=== PATIENT | female | born 1950 | race Two or more races ===

== ENCOUNTER 2025-08-15 06:25 | Inpatient (IN) | payer OTHER, MEDICAID ==
[~2025-08-15] VITALS: Ht 160 cm; Wt 64.5 kg
[2025-08-15] VITALS (59 sets, daily range): BP systolic 89–160; BP diastolic 48–89; PULSE 45–106; RESP 18–31; TEMP 93.6–98.8; O2SAT 98–100
--- NOTE | 2025-08-15 06:35 | ECG ---
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
--- NOTE | 2025-08-15 06:38 | ED.PDOC ---
CPR-HPI HPI Comments 75 year old female PMHx Dementia presents to the ED with a chief compliant of cardiac arrest. Per EMS, patient's family stated patient was last seen well around 00:00. Prior to EMS arrival, CPR began 10 minutes prior to their arrival, patient was asystole, CPR continued in route to ED, BG was 140, 1 epi was given, ROSC prior to ED arrival. Upon ED arrival, BG was 207, BP 154/62, NSR 70 bpm, patient was intubated with 8.0 ett 22 cm @lips. Chief Complaint: CPR Time Seen by MD: 06:19 Reviewed Notes: Nurses Notes, Medications, Allergies Allergies: Coded Allergies: NO KNOWN ALLERGIES (Unverified , 08/15/25) Information Source: Emergency Med Personnel Mode of Arrival: EMS Timing: Minutes Comments 10 minutes Onset: At rest Inital rhythm: Asystole Treatment: CPR, Epinephrine Past Medical History PAST MEDICAL HISTORY: Dementia Surgical History: Denies all surgeries HAND TIER History: No Pertinent HAND TIER History Family History Family History: Unknown Social History Smoker: Unknown Alcohol: Unknown Drugs: Unknown Lives In: Home Unable to Obtain due to: Medical Urgency Physical Exam General Appearance: Severe Distress HEENT: Pale Conjuntivae (L), Pale Conjuntivae (R), Pharynx Normal, TMs Normal Neck: Full Range of Motion, Non-Tender, Normal, Normal Inspection Respiratory: Chest Non-Tender, Decreased Breath Sounds (On the left side), Respiratory Distress Cardiovascular: No Edema, No JVD, No Murmur, No Gallop, Normal Peripheral Pulses, Regular Rate/Rhythm Breast Exam: Deferred Gastrointestinal: No Organomegaly, Non Tender, No Pulsatile Mass, Normal Bowel Sounds, Soft Genitalia: Deferred Pelvic: Deferred Rectal: Deferred Extremities: No calf tenderness, Normal capillary refill, No pedal edema Musculoskeletal : Apperance: Normal Neurologic: marketing technologist II-XII nml as Tested, No Sensory Deficits, Other (GCS of three) Cerebellar Function: Normal Reflexes: Normal Skin: Dry, Pallor, Warm Lymphatic: No Adenopathy EKG EKG #1: Pulse Rate (adult): 102 Bailey: LAD Comments low voltage EKG #2: Pulse Rate (adult): 77 Bailey: LAD Cardiac Rhythm: NSR Was a procedure done? Was a procedure done?: Yes Sedation Sedation?: No Central Line Recorder of insertion practice: Veterinary Manager Occupation of front office developer: Attending Physician Indication: Inability to obtain IV Room prepared for procedure: Yes Veterinary Manager performed hand hygien: Yes Maximal sterile barrier precau: Mask/Eye shield, Sterile gown, Cap, Sterlie gloves, Large sterlie drape Skin Preparation: Chlorhexidine gluconate, Providine iodine, Alcohol Skin preparation completely dr: Yes Insertion site: Right, Internal jugular Central line catheter type: [id number] dialysis Number of lumens: 3 Central line exchanged over a: Yes Antiseptic ointment applied to: Yes Post Assessment: Chest X-Ray, Proper placement Informed consent obtained: Yes Risks/benefits/alt described: Yes Chest Tube Indication: Pneumothorax Procedure: Sterile preparation, Chest Tube Size (24) Site: L 3rd intercostal space Drainage: Air Informed consent obtained: Yes Risks/benefits/alt described: Yes Intubation Indication: Respiratory Insufficiency Prep: Preoxygenation Medicated with: Other (epinephrine) Intubation Approach: Orotracheal (8.0 ) Intubation size: cm (22 2 lips) Informed consent obtained: Yes Risks/benefits/alt described: Yes Differential Dx CPR Differential Diagnosis: Cardiopulmonary arrest, Cardiogenic shock, Myocardial Infarction, Respiratory Failure X-Ray, Labs, Meds, VS Vital Signs Date Time Temp Pulse Resp B/P (MAP) Pulse Ox O2 Delivery O2 Flow Rate FiO2 08/15/25 09:10 74 24 127/58 (81) 98 30 08/15/25 08:46 62 24 137/57 (83) 100 08/15/25 08:42 86/49 08/15/25 08:36 58/30 08/15/25 08:30 70 24 97/53 (68) 08/15/25 08:29 98/53 08/15/25 08:24 94 24 100 Mechanical Ventilator+ 100 100 08/15/25 08:15 78 24 115/65 (82) 08/15/25 08:00 80 8 107/60 (76) 08/15/25 08:00 80 08/15/25 07:26 77 08/15/25 07:23 77 08/15/25 07:00 79 24 92/46 (61) 100 08/15/25 06:57 113/56 08/15/25 06:50 80 23 112/55 (74) 100 08/15/25 06:45 94.8 100 31 154/62 100 60.0 100 94.8 08/15/25 06:38 102 08/15/25 06:37 100 31 154/62 (92) 100 100 08/15/25 06:37 94 100 Mechanical Ventilator+ 100 100 08/15/25 06:37 94.8 95 9 143/73 (96) 100 94.8 08/15/25 06:30 94.8 102 11 154/62 (92) 100 94.8 08/15/25 06:29 94.8 80 6 118/52 98 94.8 08/15/25 06:28 102 08/15/25 06:25 94.8 94 12 176/74 (108) 100 94.8 Lab Test 08/15/25 09:15 08/15/25 08:55 08/15/25 08:35 08/15/25 06:44 Range/Units Urine Color Yellow Yellow Urine Clarity Turbid H Clear Urine pH 6.0 5.0-9.0 Urine Specific [place] 1.014 1.001-1.035 Urine Protein 3+ H Negative Urine Ketones Negative Negative Urine Blood 3+ H Negative /uL Urine Nitrite Negative Negative Urine Bilirubin Negative Negative Urine Urobilinogen Normal Negative mg/dL Urine Leukocyte Esterase Trace Negative /uL Urine RBC 105 0 - 4 /hpf Urine Microscopic WBC 43 H 0-5 /HPF Urine Squamous Epithelial Cells Few <5 /hpf Urine Bacteria Few H None Seen /hpf Urine Glucose 1+ H Normal mg/dL Blood Gas Specimen Type Arterial Blood Gas Sample Site Right radial Blood Gas Patient Temperature 37.0 Arterial Blood Date Drawn [id number] Arterial Blood pH 7.295 L 7.350-7.450 Arterial Blood Partial Pressure CO2 28.1 L 32.0-45.0 mmHg Arterial Blood Partial Pressure O2 > 533.6 *H 83.0-108.0 mmHg Arterial Blood HCO3 13.4 L 21.0-28.0 mmol/L Arterial Blood Oxygen Saturation 100.0 H 94.0-98.0 % Arterial Blood Base Excess -11.7 L -2.0-3.0 mmol/L Arterial Blood Oxyhemoglobin 99.1 H 94.0-98.0 % Arterial Blood Carboxyhemoglobin 0.3 L 0.5-1.5 % Arterial Blood Methemoglobin 0.6 0.0-1.5 % Rafael Test Modified Blood Gas Total Hemoglobin 11.30 L 12.0-16.0 g/dL Blood Gas Set Respiration Rate 24.0 Blood Gas Modality Vent - ac FiO2 % 100.0 Blood Gas Tidal Volume 400.0 Blood Gas PEEP or CPAP 5.0 Blood Gas Critical Value Read Back yes Blood Gas Notified Whom Blood Gas Notified Time [id number] Blood Gas Notified By log raft worker ozzie Lactic Acid Level 7.1 *H 9.7 *H 0.4-2.0 mmol/L Troponin I High Sensitivity 44 *H 15 </=34 ng/L White Blood Count 11.4 H 4.4-10.8 10^3/uL Red Blood Count 3.30 L 4.0-5.20 10^6/uL Hemoglobin 10.6 L 12.2-16.2 g/dL Hematocrit 32.4 L 36.0-46.0 % Mean Corpuscular Volume 98.3 80.0-100.0 fL Mean Corpuscular Hemoglobin 32.2 H 28.0-32.0 pg Mean Corpuscular Hemoglobin Concent 32.7 32.0-36.0 g/dL Red Cell Distribution Width 13.1 11.8-14.3 % Platelet Count 304 140-450 10^3/uL Mean Platelet Volume 7.5 6.9-10.8 fL Neutrophils (%) (Auto) 67.7 37.0-80.0 % Lymphocytes (%) (Auto) 29.9 10.0-50.0 % Monocytes (%) (Auto) 2.2 0.0-12.0 % Eosinophils (%) (Auto) 0.0 0.0-7.0 % Basophils (%) (Auto) 0.2 0.0-2.0 % Neutrophils # (Auto) 7.7 1.6-8.6 10 ^3/uL Lymphocytes # (Auto) 3.4 0.4-5.4 10 ^3/uL Monocytes # (Auto) 0.3 0-1.3 10 ^3/uL Eosinophils # (Auto) 0 0-0.8 10 ^3/uL Basophils # (Auto) 0 0-0.2 10 ^3/uL Nucleated Red Blood Cells 0.1 % Prothrombin Time 11.7 9.3-11.8 sec Prothrombin Time INR 1.12 0.9-1.15 Activated Partial Thromboplast Time 29.9 24.5-34.5 SEC Sodium Level 139 136-145 mmol/L Potassium Level 4.2 3.5-5.1 mmol/L Chloride Level 105 98-107 mmol/L Carbon Dioxide Level 13 L 20-31 mmol/L Anion Gap 21 H 5-15 Blood Urea Nitrogen 17 9-23 mg/dL Creatinine 1.15 H 0.550-1.02 mg/dL Glomerular Filtration Rate Calc 49 >90 mL/min BUN/Creatinine Ratio 14.8 10.0-20.0 Serum Glucose 257 H 74-106 mg/dL Calcium Level 8.7 8.7-10.4 mg/dL Current Medications Medications (Trade) Dose Ordered Sig/Kenyon Route Start Time Stop Time Status Last Admin Norepinephrine Bitartrate 250 ml @ 3.75 mls/hr Q24H IV 08/15/25 06:30 08/15/25 08:29 Midazolam HCl 50 ml @ 1 mls/hr Q24H IV 08/15/25 06:45 08/15/25 06:57 Sodium Chloride 1,000 ml @ 1,000 mls/hr Q1H ONCE IV 08/15/25 08:45 08/15/25 09:44 DC 08/15/25 08:45 PROCEDURE(s): CXRP - CHEST PORTABLE Bones: Multiple left rib fractures noted. IMPRESSION: 1. Left pneumothorax, approximately 35%. 2. Endotracheal tube terminates 1.1 cm above the arin. Retraction by 1-2 cm is recommended. 3. Multiple left rib fractures. 4. Pulmonary edema noted. The endotracheal tube was pulled back. The repeat chest x-ray showed the chest tube in place with some resolve of the pneumothorax For sedation, the patient was given Versed IV piggyback The patient became somewhat hypotensive following the Versed so the patient was started on norepinephrine. The patient was bolused with normal saline at 1 L bolus. The 1st lactic acid level came back at 9.7. We are hydrating the patient and the 2nd lactic acid is still elevated at 7.1 The patient is troponin level went from 15-44. We feel that the troponin level could be secondary to the CPR The CBC shows anemia with a hemoglobin of 10.6 and hematocrit of 32.4 We feel that the rib fractures are also secondary to the CPR that was performed The chemistry panel is within normal limits. We have allowed the family members to be at bedside and we did explain to them the patient's condition. A Winters catheter was placed. An NG-tube was also placed which shows good placement. The chest x-ray that was done shows a central line in place on the right side We has been following the patient's ABGs. At this time, the patient will be admitted to the ICU Critical Care involved bedside management as well as interpretation of labs and images The patient is a [place] patient and we did get authorization for admission The authorization #[id number] Images Reviewed?: Images reviewed and evaluated by me Time of 1ST Reevaluation: 06:49 Reevaluation 1ST: Unchanged Patient Education/Counseling: Other Family Education/Counseling: Diagnosis, Treatment, Prognosis SEPSIS Sepsis Screen Physician Orders Chest Portable (08/15/25 06:26) Winters Catheters (08/15/25 06:26) Ngt/Ogt (08/15/25:26) Mems Integration Engineer (08/15/25:26) Blood Pressure (08/15/25:26) Pulse Oximetry (08/15/25:26) Heplock Iv (08/15/25:26) Blood Culture (08/15/25:26) Norepinephrine 8 Mg/250ml Kit (Levophed) (08/15/25 06:30) Troponin-I Hs (08/15/25 09:26) Midazolam Drip 50 Mg/50ml (Versed Drip 5 (08/15/25 06:45) Rass Sedation Scale Q1HR (08/15/25 06:35) Ventilator Orders (08/15/25 06:35) Abg W/ Co-Ox (08/15/25 07:30) Respiratory Culture W/ Gs (08/15/25 06:35) Head Without Contrast (08/15/25 07:16) Chest Portable (08/15/25 08:16) Sodium Chloride 0.9% (08/15/25 08:45) Vital Signs Date Time Temp Pulse Resp B/P (MAP) Pulse Ox O2 Delivery O2 Flow Rate FiO2 08/15/25 09:10 74 24 127/58 (81) 98 30 08/15/25 08:46 62 24 137/57 (83) 100 10/13/25 08:42 86/49 08/15/25 08:36 58/30 08/15/25 08:30 70 24 97/53 (68) 08/15/25 08:29 98/53 08/15/25 08:24 94 24 100 Mechanical Ventilator+ 100 100 08/15/25 08:15 78 24 115/65 (82) 08/15/25 08:00 80 8 107/60 (76) 08/15/25 08:00 80 08/15/25 07:26 77 08/15/25 07:23 77 08/15/25 07:00 79 24 92/46 (61) 100 08/15/25 06:57 113/56 08/15/25 06:50 80 23 112/55 (74) 100 08/15/25 06:45 94.8 100 31 154/62 100 60.0 100 94.8 08/15/25 06:38 102 08/15/25 06:37 100 31 154/62 (92) 100 100 08/15/25 06:37 94 100 Mechanical Ventilator+ 100 100 08/15/25 06:37 94.8 95 9 143/73 (96) 100 94.8 08/15/25 06:30 94.8 102 11 154/62 (92) 100 94.8 08/15/25 06:29 94.8 80 6 118/52 98 94.8 08/15/25 06:28 102 08/15/25 06:25 94.8 94 12 176/74 (108) 100 94.8 Laboratory Tests Test 08/15/25 06:44 08/15/25 08:35 Lactic Acid Level 9.7 mmol/L (0.4-2.0) *H 7.1 mmol/L (0.4-2.0) *H White Blood Count 11.4 10^3/uL (4.4-10.8) H Medications Medications Dose Ordered Sig/Kenyon Route Start Time Stop Time Status Last Admin Dose Admin Midazolam HCl 50 ml @ 1 mls/hr Q24H IV 08/15/25 06:45 08/15/25 06:57 Norepinephrine Bitartrate 250 ml @ 3.75 mls/hr Q24H IV 08/15/25 06:30 08/15/25 08:29 Sodium Chloride 1,000 ml @ 1,000 mls/hr Q1H ONCE IV 08/15/25 08:45 08/15/25 09:44 DC 08/15/25 08:45 Departure 1 Departure Time of Disposition: 09:50 Impression: Primary Impression: Cardiopulmonary arrest Additional Impressions: Elevated lactic acid level Closed traumatic fracture of ribs of left side with pneumothorax Disposition: ADMITTED INPATIENT Admit to: ICU Condition: Critical Critical Care Note Critical Care Time?: Yes (1 hr-critical care time only) Heart Score Heart Score: Heart Score Response (Comments) Value History N/A 0 EKG N/A 0 Age N/A 0 Risk Factors N/A 0 Troponin N/A 0 Total 0 Stability Stability form required: Yes Unstable for transfer: ICU, CCU, PCU, AMA (Intensive VS monitoring), Low BP (low high or fluctuating BP), ED Physician Assesment (Clinical assesment) I personally scribed for WALESKA MCPHERSON MD ([email or web address]) on 08/15/25 at 06:38. Electronically submitted by Christina Mims ([email or web address]). I personally scribed for WALESKA MCPHERSON MD ([email or web address]) on 08/15/25 at 07:18. Electronically submitted by Christina Mims ([email or web address]). I personally scribed for WALESKA MCPHERSON MD ([email or web address]) on 08/15/25 at 07:26. Electronically submitted by Christina Mims ([email or web address]). I personally scribed for WALESKA MCPHERSON MD ([email or web address]) on 08/15/25 at 08:34. Electronically submitted by Christina Mims ([email or web address]). I personally scribed for WALESKA MCPHERSON MD ([email or web address]) on 08/15/25 at 08:57. Electronically submitted by Christina Mims ([email or web address]). I personally scribed for WALESKA MCPHERSON MD ([email or web address]) on 08/15/25 at 08:58. Electronically submitted by Christina Mims ([email or web address]). WALESKA MCPHERSON MD Aug 15, 2025 06:38
[2025-08-15] MEDS: MIDAZOLAM DRIP 50 mg/50mL 50 ML IV SCH (06:57)
[2025-08-15 07:14] LABS: Hematocrit 32.4 % (36.0-46.0); Hemoglobin 10.6 g/dL (12.2-16.2); Mean Corpuscular Hemoglobin 32.2 pg (28.0-32.0); Mean Corpuscular Volume 98.3 fL (80.0-100.0); Nucleated Red Blood Cells % 0.1 %
--- NOTE | 2025-08-15 07:19 | DVH ---
CHEST RADIOGRAPH Indication: cpr Technique: Single frontal view of the chest was obtained Comparison: None FINDINGS: The patient is rotated which limits evaluation. Lines and Tubes: The endotracheal tube terminates 1.1 cm above the arin. There is a right central venous catheter with its tip terminating in the superior vena cava. Lungs: Hazy bilateral opacities noted. Pleura: No effusion. There is a left pneumothorax, approximately 35%. Cardiomediastinal contours: Unremarkable Bones: Multiple left rib fractures noted. IMPRESSION: 1. Left pneumothorax, approximately 35%. 2. Endotracheal tube terminates 1.1 cm above the arin. Retraction by 1-2 cm is recommended. 3. Multiple left rib fractures. 4. Pulmonary edema noted.
[2025-08-15 07:21] LABS: Chloride 105 mmol/L (98-107); Potassium 4.2 mmol/L (3.5-5.1); Sodium 139 mmol/L (136-145)
[2025-08-15 07:22] LABS: Anion Gap 21 (5-15); Calcium 8.7 mg/dL (8.7-10.4)
--- NOTE | 2025-08-15 07:24 | ECG ---
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
[2025-08-15 07:27] LABS: BUN/Creatinine Ratio 14.8 (10.0-20.0); Blood Urea Nitrogen 17 mg/dL (9-23)
[2025-08-15 07:34] LABS: Carbon Dioxide 13 mmol/L (20-31); Glucose 257 mg/dL (74-106)
[2025-08-15 07:35] LABS: Lactic Acid w/Reflex 9.7 mmol/L (0.4-2.0)
[2025-08-15 07:45] LABS: INR 1.12 (0.9-1.15); Partial Thromboplastin Time 29.9 SEC (24.5-34.5); Prothrombin Time 11.7 sec (9.3-11.8)
[2025-08-15] MEDS: LIDOCAINE 2%HCL (LOCAL ANESTH.) INJ 20ML MDV ONE (07:58)
[2025-08-15] MEDS: NOREPINEPHRINE 8 MG/250ML KIT 250 ML IV SCH (08:29)
[2025-08-15] MEDS: SODIUM CHLORIDE 0.9% 1,000 ML IV ONE (08:45)
--- NOTE | 2025-08-15 08:45 | DVH ---
EXAM: XY CHEST PORTABLE Indication: CHEST TUBE PLACEMENT VERIFICATION Technique: Single frontal view of the chest was obtained Comparison: XY CHEST PORTABLE on DOS: 08/15/25 FINDINGS: Lines and Tubes: Endotracheal tube projects 2 cm above the arin. Enteric tube tip projects over exp ected region stomach. Right central venous catheter projects over superior vena cava. Left chest tube visualized. Lungs: Left pneumothorax has decreased compared to prior exam. No pneumothorax. Cardiomediastinal contours: Unremarkable Bones: Multiple left rib fractures. IMPRESSION: Interval placement of left chest tube with decreased left pneumothorax compared to prior exam.
[2025-08-15 08:59] LABS: Base Excess -11.7 mmol/L (-2.0-3.0)
[2025-08-15 09:31] LABS: Urine Protein, UAD 3+ (Negative)
--- NOTE | 2025-08-15 09:43 | ECG ---
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
--- NOTE | 2025-08-15 09:56 | DVH ---
EXAM: CT HEAD WITHOUT CONTRAST HISTORY: cpr COMPARISON: None TECHNIQUE: Noncontrast axial CT images of the head were performed. Sagittal and coronal reformatted i mages were obtained. This CT exam was performed using 1 or more of the following dose reduction techn iques: Automated exposure control, adjustment of the mA and/or kv according to patient size, or the u se of iterative reconstruction techniques. Radiation Dose: CTDI volume is 50.73 mGy. Dose-length product is 811.62 mGy*cm FINDINGS: There is global brain atrophy with prominence of the ventricular system and sulci. The ventricular s ystem is dilated out of proportion to the size of the sulci. No intracranial hemorrhage, mass, midlin e shift, or evidence of acute large vessel infarct. The paranasal sinuses are clear. The bilateral m astoid air cells and middle ear spaces are clear. No cranial fracture or scalp edema. Endotracheal tu be and right NG tube are partially visualized. IMPRESSION: Global brain atrophy with prominence of the ventricular system out of proportion to the size of the s ulci. This appearance may be due to central brain atrophy or normal pressure hydrocephalus.
[2025-08-15] MEDS ORDERED: MORPHINE SULFATE INJ 2 MG/ml SYRG IV PRN (10:30)
[2025-08-15] MEDS ORDERED: NITROGLYCERIN 0.4 MG SL TAB SL PRN (10:30)
[2025-08-15] MEDS ORDERED: DEXTROSE (50%) 50ML SYRG IV PRN (10:30)
[2025-08-15] MEDS ORDERED: ONDANSETRON HCL 4 MG/2 ML VIAL IV PRN (10:30)
--- NOTE | 2025-08-15 10:30 | DVHHP2 ---
History of Present Illness Reason for Visit: Cardiopulmonary arrest History of Present Illness The patient is a 75-year-old female with past medical history of dementia presented to [facility] ED for evaluation of cardiac arrest. As reported by EMS, patient's family reports that she was last seen well last midnight, became altered so EMS were called. When EMS arrived on the scene, CPR began 10 minutes prior to their arrival, continued CPR EN route to ED, 1 epinephrine was given, ROSC prior to ED arrival. Patient was seen, evaluated and fully intubated. Laboratory data shows WBC 11.4, hemoglobin 10.6, hematocrit 32.4, platelets 304, sodium 139, potassium 4.2, BUN 17, creatinine 1.15, GFR 49, glucose 257, calcium 8.7, troponin 44, lactic acid 9.7 trending down to 7.1, blood pressure 103/64, heart rate 84, temperature 91.4 F, O2 saturation 100% on ventilator. Chest x-ray revealing left pneumothorax, proximally 35%, endotracheal tube terminates 1.1 cm above the arin, retraction by 1-2 cm is recommended; multiple left rib fracture, pulmonary edema noted. A repeat chest x-ray revealing interval placement of left chest tube with decreased left pneumothorax compared to prior exam. Head CT revealing global brain atrophy with prominence of the ventricular system out of proportion to the size of the sulci. Patient was started on IV antibiotic regimen vancomycin, please see medication orders section in the computer. On my assessment, patient remains fully intubated, no diaphoresis, currently on ventilator, no diarrhea, vomiting, fever, chills. Patient was admitted for further evaluation and medical management. Past Medical History Dementia Past Surgical History Unobtainable Family History Reviewed, noncontributory to the management of this case. Past Social History The patient lives at home, no history of smoking, alcohol or illicit drugs abuse on file. Review of Systems Constitutional: Yes: Weakness; No: Fever, Chills, Sweats, Malaise, Other Eyes: No: Pain, Vision change, Conjunctivae inflammation, Eyelid inflammation, Other, Redness ENT: No: Ear pain, Ear discharge, Nose pain, Nose discharge, Nose congestion, Mouth pain, Mouth swelling, Throat pain, Throat swelling, Other Respiratory: Shortness of breath; No: Cough, Dry, SOB with excertion, Wheezing, Hemoptysis, Pleuritic Pain, Sputum, Wheezing, Other Cardiovascular: Other (Cardiac arrest); No: Chest Pain, Palpitations, Orthopnea, Paroxysmal Noc. Dyspnea, Edema, Lt Headedness Gastrointestinal: No: Nausea, Vomiting, Abdominal Pain, Diarrhea, Constipation, Melena, Hematochezia, Other Genitourinary: No Dysuria, No Frequency, No Incontinence, No Hematuria, No Retention, No Other Musculoskeletal: No: other, neck pain, shoulder pain, arm pain, back pain, hand pain, leg pain, foot pain Skin: No: Rash, Lesions, Jaundice, Bruising, Other Neurological: No: Weakness, Numbness, Incoordination, Change in speech, Confusion, Seizures, Other Allergies: Coded Allergies: NO KNOWN ALLERGIES (Unverified , 08/15/25) Medications Current Medications Medications Dose Ordered Sig/Ken[place] Route Start Time Stop Time Status Last Admin Dose Admin Norepinephrine Bitartrate 250 ml @ 3.75 mls/hr Q24H IV 08/15/25 06:30 08/15/25 08:29 3.75 MLS/HR Midazolam HCl 50 ml @ 1 mls/hr Q24H IV 08/15/25 06:45 08/15/25 06:57 1 MLS/HR Exam Vital Signs Vital Signs Date Time Temp Pulse Resp B/P (MAP) Pulse Ox O2 Delivery O2 Flow Rate FiO2 08/15/25 10:15 91.8 82 24 103/58 (73) 100 91.8 08/15/25 09:10 30 08/15/25 08:24 Mechanical Ventilator+ 08/15/25 06:45 60.0 General Appearance: Other (Patient is fully intubated) HEENT: Atraumatic, PERRLA, EOMI, Mucous membr. moist/pink Respiratory: Normal air movement, Other (On ventilator) Cardiovascular: Regular rate, Normal S1, Normal S2, No murmurs Abdominal: Normal bowel sounds, Soft, No tenderness, No hepatospenomegaly, No masses Extremities: No clubbing, No cyanosis, No edema, Normal pulses, No tenderness/swelling Skin: No rashes, No significant lesion Neuro: Normal tone, Other (Altered level of consciousness) Psych/Mental Status: Other (Unobtainable) Labs/Xrays Labs Test 08/15/25 09:15 08/15/25 08:55 08/15/25 08:35 08/15/25 06:44 Range/Units Urine Color Yellow Yellow Urine Clarity Turbid H Clear Urine pH 6.0 5.0-9.0 Urine Specific [place] 1.014 1.001-1.035 Urine Protein 3+ H Negative Urine Ketones Negative Negative Urine Blood 3+ H Negative /uL Urine Nitrite Negative Negative Urine Bilirubin Negative Negative Urine Urobilinogen Normal Negative mg/dL Urine Leukocyte Esterase Trace Negative /uL Urine RBC 105 0 - 4 /hpf Urine Microscopic WBC 43 H 0-5 /HPF Urine Squamous Epithelial Cells Few <5 /hpf Urine Bacteria Few H None Seen /hpf Urine Glucose 1+ H Normal mg/dL Blood Gas Specimen Type Arterial Blood Gas Sample Site Right radial Blood Gas Patient Temperature 37.0 Arterial Blood Date Drawn [id number] Arterial Blood pH 7.295 L 7.350-7.450 Arterial Blood Partial Pressure CO2 28.1 L 32.0-45.0 mmHg Arterial Blood Partial Pressure O2 > 533.6 *H 83.0-108.0 mmHg Arterial Blood HCO3 13.4 L 21.0-28.0 mmol/L Arterial Blood Oxygen Saturation 100.0 H 94.0-98.0 % Arterial Blood Base Excess -11.7 L -2.0-3.0 mmol/L Arterial Blood Oxyhemoglobin 99.1 H 94.0-98.0 % Arterial Blood Carboxyhemoglobin 0.3 L 0.5-1.5 % Arterial Blood Methemoglobin 0.6 0.0-1.5 % Rafael Test Modified Blood Gas Total Hemoglobin 11.30 L 12.0-16.0 g/dL Blood Gas Set Respiration Rate 24.0 Blood Gas Modality Vent - ac FiO2 % 100.0 Blood Gas Tidal Volume 400.0 Blood Gas PEEP or CPAP 5.0 Blood Gas Critical Value Read Back yes Blood Gas Notified Whom Blood Gas Notified Time [id number] Blood Gas Notified By naomy horne Lactic Acid Level 7.1 *H 0.4-2.0 mmol/L Troponin I High Sensitivity 44 *H </=34 ng/L White Blood Count 11.4 H 4.4-10.8 10^3/uL Red Blood Count 3.30 L 4.0-5.20 10^6/uL Hemoglobin 10.6 L 12.2-16.2 g/dL Hematocrit 32.4 L 36.0-46.0 % Mean Corpuscular Volume 98.3 80.0-100.0 fL Mean Corpuscular Hemoglobin 32.2 H 28.0-32.0 pg Mean Corpuscular Hemoglobin Concent 32.7 32.0-36.0 g/dL Red Cell Distribution Width 13.1 11.8-14.3 % Platelet Count 304 140-450 10^3/uL Mean Platelet Volume 7.5 6.9-10.8 fL Neutrophils (%) (Auto) 67.7 37.0-80.0 % Lymphocytes (%) (Auto) 29.9 10.0-50.0 % Monocytes (%) (Auto) 2.2 0.0-12.0 % Eosinophils (%) (Auto) 0.0 0.0-7.0 % Basophils (%) (Auto) 0.2 0.0-2.0 % Neutrophils # (Auto) 7.7 1.6-8.6 10 ^3/uL Lymphocytes # (Auto) 3.4 0.4-5.4 10 ^3/uL Monocytes # (Auto) 0.3 0-1.3 10 ^3/uL Eosinophils # (Auto) 0 0-0.8 10 ^3/uL Basophils # (Auto) 0 0-0.2 10 ^3/uL Nucleated Red Blood Cells 0.1 % Prothrombin Time 11.7 9.3-11.8 sec Prothrombin Time INR 1.12 0.9-1.15 Activated Partial Thromboplast Time 29.9 24.5-34.5 SEC Sodium Level 139 136-145 mmol/L Potassium Level 4.2 3.5-5.1 mmol/L Chloride Level 105 98-107 mmol/L Carbon Dioxide Level 13 L 20-31 mmol/L Anion Gap 21 H 5-15 Blood Urea Nitrogen 17 9-23 mg/dL Creatinine 1.15 H 0.550-1.02 mg/dL Glomerular Filtration Rate Calc 49 >90 mL/min BUN/Creatinine Ratio 14.8 10.0-20.0 Serum Glucose 257 H 74-106 mg/dL Calcium Level 8.7 8.7-10.4 mg/dL PATIENT: ROBERT ECHEVERRIAACCT: [id number] UNIT: [id number] : 1950 LOC: ER ROOM / BED: / AGE / SEX: 75 / F ADM STATUS: REG ER SERVICE 5 ORDERING PHYSICIAN: WALESKA KUMAR MD PROCEDURE(s): CXRP - CHEST PORTABLE REASON: cpr ORDER NUMBER(s): [id number], ACCESSION NUMBER(s): [id number] ADDENDUM ADDENDUM # 1 critical result: Pneumothorax Findings discussed with Dr. Kumar on 08/15/2025 at 10:[address] Carpenter, with acknowledged receipt and understanding of the findings. ORIGINAL REPORT CHEST RADIOGRAPH Indication: cpr Technique: Single frontal view of the chest was obtained Comparison: None FINDINGS: The patient is rotated which limits evaluation. Lines and Tubes: The endotracheal tube terminates 1.1 cm above the arin. There is a right central venous catheter with its tip terminating in the superior vena cava. Lungs: Hazy bilateral opacities noted. Pleura: No effusion. There is a left pneumothorax, approximately 35%. Cardiomediastinal contours: Unremarkable Bones: Multiple left rib fractures noted. IMPRESSION: 1. Left pneumothorax, approximately 35%. 2. Endotracheal tube terminates 1.1 cm above the arin. Retraction by 1-2 cm is recommended. 3. Multiple left rib fractures. 4. Pulmonary edema noted. DICTATED BY: RIO CARPENTER MD DICTATED DATE/TIME: 08/15/25743 SIGNED BY: RIO CARPENTER MD SIGNED DATE/TIME: 08/15/25743 CC: CHEST RADIOGRAPH Indication: cpr Technique: Single frontal view of the chest was obtained Comparison: None FINDINGS: The patient is rotated which limits evaluation. Lines and Tubes: The endotracheal tube terminates 1.1 cm above the arin. There is a right central venous catheter with its tip terminating in the superior vena cava. Lungs: Hazy bilateral opacities noted. Pleura: No effusion. There is a left pneumothorax, approximately 35%. Cardiomediastinal contours: Unremarkable Bones: Multiple left rib fractures noted. IMPRESSION: 1. Left pneumothorax, approximately 35%. 2. Endotracheal tube terminates 1.1 cm above the arin. Retraction by 1-2 cm is recommended. 3. Multiple left rib fractures. 4. Pulmonary edema noted. ORDERING PHYSICIAN: WALESKA KUMAR MD PROCEDURE(s): HWOCT - HEAD WITHOUT CONTRAST REASON: cpr ORDER NUMBER(s): [id number], ACCESSION NUMBER(s): [id number] EXAM: CT HEAD WITHOUT CONTRAST HISTORY: cpr COMPARISON: None TECHNIQUE: Noncontrast axial CT images of the head were performed. Sagittal and coronal reformatted images were obtained. This CT exam was performed using 1 or more of the following dose reduction techniques: Automated exposure control, adj ustment of the mA and/or kv according to patient size, or the use of iterative reconstruction techniques. Radiation Dose: CTDI volume is 50.73 mGy. Dose-length product is 811.62 mGy*cm FINDINGS: There is global brain atrophy with prominence of the ventricular system and sulci. The ventricular system is dilated out of proportion to the size of the sulci. No intracranial hemorrhage, mass, midline shift, or evidence of acute large vessel infarct. The paranasal sinuses are clear. The bilateral mastoid air cells and middle ear spaces are clear. No cranial fracture or scalp edema. Endotracheal tube and right NG tube are partially visualized. IMPRESSION: Global brain atrophy with prominence of the ventricular system out of proportion to the size of the sulci. This appearance may be due to central brain atrophy or normal pressure hydrocephalus. ORDERING PHYSICIAN: WALESKA KUMAR MD PROCEDURE(s): CXRP - CHEST PORTABLE REASON: CHEST TUBE PLACEMENT VERIFICATION ORDER NUMBER(s): [id number], ACCESSION NUMBER(s): [id number] EXAM: XY CHEST PORTABLE Indication: CHEST TUBE PLACEMENT VERIFICATION Technique: Single frontal view of the chest was obtained Comparison: XY CHEST PORTABLE on DOS: 08/15/25 FINDINGS: Lines and Tubes: Endotracheal tube projects 2 cm above the arin. Enteric tube tip projects over expected region stomach. Right central venous catheter projects over superior vena cava. Left chest tube visualized. Lungs: Left pneumothorax has decreased compared to prior exam. No pneumothorax. Cardiomediastinal contours: Unremarkable Bones: Multiple left rib fractures. IMPRESSION: Interval placement of left chest tube with decreased left pneumothorax compared to prior exam. SEPSIS Sepsis Screen Date sepsis recognized/suspect: Aug 15, 2025 Time Sepsis recognized/suspect: 640 Recent Procedure: No On Antibiotic Therapy: No Respiratory Rate >20: No Heart Rate >90: No Temp<36 C (96.8 F) or >38.3 C: No SBP <90 or MAP <65 mmHG: No New Acute Mental Status Change: No Is the patient on CPAP, BIPAP,: No Physician Orders Chest Portable (08/15/25 06:26) Winters Catheters (08/15/25 06:26) Ngt/Ogt (08/15/25 06:26) Utility Division Project Manager (08/15/25:26) Blood Pressure (08/15/25 06:26) Pulse Oximetry (08/15/25 06:26) Heplock Iv (08/15/25 06:26) Blood Culture (08/15/25 06:26) Norepinephrine 8 Mg/250ml Kit (Levophed) (08/15/25 06:30) Troponin-I Hs (08/15/25 09:26) Midazolam Drip 50 Mg/50ml (Versed Drip 5 (08/15/25 06:45) Rass Sedation Scale Q1HR (08/15/25 06:35) Ventilator Orders (08/15/25 06:35) Abg W/ Co-Ox (08/15/25 07:30) Respiratory Culture W/ Gs (08/15/25 06:35) Head Without Contrast (08/15/25 07:16) Chest Portable (08/15/25 08:16) Ceftriaxone Ivpb Rocephin (08/16/25 09:00) Ceftriaxone Ivpb Rocephin (08/15/25 10:30) * Cardiology Consult (08/15/25 10:19) * Orthopedic Consult (08/15/25 10:19) Hemoglobin A1c (08/15/25 10:19) Famotidine Injection (Pepcid Injection) (08/15/25 22:00) Furosemide Injection (Lasix Injection) (08/16/25 10:00) Lactic Acid W/ Reflex Order (08/15/25 13:00) Glucose Blood (Accu-Chek Comfort Curve T (08/15/25 12:00) Moderate Insulin Ss (08/15/25 12:00) Dextrose 50% Syringe (08/15/25 10:30) Admit (08/15/25 10:19) Allergies (08/15/25 10:19) Code Status (08/15/25 10:19) 0.9% Ns 1000 Ml (08/15/25 10:30) Oxygen Per Hour (08/15/25 10:19) Ondansetron Hcl (Zofran) (08/15/25 10:30) Fall Risk Precautions In Place QSHIFT (08/15/25 10:19) Complete Blood Count (08/16/25 04:00) Comprehensive Metabolic Panel (08/16/25 04:00) Npo (Nothing By Mouth) Diet (08/15/25 Lunch) Condition: Critical (08/15/25 10:19) Enoxaparin Sodium (Lovenox) (08/16/25 10:00) Maintain Bed Rest (08/15/25 10:19) Sequential Compression Device (08/15/25 ) Nitroglycerin Sublingual (Ntrostat Subli (08/15/25 10:30) Morphine Sulfate Injection (08/15/25 10:30) Stat Ekg For Chest Pain (08/15/25 10:19) Notify Md Of Changes From Base (08/15/25 10:19) Information Assurance Specialist For 24 Hours (08/15/25 10:19) Emergency Dysrhythmia Protocol (08/15/25 10:19) Rhythm Strips Once Every Shift (08/15/25 10:19) Oxygen By Nasal Cannula (08/15/25 10:19) Furosemide Injection (Lasix Injection) (08/15/25 10:30) Vital Signs Date Time Temp Pulse Resp B/P (MAP) Pulse Ox O2 Delivery O2 Flow Rate FiO2 08/15/25 10:15 91.8 82 24 103/58 (73) 100 91.8 08/15/25 10:00 91.4 84 24 103/63 (76) 100 91.4 08/15/25 09:45 91.2 82 24 129/74 (92) 100 91.2 08/15/25 09:42 85 08/15/25 09:10 74 24 127/58 (81) 98 30 10/13/25 08:46 62 24 137/57 (83) 100 08/15/25 08:42 86/49 08/15/25 08:36 58/30 08/15/25 08:30 70 24 97/53 (68) 08/15/25 08:29 98/53 08/15/25 08:24 94 24 100 Mechanical Ventilator+ 100 100 08/15/25 08:15 78 24 115/65 (82) 08/15/25 08:00 80 8 107/60 (76) 08/15/25 08:00 80 08/15/25 07:26 77 08/15/25 07:23 77 08/15/25 07:00 79 24 92/46 (61) 100 08/15/25 06:57 113/56 08/15/25 06:50 80 23 112/55 (74) 100 08/15/25 06:45 94.8 100 31 154/62 100 60.0 100 94.8 08/15/25 06:38 102 08/15/25 06:37 100 31 154/62 (92) 100 100 08/15/25 06:37 94 100 Mechanical Ventilator+ 100 100 08/15/25 06:37 94.8 95 9 143/73 (96) 100 94.8 08/15/25 06:30 94.8 102 11 154/62 (92) 100 94.8 08/15/25 06:29 94.8 80 6 118/52 98 94.8 08/15/25 06:28 102 08/15/25 06:25 94.8 94 12 176/74 (108) 100 94.8 Laboratory Tests Test 08/15/25 06:44 08/15/25 08:35 Lactic Acid Level 9.7 mmol/L (0.4-2.0) *H 7.1 mmol/L (0.4-2.0) *H White Blood Count 11.4 10^3/uL (4.4-10.8) H Medications Medications Dose Ordered Sig/[place] Route Start Time Stop Time Status Last Admin Dose Admin Midazolam HCl 50 ml @ 1 mls/hr Q24H IV 08/15/25 06:45 08/15/25 06:57 1 MLS/HR Norepinephrine Bitartrate 250 ml @ 3.75 mls/hr Q24H IV 08/15/25 06:30 08/15/25 08:29 3.75 MLS/HR Sodium Chloride 1,000 ml @ 1,000 mls/hr Q1H ONCE IV 08/15/25 08:45 08/15/25 09:44 DC 08/15/25 08:45 1,000 MLS/HR Assessment/Plan Assessment/Plan Cardiopulmonary arrest Hyperglycemia Pulmonary edema Metabolic encephalopathy Generalized weakness Sepsis, unspecified organism Closed traumatic fracture of ribs of left side with pneumothorax Plan 1. Admit to intensive care unit 2. Breathing treatment 3. Chest tube placement 4. IV antibiotic management 5. Management of fluids and electrolytes 6. Consultation for Cardiology/pulmonology 7. Diagnostic test chest x-ray 8. DVT prophylaxis-on Lovenox 9. Repeat labs CBC, CMP in a.m. 10. Home medication reviewed and reconciled 11. Continue with current medical management 12. Treatment plan discussed with patient and RN. Patient is fully intubated. Plan discussed with: Patient, Other (RN) My Orders Orders - LUIS A CASANOVA DNP Procedure Category Date Status Time Ceftriaxone Ivpb PHA 08/16/25 Transmitted Rocephin 09:00 Ceftriaxone Ivpb PHA 08/15/25 Transmitted Rocephin 10:30 * Cardiology Consult CONS 08/15/25 Transmitted 10:19 * Orthopedic Consult CONS 08/15/25 Transmitted 10:19 Hemoglobin A1c LAB 08/15/25 Transmitted 10:19 Famotidine Injection PHA 08/15/25 Transmitted (Pepcid Injection) 22:00 Furosemide Injection PHA 08/16/25 Transmitted (Lasix Injection) 10:00 Lactic Acid W/ Reflex LAB 08/15/25 Transmitted Order 13:00 Glucose Blood PHA 08/15/25 Transmitted (Accu-Chek Comfort 12:00 Moderate Insulin Ss PHA 08/15/25 Transmitted 12:00 Dextrose 50% Syringe PHA 08/15/25 Transmitted 10:30 Admit ADMIT 08/15/25 Transmitted 10:19 Allergies PRASANNA 08/15/25 Transmitted 10:19 Code Status CODE 08/15/25 Transmitted 10:19 0.9% Ns 1000 Ml PHA 08/15/25 Transmitted 10:30 Oxygen Per Hour RT 08/15/25 Transmitted 10:19 Ondansetron Hcl PHA 08/15/25 Transmitted (Zofran) 10:30 Fall Risk Precautions PRASANNA 08/15/[address] 10:19 Complete Blood Count LAB 08/16/25 Verified 04:00 Comprehensive LAB 08/16/25 Verified Metabolic Panel 04:00 Npo (Nothing By DIET 08/15/25 Transmitted Mouth) Diet Lunch Condition: Critical [facility] 08/15/25 Transmitted 10:19 Enoxaparin Sodium [facility] 08/16/25 Transmitted (Lovenox) 10:00 Maintain Bed Rest [facility] 08/15/25 Transmitted 10:19 Sequential [facility] 08/15/25 Transmitted Compression Device Nitroglycerin [facility] 08/15/25 Transmitted Sublingual (Ntrostat 10:30 Morphine Sulfate [facility] 08/15/25 Transmitted Injection 10:30 Stat Ekg For Chest [facility] 08/15/25 Transmitted Pain 10:19 Notify Md Of Changes [facility] 08/15/25 Transmitted From Base 10:19 Information Assurance Specialist For [facility] 08/15/25 Transmitted 24 Hours 10:19 Emergency Dysrhythmia [facility] 08/15/25 Transmitted Protocol 10:19 Rhythm Strips Once [facility] 08/15/25 Transmitted Every Shift 10:19 Oxygen By Nasal RT 08/15/25 Transmitted Cannula 10:19 Furosemide Injection [facility] 08/15/25 Transmitted (Lasix Injection) 10:30 Problem List: (1) Cardiopulmonary arrest (2) Hyperglycemia (3) Pulmonary embolism (4) Metabolic encephalopathy (5) Generalized weakness (6) Sepsis, unspecified organism (7) Closed traumatic fracture of ribs of left side with pneumothorax Date of Service: Aug 15, 2025 Billing Provider: LUIS A CASANOVA DNP Common Visit Codes: [id number] INP/OBS CARE (HIGH), [id number] CARE- EACH +30MIN LUIS A CASANOVA DNP Aug 15, 2025 10:30
[2025-08-15] MEDS: SODIUM CHLORIDE 0.9% 1,550 ML IV ONE (10:35)
[2025-08-15] MEDS: SODIUM CHLORIDE 0.9% 1,000 ML IV SCH (11:21)
[2025-08-15] MEDS: VANCOMYCIN 1GM/250ML KIT 250 ML IV ONE (11:23)
[2025-08-15] MEDS: FUROSEMIDE 20 MG/2 ML VIAL IV ONE (11:24)
[2025-08-15] MEDS: ENOXAPARIN SOD 30 MG/0.3 ML SYRINGE SC SCH (11:32)
[2025-08-15] MEDS: InsuLIN REG 1unit/0.01ml Soln (100units/ml) SC SCH (12:00)
[2025-08-15] MEDS: ACCU-CHEK COMFORT CURVE STRIP VI SCH (12:41)
[2025-08-15 13:32] LABS: Lactic Acid w/Reflex 3.1 mmol/L (0.4-2.0)
--- NOTE | 2025-08-15 15:47 | DVHINCON2 ---
Date of service: Aug 15, 2025 History of Present Illness 75 yo F ,frail cachectic, uses holistic medicine, has dementia here for asystolic arrest and cpr x 30 mins. pt is now on levophed intubated. Past Medical History reviewed Family History: FH: cancer G8 BROTHER G8 SISTER FH: lung cancer G8 FATHER Allergies: Coded Allergies: NO KNOWN ALLERGIES (Unverified , 08/15/25) Current Medications Current Medications Medications (Trade) Dose Ordered Sig/[place] Route PRN Reason Start Time Stop Time Status Last Admin Norepinephrine Bitartrate 250 ml @ 3.75 mls/hr Q24H IV 08/15/25 06:30 08/15/25 08:29 Midazolam HCl 50 ml @ 1 mls/hr Q24H IV 08/15/25 06:45 08/15/25 06:57 Ceftriaxone Sodium 50 ml @ 100 mls/hr DAILY@09 IV 08/16/25 09:00 Famotidine (Pepcid Injection) 20 mg Q12HR IV 08/15/25 22:00 Furosemide (Lasix Injection) 20 mg DAILY IV 08/16/25 10:00 Diagnostic Test (Pha) (Accu-Chek Comfort Curve T) 1 strip IQ4HR 08/15/25 12:00 08/15/25 12:41 Insulin Human Regular (InsuLIN R) IQ4HR SC 08/15/25 12:00 Dextrose 50 ml UD PRN IV Blood Sugar LESS THAN 60 08/15/25 10:30 Sodium Chloride 1,000 ml @ 60 mls/hr [id number] IV 08/15/25 10:30 08/15/25 11:21 Ondansetron HCl (Zofran) 4 mg Q4HP PRN IV NAUSEA / VOMITING 08/15/25 10:30 Enoxaparin Sodium (Lovenox) 30 mg DAILY SC 08/15/25 11:18 08/15/25 11:32 Nitroglycerin (Ntrostat Sublingual) 0.4 mg Q5MINP PRN SL FOR CHEST PAIN 08/15/25 10:30 Morphine Sulfate 2 mg Q30M PRN IV FOR CHEST PAIN 08/15/25 10:30 Review of Systems not obtainable Vital Signs Vital Signs Date Time Temp Pulse Resp B/P (MAP) Pulse Ox O2 Delivery O2 Flow Rate FiO2 08/15/25 15:08 93 24 105/54 (89) 100 30 08/15/25 15:00 95.9 204.6 08/15/25 14:10 Mechanical Ventilator+ 08/15/25 06:45 60.0 Physical Exam intubated sedated s1 s2 rrr diffuse rhonchi abd soft Labs/Diagnostic Data Labs Test 08/15/25 12:47 08/15/25 10:35 08/15/25 09:15 08/15/25 08:55 Range/Units Lactic Acid Level 3.1 *H 0.4-2.0 mmol/L Troponin I High Sensitivity 75 *H </=34 ng/L Urine Color Yellow Yellow Urine Clarity Turbid H Clear Urine pH 6.0 5.0-9.0 Urine Specific Mor[place] 1.014 1.001-1.035 Urine Protein 3+ H Negative Urine Ketones Negative Negative Urine Blood 3+ H Negative /uL Urine Nitrite Negative Negative Urine Bilirubin Negative Negative Urine Urobilinogen Normal Negative mg/dL Urine Leukocyte Esterase Trace Negative /uL Urine RBC 105 0 - 4 /hpf Urine Microscopic WBC 43 H 0-5 /HPF Urine Squamous Epithelial Cells Few <5 /hpf Urine Bacteria Few H None Seen /hpf Urine Glucose 1+ H Normal mg/dL Blood Gas Specimen Type Arterial Blood Gas Sample Site Right radial Blood Gas Patient Temperature 37.0 Arterial Blood Date Drawn [id number] Arterial Blood pH 7.295 L 7.350-7.450 Arterial Blood Partial Pressure CO2 28.1 L 32.0-45.0 mmHg Arterial Blood Partial Pressure O2 > 533.6 *H 83.0-108.0 mmHg Arterial Blood HCO3 13.4 L 21.0-28.0 mmol/L Arterial Blood Oxygen Saturation 100.0 H 94.0-98.0 % Arterial Blood Base Excess -11.7 L -2.0-3.0 mmol/L Arterial Blood Oxyhemoglobin 99.1 H 94.0-98.0 % Arterial Blood Carboxyhemoglobin 0.3 L 0.5-1.5 % Arterial Blood Methemoglobin 0.6 0.0-1.5 % Rafael Test Modified Blood Gas Total Hemoglobin 11.30 L 12.0-16.0 g/dL Blood Gas Set Respiration Rate 24.0 Blood Gas Modality Vent - ac FiO2 % 100.0 Blood Gas Tidal Volume 400.0 Blood Gas PEEP or CPAP 5.0 Blood Gas Critical Value Read Back yes Blood Gas Notified Whom Blood Gas Notified Time [id number] Blood Gas Notified By naomy Miller 08/15/25 06:44 Range/Units White Blood Count 11.4 H 4.4-10.8 10^3/uL Red Blood Count 3.30 L 4.0-5.20 10^6/uL Hemoglobin 10.6 L 12.2-16.2 g/dL Hematocrit 32.4 L 36.0-46.0 % Mean Corpuscular Volume 98.3 80.0-100.0 fL Mean Corpuscular Hemoglobin 32.2 H 28.0-32.0 pg Mean Corpuscular Hemoglobin Concent 32.7 32.0-36.0 g/dL Red Cell Distribution Width 13.1 11.8-14.3 % Platelet Count 304 140-450 10^3/uL Mean Platelet Volume 7.5 6.9-10.8 fL Neutrophils (%) (Auto) 67.7 37.0-80.0 % Lymphocytes (%) (Auto) 29.9 10.0-50.0 % Monocytes (%) (Auto) 2.2 0.0-12.0 % Eosinophils (%) (Auto) 0.0 0.0-7.0 % Basophils (%) (Auto) 0.2 0.0-2.0 % Neutrophils # (Auto) 7.7 1.6-8.6 10 ^3/uL Lymphocytes # (Auto) 3.4 0.4-5.4 10 ^3/uL Monocytes # (Auto) 0.3 0-1.3 10 ^3/uL Eosinophils # (Auto) 0 0-0.8 10 ^3/uL Basophils # (Auto) 0 0-0.2 10 ^3/uL Nucleated Red Blood Cells 0.1 % Prothrombin Time 11.7 9.3-11.8 sec Prothrombin Time INR 1.12 0.9-1.15 Activated Partial Thromboplast Time 29.9 24.5-34.5 SEC Sodium Level 139 136-145 mmol/L Potassium Level 4.2 3.5-5.1 mmol/L Chloride Level 105 98-107 mmol/L Carbon Dioxide Level 13 L 20-31 mmol/L Anion Gap 21 H 5-15 Blood Urea Nitrogen 17 9-23 mg/dL Creatinine 1.15 H 0.550-1.02 mg/dL Glomerular Filtration Rate Calc 49 >90 mL/min BUN/Creatinine Ratio 14.8 10.0-20.0 Serum Glucose 257 H 74-106 mg/dL Hemoglobin A1c 4.6 <5.7 % A1C Calcium Level 8.7 8.7-10.4 mg/dL Assessment resp arrest asystolic arrest PTX s/p chest tube frailty dementia shock/ lactic acidosis hypotension Plan/Recommendation trop is 2/2 to code /arrest check echo for lvef HR 90s cont levophed, lactate is improving decent UOP per RN chest tube per primary service her prognosis is overall quite poor but HD stable for now, consider goals of care 40 mins critical care time spent Plan discussed with: Patient MURPHYFERNANDO MD Aug 15, 2025 15:47
[2025-08-15] MEDS: fentaNYL Drip 2500mCg/250mlNS 250 ML IV SCH (16:05)
--- NOTE | 2025-08-15 18:26 | DVHINCON2 ---
Consult Note Consult Consult Note Subjective: Patient was evaluated in the ICU , cardiac arrest , intubated, dementia patient, seen for multiple rib fractures cpr vs trauma??. Patient currently hemodynamically stable. Pt resting/Sleep, did not interview patient. No respiratory distress noted. Objective: General: Patient intubated Vital Signs: Stable. No acute changes noted. Chest: Symmetric chest rise noted bilaterally. No paradoxical movement. No crepitus, subcutaneous emphysema, or deformity on exam. No evidence of respiratory distress. Breath sounds equal bilaterally. No palpation performed Cardiovascular: Regular rate and rhythm, pulses palpable and symmetric. Abdomen: Soft, non-distended. Extremities: No deformity, swelling, or tenderness. Normal neurovascular status. Neuro: Grossly intact motor and sensory function. Imaging: Chest X-ray reviewed Lines and Tubes: Endotracheal tube projects 2 cm above the arin. Enteric tube tip projects over expected region stomach. Right central venous catheter projects over superior vena cava. Left chest tube visualized. Lungs: Left pneumothorax has decreased compared to prior exam. No pneumothorax. Cardiomediastinal contours: Unremarkable Bones: Multiple left rib fractures. IMPRESSION: Interval placement of left chest tube with decreased left pneumothorax compared to prior exam. Assessment: Patient with multiple rib fractures, currently intubated Cardiac arrest. Plan: 1. No acute orthopedic intervention required at this time. 2. Continue management per ICU and trauma teams. 3. Encourage pulmonary hygiene and pain control as per primary team. 4. Orthopedic Surgery will remain available. 5. Please contact Orthopedic Service for re-evaluation if any new findings or concerns arise. Plan discussed with: Patient, Daughter, Other (nurse) Visit Coding Surgery Date of Service if different f: Aug 15, 2025 Billing Provider: LILIANA QUINTANA Surgery Visit Codes: [id number] - INP CONSULT <55 MIN LILIANA QUINTANA Aug 15, 2025 18:26
[2025-08-15] MEDS: FAMOTIDINE (10MG/ML) 2ML VL IV SCH (21:58)
[2025-08-16] VITALS (111 sets, daily range): BP systolic 81–174; BP diastolic 50–85; PULSE 83–121; RESP 20–25; TEMP 74.1–98.8; O2SAT 91–100
[2025-08-16 03:38] LABS: Hematocrit 30.5 % (36.0-46.0); Hemoglobin 10.3 g/dL (12.2-16.2); Mean Corpuscular Hemoglobin 32.0 pg (28.0-32.0); Mean Corpuscular Volume 95.0 fL (80.0-100.0); Nucleated Red Blood Cells % 0.0 %
[2025-08-16 03:58] LABS: Albumin 3.3 g/dL (3.2-4.8); Anion Gap 14 (5-15); BUN/Creatinine Ratio 17.0 (10.0-20.0); Bilirubin, Total 0.5 mg/dL (0.2-1.0); Blood Urea Nitrogen 23 mg/dL (9-23); Glucose 93 mg/dL (74-106); Potassium 4.5 mmol/L (3.5-5.1); Sodium 143 mmol/L (136-145); Total Protein 6.5 g/dL (5.7-8.2)
[2025-08-16 04:08] LABS: Alanine Aminotransferase 712 U/L (7-40); Alkaline Phosphatase 276 U/L (46-116); Calcium 8.5 mg/dL (8.7-10.4); Carbon Dioxide 19 mmol/L (20-31); Chloride 110 mmol/L (98-107)
--- NOTE | 2025-08-16 05:08 | DVH ---
CHEST RADIOGRAPH Indication: RESPIRATORY FAILURE Technique: Single frontal view of the chest was obtained COMPARISON: XY CHEST PORTABLE on DOS: 08/15/25, XY CHEST PORTABLE on DOS: 08/15/25 FINDINGS: Lines and Tubes: Slight interval advancement of the endotracheal tube such that the tip now projects approximately 1.0 cm above the level of the arin. Remaining lines and tubes unchanged. Lungs: Slight interval increase in size of left pneumothorax with progressive increased left lateral chest wall and axillary subcutaneous emphysema. The right lung is clear. No evidence of pleural effus ion or focal consolidation. No pneumothorax. Cardiomediastinal contours: Unremarkable Bones: Multiple left rib fractures redemonstrated. IMPRESSION: 1. Slight interval increase in size of left pneumothorax with progressive increased left lateral ches t wall and axillary subcutaneous emphysema. 2. Multiple left rib fractures redemonstrated. 3. Slight interval advancement of the endotracheal tube such that the tip now projects approximately 1.0 cm above the level of the arin. 4. Remaining lines and tubes unchanged.
[2025-08-16 07:12] LABS: Base Excess -4.9 mmol/L (-2.0-3.0)
[2025-08-16] MEDS: FUROSEMIDE 20 MG/2 ML VIAL IV SCH (09:35)
--- NOTE | 2025-08-16 09:44 | DVHPNRES ---
Progress Note Date Seen: Aug 16, 2025 Resident Creating Document: SHIRA CARNES RESDIENT Medical Necessity Reason Pt with a Central, PICC or Fol: Yes Subjective Review of Systems This is a 75-year-old lady with past medical history of dementia brought in by EMS from home, status post cardiac arrest. Per patient's daughter yesterday morning (08/15) at 5:30 a.m. patient was found sitting on her knees beside her bed, and her hand was hanging on bed rail, she had labored breathing, and carotid vitals was faint, family started CPR, EMS arrival 15 minutes later, cardiac rhythm was found to be non shockable, en route to the hospital the patient was given epinephrine, intubated and ROSC was achieved before hospital arrival. The last time patient was seen at baseline was night before, had no complaint. PMHx: Dementia Social history: Lives with the daughter at home, at baseline speaks few words, can not communicate properly, use walker for mobilization, needs assistance for daily life activities, does not have control on bladder and bowel movements. Home medication: Does not take any prescribed medicine, uses holistic medicine Allergic history: No known allergy Patient seen and examined at the bedside. Patient is sedated and on mechanical ventilation Objective vital signs Vital Sign Date Time Temp Pulse Resp B/P (MAP) Pulse Ox O2 Delivery O2 Flow Rate FiO2 08/16/25 09:35 106/59 08/16/25 08:30 83 24 100 30 08/16/25 06:00 Mechanical Ventilator+ 08/16/25 06:00 98.8 98.8 08/15/25 06:45 60.0 Total Intake and Output 08/15/25 08/15/25 08/16/25 15:00 23:00 07:00 Intake Total 274.0 ml 538.00 ml 444.5 ml Output Total 1800 ml 250 ml Balance 274.0 ml -1262.00 ml 194.5 ml medications Current Medications Medications Dose Ordered Sig/[place] Route Start Time Stop Time Status Last Admin Dose Admin Norepinephrine Bitartrate 250 ml @ 3.75 mls/hr Q24H IV 08/15/25 06:30 08/15/25 08:29 3.75 MLS/HR Midazolam HCl 50 ml @ 1 mls/hr Q24H IV 08/15/25 06:45 08/15/25 06:57 1 MLS/HR Ceftriaxone Sodium 50 ml @ 100 mls/hr DAILY@09 IV 08/16/25 09:00 08/16/25 09:34 100 MLS/HR Famotidine 20 mg Q12HR IV 08/15/25 22:00 08/16/25 09:34 20 MG Furosemide 20 mg DAILY IV 08/16/25 10:00 08/16/25 09:35 20 MG Diagnostic Test (Pha) 1 strip IQ4HR 08/15/25 12:00 08/16/25 08:00 1 STRIP Insulin Human Regular IQ4HR SC 08/15/25 12:00 Dextrose 50 ml UD PRN IV 08/15/25 10:30 Sodium Chloride 1,000 ml @ 60 mls/hr [id number] IV 08/15/25 10:30 08/16/25 03:11 60 MLS/HR Ondansetron HCl 4 mg Q4HP PRN IV 08/15/25 10:30 Enoxaparin Sodium 30 mg DAILY SC 08/15/25 11:18 08/16/25 09:35 30 MG Nitroglycerin 0.4 mg Q5MINP PRN SL 08/15/25 10:30 Morphine Sulfate 2 mg Q30M PRN IV 08/15/25 10:30 Fentanyl Citrate 250 ml @ 2.5 mls/hr Q24H IV 08/15/25 16:00 08/15/25 16:05 2.5 MLS/HR Examination General: RASS -4, afebrile, mucosae are moist Cardiovascular: Normal S1 and S2. No murmurs, gallops or rubs Respiratory: Mechanically assisted ventilation, equal bilateral airway entree. Clear lung sounds on auscultation Mechanical ventilation setting: GI: Soft, nontender, no organomegaly, normal bowel sounds, has NG tube, and tube feeding : Winters catheter n place, clear yellow urine in collection bag MSK/skin: Left-sided subcutaneous emphysema, bedside chest tube, has right IJ Neurological: Orientation cannot be assessed. No apparent motor no sensitive deficits. Pupils are isocoric and reactive laboratory and microbiology Laboratory Tests 08/16/25 03:05 Test 08/16/25 03:05 Range/Units Serum Glucose 93 74-106 mg/dL Microbiology Date/Time Source Procedure Growth Status 08/15/25 06:44 Blood Blood Culture - Preliminary NO GROWTH AFTER 24 HOURS OF INCUBATION. Resulted Labs and/or images reviewed: Labs reviewed by me, Image(s) reviewed by me Problem List/Assessment/Plan Problem List/Assessment/Plan This is a 75-year-old lady with past medical history of dementia brought in by EMS from home, status post cardiac arrest. Patient admitted and intubated on 08/16. NEURO: Acute metabolic/hypoxic encephalopathy due to cardiac arrest/sepsis Dementia * CT 08/15 shows no acute intracranial abnormalities * Plan: Fentanyl, Versed, consult neurology CARDIOVASCULAR: Status post cardiac arrest, asystole Cardiogenic shock Possible septic shock NSTEMI, likely type 2 * EKGs shows sinus tachycardia with no significant ST or T-wave change * Trop I mild raised * Plan: Levophed, IV fluid RESPIRATORY: Acute hypoxic respiratory failure, due to cardiopulmonary arrest Pneumothorax, possibly due to CPR, present on admission * Chest x-ray 08/15 shows, left pneumothorax, approximately 35%, multiple left rib fractures * Chest x-ray 08/06 shows, slight interval increase in size of left pneumothorax with progressive increased left lateral chest wall and axillary subcutaneous emphysema * Plan: Mechanical ventilation, IV antibiotic, chest tube GENITOURINARY/FLUID: Complicated UTI NAIMA, VMN * Plan: Urine culture, IV antibiotic GASTROINTESTINAL/NUTRITION: Shock liver, due to cardiac arrest Transaminitis * Plan: Tube feeding, Jevity INFECTIOUS DISEASE: Septic shock, due to sepsis Sepsis, due to UTI * Plan: Vancomycin (08/16), Zosyn (08/16) MSK/SKIN: Left-sided rib fracture * Plan: Medical management DIET: Jevity tube feeding DVT prophylax: Lovenox GI prophylaxis: Pepcid Bowel regimen: Lactulose LINES/DEVICES ETT: Intubated on 08/15 IV access: Right IJ 08/15 Drips: Versed, fentanyl and Levophed Winters catheter: Placed on 08/15 Disposition: Continue ICU status Family: Patients daughter updated at bedside. Critical care time: Spent > 87 min, spent in direct critical care, including evaluation, management, review of labs/imaging, and multidisciplinary/family discussions, (excluding any procedures). Case discussed with Dr. Sol Plan discussed with: Patient, Other (RN) Date of Service: Aug 16, 2025 Billing Provider: PURNIMA SOL MD Common Visit Codes: 10093-YZIRQNEY CARE 30-74 MIN, 29156-KRAJFVOL CARE-EACH +30MIN SHIRA CARNES Aug 16, 2025 09:44 PURNIMA SOL MD Aug 17, 2025 13:48
--- NOTE | 2025-08-16 10:04 | DVHPN2 ---
Progress Note Date Seen: Aug 16, 2025 Medical Necessity Reason Pt with a Central, PICC or Fol: No Subjective Other Systems: seen by ortho good UOP bp stable Objective vital signs Vital Sign Date Time Temp Pulse Resp B/P (MAP) Pulse Ox O2 Delivery O2 Flow Rate FiO2 08/16/25 09:35 106/59 08/16/25 08:30 83 24 100 30 08/16/25 06:00 Mechanical Ventilator+ 08/16/25 06:00 98.8 98.8 08/15/25 06:45 60.0 Total Intake and Output 08/15/25 08/15/25 08/16/25 15:00 23:00 07:00 Intake Total 274.0 ml 538.00 ml 444.5 ml Output Total 1800 ml 250 ml Balance 274.0 ml -1262.00 ml 194.5 ml medications Current Medications Medications Dose Ordered Sig/[place] Route Start Time Stop Time Status Last Admin Dose Admin Norepinephrine Bitartrate 250 ml @ 3.75 mls/hr Q24H IV 08/15/25 06:30 08/15/25 08:29 3.75 MLS/HR Midazolam HCl 50 ml @ 1 mls/hr Q24H IV 08/15/25 06:45 08/15/25 06:57 1 MLS/HR Ceftriaxone Sodium 50 ml @ 100 mls/hr DAILY@09 IV 08/16/25 09:00 08/16/25 09:34 100 MLS/HR Famotidine 20 mg Q12HR IV 08/15/25 22:00 08/16/25 09:34 20 MG Furosemide 20 mg DAILY IV 08/16/25 10:00 08/16/25 09:35 20 MG Diagnostic Test (Pha) 1 strip IQ4HR 08/15/25 12:00 08/16/25 08:00 1 STRIP Insulin Human Regular IQ4HR SC 08/15/25 12:00 Dextrose 50 ml UD PRN IV 08/15/25 10:30 Sodium Chloride 1,000 ml @ 60 mls/hr [id number] IV 08/15/25 10:30 08/16/25 03:11 60 MLS/HR Ondansetron HCl 4 mg Q4HP PRN IV 08/15/25 10:30 Enoxaparin Sodium 30 mg DAILY SC 08/15/25 11:18 08/16/25 09:35 30 MG Nitroglycerin 0.4 mg Q5MINP PRN SL 08/15/25 10:30 Morphine Sulfate 2 mg Q30M PRN IV 08/15/25 10:30 Fentanyl Citrate 250 ml @ 2.5 mls/hr Q24H IV 08/15/25 16:00 08/15/25 16:05 2.5 MLS/HR Examination: GENERAL:Abnormal, HEENT:Abnormal, LUNGS:Abnormal, CVS:Abnormal, ABDOMEN:Normal laboratory and microbiology Laboratory Tests 08/16/25 03:05 Test 08/16/25 03:05 Range/Units Serum Glucose 93 74-106 mg/dL Microbiology Date/Time Source Procedure Growth Status 08/15/25 06:44 Blood Blood Culture - Preliminary NO GROWTH AFTER 24 HOURS OF INCUBATION. Resulted Problem List/Assessment/Plan Problem List/Assessment/Plan cardiac arrest hx of dementia shock liver resp failure shock wean off pressors echo pending HR bp stable prognosis is poor neuro eval when suitable Plan discussed with: Other (rn) My Orders My Orders Orders - FERNANDO MURPHY MD Procedure Category Date Status Time Echo 2d Mode Cardiac US 08/16/25 Logged DOP 15:47 Date of Service: Aug 16, 2025 Billing Provider: FERNANDO MURPHY MD Common Visit Codes: NOT BILLABLE FERNANDO MURPHY MD Aug 16, 2025 10:04
[2025-08-16] MEDS ORDERED: VANCOMYCIN PER PHARMACY 0 MG IV SCH (12:00)
[2025-08-16] MEDS: PIPERACILLIN-TAZOB 3.375GM 100 ML IV ONE (12:08)
[2025-08-16] MEDS: VANCOMYCIN 750MG KIT 100 ML IV ONE (13:06)
[2025-08-16] MEDS: SODIUM CHLORIDE 0.9% 500 ML IV ONE (15:26)
--- NOTE | 2025-08-16 19:27 | DVH ---
EXAM: XY CHEST XRAY 1 VIEW CLINICAL HISTORY: Pneumothorax TECHNIQUE: Single AP view of the chest WID: COMPARISON: XY CHEST PORTABLE on DOS: 08/16/25 FINDINGS: Lines and tubes: Endotracheal tube in place with the tip projecting 3.4 cm above the arin. Right IJ central venous catheter with the tip projecting over the upper right atrium. Gastric tube with the t ip projecting over the body of the stomach. There is a left thoracostomy tube in place with the tip p rojecting over the left mid lung. Chest: The heart size and pulmonary vasculature is within normal limits. Calcified plaque projects over the aortic arch. Small left apical pneumothorax. This is decreased in size since prior. Interstitial prominence in the lungs. Blunting of the bilateral costophrenic angles. The osseous structures are grossly intact. Left chest wall emphysema. IMPRESSION: 1. Decrease in size of left apical pneumothorax with a left thoracostomy tube in place. 2. Endotracheal tube, right IJ central venous catheter, and gastric tube in place as described. 3. Diffuse interstitial prominence in the lungs. DDX includes fibrosis/ scarring, atypical infection, or pulmonary edema. 4. Blunting of the bilateral costophrenic angles which could reflect scarring or pleural effusions.
--- NOTE | 2025-08-16 21:33 | DVHINCON2 ---
Date of service: Aug 16, [address] Cotton Reason for Consultation S/P cataract arrest, dementia History of Present Illness Ms. Earl is a 75 years old female with a history of dementia, she was brought to the [facility] on 08/15/2025 with a chief company of ca taract arrest. At this time, she is intubated, on low dosage of sedation, nonresponsive to her surroundings, the history is of from her daughter, chart review, I have also discussed with her nurse Around 5:30 a.m. on 08/15/2025, the family noticed the patient was nonresponsive to her bed, and the family called 911 and initiated CPR, the EMS personnel came open about 10-15 minutes she was found to have cataract arrest and the CPR was continued, she was resuscitated before arrived the emergency room, and the patient is intubated subsequently She has no history of stroke, heart attack, and seizure disorder She has progressive cognitive dysfunction for about nine years, the patient sometimes does not remember her family members, including her care provider and [id number]. The patient was not on dementia treatment Urinalysis, 08/15/2025: WBC: 43, urine leukocyte esterase: Trace ABG, 09/01/2025: Metabolic acidosis WBC/HGB/PLT/MCV, 08/16/2025: 14.4/10.3/286/95 BUN/CR, 08/16/2025: 23/1.35 GFR, 08/16/2025: 40 HGB A1c, 08/15/2025: 4.6 Lactic acid, 08/15/2025: 9.7, 7.1, 3.1 TBI/AST/ALT/AP, 08/16/2025: 0.5/748/712/276 CT head, 08/15/2025: Global brain atrophy with prominence of the ventricular system out of proportion to the size of the sulci. This appearance may be due to central brain atrophy or normal pressure hydrocephalus. Past Medical History Dementia Past Surgical History None Family History: FH: cancer G8 BROTHER G8 SISTER FH: lung cancer G8 FATHER Family History Cancer. One sister: dementia Social History She has no history of smoking, drug or alcohol abuse Allergies: Coded Allergies: NO KNOWN ALLERGIES (Unverified , 08/15/25) Current Medications Current Medications Medications (Trade) Dose Ordered Sig/Kenyon Route PRN Reason Start Time Stop Time Status Last Admin Ceftriaxone Sodium 50 ml @ 100 mls/hr DAILY@09 IV 08/16/25 09:00 08/16/25 11:56 DC 08/16/25 09:34 Famotidine (Pepcid Injection) 20 mg Q12HR IV 08/15/25 22:00 08/16/25 09:34 Furosemide (Lasix Injection) 20 mg DAILY IV 08/16/25 10:00 08/16/25 11:56 DC 08/16/25 09:35 Enteral Nutritional Formula (Jevity 1.2 Demarcus/ Fiber) 1,000 ml 30ML/HR GT 08/16/25 12:00 Vancomycin HCl 0 ml @ 0 mls/hr UD IV 08/16/25 12:00 Piperacillin Sod/ Tazobactam Sod 100 ml @ 25 mls/hr Q12HR IV 08/16/25 22:00 Review of Systems As above, the other systems are negative Vital Signs Vital Signs Date Time Temp Pulse Resp B/P (MAP) Pulse Ox O2 Delivery O2 Flow Rate FiO2 08/16/25 21:15 98.1 90 24 141/73 (95) 93 208.6 08/16/25 20:00 Mechanical Ventilator+ 30 30 08/15/25 06:45 60.0 Physical Exam The patient is well-nourished and well-developed with no distress. The patient is intubated HEENT: Normocephalic, neck supple, no carotid bruits Lungs: Clear to auscultation Cardiovascular: Regular rate and region, S1, S2, no murmurs Abdomen: Soft, nontender, normal bowel sounds MENTAL STATUS: Not responsive to stroke stimuli CRANIAL NERVES: Pupils are equal, round and nonreactive, pinpoint. There are corneal reflexes and doll's eyes phenomenon. No signs of facial weakness. There are gagging or coughing reflexes SENSATION: No responses to pain stimuli. MOTOR: Normal tone in the upper and lower extremity. Normal muscle bulk. No fasciculations. No spontaneous movement. REFLEXES: Deep tendon reflexes are symmetrical. No pathological reflexes. CEREBELLAR/COORDINATION: Deferred GAIT/STATION: deferred. Labs/Diagnostic Data Labs Test 08/16/25 19:56 08/16/25 07:04 08/16/25 03:05 08/15/25 12:47 Range/Units POC Glucose 121 H 70-106 mg/dl Blood Gas Specimen Type Arterial Blood Gas Sample Site Right radial Blood Gas Patient Temperature 37.0 Arterial Blood Date Drawn [id number] Arterial Blood pH 7.505 H 7.350-7.450 Arterial Blood Partial Pressure CO2 20.9 L 32.0-45.0 mmHg Arterial Blood Partial Pressure O2 142.5 H 83.0-108.0 mmHg Arterial Blood HCO3 16.1 L 21.0-28.0 mmol/L Arterial Blood Oxygen Saturation 98.8 H 94.0-98.0 % Arterial Blood Base Excess -4.9 L -2.0-3.0 mmol/L Arterial Blood Oxyhemoglobin 98.3 H 94.0-98.0 % Arterial Blood Carboxyhemoglobin 0.3 L 0.5-1.5 % Arterial Blood Methemoglobin 0.2 0.0-1.5 % Rafael Test Yes Blood Gas Total Hemoglobin 12.50 12.0-16.0 g/dL Blood Gas Set Respiration Rate 24.0 Blood Gas Modality Vent - ac FiO2 % 30.0 Blood Gas Tidal Volume 400.0 Blood Gas PEEP or CPAP 5.0 White Blood Count 14.4 #H 4.4-10.8 10^3/uL Red Blood Count 3.22 L 4.0-5.20 10^6/uL Hemoglobin 10.3 L 12.2-16.2 g/dL Hematocrit 30.5 L 36.0-46.0 % Mean Corpuscular Volume 95.0 80.0-100.0 fL Mean Corpuscular Hemoglobin 32.0 28.0-32.0 pg Mean Corpuscular Hemoglobin Concent 33.7 32.0-36.0 g/dL Red Cell Distribution Width 13.3 11.8-14.3 % Platelet Count 286 140-450 10^3/uL Mean Platelet Volume 7.4 6.9-10.8 fL Neutrophils (%) (Auto) 86.6 H 37.0-80.0 % Lymphocytes (%) (Auto) 8.2 L 10.0-50.0 % Monocytes (%) (Auto) 5.1 0.0-12.0 % Eosinophils (%) (Auto) 0.0 0.0-7.0 % Basophils (%) (Auto) 0.1 0.0-2.0 % Neutrophils # (Auto) 12.5 H 1.6-8.6 10 ^3/uL Lymphocytes # (Auto) 1.2 0.4-5.4 10 ^3/uL Monocytes # (Auto) 0.7 0-1.3 10 ^3/uL Eosinophils # (Auto) 0 0-0.8 10 ^3/uL Basophils # (Auto) 0 0-0.2 10 ^3/uL Nucleated Red Blood Cells 0.0 % Sodium Level 143 136-145 mmol/L Potassium Level 4.5 3.5-5.1 mmol/L Chloride Level 110 H 98-107 mmol/L Carbon Dioxide Level 19 L 20-31 mmol/L Anion Gap 14 5-15 Blood Urea Nitrogen 23 9-23 mg/dL Creatinine 1.35 H 0.550-1.02 mg/dL Glomerular Filtration Rate Calc 40 >90 mL/min BUN/Creatinine Ratio 17.0 10.0-20.0 Serum Glucose 93 74-106 mg/dL Calcium Level 8.5 L 8.7-10.4 mg/dL Total Bilirubin 0.5 0.2-1.0 mg/dL Aspartate Amino Transferase (AST) 748 H 13-40 U/L Alanine Aminotransferase (ALT) 712 H 7-40 U/L Alkaline Phosphatase 276 H 46-116 U/L Total Protein 6.5 5.7-8.2 g/dL Albumin 3.3 3.2-4.8 g/dL Lactic Acid Level 3.1 *H 0.4-2.0 mmol/L Test 08/15/25 10:35 08/15/25 09:15 08/15/25 08:55 08/15/25 06:44 Range/Units Troponin I High Sensitivity 75 *H </=34 ng/L Urine Color Yellow Yellow Urine Clarity Turbid H Clear Urine pH 6.0 5.0-9.0 Urine Specific Ballinger 1.014 1.001-1.035 Urine Protein 3+ H Negative Urine Ketones Negative Negative Urine Blood 3+ H Negative /uL Urine Nitrite Negative Negative Urine Bilirubin Negative Negative Urine Urobilinogen Normal Negative mg/dL Urine Leukocyte Esterase Trace Negative /uL Urine RBC 105 0 - 4 /hpf Urine Microscopic WBC 43 H 0-5 /HPF Urine Squamous Epithelial Cells Few <5 /hpf Urine Bacteria Few H None Seen /hpf Urine Glucose 1+ H Normal mg/dL Blood Gas Critical Value Read Back yes Blood Gas Notified Whom Blood Gas Notified Time [id number] Blood Gas Notified By social worker psychiatric ozzie Prothrombin Time 11.7 9.3-11.8 sec Prothrombin Time INR 1.12 0.9-1.15 Activated Partial Thromboplast Time 29.9 24.5-34.5 SEC Hemoglobin A1c 4.6 <5.7 % A1C Microbiology Date/Time Source Procedure Growth Status 08/15/25 14:05 Nose MRSA Screen - Final Complete 08/15/25 10:13 Sputum Expectorated Sputum Gram Stain - Final Resulted 08/15/25 10:13 Sputum Expectorated Sputum Respiratory Culture - Preliminary Resulted 08/15/25 06:44 Blood Blood Culture - Preliminary NO GROWTH AFTER 24 HOURS OF INCUBATION. Resulted Assessment Coma Metabolic encephalopathy Hypoxic encephalopathy Toxic encephalopathy Cardiopulmonary arrest Acute respiratory failure Metabolic acidosis Shocked liver Dementia, she may have advanced dementia, likely Alzheimer disease, Plan/Recommendation Monitoring Supportive treatment ICU care Follow-up lab tests EEG Follow up CT brain scan Stabilize vitals/pressor drip Respiratory support/vent management Oxygen IV antibiotics GI prophylaxis/famotidine DVT prophylaxis/Lovenox More recommendation per clinical course Progress: Guarded This medical document was created using an electronic medical record system with [employer] dictation system. Although this document has been carefully reviewed, there may still be some phonetic and typographical errors. These areas are purely typographical due to imperfections of the software programs, and do not reflect any compromise in the patient's medical care. Plan discussed with: Daughter, Other TONI ADAMSON MD Aug 16, 2025 21:32
[2025-08-16] MEDS: PIPERACILLIN-TAZOB 3.375GM 100 ML IV SCH (22:01)
[2025-08-17] VITALS (102 sets, daily range): BP systolic 110–158; BP diastolic 40–78; PULSE 75–96; RESP 13–26; TEMP 91.6–99.7; O2SAT 87–100
--- NOTE | 2025-08-17 03:37 | DVH ---
EXAM: CT HEAD WITHOUT CONTRAST INDICATION: ALOC TECHNIQUE: CT of the head without intravenous contrast. Radiation Dose : 1. Head: CT Dose: CTDI volume is 60.12 mGy. Dose-length product is 963.7 mGy*cm The dose indicators for CT are the volume Computed Tomography (CT) Dose Index (CTDIvol) and the Dose Length Product (DLP), and are measured in units of mGy and mGy-cm, respectively. These indicators are not patient dose, but values generated from the CT scanner acquisition factors. The report includes radiation exposure data for exposures received during this examination. COMPARISON: CT HEAD WITHOUT CONTRAST on DOS: 08/15/25 FINDINGS: There is no evidence of acute intracranial hemorrhage, extra-axial collection, mass effect, midline s hift, herniation or hydrocephalus. Pronounced increased prominence of the ventricles, sulci and cisterns consistent with sequelae of atr ophic cortical volume loss. The howard-white differentiation is intact. Moderate diffuse confluent periventricular and subcortical white matter hypoattenuation is nonspecifi c but may be related to small vessel ischemic disease. The visualized paranasal sinuses and mastoid air cells are clear. The surrounding soft tissues and osseous structures are unremarkable. IMPRESSION: 1. No acute intracranial abnormality. 2. 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 loss. Radiation optimization: All CT scans at this facility use at least one of these dose optimization casey hniques: automated exposure control mA and/or kV adjustment per patient size (includes targeted exam s where dose is matched to clinical indication) or iterative reconstruction.
[2025-08-17 03:52] LABS: Hematocrit 26.6 % (36.0-46.0); Hemoglobin 8.9 g/dL (12.2-16.2); Mean Corpuscular Hemoglobin 32.1 pg (28.0-32.0); Mean Corpuscular Volume 95.6 fL (80.0-100.0); Nucleated Red Blood Cells % 0.0 %
[2025-08-17 04:03] LABS: Anion Gap 11 (5-15); BUN/Creatinine Ratio 16.1 (10.0-20.0); Potassium 4.0 mmol/L (3.5-5.1); Sodium 145 mmol/L (136-145); Total Protein 5.9 g/dL (5.7-8.2)
[2025-08-17 04:04] LABS: Bilirubin, Total 0.5 mg/dL (0.2-1.0)
[2025-08-17 04:05] LABS: Alanine Aminotransferase 463 U/L (7-40); Albumin 3.0 g/dL (3.2-4.8); Alkaline Phosphatase 231 U/L (46-116); Blood Urea Nitrogen 26 mg/dL (9-23); Calcium 8.4 mg/dL (8.7-10.4); Carbon Dioxide 20 mmol/L (20-31); Chloride 114 mmol/L (98-107); Glucose 107 mg/dL (74-106)
--- NOTE | 2025-08-17 05:22 | DVH ---
CHEST RADIOGRAPH Indication: Pneumonia Technique: Single frontal view of the chest was obtained COMPARISON: XY CHEST XRAY 1 VIEW on DOS: 08/16/25, XY CHEST PORTABLE on DOS: 08/16/25, XY CHEST SHAWN BLE on DOS: 08/15/25, XY CHEST PORTABLE on DOS: 08/15/25 FINDINGS: Lines and Tubes: Endotracheal tube, enteric catheter and right central venous catheter in satisfactor y position. Left chest tube in-situ. Lungs: Trace left apical pneumothorax. Unchanged pulmonary vascular congestion. Unchanged subcutaneou s emphysema along the left chest wall. Pleura: No effusion. Cardiomediastinal contours: Unremarkable. Bones: Unremarkable. IMPRESSION: Trace left apical pneumothorax. Unchanged pulmonary vascular congestion.
[2025-08-17 06:53] LABS: Base Excess -5.1 mmol/L (-2.0-3.0)
--- NOTE | 2025-08-17 09:06 | DVH ---
CLINICAL INDICATION: Pain; dislocation TECHNIQUE: 3 radiographic views of the right shoulder were obtained. Comparison: None FINDINGS/IMPRESSION: There is no evidence of acute fracture or dislocation. Moderate osteoarthrosis of the right acromioclavicular joint. There is no radiopaque foreign body. Refer to dedicated chest radiograph for evaluation of thoracic f indings.
--- NOTE | 2025-08-17 09:12 | DVHPN2 ---
Progress Note - Dictate Date Seen: Aug 17, 2025 Medical Necessity Reason Pt with a Central, PICC or Fol: Yes Subjective Ms. Earl is a 75 years old female with a history of dementia, she was brought to the [facility] on 08/15/2025 with a chief company of cataract arrest. I have seen and examined the patient, I have discussed with her nurse and Dr. Cotton. She responds to painful stimuli, Fentanyl 50mcg/hr Urinalysis, 08/15/2025: WBC: 43, urine leukocyte esterase: Trace ABG, 08/15/2025: Metabolic acidosis, 08/17/2025: Compensated metabolic acidosis WBC/HGB/PLT/MCV, 08/16/2025: 14.4/10.3/286/95 BUN/CR, 08/16/2025: 23/1.35 GFR, 08/16/2025: 40 HGB A1c, 08/15/2025: 4.6 Lactic acid, 08/15/2025: 9.7, 7.1, 3.1 TBI/AST/ALT/AP, 08/16/2025: 0.5/748/712/276, 08/17/2025: 0.5/296/463/231 CT head, 08/15/2025 0716: Global brain atrophy with prominence of the ventricular system out of proportion to the size of the sulci. This appearance may be due to central brain atrophy or normal pressure hydrocephalus. CT head, 08/16/25 2235: 1. No acute intracranial abnormality. 2. 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 loss vital signs Vital Sign Date Time Temp Pulse Resp B/P (MAP) Pulse Ox O2 Delivery O2 Flow Rate FiO2 08/17/25 08:05 83 24 137/52 (80) 100 30 08/17/25 06:45 96.8 206.2 08/17/25 06:00 Mechanical Ventilator+ Total Intake and Output 08/16/25 08/16/25 08/17/25 15:00 23:00 07:00 Intake Total 611.25 ml 674.75 ml 760 ml Output Total 750 ml 510 ml Balance 611.25 ml -75.25 ml 250 ml medications Current Medications Medications Dose Ordered Sig/Kenyon Route Start Time Stop Time Status Last Admin Dose Admin Norepinephrine Bitartrate 250 ml @ 3.75 mls/hr Q24H IV 08/15/25 06:30 08/15/25 08:29 3.75 MLS/HR Midazolam HCl 50 ml @ 1 mls/hr Q24H IV 08/15/25 06:45 08/16/25 10:41 2 MLS/HR Famotidine 20 mg Q12HR IV 08/15/25 22:00 08/16/25 21:57 20 MG Dextrose 50 ml UD PRN IV 08/15/25 10:30 Sodium Chloride 1,000 ml @ 60 mls/hr [id number] IV 08/15/25 10:30 08/16/25 03:11 60 MLS/HR Ondansetron HCl 4 mg Q4HP PRN IV 08/15/25 10:30 Enoxaparin Sodium 30 mg DAILY SC 08/15/25 11:18 08/16/25 09:35 30 MG Fentanyl Citrate 250 ml @ 2.5 mls/hr Q24H IV 08/15/25 16:00 08/15/25 16:05 2.5 MLS/HR Enteral Nutritional Formula 1,000 ml 30ML/HR GT 08/16/25 12:00 Vancomycin HCl 0 ml @ 0 mls/hr UD IV 08/16/25 12:00 Piperacillin Sod/ Tazobactam Sod 100 ml @ 25 mls/hr Q12HR IV 08/16/25 22:00 08/16/25 22:01 25 MLS/HR objective The patient is well-nourished and well-developed with no distress. The patient is intubated MENTAL STATUS: Subjective CRANIAL NERVES: Pupils are equal, round and nonreactive, pinpoint. There are corneal reflexes and doll's eyes phenomenon. No signs of facial weakness. There are no gagging or coughing reflexes but she open her eyes during the test SENSATION: Responses to pain stimuli. MOTOR: Normal tone in the upper and lower extremity. Normal muscle bulk. No fasciculations. No spontaneous movement. REFLEXES: Deep tendon reflexes are symmetrical. No pathological reflexes. CEREBELLAR/COORDINATION: Deferred GAIT/STATION: deferred. laboratory and microbiology Laboratory Tests 08/17/25 02:20 Test 08/17/25 02:20 Range/Units Serum Glucose 107 H 74-106 mg/dL Problem List Coma Metabolic encephalopathy Hypoxic encephalopathy Toxic encephalopathy Cardiopulmonary arrest Acute respiratory failure Metabolic acidosis Shocked liver, recovering Dementia, she may have advanced dementia, likely Alzheimer disease, Assessment/Plan Monitoring Supportive treatment ICU care Follow-up lab tests EEG Stabilize vitals/pressor drip Respiratory support/vent management Oxygen IV antibiotics GI prophylaxis/famotidine DVT prophylaxis/Lovenox More recommendation per clinical course She is likely to have a poor prognosis for meaningful/overall recovery This medical document was created using an electronic medical record system with [employer] dictation system. Although this document has been carefully reviewed, there may still be some phonetic and typographical errors. These areas are purely typographical due to imperfections of the software programs, and do not reflect any compromise in the patient's medical care Prognosis Guarded Plan discussed with: Other Critical Care Time(min): 40 TONI ADAMSON MD Aug 17, 2025 09:12
[2025-08-17 09:43] LABS: Hematocrit 26.8 % (36.0-46.0); Hemoglobin 8.8 g/dL (12.2-16.2)
--- NOTE | 2025-08-17 10:11 | DVHSR ---
APPROVED REPORT EXAM: Two-dimensional and M-mode echocardiogram with Doppler and color Doppler. Blood Pressure: 124/79 mmHg INDICATION Chest Pain RISK FACTORS Height: 5'3", Weight: 102 DIMENSIONS LVDd2.6 (3.8-5.7cm)LA (2D) (1.9-4.0cm)Aortic Root2.4 (2.0-3.7cm) LVDs1.7 (2.5-4.0cm)LA (MM) (1.9-4.0cm)Aortic Cusp Exc1.5 (1.5-2.0cm) EF (%) 63.0 (55-70%)Rt. Atrium (1.9-4.0cm)Asc. Aorta2.8 cm IVSd1.0 (0.7-1.1cm)RV (D) (1.8-2.4cm) PWd1.0 (0.7-1.1cm) Mitral Valve MitralMitral Stenosis E/A ratio0.02D MVAcm2 Aortic Valve Aortic ValveAortic Stenosis LVOT Diameter1.9 (1.8-2.4cm)Doppler AVAcm2 Other Information Quality : Technically LimitedRhythm : Technically limited study due to on vent and body habitus. Conclusion MODERATE DEGREE LVH AND MODERATE DEGREE LV DIASTOLIC DYSFUNCTION HYPERDYNAMIC LV LV EF IS 75% MODERATELY DILATED RV AND RA NORMAL VALVES NO EFFUSION
[2025-08-17] MEDS: NOREPINEPHRINE 8 MG/250ML KIT 250 ML IV ONE (11:22)
[2025-08-17] MEDS ORDERED: VANCOMYCIN 500mg/100mL 100 ML IV ONE (13:00)
--- NOTE | 2025-08-17 16:19 | DVHPNRES ---
Progress Note Date Seen: Aug 17, 2025 Resident Creating Document: SHIRA CARENS RESDIENT Medical Necessity Reason Pt with a Central, PICC or Fol: Yes Subjective Review of Systems This is a 75-year-old lady with past medical history of dementia brought in by EMS from home, status post cardiac arrest. Per patient's daughter yesterday morning (08/15) at 5:30 a.m. patient was found sitting on her knees beside her bed, and her hand was hanging on bed rail, she had labored breathing, and carotid vitals was faint, family started CPR, EMS arrival 15 minutes later, cardiac rhythm was found to be non shockable, en route to the hospital the patient was given epinephrine, intubated and ROSC was achieved before hospital arrival. The last time patient was seen at baseline was night before, had no complaint. PMHx: Dementia Social history: Lives with the daughter at home, at baseline speaks few words, can not communicate properly, use walker for mobilization, needs assistance for daily life activities, does not have control on bladder and bowel movements. Home medication: Does not take any prescribed medicine, uses holistic medicine Allergic history: No known allergy Patient seen and examined at the bedside. Patient is sedated and on mechanical ventilation Objective vital signs Vital Sign Date Time Temp Pulse Resp B/P (MAP) Pulse Ox O2 Delivery O2 Flow Rate FiO2 08/17/25 14:40 80 22 141/50 (80) 100 30 08/17/25 06:45 96.8 206.2 08/17/25 06:00 Mechanical Ventilator+ Total Intake and Output 08/16/25 08/16/25 08/17/25 15:00 23:00 07:00 Intake Total 611.25 ml 674.75 ml 760 ml Output Total 750 ml 510 ml Balance 611.25 ml -75.25 ml 250 ml medications Current Medications Medications Dose Ordered Sig/Kenyon Route Start Time Stop Time Status Last Admin Dose Admin Norepinephrine Bitartrate 250 ml @ 3.75 mls/hr Q24H IV 08/15/25 06:30 08/15/25 08:29 3.75 MLS/HR Midazolam HCl 50 ml @ 1 mls/hr Q24H IV 08/15/25 06:45 08/16/25 10:41 2 MLS/HR Famotidine 20 mg Q12HR IV 08/15/25 22:00 08/17/25 11:19 20 MG Dextrose 50 ml UD PRN IV 08/15/25 10:30 Sodium Chloride 1,000 ml @ 60 mls/hr [id number] IV 08/15/25 10:30 08/17/25 09:33 60 MLS/HR Ondansetron HCl 4 mg Q4HP PRN IV 08/15/25 10:30 Enoxaparin Sodium 30 mg DAILY SC 08/15/25 11:18 08/17/25 11:21 30 MG Fentanyl Citrate 250 ml @ 2.5 mls/hr Q24H IV 08/15/25 16:00 08/15/25 16:05 2.5 MLS/HR Enteral Nutritional Formula 1,000 ml 30ML/HR GT 08/16/25 12:00 Vancomycin HCl 0 ml @ 0 mls/hr UD IV 08/16/25 12:00 Piperacillin Sod/ Tazobactam Sod 100 ml @ 25 mls/hr Q12HR IV 08/16/25 22:00 08/17/25 11:22 25 MLS/HR Examination General: RASS -4, afebrile, mucosae are moist Cardiovascular: Normal S1 and S2. No murmurs, gallops or rubs Respiratory: Mechanically assisted ventilation, equal bilateral airway entree. Clear lung sounds on auscultation Mechanical ventilation setting: GI: Soft, nontender, no organomegaly, normal bowel sounds, has NG tube, and tube feeding : Winters catheter n place, clear yellow urine in collection bag MSK/skin: Left-sided subcutaneous emphysema, bedside chest tube, has right IJ Neurological: Orientation cannot be assessed. No apparent motor no sensitive deficits. Pupils are isocoric and reactive laboratory and microbiology Laboratory Tests 08/17/25 09:20 08/17/25 02:20 Test 08/17/25 02:20 Range/Units Serum Glucose 107 H 74-106 mg/dL Microbiology Date/Time Source Procedure Growth Status 08/15/25 14:05 Nose MRSA Screen - Final Complete 08/15/25 10:13 Sputum Expectorated Sputum Gram Stain - Final Resulted 08/15/25 10:13 Sputum Expectorated Sputum Respiratory Culture - Preliminary Resulted 08/15/25 06:44 Blood Blood Culture - Preliminary Resulted Labs and/or images reviewed: Labs reviewed by me, Image(s) reviewed by me Problem List/Assessment/Plan Problem List/Assessment/Plan This is a 75-year-old lady with past medical history of dementia brought in by EMS from home, status post cardiac arrest. Patient admitted and intubated on 08/16. NEURO: Acute metabolic/hypoxic encephalopathy due to cardiac arrest/sepsis Dementia * CT 08/15 shows no acute intracranial abnormalities * CT 08/17, shows no acute intracaranial abnormalities, severe atriphic changes * Plan: Fentanyl, Versed, consult neurology CARDIOVASCULAR: Status post cardiac arrest, asystole Cardiogenic shock Possible septic shock NSTEMI, likely type 2 * EKGs shows sinus tachycardia with no significant ST or T-wave change * Trop I mild raised * Plan: Levophed, IV fluid RESPIRATORY: Acute hypoxic respiratory failure, due to cardiopulmonary arrest Pneumothorax, possibly due to CPR, present on admission * Chest x-ray 08/15 shows, left pneumothorax, approximately 35%, multiple left rib fractures * Chest x-ray 08/06 shows, slight interval increase in size of left pneumothorax with progressive increased left lateral chest wall and axillary subcutaneous emphysema * Plan: Mechanical ventilation, IV antibiotic, chest tube GENITOURINARY/FLUID: Complicated UTI NAIMA, VMN * Plan: Urine culture, IV antibiotic GASTROINTESTINAL/NUTRITION: Shock liver, due to cardiac arrest Transaminitis * Plan: Tube feeding, Jevity INFECTIOUS DISEASE: Septic shock, due to sepsis Sepsis, due to UTI * Plan: Vancomycin (08/16), Zosyn (08/16) MSK/SKIN: Left-sided rib fracture * Plan: Medical management DIET: Jevity tube feeding DVT prophylax: Lovenox GI prophylaxis: Pepcid Bowel regimen: Lactulose LINES/DEVICES ETT: Intubated on 08/15 IV access: Right IJ 08/15 Drips: Versed, fentanyl and Levophed Winters catheter: Placed on 08/15 Disposition: Continue ICU status Family: Patients daughter updated at bedside. Critical care time: Spent > 87 min, spent in direct critical care, including evaluation, management, review of labs/imaging, and multidisciplinary/family discussions, (excluding any procedures). Case discussed with Dr. Sol Plan discussed with: Other My Orders My Orders Orders - SHIRA CARNES RESDIGAVIOTA Procedure Category Date Status Time * Neurology Consult CONS 08/16/25 Transmitted 18:01 Chest Xray 1 View XY 08/17/25 Resulted 04:00 Abg W/ Co-Ox RT 08/17/25 Logged 04:00 Chest Xray 1 View XY 08/16/25 Resulted 18:28 R Shoulder 2+ View XY 08/17/25 Resulted Xray 07:50 Ventilator Orders RT 08/17/25 Transmitted 08:52 Creatinine LAB 08/18/25 Verified 04:00 Vancomycin,Random LAB 08/18/25 Verified 04:00 Dietary Evaluation Review Comments: Nutrition Recommendation: 1) EN Jevity 1.2 Demarcus @ 400ml/hr x 24hr(goal). Water flush 100ml Q6H if allowed, adjust PRN. TF at goal volume provides 1152 kcal (100%), 53gm protein (100%), and 1175 ml free water (including flush). 2) Consider TPN/PN if NPO>7 days 3) Advance diet as medically feasible 4) Monitor TF tolerance, lab values, weight trend, and I/O Expected Outcomes/Goals: Intake to meet >75% estimated needs Lab values to improve Fu 2-3 days Date of Service: Aug 17, 2025 Billing Provider: PURNIMA SOL MD Common Visit Codes: 37769-[id number] CARE 30-74 MIN, [id number] CARE-EACH +30MIN SHIRA CARNES Aug 17, 2025 16:19 PURNIMA SOL MD Aug 18, 2025 11:00
[2025-08-17] MEDS ORDERED: MORPHINE SULFATE INJ 2 MG/ml SYRG IV PRN (16:45)
[2025-08-18] VITALS (91 sets, daily range): BP systolic 117–177; BP diastolic 37–105; PULSE 72–98; RESP 14–26; TEMP 97.2–99.5; O2SAT 97–100
[2025-08-18 03:30] LABS: Hemoglobin 8.0 g/dL (12.2-16.2); Nucleated Red Blood Cells % 0.0 %
[2025-08-18 03:32] LABS: Hematocrit 24.1 % (36.0-46.0); Mean Corpuscular Hemoglobin 32.2 pg (28.0-32.0); Mean Corpuscular Volume 97.2 fL (80.0-100.0)
[2025-08-18 03:46] LABS: Anion Gap 9 (5-15); BUN/Creatinine Ratio 18.6 (10.0-20.0); Bilirubin, Total 0.5 mg/dL (0.2-1.0); Carbon Dioxide 22 mmol/L (20-31); Potassium 4.1 mmol/L (3.5-5.1); Total Protein 5.9 g/dL (5.7-8.2)
[2025-08-18 03:59] LABS: Alanine Aminotransferase 321 U/L (7-40); Albumin 3.0 g/dL (3.2-4.8); Alkaline Phosphatase 241 U/L (46-116); Blood Urea Nitrogen 27 mg/dL (9-23); Calcium 8.5 mg/dL (8.7-10.4); Chloride 114 mmol/L (98-107); Glucose 127 mg/dL (74-106); Sodium 145 mmol/L (136-145)
--- NOTE | 2025-08-18 06:00 | DVH ---
CHEST RADIOGRAPH Indication: Pneumonia Technique: Single frontal view of the chest was obtained COMPARISON: XY CHEST XRAY 1 VIEW on DOS: 08/17/25, XY CHEST XRAY 1 VIEW on DOS: 08/16/25, XY CHEST PO RTABLE on DOS: 08/16/25, XY CHEST PORTABLE on DOS: 08/15/25, XY CHEST PORTABLE on DOS: 08/15/25 FINDINGS: Lines and Tubes: Endotracheal tube, enteric catheter and right central venous catheter in satisfactor y position. Left chest tube in-situ. Lungs: Small to moderate left pneumothorax. Subcutaneous emphysema along the left chest wall. Pleura: No effusion. Cardiomediastinal contours: Unremarkable. Bones: Unremarkable. IMPRESSION: Small to moderate left pneumothorax. Left chest tube in-situ.
[2025-08-18 07:20] LABS: Base Excess -3.2 mmol/L (-2.0-3.0)
--- NOTE | 2025-08-18 11:00 | DVHPN2 ---
Progress Note - Dictate Date Seen: Aug 18, 2025 Medical Necessity Reason Pt with a Central, PICC or Fol: Yes Subjective Ms. Earl is a 75 years old female with a history of dementia, she was brought to the [facility] on 08/15/2025 with a chief company of cataract arrest. I have seen and examined the patient, I have discussed with her nurse. I have also discussed with her daughter, she reports the patient was dancing and thinning at home, she also understands the patient has a poor prognosis, She is responsive to light painful stimulation, she also has spontaneous movement in the head, jaw and both arms, she is nonresponsive to verbal stimuli Urinalysis, 08/15/2025: WBC: 43, urine leukocyte esterase: Trace ABG, 08/15/2025: Metabolic acidosis, 08/17/2025: Compensated metabolic acidosis WBC/HGB/PLT/MCV, 08/16/2025: 14.4/10.3/286/95 BUN/CR, 08/16/2025: 23/1.35 GFR, 08/16/2025: 40 HGB A1c, 08/15/2025: 4.6 Lactic acid, 08/15/2025: 9.7, 7.1, 3.1 TBI/AST/ALT/AP, 08/16/2025: 0.5/748/712/276, 08/17/2025: 0.5/296/463/231 CT head, 08/15/2025 0716: Global brain atrophy with prominence of the ventricular system out of proportion to the size of the sulci. This appearance may be due to central brain atrophy or normal pressure hydrocephalus. CT head, 08/16/25 2235: 1. No acute intracranial abnormality. 2. 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 loss vital signs Vital Sign Date Time Temp Pulse Resp B/P (MAP) Pulse Ox O2 Delivery O2 Flow Rate FiO2 08/18/25 08:36 85 23 148/55 (86) 100 30 08/18/25 08:00 Mechanical Ventilator+ 08/18/25 07:00 98.2 208.8 Total Intake and Output 08/17/25 08/17/25 08/18/25 15:00 23:00 07:00 Intake Total 610 ml 792 ml 758 ml Output Total 360 ml 515 ml Balance 610 ml 432 ml 243 ml medications Current Medications Medications Dose Ordered Sig/Kenyon Route Start Time Stop Time Status Last Admin Dose Admin Norepinephrine Bitartrate 250 ml @ 3.75 mls/hr Q24H IV 08/15/25 06:30 08/15/25 08:29 3.75 MLS/HR Midazolam HCl 50 ml @ 1 mls/hr Q24H IV 08/15/25 06:45 08/16/25 10:41 2 MLS/HR Famotidine 20 mg Q12HR IV 08/15/25 22:00 08/18/25 10:17 20 MG Dextrose 50 ml UD PRN IV 08/15/25 10:30 Sodium Chloride 1,000 ml @ 60 mls/hr [id number] IV 08/15/25 10:30 08/18/25 07:47 60 MLS/HR Ondansetron HCl 4 mg Q4HP PRN IV 08/15/25 10:30 Enoxaparin Sodium 30 mg DAILY SC 08/15/25 11:18 08/18/25 10:19 30 MG Enteral Nutritional Formula 1,000 ml 30ML/HR GT 08/16/25 12:00 Vancomycin HCl 0 ml @ 0 mls/hr UD IV 08/16/25 12:00 Piperacillin Sod/ Tazobactam Sod 100 ml @ 25 mls/hr Q12HR IV 08/16/25 22:00 08/18/25 10:19 25 MLS/HR Morphine Sulfate 1 mg Q3HP PRN IV 08/17/25 16:45 objective The patient is well-nourished and well-developed with no distress. The patient is intubated MENTAL STATUS: Subjective CRANIAL NERVES: Pupils are equal, round and slightly reactive. There are corneal reflexes and doll's eyes phenomenon. No signs of facial weakness. There are is gagging or coughing reflexes SENSATION: Responses to light pain stimuli. MOTOR: Normal tone in the upper and lower extremity. Normal muscle bulk. No fasciculations. She moves both arms a little bit REFLEXES: Deep tendon reflexes are symmetrical. No pathological reflexes. CEREBELLAR/COORDINATION: Deferred GAIT/STATION: deferred. laboratory and microbiology Laboratory Tests 08/18/25 02:43 Test 08/18/25 02:43 Range/Units Serum Glucose 127 H 74-106 mg/dL Problem List Coma Metabolic encephalopathy Hypoxic encephalopathy Toxic encephalopathy Cardiopulmonary arrest Acute respiratory failure Metabolic acidosis Shocked liver, recovering Dementia, she may have advanced dementia, likely Alzheimer disease, Assessment/Plan Monitoring Supportive treatment ICU care Follow-up lab tests EEG Stabilize vitals/pressor drip p.r.n. Respiratory support/vent management Oxygen IV antibiotics GI prophylaxis/famotidine DVT prophylaxis/Lovenox More recommendation per clinical course She is likely to have a poor prognosis for meaningful/overall recovery This medical document was created using an electronic medical record system with Eve dictation system. Although this document has been carefully reviewed, there may still be some phonetic and typographical errors. These areas are purely typographical due to imperfections of the software programs, and do not reflect any compromise in the patient's medical care Prognosis Guarded Dietary Evaluation Review Comments: Nutrition Recommendation: 1) EN Jevity 1.2 Demarcus @ 400ml/hr x 24hr(goal). Water flush 100ml Q6H if allowed, adjust PRN. TF at goal volume provides 1152 kcal (100%), 53gm protein (100%), and 1175 ml free water (including flush). 2) Consider TPN/PN if NPO>7 days 3) Advance diet as medically feasible 4) Monitor TF tolerance, lab values, weight trend, and I/O Expected Outcomes/Goals: Intake to meet >75% estimated needs Lab values to improve Fu 2-3 days Plan discussed with: Daughter, Other Critical Care Time(min): 35 TONI ADAMSON MD Aug 18, 2025 11:00
[2025-08-18] MEDS: HYDROmorphone HCL 2 MG/ML VL/or syr IV PRN (13:28)
[2025-08-18] MEDS: VANCOMYCIN 500mg/100mL 100 ML IV ONE (14:17)
--- NOTE | 2025-08-18 18:07 | DVHPNRES ---
Progress Note Date Seen: Aug 18, 2025 Resident Creating Document: SHIRA CARNES RESDIENT Medical Necessity Reason Pt with a Central, PICC or Fol: Yes Subjective Review of Systems This is a 75-year-old lady with past medical history of dementia brought in by EMS from home, status post cardiac arrest. Per patient's daughter yesterday morning (08/15) at 5:30 a.m. patient was found sitting on her knees beside her bed, and her hand was hanging on bed rail, she had labored breathing, and carotid vitals was faint, family started CPR, EMS arrival 15 minutes later, cardiac rhythm was found to be non shockable, en route to the hospital the patient was given epinephrine, intubated and ROSC was achieved before hospital arrival. The last time patient was seen at baseline was night before, had no complaint. PMHx: Dementia Social history: Lives with the daughter at home, at baseline speaks few words, can not communicate properly, use walker for mobilization, needs assistance for daily life activities, does not have control on bladder and bowel movements. Home medication: Does not take any prescribed medicine, uses holistic medicine Allergic history: No known allergy Patient seen and examined at the bedside. Patient is sedated and on mechanical ventilation Objective vital signs Vital Sign Date Time Temp Pulse Resp B/P (MAP) Pulse Ox O2 Delivery O2 Flow Rate FiO2 08/18/25 16:16 77 22 147/62 (90) 100 30 08/18/25 16:00 Mechanical Ventilator+ 08/18/25 15:30 98.8 209.8 Total Intake and Output 08/17/25 08/17/25 08/18/25 15:00 23:00 07:00 Intake Total 610 ml 792 ml 818 ml Output Total 360 ml 515 ml Balance 610 ml 432 ml 303 ml medications Current Medications Medications Dose Ordered Sig/Kenyon Route Start Time Stop Time Status Last Admin Dose Admin Norepinephrine Bitartrate 250 ml @ 3.75 mls/hr Q24H IV 08/15/25 06:30 08/15/25 08:29 3.75 MLS/HR Midazolam HCl 50 ml @ 1 mls/hr Q24H IV 08/15/25 06:45 08/16/25 10:41 2 MLS/HR Famotidine 20 mg Q12HR IV 08/15/25 22:00 08/18/25 10:17 20 MG Dextrose 50 ml UD PRN IV 08/15/25 10:30 Ondansetron HCl 4 mg Q4HP PRN IV 08/15/25 10:30 Enoxaparin Sodium 30 mg DAILY SC 08/15/25 11:18 08/18/25 10:19 30 MG Enteral Nutritional Formula 1,000 ml 30ML/HR GT 08/16/25 12:00 Vancomycin HCl 0 ml @ 0 mls/hr UD IV 08/16/25 12:00 Piperacillin Sod/ Tazobactam Sod 100 ml @ 25 mls/hr Q12HR IV 08/16/25 22:00 08/18/25 10:19 25 MLS/HR Hydralazine HCl 10 mg Q6HP PRN IV 08/18/25 16:15 UNV Fentanyl Citrate 25 mcg Q4HPRN PRN IV 08/18/25 16:15 UNV Examination General: RASS -4, afebrile, mucosae are moist Cardiovascular: Normal S1 and S2. No murmurs, gallops or rubs Respiratory: Mechanically assisted ventilation, equal bilateral airway entree. Clear lung sounds on auscultation Mechanical ventilation setting: GI: Soft, nontender, no organomegaly, normal bowel sounds, has NG tube, and tube feeding : Winters catheter n place, clear yellow urine in collection bag MSK/skin: Left-sided subcutaneous emphysema, bedside chest tube, has right IJ Neurological: Orientation cannot be assessed. No apparent motor no sensitive deficits. Pupils are isocoric and reactive laboratory and microbiology Laboratory Tests 08/18/25 02:43 Test 08/18/25 02:43 Range/Units Serum Glucose 127 H 74-106 mg/dL Microbiology Date/Time Source Procedure Growth Status 08/15/25 14:05 Nose MRSA Screen - Final Complete 08/15/25 10:13 Sputum Expectorated Sputum Gram Stain - Final Complete 08/15/25 10:13 Sputum Expectorated Sputum Respiratory Culture - Final Complete 08/15/25 06:44 Blood Blood Culture - Preliminary Resulted Labs and/or images reviewed: Labs reviewed by me, Image(s) reviewed by me Problem List/Assessment/Plan Problem List/Assessment/Plan This is a 75-year-old lady with past medical history of dementia brought in by EMS from home, status post cardiac arrest. Patient admitted and intubated on 08/16. NEURO: Acute metabolic/hypoxic encephalopathy due to cardiac arrest/sepsis Dementia * CT 08/15 shows no acute intracranial abnormalities * CT 08/17, shows no acute intracaranial abnormalities, severe atriphic changes * Plan: Fentanyl, consult neurology CARDIOVASCULAR: Status post cardiac arrest, asystole Cardiogenic shock Possible septic shock NSTEMI, likely type 2 * EKGs shows sinus tachycardia with no significant ST or T-wave change * Trop I mild raised * Plan: IV fluid RESPIRATORY: Acute hypoxic respiratory failure, due to cardiopulmonary arrest Pneumothorax, possibly due to CPR, present on admission * Chest x-ray 08/15 shows, left pneumothorax, approximately 35%, multiple left rib fractures * Chest x-ray 08/06 shows, slight interval increase in size of left pneumothorax with progressive increased left lateral chest wall and axillary subcutaneous emphysema * Plan: Mechanical ventilation, IV antibiotic, chest tube GENITOURINARY/FLUID: Complicated UTI NAIMA, VMN * Plan: Urine culture, IV antibiotic GASTROINTESTINAL/NUTRITION: Shock liver, due to cardiac arrest Transaminitis * Plan: Tube feeding, Jevity INFECTIOUS DISEASE: Septic shock, due to sepsis Sepsis, due to UTI * Plan: Vancomycin (08/16), Zosyn (08/16) MSK/SKIN: Left-sided rib fracture * Plan: Medical management DIET: Jevity tube feeding DVT prophylax: Lovenox GI prophylaxis: Pepcid Bowel regimen: Lactulose LINES/DEVICES ETT: Intubated on 08/15 IV access: Right IJ 08/15 Drips: Versed, fentanyl and Levophed Winters catheter: Placed on 08/15 Disposition: Continue ICU status Family: Patients daughter updated at bedside. Critical care time: Spent > 87 min, spent in direct critical care, including evaluation, management, review of labs/imaging, and multidisciplinary/family discussions, (excluding any procedures). Case discussed with Dr. Sol Plan discussed with: Other My Orders My Orders Orders - SHIRA CARNES Procedure Category Date Status Time Vancomycin,Random LAB 08/19/25 Verified 04:00 Creatinine LAB 08/19/25 Verified 04:00 Comprehensive LAB 08/19/25 Verified Metabolic Panel 04:00 Complete Blood Count LAB 08/19/25 Verified 04:00 Chest Xray 1 View XY 08/19/25 Logged 04:00 Abg W/ Co-Ox RT 08/19/25 Logged 04:00 Dietary Evaluation Review Comments: Nutrition Recommendation: 1) EN Jevity 1.2 Demarcus @ 400ml/hr x 24hr(goal). Water flush 100ml Q6H if allowed, adjust PRN. TF at goal volume provides 1152 kcal (100%), 53gm protein (100%), and 1175 ml free water (including flush). 2) Consider TPN/PN if NPO>7 days 3) Advance diet as medically feasible 4) Monitor TF tolerance, lab values, weight trend, and I/O Expected Outcomes/Goals: Intake to meet >75% estimated needs Lab values to improve Fu 2-3 days Date of Service: Aug 18, 2025 Billing Provider: PURNIMA SOL MD Common Visit Codes: 32274-[id number] CARE 30-74 MIN, [id number]-[id number] CARE-EACH +30MIN SHIRA CARNES RESDIENT Aug 18, 2025 18:06 PURNIMA SOL MD Aug 20, 2025 11:12
[2025-08-19] VITALS (110 sets, daily range): BP systolic 111–192; BP diastolic 37–88; PULSE 67–103; RESP 9–26; TEMP 97.7–99.2; O2SAT 99–100
[2025-08-19 03:41] LABS: Hemoglobin 7.8 g/dL (12.2-16.2); Nucleated Red Blood Cells % 0.0 %
[2025-08-19 03:44] LABS: Hematocrit 23.0 % (36.0-46.0); Mean Corpuscular Hemoglobin 32.6 pg (28.0-32.0); Mean Corpuscular Volume 95.9 fL (80.0-100.0)
[2025-08-19 04:07] LABS: Anion Gap 10 (5-15); BUN/Creatinine Ratio 20.2 (10.0-20.0); Bilirubin, Total 0.7 mg/dL (0.2-1.0); Calcium 8.7 mg/dL (8.7-10.4); Carbon Dioxide 24 mmol/L (20-31); Potassium 4.1 mmol/L (3.5-5.1); Total Protein 5.9 g/dL (5.7-8.2)
[2025-08-19 04:08] LABS: Alanine Aminotransferase 222 U/L (7-40); Albumin 2.8 g/dL (3.2-4.8); Alkaline Phosphatase 228 U/L (46-116); Blood Urea Nitrogen 24 mg/dL (9-23); Chloride 112 mmol/L (98-107); Glucose 114 mg/dL (74-106); Sodium 146 mmol/L (136-145)
--- NOTE | 2025-08-19 05:55 | DVH ---
CHEST RADIOGRAPH Indication: Pneumonia Technique: Single frontal view of the chest was obtained COMPARISON: XY CHEST XRAY 1 VIEW on DOS: 08/18/25, XY CHEST XRAY 1 VIEW on DOS: 08/17/25, XY CHEST XR AY 1 VIEW on DOS: 08/16/25, XY CHEST PORTABLE on DOS: 08/16/25, XY CHEST PORTABLE on DOS: 08/15/25 FINDINGS: Lines and Tubes: Endotracheal tube, enteric catheter and right central venous catheter in satisfactor y position. Lungs: Trace left apical pneumothorax with left chest tube in-situ. Mild diffuse increased interstiti al prominence. Subcutaneous emphysema along the left chest wall. Pleura: No effusion. Cardiomediastinal contours: Unremarkable. Bones: Unremarkable. IMPRESSION: Trace left apical pneumothorax with left chest tube in-situ.
[2025-08-19 08:31] LABS: Base Excess -1.4 mmol/L (-2.0-3.0)
[2025-08-19] MEDS: fentaNYL CITRATE 100 MCG/2 ML VL IV PRN (10:57)
[2025-08-19 14:16] LABS: Base Excess -0.4 mmol/L (-2.0-3.0)
--- NOTE | 2025-08-19 14:36 | DVHPNRES ---
Progress Note Date Seen: Aug 19, 2025 Resident Creating Document: SHIRA CARNES RESDIENT Medical Necessity Reason Pt with a Central, PICC or Fol: Yes Subjective Review of Systems This is a 75-year-old lady with past medical history of dementia brought in by EMS from home, status post cardiac arrest. Per patient's daughter yesterday morning (08/15) at 5:30 a.m. patient was found sitting on her knees beside her bed, and her hand was hanging on bed rail, she had labored breathing, and carotid vitals was faint, family started CPR, EMS arrival 15 minutes later, cardiac rhythm was found to be non shockable, en route to the hospital the patient was given epinephrine, intubated and ROSC was achieved before hospital arrival. The last time patient was seen at baseline was night before, had no complaint. PMHx: Dementia Social history: Lives with the daughter at home, at baseline speaks few words, can not communicate properly, use walker for mobilization, needs assistance for daily life activities, does not have control on bladder and bowel movements. Home medication: Does not take any prescribed medicine, uses holistic medicine Allergic history: No known allergy Patient seen and examined at the bedside. Patient is sedated and on mechanical ventilation Objective vital signs Vital Sign Date Time Temp Pulse Resp B/P (MAP) Pulse Ox O2 Delivery O2 Flow Rate FiO2 08/19/25 14:00 76 08/19/25 14:00 13 100 Mechanical Ventilator+ 30 30 08/19/25 12:35 146/58 (87) 08/19/25 09:00 98.4 209.1 Total Intake and Output 08/18/25 08/18/25 08/19/25 15:00 23:00 07:00 Intake Total 340 ml 459 ml 370 ml Output Total 600 ml 450 ml Balance 340 ml -141 ml -80 ml medications Current Medications Medications Dose Ordered Sig/Kenyon Route Start Time Stop Time Status Last Admin Dose Admin Norepinephrine Bitartrate 250 ml @ 3.75 mls/hr Q24H IV 08/15/25 06:30 08/15/25 08:29 3.75 MLS/HR Midazolam HCl 50 ml @ 1 mls/hr Q24H IV 08/15/25 06:45 08/16/25 10:41 2 MLS/HR Dextrose 50 ml UD PRN IV 08/15/25 10:30 Ondansetron HCl 4 mg Q4HP PRN IV 08/15/25 10:30 Enoxaparin Sodium 30 mg DAILY SC 08/15/25 11:18 08/19/25 10:29 30 MG Enteral Nutritional Formula 1,000 ml 30ML/HR GT 08/16/25 12:00 Vancomycin HCl 0 ml @ 0 mls/hr UD IV 08/16/25 12:00 Piperacillin Sod/ Tazobactam Sod 100 ml @ 25 mls/hr Q12HR IV 08/16/25 22:00 08/19/25 10:29 25 MLS/HR Hydralazine HCl 10 mg Q6HP PRN IV 08/18/25 16:15 Fentanyl Citrate 25 mcg Q4HPRN PRN IV 08/18/25 16:15 08/19/25 10:57 25 MCG Famotidine 20 mg DAILY IV 08/20/25 10:00 Examination General: RASS -4, afebrile, mucosae are moist Cardiovascular: Normal S1 and S2. No murmurs, gallops or rubs Respiratory: Mechanically assisted ventilation, equal bilateral airway entree. Clear lung sounds on auscultation Mechanical ventilation setting: GI: Soft, nontender, no organomegaly, normal bowel sounds, has NG tube, and tube feeding : Winters catheter n place, clear yellow urine in collection bag MSK/skin: Left-sided subcutaneous emphysema, bedside chest tube, has right IJ Neurological: Orientation cannot be assessed. No apparent motor no sensitive deficits. Pupils are isocoric and reactive laboratory and microbiology Laboratory Tests 08/19/25 03:10 Test 08/19/25 03:10 Range/Units Serum Glucose 114 H 74-106 mg/dL Microbiology Date/Time Source Procedure Growth Status 08/15/25 14:05 Nose MRSA Screen - Final Complete 08/15/25 10:13 Sputum Expectorated Sputum Gram Stain - Final Complete 08/15/25 10:13 Sputum Expectorated Sputum Respiratory Culture - Final Complete 08/15/25 06:44 Blood Blood Culture - Preliminary Resulted Labs and/or images reviewed: Labs reviewed by me, Image(s) reviewed by me Problem List/Assessment/Plan Problem List/Assessment/Plan This is a 75-year-old lady with past medical history of dementia brought in by EMS from home, status post cardiac arrest. Patient admitted and intubated on 08/16. NEURO: Acute metabolic/hypoxic encephalopathy due to cardiac arrest/sepsis Dementia * CT 08/15 shows no acute intracranial abnormalities * CT 08/17, shows no acute intracaranial abnormalities, severe atriphic changes * Plan: Fentanyl, consult neurology CARDIOVASCULAR: Status post cardiac arrest, asystole Cardiogenic shock Possible septic shock NSTEMI, likely type 2 * EKGs shows sinus tachycardia with no significant ST or T-wave change * Trop I mild raised * Plan: IV fluid RESPIRATORY: Acute hypoxic respiratory failure, due to cardiopulmonary arrest Pneumothorax, possibly due to CPR, present on admission * Chest x-ray 08/15 shows, left pneumothorax, approximately 35%, multiple left rib fractures * Chest x-ray 08/06 shows, slight interval increase in size of left pneumothorax with progressive increased left lateral chest wall and axillary subcutaneous emphysema * Plan: Mechanical ventilation, IV antibiotic, chest tube GENITOURINARY/FLUID: Complicated UTI NAIMA, VMN * Plan: Urine culture, IV antibiotic GASTROINTESTINAL/NUTRITION: Shock liver, due to cardiac arrest Transaminitis * Plan: Tube feeding, Jevity INFECTIOUS DISEASE: Septic shock, due to sepsis Sepsis, due to UTI * Plan: Vancomycin (08/16), Zosyn (08/16) MSK/SKIN: Left-sided rib fracture * Plan: Medical management DIET: Jevity tube feeding DVT prophylax: Lovenox GI prophylaxis: Pepcid Bowel regimen: Lactulose LINES/DEVICES ETT: Intubated on 08/15 IV access: Right IJ 08/15 Drips: Versed, fentanyl and Levophed Winters catheter: Placed on 08/15 Disposition: Continue ICU status Family: Patients daughter updated at bedside. Critical care time: Spent > 103 min, spent in direct critical care, including evaluation, management, review of labs/imaging, and multidisciplinary/family discussions, including CPAP trial which failed, (excluding any procedures). Case discussed with Dr. Rivero Plan discussed with: Patient, Other (RN) My Orders My Orders Orders - SHIRA CARNES RESDIGAVIOTA Procedure Category Date Status Time Cpap Trial For Am ORDERS 08/19/25 Transmitted 10:44 Abg W/ Co-Ox RT 08/19/25 Logged 12:00 Dietary Evaluation Review Comments: Nutrition Recommendation: 1) EN Jevity 1.2 Demarcus @ 400ml/hr x 24hr(goal). Water flush 100ml Q6H if allowed, adjust PRN. TF at goal volume provides 1152 kcal (100%), 53gm protein (100%), and 1175 ml free water (including flush). 2) Consider TPN/PN if NPO>7 days 3) Advance diet as medically feasible 4) Monitor TF tolerance, lab values, weight trend, and I/O Expected Outcomes/Goals: Intake to meet >75% estimated needs Lab values to improve Fu 2-3 days SHIRA CARNES Aug 19, 2025 14:36
[2025-08-19] MEDS: VANCOMYCIN 750MG KIT 100 ML IV SCH (17:52)
--- NOTE | 2025-08-19 20:38 | DVHPN2 ---
Progress Note - Dictate Date Seen: Aug 19, 2025 Medical Necessity Reason Pt with a Central, PICC or Fol: Yes Subjective Ms. Earl is a 75 years old female with a history of dementia, she was brought to the [facility] on 08/15/2025 with a chief company of cataract arrest. I have seen and examined the patient, her daughter is in the room. I have discussed with her nurse, she also had her last night. She is awake with eyes group home open, she only responsive to her daughter's voice, she arms a little bit Nurse reported that she tracked last night Urinalysis, 08/15/2025: WBC: 43, urine leukocyte esterase: Trace ABG, 08/15/2025: Metabolic acidosis, 08/17/2025: Compensated metabolic acidosis WBC/HGB/PLT/MCV, 08/16/2025: 14.4/10.3/286/95 BUN/CR, 08/16/2025: 23/1.35 GFR, 08/16/2025: 40 HGB A1c, 08/15/2025: 4.6 Lactic acid, 08/15/2025: 9.7, 7.1, 3.1 TBI/AST/ALT/AP, 08/16/2025: 0.5/748/712/276, 08/17/2025: 0.5/296/463/231 CT head, 08/15/2025 0716: Global brain atrophy with prominence of the ventricular system out of proportion to the size of the sulci. This appearance may be due to central brain atrophy or normal pressure hydrocephalus. CT head, 08/16/25 2235: 1. No acute intracranial abnormality. 2. 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 loss vital signs Vital Sign Date Time Temp Pulse Resp B/P (MAP) Pulse Ox O2 Delivery O2 Flow Rate FiO2 08/19/25 19:00 75 20 120/48 (72) 100 08/19/25 18:48 30 08/19/25 18:00 Mechanical Ventilator+ 08/19/25 16:00 98.6 98.6 Total Intake and Output 08/18/25 08/18/25 08/19/25 15:00 23:00 07:00 Intake Total 340 ml 459 ml 370 ml Output Total 600 ml 450 ml Balance 340 ml -141 ml -80 ml medications Current Medications Medications Dose Ordered Sig/Kenyon Route Start Time Stop Time Status Last Admin Dose Admin Norepinephrine Bitartrate 250 ml @ 3.75 mls/hr Q24H IV 08/15/25 06:30 08/15/25 08:29 3.75 MLS/HR Midazolam HCl 50 ml @ 1 mls/hr Q24H IV 08/15/25 06:45 08/16/25 10:41 2 MLS/HR Dextrose 50 ml UD PRN IV 08/15/25 10:30 Ondansetron HCl 4 mg Q4HP PRN IV 08/15/25 10:30 Enoxaparin Sodium 30 mg DAILY SC 08/15/25 11:18 08/19/25 10:29 30 MG Enteral Nutritional Formula 1,000 ml 30ML/HR GT 08/16/25 12:00 Vancomycin HCl 0 ml @ 0 mls/hr UD IV 08/16/25 12:00 Piperacillin Sod/ Tazobactam Sod 100 ml @ 25 mls/hr Q12HR IV 08/16/25 22:00 08/19/25 10:29 25 MLS/HR Hydralazine HCl 10 mg Q6HP PRN IV 08/18/25 16:15 Fentanyl Citrate 25 mcg Q4HPRN PRN IV 08/18/25 16:15 08/19/25 18:17 25 MCG Famotidine 20 mg DAILY IV 08/20/25 10:00 Vancomycin HCl 100 ml @ 100 mls/hr DAILY@1600 IV 08/19/25 16:00 08/19/25 17:52 100 MLS/HR objective The patient is well-nourished and well-developed with no distress. The patient is intubated MENTAL STATUS: Subjective CRANIAL NERVES: Pupils are equal, round and slightly reactive. Eyes are group home open. No signs of facial weakness. There are is gagging or coughing reflexes during oral care SENSATION: Responses to light pain stimuli. MOTOR: Normal tone in the upper and lower extremity. Normal muscle bulk. No fasciculations. She moves both arms a little bit REFLEXES: Deep tendon reflexes are symmetrical. No pathological reflexes. CEREBELLAR/COORDINATION: Deferred GAIT/STATION: deferred. laboratory and microbiology Laboratory Tests 08/19/25 03:10 Test 08/19/25 03:10 Range/Units Serum Glucose 114 H 74-106 mg/dL Problem List Coma Metabolic encephalopathy Hypoxic encephalopathy Toxic encephalopathy Cardiopulmonary arrest Acute respiratory failure Metabolic acidosis Shocked liver, recovering Dementia, she may have advanced dementia, likely Alzheimer disease, Assessment/Plan Monitoring Supportive treatment ICU care Follow-up lab tests EEG Stabilize vitals/pressor drip p.r.n. Respiratory support/vent management Oxygen IV antibiotics GI prophylaxis/famotidine DVT prophylaxis/Lovenox More recommendation per clinical course She is likely to have a poor prognosis for meaningful/overall recovery This medical document was created using an electronic medical record system with [employer] dictation system. Although this document has been carefully reviewed, there may still be some phonetic and typographical errors. These areas are purely typographical due to imperfections of the software programs, and do not reflect any compromise in the patient's medical care Prognosis Guarded Dietary Evaluation Review Comments: Nutrition Recommendation: 1) EN Jevity 1.2 Demarcus @ 400ml/hr x 24hr(goal). Water flush 100ml Q6H if allowed, adjust PRN. TF at goal volume provides 1152 kcal (100%), 53gm protein (100%), and 1175 ml free water (including flush). 2) Consider TPN/PN if NPO>7 days 3) Advance diet as medically feasible 4) Monitor TF tolerance, lab values, weight trend, and I/O Expected Outcomes/Goals: Intake to meet >75% estimated needs Lab values to improve Fu 2-3 days Plan discussed with: Daughter, Other Critical Care Time(min): 35 TONI ADAMSON MD Aug 19, 2025 20:38
[2025-08-20] VITALS (105 sets, daily range): BP systolic 112–179; BP diastolic 48–112; PULSE 58–100; RESP 11–25; TEMP 98.3–99.4; O2SAT 98–100
[2025-08-20 04:23] LABS: Hematocrit 22.8 % (36.0-46.0); Hemoglobin 7.7 g/dL (12.2-16.2); Mean Corpuscular Hemoglobin 32.0 pg (28.0-32.0); Mean Corpuscular Volume 95.0 fL (80.0-100.0); Nucleated Red Blood Cells % 0.0 %
[2025-08-20 04:44] LABS: Anion Gap 10 (5-15); BUN/Creatinine Ratio 17.6 (10.0-20.0); Bilirubin, Total 1.0 mg/dL (0.2-1.0); Blood Urea Nitrogen 21 mg/dL (9-23); Carbon Dioxide 26 mmol/L (20-31); Glucose 95 mg/dL (74-106); Potassium 3.9 mmol/L (3.5-5.1); Total Protein 5.9 g/dL (5.7-8.2)
[2025-08-20 04:56] LABS: Alanine Aminotransferase 159 U/L (7-40); Albumin 2.9 g/dL (3.2-4.8); Alkaline Phosphatase 228 U/L (46-116); Calcium 8.6 mg/dL (8.7-10.4); Chloride 110 mmol/L (98-107); Sodium 146 mmol/L (136-145)
--- NOTE | 2025-08-20 06:07 | DVH ---
CHEST RADIOGRAPH Indication: Intubated Technique: Single frontal view of the chest was obtained COMPARISON: XY CHEST XRAY 1 VIEW on DOS: 08/19/25, XY CHEST XRAY 1 VIEW on DOS: 08/18/25, XY CHEST XR AY 1 VIEW on DOS: 08/17/25, XY CHEST XRAY 1 VIEW on DOS: 08/16/25, XY CHEST PORTABLE on DOS: 08/16/25 FINDINGS: Lines and Tubes: Unchanged Lungs: Mild diffuse increased prominence of the pulmonary vasculature. No evidence of significant ple ural effusion. Trace residual apical pneumothorax and lateral chest wall subcutaneous emphysema. No pneumothorax. Cardiomediastinal contours: Unremarkable Bones: Unremarkable IMPRESSION: 1. Trace residual apical pneumothorax and lateral chest wall subcutaneous emphysema. 2. Mild diffuse increased prominence of the pulmonary vasculature. 3. Lines and tubes unchanged.
[2025-08-20 06:58] LABS: Base Excess 0.1 mmol/L (-2.0-3.0)
[2025-08-20] MEDS: FAMOTIDINE (10MG/ML) 2ML VL IV SCH (10:40)
[2025-08-20 12:27] LABS: Base Excess 0.6 mmol/L (-2.0-3.0)
--- NOTE | 2025-08-20 12:41 | DVHPN2 ---
Progress Note - Dictate Date Seen: Aug 20, 2025 Medical Necessity Reason Pt with a Central, PICC or Fol: Yes Subjective Ms. Earl is a 75 years old female with a history of dementia, she was brought to the [facility] on 08/15/2025 with a chief company of cataract arrest. I have seen and examined the patient, her daughter is in the room. I have discussed with her nurse, Her eyes are fci open, she moves the head and jaw but not extremities She is not responsive to verbal stimuli Urinalysis, 08/15/2025: WBC: 43, urine leukocyte esterase: Trace ABG, 08/15/2025: Metabolic acidosis, 08/17/2025: Compensated metabolic acidosis WBC/HGB/PLT/MCV, 08/16/2025: 14.4/10.3/286/95 BUN/CR, 08/16/2025: 23/1.35 GFR, 08/16/2025: 40 HGB A1c, 08/15/2025: 4.6 Lactic acid, 08/15/2025: 9.7, 7.1, 3.1 TBI/AST/ALT/AP, 08/16/2025: 0.5/748/712/276, 08/17/2025: 0.5/296/463/231 CT head, 08/15/2025 0716: Global brain atrophy with prominence of the ventricular system out of proportion to the size of the sulci. This appearance may be due to central brain atrophy or normal pressure hydrocephalus. CT head, 08/16/25 2235: 1. No acute intracranial abnormality. 2. 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 loss vital signs Vital Sign Date Time Temp Pulse Resp B/P (MAP) Pulse Ox O2 Delivery O2 Flow Rate FiO2 08/20/25 11:31 71 16 131/62 (85) 100 30 08/20/25 10:00 Mechanical Ventilator+ 08/20/25 08:00 98.3 98.3 Total Intake and Output 08/19/25 08/19/25 08/20/25 15:00 23:00 07:00 Intake Total 100 ml 340 ml 380 ml Output Total 0 ml 425 ml 405 ml Balance 100 ml -85 ml -25 ml medications Current Medications Medications Dose Ordered Sig/Kenyon Route Start Time Stop Time Status Last Admin Dose Admin Norepinephrine Bitartrate 250 ml @ 3.75 mls/hr Q24H IV 08/15/25 06:30 08/15/25 08:29 3.75 MLS/HR Midazolam HCl 50 ml @ 1 mls/hr Q24H IV 08/15/25 06:45 08/16/25 10:41 2 MLS/HR Dextrose 50 ml UD PRN IV 08/15/25 10:30 Ondansetron HCl 4 mg Q4HP PRN IV 08/15/25 10:30 Enoxaparin Sodium 30 mg DAILY SC 08/15/25 11:18 08/20/25 10:42 30 MG Enteral Nutritional Formula 1,000 ml 30ML/HR GT 08/16/25 12:00 Vancomycin HCl 0 ml @ 0 mls/hr UD IV 08/16/25 12:00 Piperacillin Sod/ Tazobactam Sod 100 ml @ 25 mls/hr Q12HR IV 08/16/25 22:00 08/20/25 10:41 25 MLS/HR Hydralazine HCl 10 mg Q6HP PRN IV 08/18/25 16:15 Fentanyl Citrate 25 mcg Q4HPRN PRN IV 08/18/25 16:15 08/19/25 18:17 25 MCG Famotidine 20 mg DAILY IV 08/20/25 10:00 08/20/25 10:40 20 MG Vancomycin HCl 100 ml @ 100 mls/hr DAILY@1600 IV 08/19/25 16:00 08/19/25 17:52 100 MLS/HR objective The patient is well-nourished and well-developed with no distress. The patient is intubated MENTAL STATUS: Subjective CRANIAL NERVES: Pupils are equal, round and slightly reactive. Eyes are fci open. No signs of facial weakness. There are is gagging or coughing reflexes during oral care SENSATION: Responses to light painful stimuli. MOTOR: Normal tone in the upper and lower extremity. Normal muscle bulk. No fasciculations. No extremity movement REFLEXES: Deep tendon reflexes are symmetrical. No pathological reflexes. CEREBELLAR/COORDINATION: Deferred GAIT/STATION: deferred. laboratory and microbiology Laboratory Tests 08/20/25 03:45 Test 08/20/25 03:45 Range/Units Serum Glucose 95 74-106 mg/dL Problem List Coma Metabolic encephalopathy Hypoxic encephalopathy Toxic encephalopathy Cardiopulmonary arrest Acute respiratory failure Metabolic acidosis Shocked liver, recovering Dementia, she may have advanced dementia, likely Alzheimer disease, Assessment/Plan Monitoring Supportive treatment ICU care Follow-up lab tests EEG Stabilize vitals/pressor drip p.r.n. Respiratory support/vent management Oxygen IV antibiotics GI prophylaxis/famotidine DVT prophylaxis/Lovenox More recommendation per clinical course She is likely to have a poor prognosis for meaningful/overall recovery This medical document was created using an electronic medical record system with [employer] dictation system. Although this document has been carefully reviewed, there may still be some phonetic and typographical errors. These areas are purely typographical due to imperfections of the software programs, and do not reflect any compromise in the patient's medical care Prognosis Guarded Dietary Evaluation Review Comments: Nutrition Recommendation: 1) EN Jevity 1.2 Demarcus @ 400ml/hr x 24hr(goal). Water flush 100ml Q6H if allowed, adjust PRN. TF at goal volume provides 1152 kcal (100%), 53gm protein (100%), and 1175 ml free water (including flush). 2) Consider TPN/PN if NPO>7 days 3) Advance diet as medically feasible 4) Monitor TF tolerance, lab values, weight trend, and I/O Expected Outcomes/Goals: Intake to meet >75% estimated needs Lab values to improve Fu 2-3 days Plan discussed with: Daughter, Other Critical Care Time(min): 30 TONI ADAMSON MD Aug 20, 2025 12:41
--- NOTE | 2025-08-20 16:43 | DVHPNRES ---
Progress Note Date Seen: Aug 20, 2025 Resident Creating Document: SHIRA CARNES RESDIENT Medical Necessity Reason Pt with a Central, PICC or Fol: Yes Subjective Review of Systems This is a 75-year-old lady with past medical history of dementia brought in by EMS from home, status post cardiac arrest. Per patient's daughter yesterday morning (08/15) at 5:30 a.m. patient was found sitting on her knees beside her bed, and her hand was hanging on bed rail, she had labored breathing, and carotid vitals was faint, family started CPR, EMS arrival 15 minutes later, cardiac rhythm was found to be non shockable, en route to the hospital the patient was given epinephrine, intubated and ROSC was achieved before hospital arrival. The last time patient was seen at baseline was night before, had no complaint. PMHx: Dementia Social history: Lives with the daughter at home, at baseline speaks few words, can not communicate properly, use walker for mobilization, needs assistance for daily life activities, does not have control on bladder and bowel movements. Home medication: Does not take any prescribed medicine, uses holistic medicine Allergic history: No known allergy Patient seen and examined at the bedside. Patient is sedated and on mechanical ventilation Objective vital signs Vital Sign Date Time Temp Pulse Resp B/P (MAP) Pulse Ox O2 Delivery O2 Flow Rate FiO2 08/20/25 15:33 84 21 161/53 (89) 100 30 08/20/25 10:00 Mechanical Ventilator+ 08/20/25 08:00 98.3 98.3 Total Intake and Output 08/19/25 08/19/25 08/20/25 15:00 23:00 07:00 Intake Total 100 ml 340 ml 380 ml Output Total 0 ml 425 ml 405 ml Balance 100 ml -85 ml -25 ml medications Current Medications Medications Dose Ordered Sig/Ken[place] Route Start Time Stop Time Status Last Admin Dose Admin Norepinephrine Bitartrate 250 ml @ 3.75 mls/hr Q24H IV 08/15/25 06:30 08/15/25 08:29 Midazolam HCl 50 ml @ 1 mls/hr Q24H IV 08/15/25 06:45 08/16/25 10:41 Dextrose 50 ml UD PRN IV 08/15/25 10:30 Ondansetron HCl 4 mg Q4HP PRN IV 08/15/25 10:30 Enoxaparin Sodium 30 mg DAILY SC 08/15/25 11:18 08/20/25 10:42 Enteral Nutritional Formula 1,000 ml 30ML/HR GT 08/16/25 12:00 Vancomycin HCl 0 ml @ 0 mls/hr UD IV 08/16/25 12:00 Piperacillin Sod/ Tazobactam Sod 100 ml @ 25 mls/hr Q12HR IV 08/16/25 22:00 08/20/25 10:41 Hydralazine HCl 10 mg Q6HP PRN IV 08/18/25 16:15 Fentanyl Citrate 25 mcg Q4HPRN PRN IV 08/18/25 16:15 08/20/25 13:42 Famotidine 20 mg DAILY IV 08/20/25 10:00 08/20/25 10:40 Vancomycin HCl 100 ml @ 100 mls/hr DAILY@1600 IV 08/19/25 16:00 08/19/25 17:52 Methylprednisolone Sodium Succinate 40 mg Q8HR IV 08/20/25 16:00 Examination General: RASS -4, afebrile, mucosae are moist Cardiovascular: Normal S1 and S2. No murmurs, gallops or rubs Respiratory: Mechanically assisted ventilation, equal bilateral airway entree. Clear lung sounds on auscultation Mechanical ventilation setting: GI: Soft, nontender, no organomegaly, normal bowel sounds, has NG tube, and tube feeding : Winters catheter n place, clear yellow urine in collection bag MSK/skin: Left-sided subcutaneous emphysema, bedside chest tube, has right IJ Neurological: Orientation cannot be assessed. No apparent motor no sensitive deficits. Pupils are isocoric and reactive laboratory and microbiology Laboratory Tests 08/20/25 03:45 Test 08/20/25 03:45 Range/Units Serum Glucose 95 74-106 mg/dL Microbiology Date/Time Source Procedure Growth Status 08/15/25 14:05 Nose MRSA Screen - Final Complete 08/15/25 10:13 Sputum Expectorated Sputum Gram Stain - Final Complete 08/15/25 10:13 Sputum Expectorated Sputum Respiratory Culture - Final Complete 08/15/25 06:44 Blood Blood Culture - Preliminary Resulted Labs and/or images reviewed: Labs reviewed by me, Image(s) reviewed by me Problem List/Assessment/Plan Problem List/Assessment/Plan This is a 75-year-old lady with past medical history of dementia brought in by EMS from home, status post cardiac arrest. Patient admitted and intubated on 08/16. NEURO: Acute metabolic/hypoxic encephalopathy due to cardiac arrest/sepsis Dementia * CT 08/15 shows no acute intracranial abnormalities * CT 08/17, shows no acute intracaranial abnormalities, severe atriphic changes * Plan: Fentanyl, consult neurology CARDIOVASCULAR: Status post cardiac arrest, asystole Cardiogenic shock Possible septic shock NSTEMI, likely type 2 * EKGs shows sinus tachycardia with no significant ST or T-wave change * Trop I mild raised * Plan: IV fluid RESPIRATORY: Acute hypoxic respiratory failure, due to cardiopulmonary arrest Pneumothorax, possibly due to CPR, present on admission * Chest x-ray 08/15 shows, left pneumothorax, approximately 35%, multiple left rib fractures * Chest x-ray 08/06 shows, slight interval increase in size of left pneumothorax with progressive increased left lateral chest wall and axillary subcutaneous emphysema * Plan: Mechanical ventilation, IV antibiotic, chest tube GENITOURINARY/FLUID: Complicated UTI NAIMA, VMN * Plan: Urine culture, IV antibiotic GASTROINTESTINAL/NUTRITION: Shock liver, due to cardiac arrest Transaminitis * Plan: Tube feeding, Jevity INFECTIOUS DISEASE: Septic shock, due to sepsis Sepsis, due to UTI * Plan: Vancomycin (08/16), Zosyn (08/16) MSK/SKIN: Left-sided rib fracture * Plan: Medical management DIET: Jevity tube feeding DVT prophylax: Lovenox GI prophylaxis: Pepcid Bowel regimen: Lactulose LINES/DEVICES ETT: Intubated on 08/15 IV access: Right IJ 08/15 Drips: Versed, fentanyl and Levophed Winters catheter: Placed on 08/15 Disposition: Continue ICU status Family: Patients daughter updated at bedside. Critical care time: Spent > 103 min, spent in direct critical care, including evaluation, management, review of labs/imaging, and multidisciplinary/family discussions, including CPAP trial which failed, (excluding any procedures). Case discussed with Dr. Rivero Plan discussed with: Other (RN) My Orders My Orders Orders - SHIRA CARNES RESTOMER Procedure Category Date Status Time * Setup Technician CONS 08/20/25 Transmitted Consult Abg W/ Co-Ox RT 08/20/25 Logged 12:20 Dietary Evaluation Review Comments: Nutrition Recommendation: 1) EN Jevity 1.2 Demarcus @ 400ml/hr x 24hr(goal). Water flush 100ml Q6H if allowed, adjust PRN. TF at goal volume provides 1152 kcal (100%), 53gm protein (100%), and 1175 ml free water (including flush). 2) Consider TPN/PN if NPO>7 days 3) Advance diet as medically feasible 4) Monitor TF tolerance, lab values, weight trend, and I/O Expected Outcomes/Goals: Intake to meet >75% estimated needs Lab values to improve Fu 2-3 days SHIRA CARNES Aug 20, 2025 16:43
[2025-08-20] MEDS: methylPREDNISolone SOD SUCC 40 MG/ML VL IV SCH (17:12)
--- NOTE | 2025-08-20 17:38 | DVHEEG2 ---
Neurology EEG Procedural Note Procedural Note EXAM DATE: 08/17/2025 REFERRING DOCTOR: DR. ADAMSON TECHNIQUE: Eighteen channels of EEG, 2 channels of EOG, and 1 channel of EKG were recorded using the International 10/20 system. CLINICAL DATA: The patient was referred for an EEG evaluation for the evidence of seizure disorder. MEDICATIONS: SEE CHART BACKGROUND ACTIVITY: This record showed low-amplitude theta activity over both hemispheres, that was reactive to external stimuli ACTIVATION: Hyperventilation: Not done Photic Stimulation: Not done Sleep: Not seen IMPRESSION: This is a mildly abnormal EEG, this EEG is seen in mild cerebral dysfunction due to metabolic/hypoxic encephalopathy or medication effect, please correlate clinically The EKG channel showed a regular heart rate of 90 per minute. [place] [address] TONI ADAMSON MD Aug 20, 2025 17:38
[2025-08-21] VITALS (112 sets, daily range): BP systolic 89–189; BP diastolic 45–89; PULSE 57–93; RESP 12–26; TEMP 96.8–98.6; O2SAT 99–100
[2025-08-21 04:37] LABS: Hematocrit 22.9 % (36.0-46.0); Hemoglobin 7.8 g/dL (12.2-16.2); Nucleated Red Blood Cells % 0.0 %
[2025-08-21 04:40] LABS: Mean Corpuscular Hemoglobin 32.4 pg (28.0-32.0); Mean Corpuscular Volume 95.6 fL (80.0-100.0)
[2025-08-21 05:01] LABS: Anion Gap 9 (5-15); BUN/Creatinine Ratio 23.2 (10.0-20.0); Carbon Dioxide 26 mmol/L (20-31); Potassium 4.0 mmol/L (3.5-5.1)
[2025-08-21 05:02] LABS: Bilirubin, Total 0.9 mg/dL (0.2-1.0)
[2025-08-21 05:22] LABS: Alanine Aminotransferase 132 U/L (7-40); Albumin 2.8 g/dL (3.2-4.8); Alkaline Phosphatase 240 U/L (46-116); Blood Urea Nitrogen 26 mg/dL (9-23); Calcium 8.5 mg/dL (8.7-10.4); Chloride 110 mmol/L (98-107); Glucose 155 mg/dL (74-106); Sodium 145 mmol/L (136-145); Total Protein 5.6 g/dL (5.7-8.2)
--- NOTE | 2025-08-21 05:58 | DVH ---
CHEST RADIOGRAPH Indication: Intubated Technique: Single frontal view of the chest was obtained Comparison: XY CHEST XRAY 1 VIEW on DOS: 08/20/25, XY CHEST XRAY 1 VIEW on DOS: 08/19/25, XY CHEST XR AY 1 VIEW on DOS: 08/18/25 IMPRESSION: Support lines and tubes appear unchanged in satisfactory position. Mild interstitial prominence. No d iscrete pneumothorax. Old left rib fractures are redemonstrated. No significant interval change.
--- NOTE | 2025-08-21 11:20 | DVHPNRES ---
Progress Note Date Seen: Aug 21, 2025 Resident Creating Document: CHAZ IBRAHIM RESIDENT Medical Necessity Reason Pt with a Central, PICC or Fol: Yes Subjective Review of Systems This is a 75-year-old lady with past medical history of dementia brought in by EMS from home, status post cardiac arrest. Per patient's daughter yesterday morning (08/15) at 5:30 a.m. patient was found sitting on her knees beside her bed, and her hand was hanging on bed rail, she had labored breathing, and carotid vitals was faint, family started CPR, EMS arrival 15 minutes later, cardiac rhythm was found to be non shockable, en route to the hospital the patient was given epinephrine, intubated and ROSC was achieved before hospital arrival. The last time patient was seen at baseline was night before, had no complaint. PMHx: Dementia Social history: Lives with the daughter at home, at baseline speaks few words, can not communicate properly, use walker for mobilization, needs assistance for daily life activities, does not have control on bladder and bowel movements. Home medication: Does not take any prescribed medicine, uses holistic medicine Allergic history: No known allergy And evaluated in bedside today. Patient currently on ventilator setting is FiO2 60, peep 5, tidal volume 350, respiratory rate 20. CPAP trial today. Objective vital signs Vital Sign Date Time Temp Pulse Resp B/P (MAP) Pulse Ox O2 Delivery O2 Flow Rate FiO2 08/21/25 10:07 76 15 152/56 (88) 100 30 08/21/25 10:00 Mechanical Ventilator+ 08/21/25 06:46 97.2 97.2 Total Intake and Output 08/20/25 08/20/25 08/21/25 15:00 23:00 07:00 Intake Total 100 ml 141 ml 423 ml Output Total 350 ml 300 ml Balance 100 ml -209 ml 123 ml medications Current Medications Medications Dose Ordered Sig/[place] Route Start Time Stop Time Status Last Admin Dose Admin Norepinephrine Bitartrate 250 ml @ 3.75 mls/hr Q24H IV 08/15/25 06:30 08/15/25 08:29 3.75 MLS/HR Midazolam HCl 50 ml @ 1 mls/hr Q24H IV 08/15/25 06:45 08/16/25 10:41 2 MLS/HR Dextrose 50 ml UD PRN IV 08/15/25 10:30 Ondansetron HCl 4 mg Q4HP PRN IV 08/15/25 10:30 Enoxaparin Sodium 30 mg DAILY SC 08/15/25 11:18 08/21/25 10:19 30 MG Enteral Nutritional Formula 1,000 ml 30ML/HR GT 08/16/25 12:00 Vancomycin HCl 0 ml @ 0 mls/hr UD IV 08/16/25 12:00 Piperacillin Sod/ Tazobactam Sod 100 ml @ 25 mls/hr Q12HR IV 08/16/25 22:00 08/21/25 10:20 25 MLS/HR Hydralazine HCl 10 mg Q6HP PRN IV 08/18/25 16:15 Fentanyl Citrate 25 mcg Q4HPRN PRN IV 08/18/25 16:15 08/20/25 20:54 25 MCG Famotidine 20 mg DAILY IV 08/20/25 10:00 08/21/25 10:12 20 MG Vancomycin HCl 100 ml @ 100 mls/hr DAILY@1600 IV 08/19/25 16:00 08/20/25 17:11 100 MLS/HR Methylprednisolone Sodium Succinate 40 mg Q8HR IV 08/20/25 16:00 08/21/25 05:56 40 MG Examination General: RASS -4, afebrile, mucosae are moist, currently on vent Cardiovascular: Normal S1 and S2. No murmurs, gallops or rubs Respiratory: Mechanically assisted ventilation, equal bilateral airway entree. Clear lung sounds on auscultation Mechanical ventilation setting: GI: Soft, nontender, no organomegaly, normal bowel sounds, has NG tube, and tube feeding : Winters catheter n place, clear yellow urine in collection bag MSK/skin: Left-sided subcutaneous emphysema, bedside chest tube, has right IJ Neurological: Orientation cannot be assessed. No apparent motor no sensitive deficits. Pupils are isocoric and reactive laboratory and microbiology Laboratory Tests 08/21/25 04:09 Test 08/21/25 04:09 Range/Units Serum Glucose 155 H 74-106 mg/dL Microbiology Date/Time Source Procedure Growth Status 08/15/25 14:05 Nose MRSA Screen - Final Complete 08/15/25 10:13 Sputum Expectorated Sputum Gram Stain - Final Complete 08/15/25 10:13 Sputum Expectorated Sputum Respiratory Culture - Final Complete 08/15/25 06:44 Blood Blood Culture - Preliminary Resulted Problem List/Assessment/Plan Problem List/Assessment/Plan This is a 75-year-old lady with past medical history of dementia brought in by EMS from home, status post cardiac arrest. Patient admitted and intubated on 08/16. NEURO: Acute metabolic/hypoxic encephalopathy due to cardiac arrest/sepsis Dementia * CT 08/15 shows no acute intracranial abnormalities * CT 08/17, shows no acute intracaranial abnormalities, severe atriphic changes * Plan: s/p Fentanyl, consult neurology CARDIOVASCULAR: Status post cardiac arrest, asystole Cardiogenic shock Possible septic shock NSTEMI, likely type 2 * EKGs shows sinus tachycardia with no significant ST or T-wave change * Trop I mild raised * Plan: IV fluid RESPIRATORY: Acute hypoxic respiratory failure, due to cardiopulmonary arrest Pneumothorax, possibly due to CPR, present on admission * Chest x-ray 08/15 shows, left pneumothorax, approximately 35%, multiple left rib fractures * Chest x-ray 08/06 shows, slight interval increase in size of left pneumothorax with progressive increased left lateral chest wall and axillary subcutaneous emphysema * Plan: Mechanical ventilation, IV antibiotic, chest tube GENITOURINARY/FLUID: Complicated UTI NAIMA, VMN * Plan: Urine culture, IV antibiotic GASTROINTESTINAL/NUTRITION: Shock liver, due to cardiac arrest Transaminitis * Plan: Tube feeding, Jevity INFECTIOUS DISEASE: Septic shock, due to sepsis Sepsis, due to UTI * Plan: Vancomycin (08/16), Zosyn (08/16) MSK/SKIN: Left-sided rib fracture * Plan: Medical management DIET: Jevity tube feeding DVT prophylax: Lovenox GI prophylaxis: Pepcid Bowel regimen: Lactulose LINES/DEVICES ETT: Intubated on 08/15 IV access: Right IJ 08/15 Drips: Currently not on any pressors Winters catheter: Placed on 08/15 Disposition: Continue ICU status Family: Etienne and daughter in bedside , updated management plan. Verbally understand whatever discussed. Critical care time: Spent > 97 min, spent in direct critical care, including evaluation, management, review of labs/imaging, and multidisciplinary/family discussions, including CPAP trial which failed, (excluding any procedures). Case discussed with Dr. Rivero Plan discussed with: Other (Nurse) My Orders My Orders Orders - CHAZ IBRAHIM RESIDENT Procedure Category Date Status Time Cpap Trial For Am ORDERS 08/21/25 Transmitted 10:13 Dietary Evaluation Review Comments: Nutrition Recommendation: 1) EN Jevity 1.2 Demarcus @ 400ml/hr x 24hr(goal). Water flush 100ml Q6H if allowed, adjust PRN. TF at goal volume provides 1152 kcal (100%), 53gm protein (100%), and 1175 ml free water (including flush). 2) Consider TPN/PN if NPO>7 days 3) Advance diet as medically feasible 4) Monitor TF tolerance, lab values, weight trend, and I/O Expected Outcomes/Goals: Intake to meet >75% estimated needs Lab values to improve Fu 2-3 days CHAZ IBRAHIM RESIDENT Aug 21, 2025 11:20
[2025-08-21] MEDS: SODIUM CHLORIDE 0.9% 250 ML IV ONE ×2 (12:32→19:00)
[2025-08-21 14:22] LABS: Base Excess -0.9 mmol/L (-2.0-3.0)
--- NOTE | 2025-08-21 16:20 | DVHPN2 ---
Progress Note - Dictate Date Seen: Aug 21, 2025 Medical Necessity Reason Pt with a Central, PICC or Fol: Yes Subjective Ms. Earl is a 75 years old female with a history of dementia, she was brought to the [facility] on 08/15/2025 with a chief complaint of cardiac arrest. I have seen and examined the patient, her daughters are in the room. I have discussed with her nurse, Her eyes are closed, she is nonresponsive to my verbal stimuli. I saw septal head movement Her daughters claimed the patient was responsive to their voice earlier today Kym, her nurse reported the possible tracking Urinalysis, 08/15/2025: WBC: 43, urine leukocyte esterase: Trace ABG, 08/15/2025: Metabolic acidosis, 08/17/2025: Compensated metabolic acidosis WBC/HGB/PLT/MCV, 08/16/2025: 14.4/10.3/286/95 BUN/CR, 08/16/2025: 23/1.35 GFR, 08/16/2025: 40 HGB A1c, 08/15/2025: 4.6 Lactic acid, 08/15/2025: 9.7, 7.1, 3.1 TBI/AST/ALT/AP, 08/16/2025: 0.5/748/712/276, 08/17/2025: 0.5/296/463/231 EEG, 08/17/2025: Mildly abnormal CT head, 08/15/2025 0716: Global brain atrophy with prominence of the ventricular system out of proportion to the size of the sulci. This appearance may be due to central brain atrophy or normal pressure hydrocephalus. CT head, 08/16/25 2235: 1. No acute intracranial abnormality. 2. 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 loss vital signs Vital Sign Date Time Temp Pulse Resp B/P (MAP) Pulse Ox O2 Delivery O2 Flow Rate FiO2 08/21/25 15:54 77 22 132/46 (74) 100 30 08/21/25 11:16 97.9 208.2 08/21/25 10:00 Mechanical Ventilator+ Total Intake and Output 08/20/25 08/20/25 08/21/25 15:00 23:00 07:00 Intake Total 100 ml 141 ml 423 ml Output Total 350 ml 300 ml Balance 100 ml -209 ml 123 ml medications Current Medications Medications Dose Ordered Sig/[place] Route Start Time Stop Time Status Last Admin Dose Admin Norepinephrine Bitartrate 250 ml @ 3.75 mls/hr Q24H IV 08/15/25 06:30 08/15/25 08:29 3.75 MLS/HR Midazolam HCl 50 ml @ 1 mls/hr Q24H IV 08/15/25 06:45 08/16/25 10:41 2 MLS/HR Dextrose 50 ml UD PRN IV 08/15/25 10:30 Ondansetron HCl 4 mg Q4HP PRN IV 08/15/25 10:30 Enoxaparin Sodium 30 mg DAILY SC 08/15/25 11:18 08/21/25 10:19 30 MG Enteral Nutritional Formula 1,000 ml 30ML/HR GT 08/16/25 12:00 Vancomycin HCl 0 ml @ 0 mls/hr UD IV 08/16/25 12:00 Piperacillin Sod/ Tazobactam Sod 100 ml @ 25 mls/hr Q12HR IV 08/16/25 22:00 08/21/25 10:20 25 MLS/HR Hydralazine HCl 10 mg Q6HP PRN IV 08/18/25 16:15 Fentanyl Citrate 25 mcg Q4HPRN PRN IV 08/18/25 16:15 08/20/25 20:54 25 MCG Famotidine 20 mg DAILY IV 08/20/25 10:00 08/21/25 10:12 20 MG Vancomycin HCl 100 ml @ 100 mls/hr DAILY@1600 IV 08/19/25 16:00 08/20/25 17:11 100 MLS/HR Methylprednisolone Sodium Succinate 40 mg Q8HR IV 08/20/25 16:00 08/21/25 05:56 40 MG objective The patient is well-nourished and well-developed with no distress. The patient is intubated MENTAL STATUS: Subjective CRANIAL NERVES: Pupils are equal, round and slightly reactive. Eyes are longterm open. No signs of facial weakness. There are is gagging or coughing reflexes during oral care SENSATION: Responses to light painful stimuli. MOTOR: Normal tone in the upper and lower extremity. Normal muscle bulk. No fasciculations. No extremity movement REFLEXES: Deep tendon reflexes are symmetrical. No pathological reflexes. CEREBELLAR/COORDINATION: Deferred GAIT/STATION: deferred. laboratory and microbiology Laboratory Tests 08/21/25 04:09 Test 08/21/25 04:09 Range/Units Serum Glucose 155 H 74-106 mg/dL Problem List Coma Metabolic encephalopathy Hypoxic encephalopathy Toxic encephalopathy Cardiopulmonary arrest Acute respiratory failure Metabolic acidosis Shocked liver, recovering Dementia, she may have advanced dementia, likely Alzheimer disease, Assessment/Plan Monitoring Supportive treatment ICU care Follow-up lab tests Stabilize vitals/pressor drip p.r.n. Respiratory support/vent management Oxygen IV antibiotics GI prophylaxis/famotidine DVT prophylaxis/Lovenox More recommendation per clinical course She is likely to have a poor prognosis for meaningful/overall recovery This medical document was created using an electronic medical record system with [employer] dictation system. Although this document has been carefully reviewed, there may still be some phonetic and typographical errors. These areas are purely typographical due to imperfections of the software programs, and do not reflect any compromise in the patient's medical care Prognosis Guarded Dietary Evaluation Review Comments: Nutrition Recommendation: 1) EN Jevity 1.2 Demarcus @ 400ml/hr x 24hr(goal). Water flush 100ml Q6H if allowed, adjust PRN. TF at goal volume provides 1152 kcal (100%), 53gm protein (100%), and 1175 ml free water (including flush). 2) Consider TPN/PN if NPO>7 days 3) Advance diet as medically feasible 4) Monitor TF tolerance, lab values, weight trend, and I/O Expected Outcomes/Goals: Intake to meet >75% estimated needs Lab values to improve Fu 2-3 days Plan discussed with: Daughter, Other TONI ADAMSON MD Aug 21, 2025 16:20
[2025-08-22] VITALS (110 sets, daily range): BP systolic 80–176; BP diastolic 31–103; PULSE 68–148; RESP 14–29; TEMP 98.1–98.6; O2SAT 95–100
[2025-08-22] MEDS: LEVALBUTEROL HCL 1.25 MG/3 ML NEB NEB PRN (02:06)
[2025-08-22] MEDS: IPRATROPIUM BROM 0.5 MG/2.5ML INH SOL NEB PRN (02:06)
[2025-08-22] MEDS: hydrALAZINE HCL 20 MG/ML VL IV PRN (04:21)
[2025-08-22 04:26] LABS: Hematocrit 24.7 % (36.0-46.0); Hemoglobin 8.3 g/dL (12.2-16.2); Mean Corpuscular Hemoglobin 32.3 pg (28.0-32.0); Mean Corpuscular Volume 96.2 fL (80.0-100.0); Nucleated Red Blood Cells % 0.0 %
[2025-08-22 04:39] LABS: Calcium 8.8 mg/dL (8.7-10.4); Potassium 3.7 mmol/L (3.5-5.1)
[2025-08-22 04:40] LABS: Anion Gap 12 (5-15); Carbon Dioxide 25 mmol/L (20-31)
--- NOTE | 2025-08-22 04:44 | DVH ---
CHEST RADIOGRAPH Indication: Position ET tube and compare previous x-ray Technique: Single frontal view of the chest was obtained COMPARISON: XY CHEST XRAY 1 VIEW on DOS: 08/21/25, XY CHEST XRAY 1 VIEW on DOS: 08/20/25, XY CHEST XR AY 1 VIEW on DOS: 08/19/25, XY CHEST XRAY 1 VIEW on DOS: 08/18/25, XY CHEST XRAY 1 VIEW on DOS: 08/17 FINDINGS: Lines and Tubes: Slight interval retraction of endotracheal tube such that the tip now projects appro ximately 3.6 cm above the level of the arin. Remaining lines and tubes unchanged. Lungs: Grossly stable appearing diffuse increased prominence of the pulmonary vasculature. Pleura: No effusion. No appreciable pneumothorax. Cardiomediastinal contours: Unremarkable Bones: Unremarkable IMPRESSION: 1. Slight interval retraction of endotracheal tube such that the tip now projects approximately 3.6 c m above the level of the arin. Remaining lines and tubes unchanged. 2. Stable appearing diffuse increased prominence of the pulmonary vasculature.
[2025-08-22 04:46] LABS: BUN/Creatinine Ratio 22.9 (10.0-20.0)
[2025-08-22] MEDS: Jevity 1.2 Cal/Fiber 1 Liter GT SCH (04:52)
[2025-08-22 05:07] LABS: Blood Urea Nitrogen 27 mg/dL (9-23); Chloride 110 mmol/L (98-107); Glucose 157 mg/dL (74-106); Sodium 147 mmol/L (136-145)
[2025-08-22 08:45] LABS: Base Excess -1.7 mmol/L (-2.0-3.0)
[2025-08-22] MEDS: PIPERACILLIN-TAZOB 3.375GM 100 ML IV SCH (10:10)
--- NOTE | 2025-08-22 10:14 | DVHPN2 ---
Progress Note - Dictate Date Seen: Aug 22, 2025 Medical Necessity Reason Pt with a Central, PICC or Fol: Yes Subjective Ms. Earl is a 75 years old female with a history of dementia, she was brought to the [facility] on 08/15/2025 with a chief complaint of cardiac arrest. I have seen and examined the patient. I have discussed with her nurse, He is awake, she is responsive to light touch, but not to verbal stimuli, she moves her head, there was intermittent resistance when I tried to open her eyes She moves the arms a little bit, Urinalysis, 08/15/2025: WBC: 43, urine leukocyte esterase: Trace ABG, 08/15/2025: Metabolic acidosis, 08/17/2025: Compensated metabolic acidosis WBC/HGB/PLT/MCV, 08/16/2025: 14.4/10.3/286/95 BUN/CR, 08/16/2025: 23/1.35 GFR, 08/16/2025: 40 HGB A1c, 08/15/2025: 4.6 Lactic acid, 08/15/2025: 9.7, 7.1, 3.1 TBI/AST/ALT/AP, 08/16/2025: 0.5/748/712/276, 08/17/2025: 0.5/296/463/231 EEG, 08/17/2025: Mildly abnormal CT head, 08/15/2025 0716: Global brain atrophy with prominence of the ventricular system out of proportion to the size of the sulci. This appearance may be due to central brain atrophy or normal pressure hydrocephalus. CT head, 08/16/25 2235: 1. No acute intracranial abnormality. 2. 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 loss vital signs Vital Sign Date Time Temp Pulse Resp B/P (MAP) Pulse Ox O2 Delivery O2 Flow Rate FiO2 08/22/25 09:30 96 19 176/83 (114) 100 08/22/25 08:00 98.6 98.6 08/22/25 08:00 Mechanical Ventilator+ 30 30 Total Intake and Output 08/21/25 08/21/25 08/22/25 15:00 23:00 07:00 Intake Total 350 ml 480 ml 477 ml Output Total 0 ml 235 ml 300 ml Balance 350 ml 245 ml 177 ml medications Current Medications Medications Dose Ordered Sig/[place] Route Start Time Stop Time Status Last Admin Dose Admin Norepinephrine Bitartrate 250 ml @ 3.75 mls/hr Q24H IV 08/15/25 06:30 08/15/25 08:29 3.75 MLS/HR Midazolam HCl 50 ml @ 1 mls/hr Q24H IV 08/15/25 06:45 08/16/25 10:41 2 MLS/HR Dextrose 50 ml UD PRN IV 08/15/25 10:30 Ondansetron HCl 4 mg Q4HP PRN IV 08/15/25 10:30 Enoxaparin Sodium 30 mg DAILY SC 08/15/25 11:18 08/21/25 10:19 30 MG Enteral Nutritional Formula 1,000 ml 30ML/HR GT 08/16/25 12:00 08/22/25 04:52 1,000 ML Vancomycin HCl 0 ml @ 0 mls/hr UD IV 08/16/25 12:00 Hydralazine HCl 10 mg Q6HP PRN IV 08/18/25 16:15 08/22/25 04:21 10 MG Fentanyl Citrate 25 mcg Q4HPRN PRN IV 08/18/25 16:15 08/20/25 20:54 25 MCG Famotidine 20 mg DAILY IV 08/20/25 10:00 08/21/25 10:12 20 MG Vancomycin HCl 100 ml @ 100 mls/hr DAILY@1600 IV 08/19/25 16:00 08/21/25 19:57 100 MLS/HR Methylprednisolone Sodium Succinate 40 mg Q8HR IV 08/20/25 16:00 08/22/25 05:00 40 MG Ipratropium [place] 0.5 mg Q6HPRN PRN NEB 08/22/25 01:45 08/22/25 06:44 0.5 MG Levalbuterol HCl 0.625 mg Q6HR PRN NEB 08/22/25 01:45 08/22/25 06:44 0.625 MG Piperacillin Sod/ Tazobactam Sod 100 ml @ 25 mls/hr Q8H IV 08/22/25 10:00 objective The patient is well-nourished and well-developed with no distress. The patient is intubated MENTAL STATUS: Subjective CRANIAL NERVES: Pupils are equal, round and slightly reactive. Eyes are senior care open. No signs of facial weakness. There are is gagging or coughing reflexes during oral care SENSATION: Responses to light painful stimuli. MOTOR: Normal tone in the upper and lower extremity. Normal muscle bulk. No fasciculations. Subjective REFLEXES: Deep tendon reflexes are symmetrical. No pathological reflexes. CEREBELLAR/COORDINATION: Deferred GAIT/STATION: deferred. laboratory and microbiology Laboratory Tests 08/22/25 03:50 Test 08/22/25 03:50 Range/Units Serum Glucose 157 H 74-106 mg/dL Problem List Coma Metabolic encephalopathy Hypoxic encephalopathy Toxic encephalopathy Cardiopulmonary arrest Acute respiratory failure Metabolic acidosis Shocked liver, recovering Dementia, she may have advanced dementia, likely Alzheimer disease, Assessment/Plan Monitoring Supportive treatment ICU care Follow-up lab tests Stabilize vitals/pressor drip p.r.n. Respiratory support/vent management Oxygen IV antibiotics GI prophylaxis/famotidine DVT prophylaxis/Lovenox More recommendation per clinical course She is likely to have a poor prognosis for meaningful/overall recovery This medical document was created using an electronic medical record system with [employer] dictation system. Although this document has been carefully reviewed, there may still be some phonetic and typographical errors. These areas are purely typographical due to imperfections of the software programs, and do not reflect any compromise in the patient's medical care Prognosis Guarded Dietary Evaluation Review Comments: Nutrition Recommendation: 1) EN Jevity 1.2 Demarcus @ 400ml/hr x 24hr(goal). Water flush 100ml Q6H if allowed, adjust PRN. TF at goal volume provides 1152 kcal (100%), 53gm protein (100%), and 1175 ml free water (including flush). 2) Consider TPN/PN if NPO>7 days 3) Advance diet as medically feasible 4) Monitor TF tolerance, lab values, weight trend, and I/O Expected Outcomes/Goals: Intake to meet >75% estimated needs Lab values to improve Fu 2-3 days Plan discussed with: Other TONI ADAMSON MD Aug 22, 2025 10:13
[2025-08-22 17:00] LABS: INR 1.02 (0.9-1.15); Partial Thromboplastin Time 25.6 SEC (24.5-34.5); Prothrombin Time 10.8 sec (9.3-11.8)
[2025-08-22] MEDS: FREE WATER GT SCH (17:40)
--- NOTE | 2025-08-22 19:57 | DVHPNRES ---
Progress Note Date Seen: Aug 22, 2025 Resident Creating Document: PER HARDY RESIDENT Medical Necessity Reason Pt with a Central, PICC or Fol: Yes Subjective Review of Systems This is a 75-year-old female with a known history of dementia who was brought to the hospital by EMS following a cardiac arrest at home. According to her daughter, the patient was last seen at her baseline the night before the incident, with no complaints. On the morning of 08/15 at approximately 5:30 a.m., she was found kneeling beside her bed with her hand resting on the bed rail, exhibiting labored breathing and a faint carotid pulse. Cardiopulmonary resuscitation (CPR) was initiated by the family, and EMS arrived approximately 15 minutes later. Upon EMS arrival, the patient was found to be in a non-shockable rhythm. En route to the hospital, she received epinephrine and was intubated. Return of spontaneous circulation (ROSC) was achieved prior to hospital arrival. At baseline, the patient lived at home with her daughter. She was non-verbal, required a walker for mobility, and needed assistance with activities of daily living. She was incontinent of bowel and bladder and did not take any prescribed medications, relying instead on holistic remedies. She has no known drug allergies. On bedside evaluation today, the patient remains intubated and is currently on mechanical ventilation with the following settings: FiO2 30%, PEEP 5 cm H?O, tidal volume 450 mL, and respiratory rate 19 breaths per minute. A CPAP trial failed today, we ll try again tomorrow. Objective vital signs Vital Sign Date Time Temp Pulse Resp B/P (MAP) Pulse Ox O2 Delivery O2 Flow Rate FiO2 08/22/25 19:21 156/57 08/22/25 18:45 112 14 98 08/22/25 18:15 30 08/22/25 18:00 Mechanical Ventilator+ 08/22/25 12:00 98.6 98.6 Total Intake and Output 08/21/25 08/21/25 08/22/25 15:00 23:00 07:00 Intake Total 350 ml 480 ml 477 ml Output Total 0 ml 235 ml 300 ml Balance 350 ml 245 ml 177 ml medications Current Medications Medications Dose Ordered Sig/[place] Route Start Time Stop Time Status Last Admin Dose Admin Norepinephrine Bitartrate 250 ml @ 3.75 mls/hr Q24H IV 08/15/25 06:30 08/15/25 08:29 3.75 MLS/HR Dextrose 50 ml UD PRN IV 08/15/25 10:30 Enoxaparin Sodium 30 mg DAILY SC 08/15/25 11:18 08/22/25 10:09 30 MG Enteral Nutritional Formula 1,000 ml 30ML/HR GT 08/16/25 12:00 08/22/25 04:52 1,000 ML Hydralazine HCl 10 mg Q6HP PRN IV 08/18/25 16:15 08/22/25 19:21 10 MG Ipratropium [place] 0.5 mg Q6HPRN PRN NEB 08/22/25 01:45 08/22/25 12:29 0.5 MG Levalbuterol HCl 0.625 mg Q6HR PRN NEB 08/22/25 01:45 08/22/25 12:29 0.625 MG Piperacillin Sod/ Tazobactam Sod 100 ml @ 25 mls/hr Q8H IV 08/22/25 10:00 08/22/25 17:40 25 MLS/HR Purified Water 150 ml Q6HR GT 08/22/25 18:00 08/22/25 17:40 150 ML Pantoprazole Sodium 40 mg DAILY IV 08/23/25 10:00 Examination Pt is lying on bed, RASS -2 to -3 General Appearance: intubated and on mechanical ventilation HEENT: Atraumatic, Mucous membranes moist/pink, ET tube in place, NG tube in place Respiratory: Clear to auscultation, Normal air movement, No added sounds, on MV FiO? 30%, PEEP 5 cm H?O, TV 450 mL, and RR 19 Cardiovascular: Regular rate, Normal S1, Normal S2, No murmurs Abdominal: Active bowel sounds, Soft, no distention, no tenderness Extremities: No edema, Normal pulses, No tenderness/swelling skin: Left-sided subcutaneous emphysema, bedside chest tube, has right IJ Neuro: pupils reactive, cough and gag reflex intact Nurse was there as web methods developer during examination laboratory and microbiology Laboratory Tests 08/22/25 03:50 Test 08/22/25 03:50 Range/Units Serum Glucose 157 H 74-106 mg/dL Microbiology Date/Time Source Procedure Growth Status 08/15/25 14:05 Nose MRSA Screen - Final Complete 08/15/25 10:13 Sputum Expectorated Sputum Gram Stain - Final Complete 08/15/25 10:13 Sputum Expectorated Sputum Respiratory Culture - Final Complete 08/15/25 06:44 Blood Blood Culture - Preliminary Resulted Labs and/or images reviewed: Labs reviewed by me, Image(s) reviewed by me Problem List/Assessment/Plan Problem List/Assessment/Plan Neurology # Acute metabolic/hypoxic encephalopathy: Secondary to cardiac arrest and sepsis. # Dementia: Pre-existing condition. - CT head (08/15): No acute intracranial abnormalities. - CT head (08/17): No acute findings; severe atrophic changes. - Continue supportive care. - Neurology consult. - currently off from all sedatives Cardiovascular # Status post cardiac arrest: Initial rhythm asystole. # Cardiogenic shock. # Possible septic shock. # NSTEMI (Type 2) likely due to above - EKG: Sinus tachycardia, no significant ST/T wave changes. - Troponin I: Mild elevation. - IV fluid resuscitation. - Monitor cardiac enzymes and rhythm - currently not on pressors Respiratory # Acute hypoxic respiratory failure: Secondary to cardiopulmonary arrest status post intubation # Left pneumothorax: Likely CPR-related- and on chest tube # Rib fractures: Multiple left-sided. - Chest X-ray (08/15): ~35% left pneumothorax, multiple left rib fractures. - Chest X-ray (08/16): Slight increase in pneumothorax size, progressive subcutaneous emphysema. - Continue mechanical ventilation. - Chest tube placement. - sputum cultures no growth - IV antibiotics on Zosyn - vancomycin discontinued 08/22 - CPAP trial today failed we will try tomorrow Gastrointestinal / Nutrition / Liver # Shock liver: Secondary to cardiac arrest. # Transaminitis likely due to shock liver - continuously monitor lab - Nutritional support via Jevity tube feeding. Genitourinary / Kidney / Fluids # Septic shock likely from UTI # Acute Complicated UTI # Acute kidney injury (NAIMA): Likely volume-mediated. - Urine culture, blood culture pending - IV antibiotics Zosyn (started 08/16) discontinued vancomycin 08/22 - Monitor renal function and fluid status. - Monitor cultures and adjust antibiotics accordingly. Musculoskeletal / Skin # Left-sided rib fractures: Due to CPR. - Conservative medical management. - Pain control as needed. Nutrition: Jevity via tube feeding. Bowel Regimen: Lactulose as needed. GI Prophylaxis: protonix DVT Prophylaxis: Lovenox. Lines / Tubes / Devices Airway: Intubated via ETT on 08/15. Vascular Access: Right internal jugular (IJ) central line placed on 08/15., ordered PICC line for placement Drips: Currently off pressors and sedatives. Urinary: Winters catheter placed on 08/15.: Goals of care discussed with the patient's family for more than 29 minutes: Full code status Care plan updated to the patient's family on bedside, addressed all concerns Critical care time spent more than 82 minutes excluding procedures and discussion with the family Case discussed with Dr Sol and RN Plan discussed with: Other (RN) My Orders My Orders Orders - PER HARDY Procedure Category Date Status Time Blood Culture UMA 08/22/25 In Process 16:26 Urine Bacterial UMA 08/22/25 In Process Culture 16:26 Comprehensive LAB 08/23/25 Verified Metabolic Panel 04:00 Complete Blood Count LAB 08/23/25 Verified 04:00 Pantoprazole PHA 08/23/25 In Process (Protonix) 10:00 Dietary Evaluation Review Comments: Nutrition Recommendation: 1) EN Jevity 1.2 Demarcus @ 400ml/hr x 24hr(goal). Water flush 100ml Q6H if allowed, adjust PRN. TF at goal volume provides 1152 kcal (100%), 53gm protein (100%), and 1175 ml free water (including flush). 2) Consider TPN/PN if NPO>7 days 3) Advance diet as medically feasible 4) Monitor TF tolerance, lab values, weight trend, and I/O Expected Outcomes/Goals: Intake to meet >75% estimated needs Lab values to improve Fu 2-3 days Date of Service: Aug 22, 2025 Billing Provider: PURNIMA SOL MD Common Visit Codes: 58581-[id number] CARE 30-74 MIN, [id number] CARE-EACH +30MIN PER HARDY Aug 22, 2025 19:57 PURNIMA SOL MD Aug 23, 2025 13:42
[2025-08-22] MEDS: ADENOSINE 6 MG/2 ML INJ IV ONE ×4 (20:10→20:13)
[2025-08-22] MEDS: AMIODARONE BOLUS KIT 100 ML IV ONE ×2 (20:18→21:22)
[2025-08-22] MEDS: AMIODARONE 360mg/200mL PREMIX 200 ML IV ONE ×2 (20:20→21:22)
[2025-08-22 20:37] LABS: Hemoglobin 7.9 g/dL (12.2-16.2)
[2025-08-22 20:39] LABS: Hematocrit 23.8 % (36.0-46.0); Mean Corpuscular Hemoglobin 31.9 pg (28.0-32.0); Mean Corpuscular Volume 96.3 fL (80.0-100.0); Nucleated Red Blood Cells % 0.0 %
[2025-08-22 20:48] LABS: Magnesium 2.0 mg/dL (1.6-2.6)
[2025-08-22 21:09] LABS: Potassium 3.2 mmol/L (3.5-5.1)
[2025-08-23] VITALS (107 sets, daily range): BP systolic 94–171; BP diastolic 40–76; PULSE 72–116; RESP 11–36; TEMP 98.4–99.1; O2SAT 16–100
[2025-08-23] MEDS: AMIODARONE 360mg/200mL PREMIX 200 ML IV SCH (02:30)
[2025-08-23 04:01] LABS: Hematocrit 22.8 % (36.0-46.0); Hemoglobin 7.6 g/dL (12.2-16.2); Mean Corpuscular Hemoglobin 32.1 pg (28.0-32.0); Mean Corpuscular Volume 96.6 fL (80.0-100.0); Nucleated Red Blood Cells % 0.0 %
[2025-08-23 04:21] LABS: Anion Gap 11 (5-15); BUN/Creatinine Ratio 27.4 (10.0-20.0); Calcium 8.7 mg/dL (8.7-10.4); Carbon Dioxide 27 mmol/L (20-31); Total Protein 6.1 g/dL (5.7-8.2)
[2025-08-23 04:22] LABS: Bilirubin, Total 0.6 mg/dL (0.2-1.0)
[2025-08-23 04:31] LABS: Alanine Aminotransferase 98 U/L (7-40); Albumin 3.1 g/dL (3.2-4.8); Alkaline Phosphatase 239 U/L (46-116); Blood Urea Nitrogen 31 mg/dL (9-23); Chloride 111 mmol/L (98-107); Glucose 126 mg/dL (74-106); Potassium 3.4 mmol/L (3.5-5.1); Sodium 149 mmol/L (136-145)
[2025-08-23] MEDS: POTASSIUM CHL 20MEQ/100ML 100 ML IV SCH (05:48)
[2025-08-23 07:57] LABS: Base Excess 0.7 mmol/L (-2.0-3.0)
[2025-08-23] MEDS: PANTOPRAZOLE 40 MG/10 ML VIAL INJ IV SCH (08:39)
--- NOTE | 2025-08-23 08:39 | DVHPNRES ---
Progress Note Date Seen: Aug 23, 2025 Resident Creating Document: PER HARDY RESIDENT Medical Necessity Reason Pt with a Central, PICC or Fol: Yes Subjective Review of Systems This is a 75-year-old female with a known history of dementia who was brought to the hospital by EMS following a cardiac arrest at home. According to her daughter, the patient was last seen at her baseline the night before the incident, with no complaints. On the morning of 08/15 at approximately 5:30 a.m., she was found kneeling beside her bed with her hand resting on the bed rail, exhibiting labored breathing and a faint carotid pulse. Cardiopulmonary resuscitation (CPR) was initiated by the family, and EMS arrived approximately 15 minutes later. Upon EMS arrival, the patient was found to be in a non-shockable rhythm. En route to the hospital, she received epinephrine and was intubated. Return of spontaneous circulation (ROSC) was achieved prior to hospital arrival. At baseline, the patient lived at home with her daughter. She was non-verbal, required a walker for mobility, and needed assistance with activities of daily living. She was incontinent of bowel and bladder and did not take any prescribed medications, relying instead on holistic remedies. She has no known drug allergies. Patient seen and examined at bedside evaluation today, the patient remains intubated and is currently on mechanical ventilation with the following settings: FiO2 30%, PEEP 5 cm H?O, tidal volume 350 mL, and respiratory rate 19 breaths per minute. A CPAP trial failed today, we ll try again tomorrow. Patient today is moving her legs and arms. PICC line placed today. blood culture on 08/15 showed Peptostreptococcus Prevotii. Objective vital signs Vital Sign Date Time Temp Pulse Resp B/P (MAP) Pulse Ox O2 Delivery O2 Flow Rate FiO2 08/23/25 07:35 81 29 140/51 (80) 98 30 08/23/25 06:00 Mechanical Ventilator+ 08/23/25 04:00 98.4 98.4 Total Intake and Output 08/22/25 08/22/25 08/23/25 15:00 23:00 07:00 Intake Total 100 ml 401.66 ml 842.51 ml Output Total 160 ml 200 ml Balance 100 ml 241.66 ml 642.51 ml medications Current Medications Medications Dose Ordered Sig/[place] Route Start Time Stop Time Status Last Admin Dose Admin Norepinephrine Bitartrate 250 ml @ 3.75 mls/hr Q24H IV 08/15/25 06:30 08/15/25 08:29 3.75 MLS/HR Dextrose 50 ml UD PRN IV 08/15/25 10:30 Enoxaparin Sodium 30 mg DAILY SC 08/15/25 11:18 08/22/25 10:09 30 MG Enteral Nutritional Formula 1,000 ml 30ML/HR GT 08/16/25 12:00 08/22/25 04:52 1,000 ML Hydralazine HCl 10 mg Q6HP PRN IV 08/18/25 16:15 08/22/25 19:21 10 MG Ipratropium [place] 0.5 mg Q6HPRN PRN NEB 08/22/25 01:45 08/22/25 12:29 0.5 MG Levalbuterol HCl 0.625 mg Q6HR PRN NEB 08/22/25 01:45 08/22/25 12:29 0.625 MG Piperacillin Sod/ Tazobactam Sod 100 ml @ 25 mls/hr Q8H IV 08/22/25 10:00 08/23/25 01:45 25 MLS/HR Purified Water 150 ml Q6HR GT 08/22/25 18:00 08/23/25 05:48 150 ML Pantoprazole Sodium 40 mg DAILY IV 08/23/25 10:00 Amiodarone HCL/ Dextrose 200 ml @ 16.66 mls/ hr Q12H IV 08/23/25 10:30 08/23/25 02:30 16.66 MLS/HR Potassium Chloride 100 ml @ 50 mls/hr Q2H IV 08/23/25 05:00 08/23/25 08:59 08/23/25 08:23 50 MLS/HR Examination Pt is lying on bed, RASS -3 General Appearance: intubated and on mechanical ventilation HEENT: Atraumatic, Mucous membranes moist/pink, ET tube in place, NG tube in place Respiratory: Clear to auscultation, Normal air movement, No added sounds, on MV FiO? 30%, PEEP 5 cm H?O, TV 350 mL, and RR 19 Cardiovascular: Regular rate, Normal S1, Normal S2, No murmurs Abdominal: Active bowel sounds, Soft, no distention, no tenderness Extremities: No edema, Normal pulses, No tenderness/swelling Skin: Left-sided subcutaneous emphysema, bedside chest tube, has right IJ Neuro: pupils reactive, cough and gag reflex intact Nurse was there as survey chief during examination laboratory and microbiology Laboratory Tests 08/23/25 03:20 Test 08/23/25 03:20 Range/Units Serum Glucose 126 H 74-106 mg/dL Microbiology Date/Time Source Procedure Growth Status 08/15/25 14:05 Nose MRSA Screen - Final Complete 08/15/25 10:13 Sputum Expectorated Sputum Gram Stain - Final Complete 08/15/25 10:13 Sputum Expectorated Sputum Respiratory Culture - Final Complete 08/15/25 06:44 Blood Blood Culture - Preliminary Resulted Problem List/Assessment/Plan Problem List/Assessment/Plan Neurology # Acute metabolic/hypoxic encephalopathy: Secondary to cardiac arrest and sepsis. # Dementia: Pre-existing condition. - CT head (08/15): No acute intracranial abnormalities. - CT head (08/17): No acute findings; severe atrophic changes. - Continue supportive care. - Neurology on board, stated that patient has poor prognosis - currently off from all sedatives Cardiovascular # Status post cardiac arrest: Initial rhythm asystole. # Cardiogenic shock. # Possible septic shock. # NSTEMI (Type 2) likely due to above # AFIB with RVR - EKG: Sinus tachycardia, no significant ST/T wave changes. - Troponin I: Mild elevation. - IV fluid resuscitation. - Monitor cardiac enzymes and rhythm - currently not on pressors - Amio drip Respiratory # Acute hypoxic respiratory failure: Secondary to cardiopulmonary arrest status post intubation # Left pneumothorax: Likely CPR-related- and on chest tube # Rib fractures: Multiple left-sided. - Chest X-ray (08/15): ~35% left pneumothorax, multiple left rib fractures. - Chest X-ray (08/16): Slight increase in pneumothorax size, progressive subcutaneous emphysema. - Continue mechanical ventilation. - Chest tube placement. - sputum cultures no growth - IV antibiotics on Zosyn - vancomycin discontinued 08/22 - blood culture on 08/15 showed Peptostreptococcus Prevotii. - CPAP trial today failed we will try tomorrow Gastrointestinal / Nutrition / Liver # Shock liver: Secondary to cardiac arrest. # Transaminitis likely due to shock liver - continuously monitor lab - Nutritional support via Jevity tube feeding. Genitourinary / Kidney / Fluids # Septic shock likely from UTI # Acute Complicated UTI # Acute kidney injury (NAIMA): Likely volume-mediated. # Hypernatremia - Urine culture, blood culture pending - IV antibiotics Zosyn (started 08/16) discontinued vancomycin 08/22 - Monitor renal function and fluid status. - Monitor cultures and adjust antibiotics accordingly. Musculoskeletal / Skin # Left-sided rib fractures: Due to CPR. - Conservative medical management. - Pain control as needed. Nutrition: Jevity via tube feeding. Bowel Regimen: Lactulose as needed. GI Prophylaxis: protonix DVT Prophylaxis: Lovenox. Lines / Tubes / Devices Airway: Intubated via ETT on 08/15. Vascular Access: Right internal jugular (IJ) central line placed on 08/15., ordered PICC line for placement Drips: Currently off pressors and sedatives. Urinary: Winters catheter placed on 08/15.: Goals of care discussed with the patient's family for more than 29 minutes: Full code status Care plan updated to the patient's family on bedside, addressed all concerns Critical care time spent more than 82 minutes excluding procedures and discussion with the family Case discussed with Dr Sol and RN Plan discussed with: Daughter, Other (RN) My Orders My Orders Orders - PER HARDY RESIDENT Procedure Category Date Status Time Blood Culture UMA 08/22/25 In Process 16:26 Urine Bacterial UMA 08/22/25 In Process Culture 16:26 Pantoprazole PHA 08/23/25 In Process (Protonix) 10:00 Dietary Evaluation Review Comments: Nutrition Recommendation: 1) EN Jevity 1.2 [place] @ 400ml/hr x 24hr(goal). Water flush 100ml Q6H if allowed, adjust PRN. TF at goal volume provides 1152 kcal (100%), 53gm protein (100%), and 1175 ml free water (including flush). 2) Consider TPN/PN if NPO>7 days 3) Advance diet as medically feasible 4) Monitor TF tolerance, lab values, weight trend, and I/O Expected Outcomes/Goals: Intake to meet >75% estimated needs Lab values to improve Fu 2-3 days Date of Service: Aug 23, 2025 Billing Provider: PURNIMA SOL MD Common Visit Codes: [id number] CARE 30-74 MIN, [id number] CARE-EACH +30MIN PER HARDY RESIDENT Aug 23, 2025 08:39 PURNIMA SLO MD Aug 24, 2025 14:28
--- NOTE | 2025-08-23 09:16 | DVH ---
CHEST RADIOGRAPH Indication: intubated Technique: Single frontal view of the chest was obtained Comparison: XY CHEST PORTABLE on DOS: 08/22/25, XY CHEST XRAY 1 VIEW on DOS: 08/21/25, XY CHEST XRAY 1 VIEW on DOS: 08/20/25 FINDINGS: Lines and Tubes: The endotracheal tube terminates 2.1 cm above the arin. The enteric tube terminate s in the stomach. There is a right central venous catheter with its tip terminating in the right atri um. Lungs: Bilateral Interstitial prominence. No focal consolidation. Pleura: No effusion. No pneumothorax. Cardiomediastinal contours: Unremarkable Bones: No acute osseous abnormality. IMPRESSION: 1. Support tubes in appropriate position. 2. Bilateral interstitial prominence which may reflect pulmonary edema or atypical infection.
--- NOTE | 2025-08-23 09:30 | DVHPN2 ---
Progress Note - Dictate Date Seen: Aug 23, 2025 Medical Necessity Reason Pt with a Central, PICC or Fol: Yes Subjective Ms. Earl is a 75 years old female with a history of dementia, she was [facility] on 08[facility]15/2025 with a chief complaint of cardiac arrest. I have seen and examined the patient. I have discussed with her nurse, on my physical examination she is responsive to light painful stimuli, no spontaneous extremity movement Her nurse relates the patient's open her eyes from time to time, and she also move the feet sometimes Urinalysis, 08/15/2025: WBC: 43, urine leukocyte esterase: Trace ABG, 08/15/2025: Metabolic acidosis, 08/17/2025: Compensated metabolic acidosis WBC/HGB/PLT/MCV, 08/16/2025: 14.4/10.3/286/95 BUN/CR, 08/16/2025: 23/1.35 GFR, 08/16/2025: 40 HGB A1c, 08/15/2025: 4.6 Lactic acid, 08/15/2025: 9.7, 7.1, 3.1 TBI/AST/ALT/AP, 08/16/2025: 0.5/748/712/276, 08/17/2025: 0.5/296/463/231 EEG, 08/17/2025: Mildly abnormal CT head, 08/15/2025 0716: Global brain atrophy with prominence of the ventricular system out of proportion to the size of the sulci. This appearance may be due to central brain atrophy or normal pressure hydrocephalus. CT head, 08/16/25 2235: 1. No acute intracranial abnormality. 2. 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 loss vital signs Vital Sign Date Time Temp Pulse Resp B/P (MAP) Pulse Ox O2 Delivery O2 Flow Rate FiO2 08/23/25 07:35 81 29 140/51 (80) 98 30 08/23/25 06:00 Mechanical Ventilator+ 08/23/25 04:00 98.4 98.4 Total Intake and Output 08/22/25 08/22/25 08/23/25 15:00 23:00 07:00 Intake Total 100 ml 401.66 ml 842.51 ml Output Total 160 ml 200 ml Balance 100 ml 241.66 ml 642.51 ml medications Current Medications Medications Dose Ordered Sig/[place] Route Start Time Stop Time Status Last Admin Dose Admin Norepinephrine Bitartrate 250 ml @ 3.75 mls/hr Q24H IV 08/15/25 06:30 08/15/25 08:29 3.75 MLS/HR Dextrose 50 ml UD PRN IV 08/15/25 10:30 Enoxaparin Sodium 30 mg DAILY SC 08/15/25 11:18 08/23/25 08:38 30 MG Enteral Nutritional Formula 1,000 ml 30ML/HR GT 08/16/25 12:00 08/22/25 04:52 1,000 ML Hydralazine HCl 10 mg Q6HP PRN IV 08/18/25 16:15 08/22/25 19:21 10 MG Ipratropium [place] 0.5 mg Q6HPRN PRN NEB 08/22/25 01:45 08/22/25 12:29 0.5 MG Levalbuterol HCl 0.625 mg Q6HR PRN NEB 08/22/25 01:45 08/22/25 12:29 0.625 MG Piperacillin Sod/ Tazobactam Sod 100 ml @ 25 mls/hr Q8H IV 08/22/25 10:00 08/23/25 08:39 25 MLS/HR Purified Water 150 ml Q6HR GT 08/22/25 18:00 08/23/25 05:48 150 ML Pantoprazole Sodium 40 mg DAILY IV 08/23/25 10:00 08/23/25 08:39 40 MG Amiodarone HCL/ Dextrose 200 ml @ 16.66 mls/ hr Q12H IV 08/23/25 10:30 08/23/25 02:30 16.66 MLS/HR objective The patient is well-nourished and well-developed with no distress. The patient is intubated MENTAL STATUS: Subjective CRANIAL NERVES: Pupils are equal, round and slightly reactive. Eyes are assisted open. No signs of facial weakness. There are is gagging or coughing reflexes during oral care SENSATION: Responses to light painful stimuli. MOTOR: Normal tone in the upper and lower extremity. Normal muscle bulk. No fasciculations. Subjective REFLEXES: Deep tendon reflexes are symmetrical. No pathological reflexes. CEREBELLAR/COORDINATION: Deferred GAIT/STATION: deferred. laboratory and microbiology Laboratory Tests 08/23/25 03:20 Test 08/23/25 03:20 Range/Units Serum Glucose 126 H 74-106 mg/dL Problem List Coma Metabolic encephalopathy Hypoxic encephalopathy Toxic encephalopathy Cardiopulmonary arrest Acute respiratory failure Metabolic acidosis Shocked liver, recovering Dementia, she may have advanced dementia, likely Alzheimer disease, Assessment/Plan Monitoring Supportive treatment ICU care Follow-up lab tests Stabilize vitals/pressor drip p.r.n. Respiratory support/vent management Oxygen IV antibiotics GI prophylaxis/famotidine DVT prophylaxis/Lovenox More recommendation per clinical course She is likely to have a poor prognosis for meaningful/overall recovery This medical document was created using an electronic medical record system with [employer] dictation system. Although this document has been carefully reviewed, there may still be some phonetic and typographical errors. These areas are purely typographical due to imperfections of the software programs, and do not reflect any compromise in the patient's medical care Prognosis Guarded Dietary Evaluation Review Comments: Nutrition Recommendation: 1) EN Jevity 1.2 [place] @ 400ml/hr x 24hr(goal). Water flush 100ml Q6H if allowed, adjust PRN. TF at goal volume provides 1152 kcal (100%), 53gm protein (100%), and 1175 ml free water (including flush). 2) Consider TPN/PN if NPO>7 days 3) Advance diet as medically feasible 4) Monitor TF tolerance, lab values, weight trend, and I/O Expected Outcomes/Goals: Intake to meet >75% estimated needs Lab values to improve Fu 2-3 days Plan discussed with: Other TONI ADAMSON MD Aug 23, 2025 09:30
[2025-08-23] MEDS: LIDOCAINE 1% (LOCAL ANESTH.) PF 5ml SDV ID ONE (12:30)
--- NOTE | 2025-08-23 15:39 | DVH ---
INDICATION: transaminitis, NAIMA TECHNIQUE: Multiple real-time sonographic images of the abdomen were obtained. COMPARISON: None FINDINGS: The liver is heterogeneous in echogenicity. The liver measures 15cm. No intrahepatic bilia ry ductal dilatation is noted. The gallbladder wall measures 0.3 cm and is unremarkable. Gallstones are present.. The common duct m easures 0.4 cm and is unremarkable. No pericholecystic fluid is noted. The right kidney measures 7cm. No hydronephrosis. The left kidney measures 9cm. Mild left hydroneph rosis. Multiple liver masses are noted measuring up to 4 cm, concerning for metastases. The pancreas is not well visualized due to obscuration from bowel gas. The visualized portions of the IVC and aorta are grossly unremarkable. IMPRESSION: Multiple liver masses are noted measuring up to 4 cm, concerning for metastases. Gallstones. Mild left hydronephrosis.
[2025-08-23] MEDS: FREE WATER GT SCH (17:50)
[2025-08-23 18:17] LABS: Urine Protein, UAD TRACE (Negative)
[2025-08-23] MEDS: SODIUM CHLOR 0.9% PF (SALINE LOCK) 10ML VIAL/SYR IV SCH (20:32)
[2025-08-23] MEDS: HYDROmorphone HCL 2 MG/ML VL/or syr IV ONE (23:07)
[2025-08-24] VITALS (76 sets, daily range): BP systolic 104–176; BP diastolic 40–148; PULSE 54–104; RESP 12–29; TEMP 97.9–99.2; O2SAT 35–100
[2025-08-24 03:43] LABS: Nucleated Red Blood Cells % 0.0 %
[2025-08-24 03:44] LABS: Hematocrit 22.3 % (36.0-46.0); Hemoglobin 7.4 g/dL (12.2-16.2); Mean Corpuscular Hemoglobin 32.4 pg (28.0-32.0); Mean Corpuscular Volume 96.8 fL (80.0-100.0)
[2025-08-24 04:08] LABS: Anion Gap 9 (5-15); BUN/Creatinine Ratio 24.1 (10.0-20.0); Calcium 8.7 mg/dL (8.7-10.4); Carbon Dioxide 26 mmol/L (20-31); Glucose 105 mg/dL (74-106); Potassium 4.2 mmol/L (3.5-5.1); Sodium 142 mmol/L (136-145); Total Protein 5.9 g/dL (5.7-8.2)
[2025-08-24 04:09] LABS: Alanine Aminotransferase 84 U/L (7-40); Albumin 3.0 g/dL (3.2-4.8); Alkaline Phosphatase 263 U/L (46-116); Bilirubin, Total 1.0 mg/dL (0.2-1.0); Blood Urea Nitrogen 26 mg/dL (9-23); Chloride 107 mmol/L (98-107)
--- NOTE | 2025-08-24 05:00 | DVH ---
CHEST RADIOGRAPH Indication: vent Technique: Single frontal view of the chest was obtained Comparison: XY CHEST PORTABLE on DOS: 08/23/25 FINDINGS: Lines and Tubes: The endotracheal tube terminates 3.3 cm above the arin. The enteric tube courses b elow the left hemidiaphragm and the tip terminates in the stomach. There is a left central venous ca theter with its tip terminating in the superior vena cava, new since prior study. The right central venous catheter has been removed. Large bore left chest tube is unchanged. Lungs: Stable bilateral interstitial prominence. Pleura: No effusion. No pneumothorax. Cardiomediastinal contours: Unremarkable Bones: No acute osseous abnormality. IMPRESSION: 1. Interval placement of a left central venous catheter with its tip terminating in the superior vena cava. 2. Otherwise no significant change compared to prior exam.
[2025-08-24 07:10] LABS: Base Excess 0.5 mmol/L (-2.0-3.0)
--- NOTE | 2025-08-24 09:42 | DVHPN2 ---
Progress Note - Dictate Date Seen: Aug 24, 2025 Medical Necessity Reason Pt with a Central, PICC or Fol: Yes Subjective Ms. Earl is a 75 years old female with a history of dementia, she was brought to the [facility] on 08/15/2025 with a chief complaint of cardiac arrest. I have seen and examined the patient. I have discussed with her nurse, her daughter in the room. She is awake, she is responsive to verbal stimuli, he looks around, moves the arms a little bit, but she does not nonresponsive to verbal commands There is strong resistance when I move her arms Urinalysis, 08/15/2025: WBC: 43, urine leukocyte esterase: Trace ABG, 08/15/2025: Metabolic acidosis, 08/17/2025: Compensated metabolic acidosis WBC/HGB/PLT/MCV, 08/16/2025: 14.4/10.3/286/95 BUN/CR, 08/16/2025: 23/1.35 GFR, 08/16/2025: 40 HGB A1c, 08/15/2025: 4.6 Lactic acid, 08/15/2025: 9.7, 7.1, 3.1 TBI/AST/ALT/AP, 08/16/2025: 0.5/748/712/276, 08/17/2025: 0.5/296/463/231 EEG, 08/17/2025: Mildly abnormal CT head, 08/15/2025 0716: Global brain atrophy with prominence of the ventricular system out of proportion to the size of the sulci. This appearance may be due to central brain atrophy or normal pressure hydrocephalus. CT head, 08/16/25 2235: 1. No acute intracranial abnormality. 2. 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 loss vital signs Vital Sign Date Time Temp Pulse Resp B/P (MAP) Pulse Ox O2 Delivery O2 Flow Rate FiO2 08/24/25 09:04 64 26 140/44 (76) 100 30 08/24/25 06:00 Mechanical Ventilator+ 08/24/25 04:00 99.2 99.2 Total Intake and Output 08/23/25 08/23/25 08/24/25 15:00 23:00 07:00 Intake Total 382.867 ml 741.336 ml 883.335 ml Output Total 410 ml 400 ml Balance 382.867 ml 331.336 ml 483.335 ml medications Current Medications Medications Dose Ordered Sig/[place] Route Start Time Stop Time Status Last Admin Dose Admin Norepinephrine Bitartrate 250 ml @ 3.75 mls/hr Q24H IV 08/15/25 06:30 08/15/25 08:29 3.75 MLS/HR Dextrose 50 ml UD PRN IV 08/15/25 10:30 Enoxaparin Sodium 30 mg DAILY SC 08/15/25 11:18 08/23/25 08:38 30 MG Enteral Nutritional Formula 1,000 ml 30ML/HR GT 08/16/25 12:00 08/22/25 04:52 1,000 ML Hydralazine HCl 10 mg Q6HP PRN IV 08/18/25 16:15 08/23/25 10:29 10 MG Ipratropium [place] 0.5 mg Q6HPRN PRN NEB 08/22/25 01:45 08/22/25 12:29 0.5 MG Levalbuterol HCl 0.625 mg Q6HR PRN NEB 08/22/25 01:45 08/22/25 12:29 0.625 MG Piperacillin Sod/ Tazobactam Sod 100 ml @ 25 mls/hr Q8H IV 08/22/25 10:00 08/24/25 01:07 25 MLS/HR Pantoprazole Sodium 40 mg DAILY IV 08/23/25 10:00 08/23/25 08:39 40 MG Sodium Chloride 10 ml QSHIFT@10,22 IV 08/23/25 22:00 08/23/25 20:32 10 ML Amiodarone HCl 250 ml @ 16.667 mls/ hr Q12H IV 08/23/25 14:00 08/24/25 01:08 16.667 MLS/HR Purified Water 200 ml Q6HR GT 08/23/25 18:00 08/24/25 05:33 200 ML objective The patient is well-nourished and well-developed with no distress. The patient is intubated MENTAL STATUS: Subjective CRANIAL NERVES: Pupils are equal, round and slightly reactive. Eyes are intermediate open. No signs of facial weakness. There are is gagging or coughing reflexes during oral care SENSATION: Responses to light painful stimuli. MOTOR: Normal tone in the upper and lower extremity. Normal muscle bulk. No fasciculations. Subjective REFLEXES: Deep tendon reflexes are symmetrical. No pathological reflexes. CEREBELLAR/COORDINATION: Deferred GAIT/STATION: deferred. laboratory and microbiology Laboratory Tests 08/24/25 03:10 Test 08/24/25 03:10 Range/Units Serum Glucose 105 74-106 mg/dL Problem List Coma Metabolic encephalopathy Hypoxic encephalopathy Toxic encephalopathy Cardiopulmonary arrest Acute respiratory failure Metabolic acidosis Shocked liver, recovering Dementia, she may have advanced dementia, likely Alzheimer disease, Assessment/Plan Monitoring Supportive treatment ICU care Follow-up lab tests Stabilize vitals/pressor drip p.r.n. Respiratory support/vent management Oxygen IV antibiotics GI prophylaxis/famotidine DVT prophylaxis/Lovenox CPAP trial More recommendation per clinical course She is likely to have a poor prognosis for meaningful/overall recovery This medical document was created using an electronic medical record system with [employer] dictation system. Although this document has been carefully reviewed, there may still be some phonetic and typographical errors. These areas are purely typographical due to imperfections of the software programs, and do not reflect any compromise in the patient's medical care Prognosis Guarded Dietary Evaluation Review Comments: Nutrition Recommendation: 1) EN Jevity 1.2 Demarcus @ 400ml/hr x 24hr(goal). Water flush 100ml Q6H if allowed, adjust PRN. TF at goal volume provides 1152 kcal (100%), 53gm protein (100%), and 1175 ml free water (including flush). 2) Consider TPN/PN if NPO>7 days 3) Advance diet as medically feasible 4) Monitor TF tolerance, lab values, weight trend, and I/O Expected Outcomes/Goals: Intake to meet >75% estimated needs Lab values to improve Fu 2-3 days Plan discussed with: Daughter, Other TONI ADAMSON MD Aug 24, 2025 09:42
[2025-08-24] MEDS: AMIODARONE HCL 200 MG TAB PO SCH (12:14)
--- NOTE | 2025-08-24 14:10 | DVHPNRES ---
Progress Note Date Seen: Aug 24, 2025 Resident Creating Document: PER HARDY RESIDENT Medical Necessity Reason Pt with a Central, PICC or Fol: Yes Subjective Review of Systems This is a 75-year-old female with a known history of dementia who was brought to the hospital by EMS following a cardiac arrest at home. According to her daughter, the patient was last seen at her baseline the night before the incident, with no complaints. On the morning of 08/15 at approximately 5:30 a.m., she was found kneeling beside her bed with her hand resting on the bed rail, exhibiting labored breathing and a faint carotid pulse. Cardiopulmonary resuscitation (CPR) was initiated by the family, and EMS arrived approximately 15 minutes later. Upon EMS arrival, the patient was found to be in a non-shockable rhythm. En route to the hospital, she received epinephrine and was intubated. Return of spontaneous circulation (ROSC) was achieved prior to hospital arrival. At baseline, the patient lived at home with her daughter. She was non-verbal, required a walker for mobility, and needed assistance with activities of daily living. She was incontinent of bowel and bladder and did not take any prescribed medications, relying instead on holistic remedies. She has no known drug allergies. Patient seen and examined at bedside evaluation today, Patient today is opening her eyes and moving her legs and arms. Patient overnight had bradycardia and stop the amiodarone drip. Was given amiodarone through G-tube 200 mg b.i.d. Patient got extubated today, is maintaining well oxygen with 6 L oxygen. Repeat preliminary blood cultures were negative. Patient has a right breast mass, right breast ultrasound was ordered, CT noncontrast chest/abdomen/pelvis was ordered. Objective vital signs Vital Sign Date Time Temp Pulse Resp B/P (MAP) Pulse Ox O2 Delivery O2 Flow Rate FiO2 08/24/25 13:05 71 16 137/55 (82) 100 30 08/24/25 12:00 Mechanical Ventilator+ 08/24/25 08:31 98.0 98.0 Total Intake and Output 08/23/25 08/23/25 08/24/25 15:00 23:00 07:00 Intake Total 382.867 ml 741.336 ml 883.335 ml Output Total 410 ml 400 ml Balance 382.867 ml 331.336 ml 483.335 ml medications Current Medications Medications Dose Ordered Sig/[place] Route Start Time Stop Time Status Last Admin Dose Admin Norepinephrine Bitartrate 250 ml @ 3.75 mls/hr Q24H IV 08/15/25 06:30 08/15/25 08:29 3.75 MLS/HR Dextrose 50 ml UD PRN IV 08/15/25 10:30 Enoxaparin Sodium 30 mg DAILY SC 08/15/25 11:18 08/24/25 09:30 30 MG Enteral Nutritional Formula 1,000 ml 30ML/HR GT 08/16/25 12:00 08/22/25 04:52 1,000 ML Hydralazine HCl 10 mg Q6HP PRN IV 08/18/25 16:15 08/23/25 10:29 10 MG Ipratropium [place] 0.5 mg Q6HPRN PRN NEB 08/22/25 01:45 08/22/25 12:29 0.5 MG Levalbuterol HCl 0.625 mg Q6HR PRN NEB 08/22/25 01:45 08/22/25 12:29 0.625 MG Piperacillin Sod/ Tazobactam Sod 100 ml @ 25 mls/hr Q8H IV 08/22/25 10:00 08/24/25 09:29 25 MLS/HR Pantoprazole Sodium 40 mg DAILY IV 08/23/25 10:00 08/24/25 09:32 40 MG Sodium Chloride 10 ml QSHIFT@10,22 IV 08/23/25 22:00 08/24/25 09:29 10 ML Purified Water 200 ml Q6HR GT 08/23/25 18:00 08/24/25 12:14 200 ML Amiodarone HCl 200 mg Q12HR PO 08/24/25 10:00 08/24/25 12:14 200 MG Examination Pt is lying on bed, RASS -3 General Appearance: intubated and on mechanical ventilation HEENT: Atraumatic, Mucous membranes moist/pink, ET tube in place, NG tube in place Respiratory: Clear to auscultation, Normal air movement, No added sounds, on MV FiO? 30%, PEEP 5 cm H?O, TV 350 mL, and RR 19 Cardiovascular: Regular rate, Normal S1, Normal S2, No murmurs Abdominal: Active bowel sounds, Soft, no distention, no tenderness Extremities: No edema, Normal pulses, No tenderness/swelling Skin: Left-sided subcutaneous emphysema, bedside chest tube, has right IJ Neuro: pupils reactive, cough and gag reflex intact laboratory and microbiology Laboratory Tests 08/24/25 03:10 Test 08/24/25 03:10 Range/Units Serum Glucose 105 74-106 mg/dL Microbiology Date/Time Source Procedure Growth Status 08/22/25 17:54 Voided Urine Urine Culture - Preliminary Resulted 08/22/25 17:45 Blood Blood Culture - Preliminary NO GROWTH AFTER 24 HOURS OF INCUBATION. Resulted 08/15/25 14:05 Nose MRSA Screen - Final Complete 08/15/25 10:13 Sputum Expectorated Sputum Gram Stain - Final Complete 08/15/25 10:13 Sputum Expectorated Sputum Respiratory Culture - Final Complete Problem List/Assessment/Plan Problem List/Assessment/Plan Neurology # Acute metabolic/hypoxic encephalopathy: Secondary to cardiac arrest and sepsis. # Dementia: Pre-existing condition. - CT head (08/15): No acute intracranial abnormalities. - CT head (08/17): No acute findings; severe atrophic changes. - Continue supportive care. - Neurology on board, stated that patient has poor prognosis - currently off from all sedatives Cardiovascular # Status post cardiac arrest: Initial rhythm asystole. # Cardiogenic shock. # Possible septic shock. # NSTEMI (Type 2) likely due to above # AFIB with RVR - EKG: Sinus tachycardia, no significant ST/T wave changes. - Troponin I: Mild elevation. - IV fluid resuscitation. - Monitor cardiac enzymes and rhythm - currently not on pressors - Amio drip Respiratory # Acute hypoxic respiratory failure: Secondary to cardiopulmonary arrest status post intubation # Left pneumothorax: Likely CPR-related- and on chest tube # Rib fractures: Multiple left-sided. - Chest X-ray (08/15): ~35% left pneumothorax, multiple left rib fractures. - Chest X-ray (08/16): Slight increase in pneumothorax size, progressive subcutaneous emphysema. - Continue mechanical ventilation. - Chest tube placement. - sputum cultures no growth - IV antibiotics on Zosyn - vancomycin discontinued 08/22 - blood culture on 08/15 showed Peptostreptococcus Prevotii. - CPAP trial today failed we will try tomorrow Gastrointestinal / Nutrition / Liver # Shock liver: Secondary to cardiac arrest. # Transaminitis likely due to shock liver - continuously monitor lab - Nutritional support via Jevity tube feeding. - liver ultrasound showed Multiple liver masses are noted measuring up to 4 cm, concerning for metastases, Gallstones, Mild left hydronephrosis. - noncontrast CT chest/abdomen/pelvis ordered Genitourinary / Kidney / Fluids # Septic shock likely from UTI # Acute Complicated UTI # Acute kidney injury (NAIMA): Likely volume-mediated. # Hypernatremia - Urine culture, blood culture pending - IV antibiotics Zosyn (started 08/16) discontinued vancomycin 08/22 - Monitor renal function and fluid status. - Monitor cultures and adjust antibiotics accordingly. Musculoskeletal / Skin # Left-sided rib fractures: Due to CPR. - Conservative medical management. - Pain control as needed. # right breast mass -ordered right breast ultrasound Nutrition: Jevity via tube feeding. Bowel Regimen: Lactulose as needed. GI Prophylaxis: protonix DVT Prophylaxis: Lovenox. Lines / Tubes / Devices Airway: Intubated via ETT on 08/15. Extubated on 08/24 Vascular Access: Right internal jugular (IJ) central line placed on 08/15., ordered PICC line for placement Drips: Currently off pressors and sedatives. Urinary: Winters catheter placed on 08/15.: Goals of care discussed with the patient's family for more than 29 minutes: Full code status Care plan updated to the patient's family on bedside, addressed all concerns Critical care time spent more than 82 minutes excluding procedures and discussion with the family Case discussed with Dr Sol and RN Plan discussed with: Daughter My Orders My Orders Orders - PER HARDY Procedure Category Date Status Time Abdomen Complete US 08/23/25 Resulted Sonogram 14:46 Free Water PHA 08/23/25 In Process 18:00 Amiodarone Tablet PHA 08/24/25 In Process (Cordarone Tablet) 10:00 Dietary Evaluation Review Comments: Nutrition Recommendation: 1) EN Jevity 1.2 [place] @ 400ml/hr x 24hr(goal). Water flush 100ml Q6H if allowed, adjust PRN. TF at goal volume provides 1152 kcal (100%), 53gm protein (100%), and 1175 ml free water (including flush). 2) Consider TPN/PN if NPO>7 days 3) Advance diet as medically feasible 4) Monitor TF tolerance, lab values, weight trend, and I/O Expected Outcomes/Goals: Intake to meet >75% estimated needs Lab values to improve Fu 2-3 days Date of Service: Aug 24, 2025 Billing Provider: PURNIMA SOL MD Common Visit Codes: 13392-[id number] CARE 30-74 MIN, 98775-[id number] CARE-EACH +30MIN PER HARDY RESIDENT Aug 24, 2025 14:10 PURNIMA SOL MD Aug 25, 2025 12:45
--- NOTE | 2025-08-24 15:17 | DVH ---
Exam: US US GUIDED VASCULAR ACCESS Date: 08/23/2025 10:29 AM Clinical History: PICC Comparison: None Findings: Targeted sonographic evaluation of the basilic vein was obtained utilizing grayscale and color Dopple r imaging. IMPRESSION: Sonographic assistance for central line placement. Please refer to procedural report for detailed fin dings.
[2025-08-24 16:11] LABS: Base Excess -1.6 mmol/L (-2.0-3.0)
--- NOTE | 2025-08-24 16:48 | DVH ---
US OF THE RIGHT BREAST INDICATION: breast mass TECHNIQUE: Targeted right breast ultrasound was performed. COMPARISON: Prior exam dated: none FINDINGS: Heterogeneous shadowing structure in the right breast adjacent to the nipple 9 o'clock region measuri ng 2.3 x 1.3 x 2.0 cm. Evaluation is significantly limited due to technique of the exam. IMPRESSION: Heterogeneous shadowing structure in the right breast adjacent to the nipple 9 o'clock region measuri ng 2.3 x 1.3 x 2.0 cm. Further evaluation with diagnostic mammogram is recommended. ACR Bi Rads Category:Category 0-"INCOMPLETE" (Needs Additional Imaging Evaluation))
[2025-08-24] MEDS: methylPREDNISolone SOD SUCC 40 MG/ML VL IV ONE (17:02)
[2025-08-24] MEDS: EPINEPHrine HCL 0.5 ML NEB ONE (17:03)
--- NOTE | 2025-08-24 18:30 | DVH ---
CLINICAL HISTORY: LIVER METS, RIGHT BREAST MASS TECHNIQUE: CT of the chest, abdomen and pelvis was performed without IV contrast . This exam was perf ormed according to our departmental dose optimization program. Up-to-date CT equipment and radiation dose reduction techniques are utilized as appropriate. 7.62 CTDI: 7.62 mGy DLP: 461.03 mGy COMPARISON: None FINDINGS: CHEST FINDINGS: Lower Neck: Unremarkable Axilla, Mediastinum and Liz: There is right axillary lymphadenopathy for example series 2, image 37. Normal-sized left axillary lymph nodes. No grossly enlarged mediastinal or hilar lymph nodes. Gastri c tube courses in the esophagus. Heart and Great Vessels: Normal-sized heart without pericardial effusion. The thoracic aorta is norm al in caliber with mild calcified plaque. 3-vessel coronary artery calcifications which is mild-to-mo derate at the left anterior descending coronary artery. The central pulmonary arteries are normal horacio iber. There is a left PICC with the tip terminating in the cavoatrial junction. Airway, Lungs and Pleura: Endotracheal tube terminates above the arin. There is a lateral left ches t wall approach chest tube coursing in the left major fissure. Miniscule left pneumothorax. There are scattered predominantly subcentimeter bilateral pulmonary nodules in the lungs, for example in the l eft upper lobe on series 3, image 19. Biapical pleural-parenchymal scarring. Small right pleural effu wayne. Interlobular septal thickening in the lungs. Patchy ground-glass opacification of the lungs. Chest Wall and Osseous Structures: There Are multifocal lytic lesions within the bony thorax includin g the thoracic spine and sternum. A mildly displaced fractures of the lateral left 3rd, 4th 5th and 6th and 7th and 8th ribs. There is comminution of the lateral left 6th rib fracture. Bony demineraliz ation. There is mild right convexity scoliosis of the thoracic spine. There is chest wall edema. Ther e is soft tissue emphysema in the left chest wall. Abdomen and Pelvis Findings: Liver and Biliary system: Normal-sized liver. Heterogeneous hypodense lesions in the liver. The gallb ladder is distended and contains cholelithiasis. No biliary ductal dilatation. Spleen: Unremarkable. Adrenal Glands and Kidneys: Mildly thickened left adrenal gland. The right adrenal gland is unremark able. There is a ptotic right kidney. Tiny nonobstructing right lower pole renal calculus. There is e ither mild to moderate bilateral hydronephrosis versus renal sinus cysts, not optimally evaluated on this noncontrast study. Pancreas and Retroperitoneum: Grossly normal pancreas. Mildly prominent retroperitoneal lymph nodes, not optimally evaluated in the absence of intravenous contrast. Aorta and Major Vessels: Aortoiliac vessels are normal in caliber with mild calcified atherosclerotic plaque. Bowel, Mesentery and Peritoneal space: Normal caliber small and large bowel. Moderate retained stool in the rectum. Gastric tube terminates in the body of the stomach. No free air or fluid collection. M ild ascites. Pelvis: Winters catheter in the urinary bladder. No pelvic lymphadenopathy. Uterus is present tilted to the right. Abdominal wall and Osseous Structures: There is body wall edema. There is bony demineralization. Mult ifocal soft tissue lesions within the lumbar spine and pelvis. No acute fracture. Minor left curvatur e of the lumbar spine. IMPRESSION: Chest: * Mild interstitial and alveolar pulmonary edema and small right pleural effusion. * Scattered predominantly subcentimeter bilateral pulmonary nodules which could reflect metastatic di sease. * Multifocal lytic lesions within the bony thorax predominantly in the thoracic spine and sternum com patible with metastatic disease. * Mildly displaced fractures of the lateral left 3rd, 4th, 5th, 6th, 7th, and 8th ribs. The lateral left 6th rib fracture is comminuted. * Lateral left chest wall approach thoracostomy tube coursing along the left major fissure with trace left pneumothorax. * Right axillary Lymphadenopathy, indeterminate though metastatic disease is a possibility. * Endotracheal and gastric tubes are in place. Left PICC is in place. Abdomen/pelvis: * Heterogeneous hypodense lesions in the liver compatible with metastatic disease. * Bony demineralization. Scattered soft tissue lucent lesions in the lumbar spine and pelvis compati ble with metastatic disease. * Mild ascites and body wall edema. * There is either [id number] bilateral hydronephrosis versus bilateral renal sinus cysts, not o ptimally evaluated without intravenous contrast. * Tiny nonobstructing right renal calculus. Ptotic Right kidney.
--- NOTE | 2025-08-24 18:34 | ECG ---
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
[2025-08-25] VITALS (56 sets, daily range): BP systolic 95–167; BP diastolic 46–103; PULSE 86–109; RESP 13–96; TEMP 97.2–98.6; O2SAT 35–100
[2025-08-25 04:00] LABS: Hematocrit 26.4 % (36.0-46.0); Hemoglobin 8.8 g/dL (12.2-16.2); Mean Corpuscular Hemoglobin 32.1 pg (28.0-32.0); Mean Corpuscular Volume 96.3 fL (80.0-100.0); Nucleated Red Blood Cells % 0.0 %
[2025-08-25 04:05] LABS: Albumin 3.4 g/dL (3.2-4.8); Anion Gap 12 (5-15); BUN/Creatinine Ratio 23.1 (10.0-20.0); Calcium 8.9 mg/dL (8.7-10.4); Carbon Dioxide 24 mmol/L (20-31); Chloride 103 mmol/L (98-107); Potassium 4.0 mmol/L (3.5-5.1); Sodium 139 mmol/L (136-145); Total Protein 6.6 g/dL (5.7-8.2)
[2025-08-25 04:14] LABS: Alanine Aminotransferase 81 U/L (7-40); Alkaline Phosphatase 289 U/L (46-116); Bilirubin, Total 1.3 mg/dL (0.2-1.0); Blood Urea Nitrogen 24 mg/dL (9-23); Glucose 111 mg/dL (74-106)
--- NOTE | 2025-08-25 05:55 | DVH ---
CHEST RADIOGRAPH Indication: post extubation Technique: Single frontal view of the chest was obtained COMPARISON: XY CHEST XRAY 1 VIEW on DOS: 08/24/25, XY CHEST PORTABLE on DOS: 08/23/25, XY CHEST SHAWN BLE on DOS: 08/22/25, XY CHEST XRAY 1 VIEW on DOS: 08/21/25, XY CHEST XRAY 1 VIEW on DOS: 08/20/25 FINDINGS: Lines and Tubes: Status post interval extubation. Slight interval retraction of left peripherally ins erted central catheter with tip now projecting over the proximal superior vena cava. Left chest tube and enteric catheter unchanged. Lungs: New large right pleural effusion versus lobar collapse. No pneumothorax. Cardiomediastinal contours: Unremarkable Bones: Unremarkable IMPRESSION: 1. Status post interval extubation. 2. Slight interval retraction of left PICC. Enteric catheter unchanged. 3. New large right pleural effusion versus lobar collapse.
--- NOTE | 2025-08-25 09:27 | DVH ---
US CHEST ULTRASOUND, HISTORY: parapneumonic effusion COMPARISON(S): XY CHEST XRAY 1 VIEW on DOS: 08/25/25, XY CHEST XRAY 1 VIEW on DOS: 08/24/25, XY CHEST PORTABLE on DOS: 08/23/25 TECHNICAL DATA: Transverse and longitudinal images are obtained of the chest. FINDING: IMPRESSION(S): There is trace right effusion seen. No effusion seen on the left.
--- NOTE | 2025-08-25 09:33 | DVHPN2 ---
Progress Note - Dictate Date Seen: Aug 25, 2025 Medical Necessity Reason Pt with a Central, PICC or Fol: Yes Subjective Ms. Earl is a 75 years old female with a history of dementia, she was [facility] on 08[facility]15/2025 with a chief complaint of cardiac arrest. I have seen and examined the patient. I have discussed with her nurse. He is extubated on 08/24/2025, she is awake, eyes open, but he is nonresponsive to verbal stimuli, she only moves the arms a little bit Urinalysis, 08/15/2025: WBC: 43, urine leukocyte esterase: Trace ABG, 08/15/2025: Metabolic acidosis, 08/17/2025: Compensated metabolic acidosis WBC/HGB/PLT/MCV, 08/16/2025: 14.4/10.3/286/95 BUN/CR, 08/16/2025: 23/1.35 GFR, 08/16/2025: 40 HGB A1c, 08/15/2025: 4.6 Lactic acid, 08/15/2025: 9.7, 7.1, 3.1 TBI/AST/ALT/AP, 08/16/2025: 0.5/748/712/276, 08/17/2025: 0.5/296/463/231 EEG, 08/17/2025: Mildly abnormal CT head, 08/15/2025 0716: Global brain atrophy with prominence of the ventricular system out of proportion to the size of the sulci. This appearance may be due to central brain atrophy or normal pressure hydrocephalus. CT head, 08/16/25 2235: 1. No acute intracranial abnormality. 2. 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 loss vital signs Vital Sign Date Time Temp Pulse Resp B/P (MAP) Pulse Ox O2 Delivery O2 Flow Rate FiO2 08/25/25 06:45 97 17 159/72 (101) 100 08/25/25 06:34 Nasal Cannula* 2 28 08/25/25 04:00 98.6 98.6 Total Intake and Output 08/24/25 08/24/25 08/25/25 15:00 23:00 07:00 Intake Total 100 ml 0 ml 100 ml Output Total 410 ml 600 ml Balance 100 ml -410 ml -500 ml medications Current Medications Medications Dose Ordered Sig/[place] Route Start Time Stop Time Status Last Admin Dose Admin Norepinephrine Bitartrate 250 ml @ 3.75 mls/hr Q24H IV 08/15/25 06:30 08/15/25 08:29 3.75 MLS/HR Dextrose 50 ml UD PRN IV 08/15/25 10:30 Enoxaparin Sodium 30 mg DAILY SC 08/15/25 11:18 08/24/25 09:30 30 MG Enteral Nutritional Formula 1,000 ml 30ML/HR GT 08/16/25 12:00 08/22/25 04:52 1,000 ML Hydralazine HCl 10 mg Q6HP PRN IV 08/18/25 16:15 08/23/25 10:29 10 MG Ipratropium Monitor 0.5 mg Q6HPRN PRN NEB 08/22/25 01:45 08/25/25 06:31 0.5 MG Levalbuterol HCl 0.625 mg Q6HR PRN NEB 08/22/25 01:45 08/25/25 06:31 0.625 MG Piperacillin Sod/ Tazobactam Sod 100 ml @ 25 mls/hr Q8H IV 08/22/25 10:00 08/25/25 01:44 25 MLS/HR Pantoprazole Sodium 40 mg DAILY IV 08/23/25 10:00 08/24/25 09:32 40 MG Sodium Chloride 10 ml QSHIFT@10,22 IV 08/23/25 22:00 08/24/25 20:29 10 ML Purified Water 200 ml Q6HR GT 08/23/25 18:00 08/24/25 12:14 200 ML Amiodarone HCl 200 mg Q12HR PO 08/24/25 10:00 08/24/25 20:29 200 MG objective The patient is well-nourished and well-developed with no distress. MENTAL STATUS: Subjective CRANIAL NERVES: Pupils are equal, round and slightly reactive. Eyes are senior living open. No signs of facial weakness. Sensorimotor examined in bilateral trigeminal distribution is okay SENSATION: Responses to light painful stimuli. MOTOR: Normal tone in the upper and lower extremity. Normal muscle bulk. No fasciculations. Moves the arms a little bit REFLEXES: Deep tendon reflexes are symmetrical. No pathological reflexes. CEREBELLAR/COORDINATION: Deferred GAIT/STATION: deferred. laboratory and microbiology Laboratory Tests 08/25/25 03:00 Test 08/25/25 03:00 Range/Units Serum Glucose 111 H 74-106 mg/dL Problem List Coma Metabolic encephalopathy Hypoxic encephalopathy Toxic encephalopathy Cardiopulmonary arrest Acute respiratory failure Metabolic acidosis Shocked liver, recovering Dementia, she may have advanced dementia, likely Alzheimer disease, Assessment/Plan Monitoring Supportive treatment ICU care Follow-up lab tests Respiratory support p.r.n. Oxygen IV antibiotics GI prophylaxis/famotidine DVT prophylaxis/Lovenox More recommendation per clinical course She is likely to have a poor prognosis for meaningful/overall recovery This medical document was created using an electronic medical record system with [employer] dictation system. Although this document has been carefully reviewed, there may still be some phonetic and typographical errors. These areas are purely typographical due to imperfections of the software programs, and do not reflect any compromise in the patient's medical care Prognosis Poor Dietary Evaluation Review Comments: Nutrition Recommendation: 1) EN Jevity 1.2 Demarcus @ 400ml/hr x 24hr(goal). Water flush 100ml Q6H if allowed, adjust PRN. TF at goal volume provides 1152 kcal (100%), 53gm protein (100%), and 1175 ml free water (including flush). 2) Consider TPN/PN if NPO>7 days 3) Advance diet as medically feasible 4) Monitor TF tolerance, lab values, weight trend, and I/O Expected Outcomes/Goals: Intake to meet >75% estimated needs Lab values to improve Fu 2-3 days Plan discussed with: Other TONI ADAMSON MD Aug 25, 2025 09:33
--- NOTE | 2025-08-25 17:52 | DVHPNRES ---
Progress Note Date Seen: Aug 25, 2025 Resident Creating Document: PER HARDY RESIDENT Medical Necessity Reason Pt with a Central, PICC or Fol: Yes Subjective Review of Systems This is a 75-year-old female with a known history of dementia who was brought to the hospital by EMS following a cardiac arrest at home. According to her daughter, the patient was last seen at her baseline the night before the incident, with no complaints. On the morning of 08/15 at approximately 5:30 a.m., she was found kneeling beside her bed with her hand resting on the bed rail, exhibiting labored breathing and a faint carotid pulse. Cardiopulmonary resuscitation (CPR) was initiated by the family, and EMS arrived approximately 15 minutes later. Upon EMS arrival, the patient was found to be in a non-shockable rhythm. En route to the hospital, she received epinephrine and was intubated. Return of spontaneous circulation (ROSC) was achieved prior to hospital arrival. At baseline, the patient lived at home with her daughter. She was non-verbal, required a walker for mobility, and needed assistance with activities of daily living. She was incontinent of bowel and bladder and did not take any prescribed medications, relying instead on holistic remedies. She has no known drug allergies. Patient seen and examined at bedside evaluation today, Patient today is opening her eyes and moving her legs and arms. Patient got extubated yesterday, is maintaining well oxygen with 2L O2. Repeat preliminary blood cultures were negative. Patient has a right breast mass, breast biopsy was ordered. Possible chest tube removal tomorrow. Objective vital signs Vital Sign Date Time Temp Pulse Resp B/P (MAP) Pulse Ox O2 Delivery O2 Flow Rate FiO2 08/25/25 14:15 18 97 Nasal Cannula* 2 28 08/25/25 14:00 98 08/25/25 11:00 148/61 (90) 08/25/25 08:00 97.8 97.8 Total Intake and Output 08/24/25 08/24/25 08/25/25 15:00 23:00 07:00 Intake Total 100 ml 0 ml 100 ml Output Total 410 ml 600 ml Balance 100 ml -410 ml -500 ml medications Current Medications Medications Dose Ordered Sig/[place] Route Start Time Stop Time Status Last Admin Dose Admin Norepinephrine Bitartrate 250 ml @ 3.75 mls/hr Q24H IV 08/15/25 06:30 08/15/25 08:29 3.75 MLS/HR Dextrose 50 ml UD PRN IV 08/15/25 10:30 Enoxaparin Sodium 30 mg DAILY SC 08/15/25 11:18 08/25/25 10:27 30 MG Enteral Nutritional Formula 1,000 ml 30ML/HR GT 08/16/25 12:00 08/25/25 14:33 1,000 ML Hydralazine HCl 10 mg Q6HP PRN IV 08/18/25 16:15 08/23/25 10:29 10 MG Ipratropium [place] 0.5 mg Q6HPRN PRN NEB 08/22/25 01:45 08/25/25 12:03 0.5 MG Levalbuterol HCl 0.625 mg Q6HR PRN NEB 08/22/25 01:45 08/25/25 12:03 0.625 MG Piperacillin Sod/ Tazobactam Sod 100 ml @ 25 mls/hr Q8H IV 08/22/25 10:00 08/25/25 10:27 25 MLS/HR Pantoprazole Sodium 40 mg DAILY IV 08/23/25 10:00 08/25/25 10:22 40 MG Sodium Chloride 10 ml QSHIFT@10,22 IV 08/23/25 22:00 08/25/25 10:27 10 ML Amiodarone HCl 200 mg Q12HR PO 08/24/25 10:00 08/25/25 10:26 200 MG Acetaminophen/ Hydrocodone Bitart 1 tab Q6HPRN PRN PO 08/25/25 16:30 UNV Examination General Appearance: Extubated, opening eyes but not alert, oriented HEENT: Atraumatic, Mucous membranes moist/pink, ET tube in place, NG tube in place Respiratory: Clear to auscultation, Normal air movement, No added sounds, Cardiovascular: Regular rate, Normal S1, Normal S2, No murmurs Abdominal: Active bowel sounds, Soft, no distention, no tenderness Extremities: No edema, Normal pulses, No tenderness/swelling Skin: Left-sided subcutaneous emphysema, bedside chest tube, has right IJ Neuro: pupils reactive, cough and gag reflex intact laboratory and microbiology Laboratory Tests 08/25/25 03:00 Test 08/25/25 03:00 Range/Units Serum Glucose 111 H 74-106 mg/dL Microbiology Date/Time Source Procedure Growth Status 08/23/25 16:45 Blood Blood Culture - Preliminary NO GROWTH AFTER 48 HOURS OF INCUBATION. Resulted 08/22/25 17:54 Voided Urine Urine Culture - Final Complete 08/15/25 14:05 Nose MRSA Screen - Final Complete 08/15/25 10:13 Sputum Expectorated Sputum Gram Stain - Final Complete 08/15/25 10:13 Sputum Expectorated Sputum Respiratory Culture - Final Complete Problem List/Assessment/Plan Problem List/Assessment/Plan Neurology # Acute metabolic/hypoxic encephalopathy: Secondary to cardiac arrest and sepsis. # Dementia: Pre-existing condition. - CT head (08/15): No acute intracranial abnormalities. - CT head (08/17): No acute findings; severe atrophic changes. - Continue supportive care. - Neurology on board, stated that patient has poor prognosis - currently off from all sedatives Cardiovascular # Status post cardiac arrest: Initial rhythm asystole. # Cardiogenic shock. # Possible septic shock. # NSTEMI (Type 2) likely due to above # AFIB with RVR - EKG: Sinus tachycardia, no significant ST/T wave changes. - Troponin I: Mild elevation. - IV fluid resuscitation. - Monitor cardiac enzymes and rhythm - currently not on pressors Respiratory # Acute hypoxic respiratory failure: Secondary to cardiopulmonary arrest status post intubation # Left pneumothorax: Likely CPR-related- and on chest tube # Rib fractures: Multiple left-sided. - Chest X-ray (08/15): ~35% left pneumothorax, multiple left rib fractures. - Chest X-ray (08/16): Slight increase in pneumothorax size, progressive subcutaneous emphysema. - Continue mechanical ventilation. - Chest tube placement. - sputum cultures no growth - IV antibiotics on Zosyn - vancomycin discontinued 08/22 - blood culture on 08/15 showed Peptostreptococcus Prevotii. Gastrointestinal / Nutrition / Liver # Shock liver: Secondary to cardiac arrest. # Transaminitis likely due to shock liver - continuously monitor lab - Nutritional support via Jevity tube feeding. - liver ultrasound showed Multiple liver masses are noted measuring up to 4 cm, concerning for metastases, Gallstones, Mild left hydronephrosis. - noncontrast CT chest/abdomen/pelvis ordered Genitourinary / Kidney / Fluids # Septic shock likely from UTI # Acute Complicated UTI # Acute kidney injury (NAIMA): Likely volume-mediated. # Hypernatremia - Urine culture, blood culture pending - IV antibiotics Zosyn (started 08/16) discontinued vancomycin 08/22 - Monitor renal function and fluid status. - Monitor cultures and adjust antibiotics accordingly. Musculoskeletal / Skin # Left-sided rib fractures: Due to CPR. - Conservative medical management. - Pain control as needed. Oncology : # right breast mass - breast biopsy to be done - right breast ultrasound showed Heterogeneous shadowing structure in the right breast adjacent to the nipple 9 o'clock region measuring 2.3 x 1.3 x 2.0 cm. Further evaluation with diagnostic mammogram is recommended. - CT chest /abdomen/pelvis showed Heterogeneous hypodense lesions in the liver compatible with metastatic disease. Bony demineralization. Scattered soft tissue lucent lesions in the lumbar spine and pelvis compatible with metastatic disease.Mild ascites and body wall edema. There is either [id number] bilateral hydronephrosis versus bilateral renal sinus cysts, not optimally evaluated without intravenous contrast.Tiny nonobstructing right renal calculus. Ptotic Right kidney. - liver ultrasound showed Multiple liver masses are noted measuring up to 4 cm, concerning for metastases. Gallstones. Mild left hydronephrosis. Nutrition: Jevity via tube feeding. Bowel Regimen: Lactulose as needed. GI Prophylaxis: protonix DVT Prophylaxis: Lovenox. Lines / Tubes / Devices Airway: Intubated via ETT on 08/15. Extubated on 08/24 Vascular Access: Right internal jugular (IJ) central line placed on 08/15., ordered PICC placed 08/25 Drips: Currently off pressors and sedatives. Urinary: Win[place] catheter placed on 08/15. Goals of care discussed with the patient's family for more than 29 minutes: Full code status Care plan updated to the patient's family on bedside, addressed all concerns Critical care time spent more than 82 minutes excluding procedures and discussion with the family Case discussed with Dr Sol and RN Plan discussed with: Patient, Daughter My Orders My Orders Orders - PER HARDY RESIDENT Procedure Category Date Status Time Chest Xray 1 View XY 08/26/25 Logged 04:00 Complete Blood Count LAB 08/26/25 Verified 04:00 Comprehensive LAB 08/26/25 Verified Metabolic Panel 04:00 Abg W/ Co-Ox RT 08/26/25 Logged 04:00 Magnesium LAB 08/26/25 Verified 04:00 Phosphorus LAB 08/26/25 Verified 04:00 Dietary Evaluation Review Comments: Nutrition Recommendation: 1) EN Jevity 1.2 [place] @ 400ml/hr x 24hr(goal). Water flush 100ml Q6H if allowed, adjust PRN. TF at goal volume provides 1152 kcal (100%), 53gm protein (100%), and 1175 ml free water (including flush). 2) Consider TPN/PN if NPO>7 days 3) Advance diet as medically feasible 4) Monitor TF tolerance, lab values, weight trend, and I/O Expected Outcomes/Goals: Intake to meet >75% estimated needs Lab values to improve Fu 2-3 days Date of Service: Aug 25, 2025 Billing Provider: PURNIMA SOL MD Common Visit Codes: 26760-KWQGRXPA CARE 30-74 MIN, 68395-[id number] CARE-EACH +30MIN PER HARDY RESIDENT Aug 25, 2025 17:52 PURNIMA SOL MD Aug 27, 2025 12:20
[2025-08-26] VITALS (39 sets, daily range): BP systolic 99–148; BP diastolic 44–87; PULSE 81–103; RESP 17–26; TEMP 97.9–99.1; O2SAT 90–100
[2025-08-26] MEDS: HYDROcodone-ACET 5/325MG TAB PO PRN (03:28)
[2025-08-26 04:02] LABS: Hemoglobin 8.7 g/dL (12.2-16.2)
[2025-08-26 04:05] LABS: Hematocrit 25.6 % (36.0-46.0); Mean Corpuscular Hemoglobin 32.5 pg (28.0-32.0); Mean Corpuscular Volume 95.9 fL (80.0-100.0); Nucleated Red Blood Cells % 0.0 %
[2025-08-26 04:20] LABS: Albumin 3.3 g/dL (3.2-4.8); Anion Gap 12 (5-15); BUN/Creatinine Ratio 21.4 (10.0-20.0); Calcium 8.8 mg/dL (8.7-10.4); Carbon Dioxide 25 mmol/L (20-31); Chloride 102 mmol/L (98-107); Magnesium 1.9 mg/dL (1.6-2.6); Potassium 3.9 mmol/L (3.5-5.1); Sodium 139 mmol/L (136-145); Total Protein 6.5 g/dL (5.7-8.2)
[2025-08-26 04:21] LABS: Bilirubin, Total 1.1 mg/dL (0.2-1.0)
[2025-08-26 04:36] LABS: Alanine Aminotransferase 69 U/L (7-40); Alkaline Phosphatase 313 U/L (46-116); Blood Urea Nitrogen 25 mg/dL (9-23); Glucose 114 mg/dL (74-106)
--- NOTE | 2025-08-26 07:46 | DVH ---
CHEST RADIOGRAPH Indication: Postextubation. Technique: Single frontal view of the chest was obtained Comparison: XY CHEST XRAY 1 VIEW on DOS: 08/25/25 FINDINGS: Lines and Tubes: The enteric tube courses below the left hemidiaphragm and the tip extends outside th e field of view. Left central venous catheter terminates in the superior vena cava. Left apical chest tube present. Lungs: Right middle and lower lobe atelectasis noted. Persistent left apical pneumothorax. Cardiomediastinal contours: Unremarkable Bones: No acute osseous abnormality. IMPRESSION: 1. Persistent left apical pneumothorax. Left chest tube unchanged in position. 2. Right middle and lower lobe atelectasis.
[2025-08-26 08:54] LABS: Base Excess 0.8 mmol/L (-2.0-3.0)
--- NOTE | 2025-08-26 09:32 | DVHPN2 ---
Progress Note - Dictate Date Seen: Aug 26, 2025 Medical Necessity Reason Pt with a Central, PICC or Fol: Yes Subjective Ms. Earl is a 75 years old female with a history of dementia, she was brought to the [facility] on 08/15/2025 with a chief complaint of cardiac arrest. I have seen and examined the patient. I have discussed with her nurse. He is extubated on 08/24/2025, she is awake, eyes are wide open, but he is nonresponsive to verbal stimuli, she only moves the arms a little bit Blood culture, 08/23/2025: Urinalysis, 08/15/2025: WBC: 43, urine leukocyte esterase: Trace ABG, 08/15/2025: Metabolic acidosis, 08/17/2025: Compensated metabolic acidosis WBC/HGB/PLT/MCV, 08/16/2025: 14.4/10.3/286/95, 08/26/2025: 18/8.7/479/95.9 BUN/CR, 08/16/2025: 23/1.35 GFR, 08/16/2025: 40 HGB A1c, 08/15/2025: 4.6 Lactic acid, 08/15/2025: 9.7, 7.1, 3.1 TBI/AST/ALT/AP, 08/16/2025: 0.5/748/712/276, 08/17/2025: 0.5/296/463/231 EEG, 08/17/2025: Mildly abnormal CT head, 08/15/2025 0716: Global brain atrophy with prominence of the ventricular system out of proportion to the size of the sulci. This appearance may be due to central brain atrophy or normal pressure hydrocephalus. CT head, 08/16/25 2235: 1. No acute intracranial abnormality. 2. 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 loss vital signs Vital Sign Date Time Temp Pulse Resp B/P (MAP) Pulse Ox O2 Delivery O2 Flow Rate FiO2 08/26/25 08:00 18 98 Nasal Cannula* 2 28 08/26/25 08:00 85 08/26/25 08:00 98.3 123/61 (81) 98.3 Total Intake and Output 08/25/25 08/25/25 08/26/25 15:00 23:00 07:00 Intake Total 100 ml 261 ml 510 ml Output Total 350 ml 330 ml Balance 100 ml -89 ml 180 ml medications Current Medications Medications Dose Ordered Sig/[place] Route Start Time Stop Time Status Last Admin Dose Admin Norepinephrine Bitartrate 250 ml @ 3.75 mls/hr Q24H IV 08/15/25 06:30 08/15/25 08:29 3.75 MLS/HR Dextrose 50 ml UD PRN IV 08/15/25 10:30 Enoxaparin Sodium 30 mg DAILY SC 08/15/25 11:18 08/26/25 09:28 30 MG Enteral Nutritional Formula 1,000 ml 30ML/HR GT 08/16/25 12:00 08/25/25 14:33 1,000 ML Hydralazine HCl 10 mg Q6HP PRN IV 08/18/25 16:15 08/23/25 10:29 10 MG Ipratropium [place] 0.5 mg Q6HPRN PRN NEB 08/22/25 01:45 08/26/25 06:27 0.5 MG Levalbuterol HCl 0.625 mg Q6HR PRN NEB 08/22/25 01:45 08/26/25 06:27 0.625 MG Piperacillin Sod/ Tazobactam Sod 100 ml @ 25 mls/hr Q8H IV 08/22/25 10:00 08/26/25 09:28 25 MLS/HR Pantoprazole Sodium 40 mg DAILY IV 08/23/25 10:00 08/26/25 09:27 40 MG Sodium Chloride 10 ml QSHIFT@10,22 IV 08/23/25 22:00 08/26/25 09:29 10 ML Amiodarone HCl 200 mg Q12HR PO 08/24/25 10:00 08/26/25 09:29 200 MG Acetaminophen/ Hydrocodone Bitart 1 tab Q6HPRN PRN PO 08/25/25 16:30 08/26/25 03:28 1 TAB objective The patient is well-nourished and well-developed with no distress. MENTAL STATUS: Subjective CRANIAL NERVES: Pupils are equal, round and slightly reactive. Eyes are penitentiary open. No signs of facial weakness. Sensorimotor examined in bilateral trigeminal distribution is okay SENSATION: Responses to light painful stimuli. MOTOR: Normal tone in the upper and lower extremity. Normal muscle bulk. No fasciculations. Moves the arms a little bit REFLEXES: Deep tendon reflexes are symmetrical. No pathological reflexes. CEREBELLAR/COORDINATION: Deferred GAIT/STATION: deferred. laboratory and microbiology Laboratory Tests 08/26/25 03:00 Test 08/26/25 03:00 Range/Units Serum Glucose 114 H 74-106 mg/dL Problem List Coma Metabolic encephalopathy Hypoxic encephalopathy Toxic encephalopathy Cardiopulmonary arrest Acute respiratory failure, resolved Leukocytosis/sepsis Metabolic acidosis Shocked liver, recovering Dementia, she may have advanced dementia, likely Alzheimer disease, Assessment/Plan Monitoring Supportive treatment ICU care Follow-up lab tests Respiratory support p.r.n. Oxygen IV antibiotics GI prophylaxis/famotidine DVT prophylaxis/Lovenox More recommendation per clinical course She is likely to have a poor prognosis for meaningful/overall recovery This medical document was created using an electronic medical record system with [employer] dictation system. Although this document has been carefully reviewed, there may still be some phonetic and typographical errors. These areas are purely typographical due to imperfections of the software programs, and do not reflect any compromise in the patient's medical care Prognosis poor Dietary Evaluation Review Comments: Nutrition Recommendation: 1) EN Jevity 1.2 [place] @ 400ml/hr x 24hr(goal). Water flush 100ml Q6H if allowed, adjust PRN. TF at goal volume provides 1152 kcal (100%), 53gm protein (100%), and 1175 ml free water (including flush). 2) Consider TPN/PN if NPO>7 days 3) Advance diet as medically feasible 4) Monitor TF tolerance, lab values, weight trend, and I/O Expected Outcomes/Goals: Intake to meet >75% estimated needs Lab values to improve Fu 2-3 days Plan discussed with: Other TONI ADAMSON MD Aug 26, 2025 09:32
--- NOTE | 2025-08-26 17:29 | DVHPNRES ---
Progress Note Date Seen: Aug 26, 2025 Resident Creating Document: PER HARDY RESIDENT Medical Necessity Reason Pt with a Central, PICC or Fol: Yes Subjective Review of Systems This is a 75-year-old female with a known history of dementia who was brought to the hospital by EMS following a cardiac arrest at home. According to her daughter, the patient was last seen at her baseline the night before the incident, with no complaints. On the morning of 08/15 at approximately 5:30 a.m., she was found kneeling beside her bed with her hand resting on the bed rail, exhibiting labored breathing and a faint carotid pulse. Cardiopulmonary resuscitation (CPR) was initiated by the family, and EMS arrived approximately 15 minutes later. Upon EMS arrival, the patient was found to be in a non-shockable rhythm. En route to the hospital, she received epinephrine and was intubated. Return of spontaneous circulation (ROSC) was achieved prior to hospital arrival. At baseline, the patient lived at home with her daughter. She was non-verbal, required a walker for mobility, and needed assistance with activities of daily living. She was incontinent of bowel and bladder and did not take any prescribed medications, relying instead on holistic remedies. She has no known drug allergies. Patient seen and examined at bedside evaluation today, Patient today is opening her eyes and moving her legs and arms. Patient got extubated yesterday, is maintaining well oxygen with 2L O2. Patient has a right breast mass, breast biopsy was ordered. Patient's family, daughter informed about patient's goals of care, option of hospice. Objective vital signs Vital Sign Date Time Temp Pulse Resp B/P (MAP) Pulse Ox O2 Delivery O2 Flow Rate FiO2 08/26/25 16:03 100 25 107/68 (81) 98 08/26/25 16:00 Nasal Cannula* 2 28 08/26/25 12:03 97.9 97.9 Total Intake and Output 08/25/25 08/25/25 08/26/25 15:00 23:00 07:00 Intake Total 100 ml 261 ml 510 ml Output Total 350 ml 330 ml Balance 100 ml -89 ml 180 ml medications Current Medications Medications Dose Ordered Sig/[place] Route Start Time Stop Time Status Last Admin Dose Admin Norepinephrine Bitartrate 250 ml @ 3.75 mls/hr Q24H IV 08/15/25 06:30 08/15/25 08:29 3.75 MLS/HR Dextrose 50 ml UD PRN IV 08/15/25 10:30 Enoxaparin Sodium 30 mg DAILY SC 08/15/25 11:18 08/26/25 09:28 30 MG Enteral Nutritional Formula 1,000 ml 30ML/HR GT 08/16/25 12:00 08/25/25 14:33 1,000 ML Hydralazine HCl 10 mg Q6HP PRN IV 08/18/25 16:15 08/23/25 10:29 10 MG Ipratropium [place] 0.5 mg Q6HPRN PRN NEB 08/22/25 01:45 08/26/25 12:00 0.5 MG Levalbuterol HCl 0.625 mg Q6HR PRN NEB 08/22/25 01:45 08/26/25 12:00 0.625 MG Piperacillin Sod/ Tazobactam Sod 100 ml @ 25 mls/hr Q8H IV 08/22/25 10:00 08/26/25 09:28 25 MLS/HR Pantoprazole Sodium 40 mg DAILY IV 08/23/25 10:00 08/26/25 09:27 40 MG Sodium Chloride 10 ml QSHIFT@10,22 IV 08/23/25 22:00 08/26/25 09:29 10 ML Amiodarone HCl 200 mg Q12HR PO 08/24/25 10:00 08/26/25 09:29 200 MG Acetaminophen/ Hydrocodone Bitart 1 tab Q6HPRN PRN PO 08/25/25 16:30 08/26/25 03:28 1 TAB Examination General Appearance: Extubated, opening eyes but not alert, oriented HEENT: Atraumatic, Mucous membranes moist/pink, ET tube in place, NG tube in place Respiratory: Clear to auscultation, Normal air movement, No added sounds, Cardiovascular: Regular rate, Normal S1, Normal S2, No murmurs Abdominal: Active bowel sounds, Soft, no distention, no tenderness Extremities: No edema, Normal pulses, No tenderness/swelling Skin: Left-sided subcutaneous emphysema, bedside chest tube, has right IJ Neuro: pupils reactive, cough and gag reflex intact laboratory and microbiology Laboratory Tests 08/26/25 03:00 Test 08/26/25 03:00 Range/Units Serum Glucose 114 H 74-106 mg/dL Microbiology Date/Time Source Procedure Growth Status 08/23/25 16:45 Blood Blood Culture - Preliminary NO GROWTH AFTER 72 HOURS OF INCUBATION. Resulted 08/22/25 17:54 Voided Urine Urine Culture - Final Complete 08/15/25 14:05 Nose MRSA Screen - Final Complete 08/15/25 10:13 Sputum Expectorated Sputum Gram Stain - Final Complete 08/15/25 10:13 Sputum Expectorated Sputum Respiratory Culture - Final Complete Problem List/Assessment/Plan Problem List/Assessment/Plan Neurology # Acute metabolic/hypoxic encephalopathy: Secondary to cardiac arrest and sepsis. # Dementia: Pre-existing condition. - CT head (08/15): No acute intracranial abnormalities. - CT head (08/17): No acute findings; severe atrophic changes. - Continue supportive care. - Neurology on board, stated that patient has poor prognosis - currently off from all sedatives Cardiovascular # Status post cardiac arrest: Initial rhythm asystole. # Cardiogenic shock. # Possible septic shock. # NSTEMI (Type 2) likely due to above # AFIB with RVR - EKG: Sinus tachycardia, no significant ST/T wave changes. - Troponin I: Mild elevation. - IV fluid resuscitation. - Monitor cardiac enzymes and rhythm - currently not on pressors Respiratory # Acute hypoxic respiratory failure: Secondary to cardiopulmonary arrest status post intubation # Left pneumothorax: Likely CPR-related- and on chest tube # Rib fractures: Multiple left-sided. - Chest X-ray (08/15): ~35% left pneumothorax, multiple left rib fractures. - Chest X-ray (08/16): Slight increase in pneumothorax size, progressive subcutaneous emphysema. - Chest Xray (08/26)- showed Persistent left apical pneumothorax. Left chest tube unchanged in position. Right middle and lower lobe atelectasis. - Chest tube placement. - sputum cultures no growth - IV antibiotics on Zosyn - vancomycin discontinued 08/22 - blood culture on 08/15 showed Peptostreptococcus Prevotii. Gastrointestinal / Nutrition / Liver # Shock liver: Secondary to cardiac arrest. # Transaminitis likely due to shock liver - continuously monitor lab - Nutritional support via Jevity tube feeding. - liver ultrasound showed Multiple liver masses are noted measuring up to 4 cm, concerning for metastases, Gallstones, Mild left hydronephrosis. - noncontrast CT chest/abdomen/pelvis ordered Genitourinary / Kidney / Fluids # Septic shock likely from UTI # Acute Complicated UTI # Acute kidney injury (NAIMA): Likely volume-mediated. # Hypernatremia - Urine culture, blood culture pending - IV antibiotics Zosyn (started 08/16) discontinued vancomycin 08/22 - Monitor renal function and fluid status. - Monitor cultures and adjust antibiotics accordingly. Musculoskeletal / Skin # Left-sided rib fractures: Due to CPR. - Conservative medical management. - Pain control as needed. Oncology : # right breast mass - breast biopsy to be done - right breast ultrasound showed Heterogeneous shadowing structure in the right breast adjacent to the nipple 9 o'clock region measuring 2.3 x 1.3 x 2.0 cm. Further evaluation with diagnostic mammogram is recommended. - CT chest /abdomen/pelvis showed Heterogeneous hypodense lesions in the liver compatible with metastatic disease. Bony demineralization. Scattered soft tissue lucent lesions in the lumbar spine and pelvis compatible with metastatic disease.Mild ascites and body wall edema. There is either [id number] bilateral hydronephrosis versus bilateral renal sinus cysts, not optimally evaluated without intravenous contrast.Tiny nonobstructing right renal calculus. Ptotic Right kidney. - liver ultrasound showed Multiple liver masses are noted measuring up to 4 cm, concerning for metastases. Gallstones. Mild left hydronephrosis. Nutrition: Jevity via tube feeding. Bowel Regimen: Lactulose as needed. GI Prophylaxis: protonix DVT Prophylaxis: Lovenox. Lines / Tubes / Devices Airway: Intubated via ETT on 08/15. Extubated on 08/24 Vascular Access: Right internal jugular (IJ) central line placed on 08/15., ordered PICC placed 08/25 Drips: Currently off pressors and sedatives. Urinary: Winters catheter placed on 08/15. Goals of care discussed with the patient's family for more than 29 minutes: Full code status Care plan updated to the patient's family on bedside, addressed all concerns, d iscussion with family done in great detail about patient's goals of care, her option of hospice, family communicated understanding, patient's daughter states that she will talk to and family and make decision. Critical care time spent more than 82 minutes excluding procedures and discussion with the family Case discussed with Dr Quintero and RN, daughter(Zoe) Impression: Acute hypoxic respiratory failure S/p cardiac arrest Septic shock, likely from UTI Acute metabolic/hypoxic encephalopathy Left-sided rib fractures Left pneumothorax, s/p chest tube Atrial fibrillation with rapid ventricular response Acute complicated UTI Acute kidney injury Breast cancer with metastasis Plan: S/p extubation 2 days ago Currently on supplemental oxygen 2 LPM NC Titrate to keep O2 sats above 92%. Taper O2 as tolerated. Chest x-ray reviewed; notable for right middle lobe/right lower lobe atelectasis. Left chest tube in place, on water seal. No air leak Monitor chest tube output. Head of bed elevation Aspiration precautions. Continue bronchodilators. Continue antibiotics Continue amiodarone NG tube in place. Protonix for GI ppx Monitor renal function due to NAIMA. Monitor electrolytes. Supplement as necessary. Monitor ins and outs. DVT prophylaxis. Discussed with RN, Dr. Hardy. Prognosis: Guarded given patient's multiple co-morbidities. Rest of plan per hospitalist and other consultants. Thank you for allowing me to participate in this patient's care. Further recommendations will depend on the patient's clinical course. Please do not hesitate to contact me if you have any questions or concerns. This medical document was created using an electronic medical record system with [employer] dictation system. Although these documentations are being carefully reviewed, there may still be some phonetic and typographical changes. The errors are purely typographical, due to imperfection on the software program, and do not reflect any compromise in the patient's medical care. Plan discussed with: Daughter, Other (RN) My Orders My Orders Orders - PER HARDY RESIDENT Procedure Category Date Status Time Chest Xray 1 View XY 08/26/25 Resulted 04:00 Abg W/ Co-Ox RT 08/26/25 Logged 04:00 Complete Blood Count LAB 08/27/25 Verified 04:00 Comprehensive LAB 08/27/25 Verified Metabolic Panel 04:00 Magnesium LAB 08/27/25 Verified 04:00 Phosphorus LAB 08/27/25 Verified 04:00 Chest Xray 1 View XY 08/27/25 Logged 04:00 Dietary Evaluation Review Comments: Nutrition Recommendation: 1) EN Jevity 1.2 [place] @ 400ml/hr x 24hr(goal). Water flush 100ml Q6H if allowed, adjust PRN. TF at goal volume provides 1152 kcal (100%), 53gm protein (100%), and 1175 ml free water (including flush). 2) Consider TPN/PN if NPO>7 days 3) Advance diet as medically feasible 4) Monitor TF tolerance, lab values, weight trend, and I/O Expected Outcomes/Goals: Intake to meet >75% estimated needs Lab values to improve Fu 2-3 days PER HARDY RESIDENT Aug 26, 2025 17:29 WILFRED QUINTERO MD Aug 27, 2025 02:17
[2025-08-27] VITALS (38 sets, daily range): BP systolic 96–147; BP diastolic 37–92; PULSE 78–118; RESP 17–28; TEMP 98.1–101.2; O2SAT 92–100
[2025-08-27 02:57] LABS: Hematocrit 25.3 % (36.0-46.0); Hemoglobin 8.5 g/dL (12.2-16.2); Mean Corpuscular Hemoglobin 32.2 pg (28.0-32.0); Mean Corpuscular Volume 95.9 fL (80.0-100.0); Nucleated Red Blood Cells % 0.0 %
[2025-08-27 03:09] LABS: Anion Gap 10 (5-15); BUN/Creatinine Ratio 20.7 (10.0-20.0); Blood Urea Nitrogen 23 mg/dL (9-23); Carbon Dioxide 26 mmol/L (20-31); Chloride 102 mmol/L (98-107); Magnesium 1.8 mg/dL (1.6-2.6); Potassium 4.0 mmol/L (3.5-5.1); Sodium 138 mmol/L (136-145); Total Protein 6.2 g/dL (5.7-8.2)
[2025-08-27 03:10] LABS: Bilirubin, Total 1.1 mg/dL (0.2-1.0)
[2025-08-27 03:11] LABS: Alanine Aminotransferase 57 U/L (7-40); Alkaline Phosphatase 316 U/L (46-116); Glucose 117 mg/dL (74-106)
[2025-08-27 03:12] LABS: Albumin 3.1 g/dL (3.2-4.8); Calcium 8.4 mg/dL (8.7-10.4)
--- NOTE | 2025-08-27 06:19 | DVH ---
CHEST RADIOGRAPH Indication: atelectasis Technique: Single frontal view of the chest was obtained COMPARISON: XY CHEST XRAY 1 VIEW on DOS: 08/26/25, XY CHEST XRAY 1 VIEW on DOS: 08/25/25, XY CHEST XR AY 1 VIEW on DOS: 08/24/25, XY CHEST PORTABLE on DOS: 08/23/25, XY CHEST PORTABLE on DOS: 08/22/25 FINDINGS: Lines and Tubes: Unchanged. Lungs: Slight interval decrease in size of right pleural effusion with persistent diffuse increased p rominence of the pulmonary vasculature. No pneumothorax. Cardiomediastinal contours: Unremarkable Bones: Unremarkable IMPRESSION: 1. Slight interval decrease in size of right pleural effusion with persistent diffuse increased promi nence of the pulmonary vasculature. 2. Lines and tubes unchanged.
--- NOTE | 2025-08-27 10:13 | DVHPNRES ---
Progress Note Date Seen: Aug 27, 2025 Resident Creating Document: PER HARDY RESIDENT Has the PT tested + for MRSA If YES, has PT been informed?: Yes Medical Necessity Reason Pt with a Central, PICC or Fol: Yes Subjective Review of Systems This is a 75-year-old female with a known history of dementia who was brought to the hospital by EMS following a cardiac arrest at home. According to her daughter, the patient was last seen at her baseline the night before the incident, with no complaints. On the morning of 08/15 at approximately 5:30 a.m., she was found kneeling beside her bed with her hand resting on the bed rail, exhibiting labored breathing and a faint carotid pulse. Cardiopulmonary resuscitation (CPR) was initiated by the family, and EMS arrived approximately 15 minutes later. Upon EMS arrival, the patient was found to be in a non-shockable rhythm. En route to the hospital, she received epinephrine and was intubated. Return of spontaneous circulation (ROSC) was achieved prior to hospital arrival. At baseline, the patient lived at home with her daughter. She was non-verbal, required a walker for mobility, and needed assistance with activities of daily living. She was incontinent of bowel and bladder and did not take any prescribed medications, relying instead on holistic remedies. She has no known drug allergies. Patient seen and examined at bedside evaluation today, Patient today is opening her eyes and moving her legs and arms. Patient got extubated yesterday, is maintaining well oxygen with 2L O2. Patient has a right breast mass, breast biopsy was ordered. Patient's family, daughter informed about patient's goals of care, option of hospice. Objective vital signs Vital Sign Date Time Temp Pulse Resp B/P (MAP) Pulse Ox O2 Delivery O2 Flow Rate FiO2 08/27/25 10:00 98 20 141/56 (84) 96 08/27/25 10:00 Nasal Cannula* 2 28 08/27/25 08:00 99.4 99.4 Total Intake and Output 08/26/25 08/26/25 08/27/25 15:00 23:00 07:00 Intake Total 100 ml 481 ml 511 ml Output Total 300 ml 370 ml Balance 100 ml 181 ml 141 ml medications Current Medications Medications Dose Ordered Sig/[place] Route Start Time Stop Time Status Last Admin Dose Admin Norepinephrine Bitartrate 250 ml @ 3.75 mls/hr Q24H IV 10/13/25 06:30 08/15/25 08:29 3.75 MLS/HR Dextrose 50 ml UD PRN IV 08/15/25 10:30 Enoxaparin Sodium 30 mg DAILY SC 08/15/25 11:18 08/27/25 09:12 30 MG Enteral Nutritional Formula 1,000 ml 30ML/HR GT 08/16/25 12:00 08/25/25 14:33 1,000 ML Hydralazine HCl 10 mg Q6HP PRN IV 08/18/25 16:15 08/23/25 10:29 10 MG Ipratropium [place] 0.5 mg Q6HPRN PRN NEB 08/22/25 01:45 08/26/25 18:50 0.5 MG Levalbuterol HCl 0.625 mg Q6HR PRN NEB 08/22/25 01:45 08/26/25 18:50 0.625 MG Piperacillin Sod/ Tazobactam Sod 100 ml @ 25 mls/hr Q8H IV 08/22/25 10:00 08/27/25 09:11 25 MLS/HR Pantoprazole Sodium 40 mg DAILY IV 08/23/25 10:00 08/27/25 09:10 40 MG Sodium Chloride 10 ml QSHIFT@ IV 08/23/25 22:00 08/27/25 09:11 10 ML Amiodarone HCl 200 mg Q12HR PO 08/24/25 10:00 08/27/25 09:12 200 MG Acetaminophen/ Hydrocodone Bitart 1 tab Q6HPRN PRN PO 08/25/25 16:30 08/27/25 02:26 1 TAB laboratory and microbiology Laboratory Tests 08/27/25 02:30 Test 08/27/25 02:30 Range/Units Serum Glucose 117 H 74-106 mg/dL Microbiology Date/Time Source Procedure Growth Status 08/23/25 16:45 Blood Blood Culture - Preliminary NO GROWTH AFTER 72 HOURS OF INCUBATION. Resulted 08/22/25 17:54 Voided Urine Urine Culture - Final Complete 08/15/25 14:05 Nose MRSA Screen - Final Complete 08/15/25 10:13 Sputum Expectorated Sputum Gram Stain - Final Complete 08/15/25 10:13 Sputum Expectorated Sputum Respiratory Culture - Final Complete Problem List/Assessment/Plan Problem List/Assessment/Plan Neurology # Acute metabolic/hypoxic encephalopathy: Secondary to cardiac arrest and sepsis. # Dementia: Pre-existing condition. - CT head (08/15): No acute intracranial abnormalities. - CT head (08/17): No acute findings; severe atrophic changes. - Continue supportive care. - Neurology on board, stated that patient has poor prognosis - currently off from all sedatives Cardiovascular # Status post cardiac arrest: Initial rhythm asystole. # Cardiogenic shock. # Possible septic shock. # NSTEMI (Type 2) likely due to above # AFIB with RVR - EKG: Sinus tachycardia, no significant ST/T wave changes. - Troponin I: Mild elevation. - IV fluid resuscitation. - Monitor cardiac enzymes and rhythm - currently not on pressors Respiratory # Acute hypoxic respiratory failure: Secondary to cardiopulmonary arrest status post intubation # Left pneumothorax: Likely CPR-related- and on chest tube # Rib fractures: Multiple left-sided. - Chest X-ray (08/15): ~35% left pneumothorax, multiple left rib fractures. - Chest X-ray (08/16): Slight increase in pneumothorax size, progressive subcutaneous emphysema. - Chest Xray (08/26)- showed Persistent left apical pneumothorax. Left chest tube unchanged in position. Right middle and lower lobe atelectasis. - Chest tube placement. - sputum cultures no growth - IV antibiotics on Zosyn - vancomycin discontinued 08/22 - blood culture on 08/15 showed Peptostreptococcus Prevotii. Gastrointestinal / Nutrition / Liver # Shock liver: Secondary to cardiac arrest. # Transaminitis likely due to shock liver - continuously monitor lab - Nutritional support via Jevity tube feeding. - liver ultrasound showed Multiple liver masses are noted measuring up to 4 cm, concerning for metastases, Gallstones, Mild left hydronephrosis. - noncontrast CT chest/abdomen/pelvis ordered Genitourinary / Kidney / Fluids # Septic shock likely from UTI # Acute Complicated UTI # Acute kidney injury (NAIMA): Likely volume-mediated. # Hypernatremia - Urine culture, blood culture pending - IV antibiotics Zosyn (started 08/16) discontinued vancomycin 08/22 - Monitor renal function and fluid status. - Monitor cultures and adjust antibiotics accordingly. Musculoskeletal / Skin # Left-sided rib fractures: Due to CPR. - Conservative medical management. - Pain control as needed. Oncology : # right breast mass - breast biopsy to be done - right breast ultrasound showed Heterogeneous shadowing structure in the right breast adjacent to the nipple 9 o'clock region measuring 2.3 x 1.3 x 2.0 cm. Further evaluation with diagnostic mammogram is recommended. - CT chest /abdomen/pelvis showed Heterogeneous hypodense lesions in the liver compatible with metastatic disease. Bony demineralization. Scattered soft tissue lucent lesions in the lumbar spine and pelvis compatible with metastatic disease.Mild ascites and body wall edema. There is either [id number] bilateral hydronephrosis versus bilateral renal sinus cysts, not optimally evaluated without intravenous contrast.Tiny nonobstructing right renal calculus. Ptotic Right kidney. - liver ultrasound showed Multiple liver masses are noted measuring up to 4 cm, concerning for metastases. Gallstones. Mild left hydronephrosis. Nutrition: Jevity via tube feeding. Bowel Regimen: Lactulose as needed. GI Prophylaxis: protonix DVT Prophylaxis: Lovenox. Lines / Tubes / Devices Airway: Intubated via ETT on 08/15. Extubated on 08/24 Vascular Access: Right internal jugular (IJ) central line placed on 08/15., ordered PICC placed 08/25 Drips: Currently off pressors and sedatives. Urinary: Winters catheter placed on 08/15. Goals of care discussed with the patient's family for more than 29 minutes: Full code status Care plan updated to the patient's family on bedside, addressed all concerns, d iscussion with family done in great detail about patient's goals of care, her option of hospice, family communicated understanding, patient's daughter states that she will talk to and family and make decision. Critical care time spent more than 82 minutes excluding procedures and discussion with the family Case discussed with Dr Quintero and RN, daughter(Zoe) My Orders My Orders Orders - PER HARDY RESIDENT Procedure Category Date Status Time Chest Xray 1 View XY 08/27/25 Resulted 04:00 Dietary Evaluation Review Comments: Nutrition Recommendation: 1) EN Jevity 1.2 [place] @ 400ml/hr x 24hr(goal). Water flush 100ml Q6H if allowed, adjust PRN. TF at goal volume provides 1152 kcal (100%), 53gm protein (100%), and 1175 ml free water (including flush). 2) Consider TPN/PN if NPO>7 days 3) Advance diet as medically feasible 4) Monitor TF tolerance, lab values, weight trend, and I/O Expected Outcomes/Goals: Intake to meet >75% estimated needs Lab values to improve Fu 2-3 days PER HARDY RESIDENT Aug 27, 2025 10:13
--- NOTE | 2025-08-27 10:34 | DVHPNRES ---
Progress Note Date Seen: Aug 27, 2025 Resident Creating Document: PER HARDY RESIDENT Has the PT tested + for MRSA If YES, has PT been informed?: Yes Medical Necessity Reason Pt with a Central, PICC or Fol: Yes Subjective Review of Systems This is a 75-year-old female with a known history of dementia who was brought to the hospital by EMS following a cardiac arrest at home. According to her daughter, the patient was last seen at her baseline the night before the incident, with no complaints. On the morning of 08/15 at approximately 5:30 a.m., she was found kneeling beside her bed with her hand resting on the bed rail, exhibiting labored breathing and a faint carotid pulse. Cardiopulmonary resuscitation (CPR) was initiated by the family, and EMS arrived approximately 15 minutes later. Upon EMS arrival, the patient was found to be in a non-shockable rhythm. En route to the hospital, she received epinephrine and was intubated. Return of spontaneous circulation (ROSC) was achieved prior to hospital arrival. At baseline, the patient lived at home with her daughter. She was non-verbal, required a walker for mobility, and needed assistance with activities of daily living. She was incontinent of bowel and bladder and did not take any prescribed medications, relying instead on holistic remedies. She has no known drug allergies. Patient seen and examined at bedside evaluation today, Patient today is opening her eyes and moving her legs and arms. Patient is maintaining well oxygen with 2L O2. Patient has a right breast mass, breast biopsy was deferred by radiology. Patient has 20 mL from chest tube, no air leak. Ordered swallow eval, Lasix 40 mg once, Mucomyst 600 mg t.i.d.. On bedside ultrasound right pleural effusion seen and possible right thoracocentesis tomorrow. Ordered urine, blood, respiratory cultures as WBC are elevated and patient has T-max of 100.4. Discontinued Zosyn, changed to cefepime, doxycycline. Possible chest tube removal on Friday. Follow-up with IR on Friday for possible breast biopsy. And hospice discussion on Friday. Objective vital signs Vital Sign Date Time Temp Pulse Resp B/P (MAP) Pulse Ox O2 Delivery O2 Flow Rate FiO2 08/27/25 10:00 98 20 141/56 (84) 96 08/27/25 10:00 Nasal Cannula* 2 28 08/27/25 08:00 99.4 99.4 Total Intake and Output 08/26/25 08/26/25 08/27/25 15:00 23:00 07:00 Intake Total 100 ml 481 ml 511 ml Output Total 300 ml 370 ml Balance 100 ml 181 ml 141 ml medications Current Medications Medications Dose Ordered Sig/[place] Route Start Time Stop Time Status Last Admin Dose Admin Norepinephrine Bitartrate 250 ml @ 3.75 mls/hr Q24H IV 08/15/25 06:30 08/15/25 08:29 3.75 MLS/HR Dextrose 50 ml UD PRN IV 08/15/25 10:30 Enoxaparin Sodium 30 mg DAILY SC 08/15/25 11:18 08/27/25 09:12 30 MG Enteral Nutritional Formula 1,000 ml 30ML/HR GT 08/16/25 12:00 08/25/25 14:33 1,000 ML Hydralazine HCl 10 mg Q6HP PRN IV 08/18/25 16:15 08/23/25 10:29 10 MG Ipratropium [place] 0.5 mg Q6HPRN PRN NEB 08/22/25 01:45 08/26/25 18:50 0.5 MG Levalbuterol HCl 0.625 mg Q6HR PRN NEB 08/22/25 01:45 08/26/25 18:50 0.625 MG Piperacillin Sod/ Tazobactam Sod 100 ml @ 25 mls/hr Q8H IV 08/22/25 10:00 08/27/25 09:11 25 MLS/HR Pantoprazole Sodium 40 mg DAILY IV 08/23/25 10:00 08/27/25 09:10 40 MG Sodium Chloride 10 ml QSHIFT@10,22 IV 08/23/25 22:00 08/27/25 09:11 10 ML Amiodarone HCl 200 mg Q12HR PO 08/24/25 10:00 08/27/25 09:12 200 MG Acetaminophen/ Hydrocodone Bitart 1 tab Q6HPRN PRN PO 08/25/25 16:30 08/27/25 02:26 1 TAB Examination pt lying in bed General Appearance: Extubated, opening eyes but not alert, oriented HEENT: Atraumatic, Mucous membranes moist/pink, NG tube in place Respiratory: Bilateral crackles heard on auscultation Cardiovascular: Regular rate, Normal S1, Normal S2, No murmurs Abdominal: Active bowel sounds, Soft, no distention, no tenderness Extremities: No edema, Normal pulses, No tenderness/swelling Skin: Left-sided subcutaneous emphysema, bedside chest tube, has right IJ Neuro: pupils reactive, cough and gag reflex intact laboratory and microbiology Laboratory Tests 08/27/25 02:30 Test 08/27/25 02:30 Range/Units Serum Glucose 117 H 74-106 mg/dL Microbiology Date/Time Source Procedure Growth Status 08/23/25 16:45 Blood Blood Culture - Preliminary NO GROWTH AFTER 72 HOURS OF INCUBATION. Resulted 08/22/25 17:54 Voided Urine Urine Culture - Final Complete 08/15/25 14:05 Nose MRSA Screen - Final Complete 08/15/25 10:13 Sputum Expectorated Sputum Gram Stain - Final Complete 08/15/25 10:13 Sputum Expectorated Sputum Respiratory Culture - Final Complete Problem List/Assessment/Plan Problem List/Assessment/Plan Neurology # Acute metabolic/hypoxic encephalopathy: Secondary to cardiac arrest and sepsis. # Dementia: Pre-existing condition. - CT head (08/15): No acute intracranial abnormalities. - CT head (08/17): No acute findings; severe atrophic changes. - Continue supportive care. - Neurology on board, stated that patient has poor prognosis - currently off from all sedatives Cardiovascular # Status post cardiac arrest: Initial rhythm asystole. # Cardiogenic shock. # Possible septic shock. # NSTEMI (Type 2) likely due to above # AFIB with RVR - EKG: Sinus tachycardia, no significant ST/T wave changes. - Troponin I: Mild elevation. - IV fluid resuscitation. - Monitor cardiac enzymes and rhythm - currently not on pressors Respiratory # Acute hypoxic respiratory failure: Secondary to cardiopulmonary arrest status post intubation # Left pneumothorax: Likely CPR-related- and on chest tube # Rib fractures: Multiple left-sided. - Chest X-ray (08/15): ~35% left pneumothorax, multiple left rib fractures. - Chest X-ray (08/16): Slight increase in pneumothorax size, progressive subcutaneous emphysema. - Chest Xray (08/26)- showed Persistent left apical pneumothorax. Left chest tube unchanged in position. Right middle and lower lobe atelectasis. - Chest tube placement. - sputum cultures no growth - discontinued Zosyn 08/27, changed to cefepime, doxycycline - vancomycin discontinued 08/22 - blood culture on 08/15 showed Peptostreptococcus Prevotii. -chest x-ray showed right-sided pleural effusion -bedside ultrasound showed moderate right side pleural effusion, possible right thoracocentesis tomorrow. Gastrointestinal / Nutrition / Liver # Shock liver: Secondary to cardiac arrest. # Transaminitis likely due to shock liver - continuously monitor lab - Nutritional support via Jevity tube feeding. - liver ultrasound showed Multiple liver masses are noted measuring up to 4 cm, concerning for metastases, Gallstones, Mild left hydronephrosis. - noncontrast CT chest/abdomen/pelvis ordered Genitourinary / Kidney / Fluids # Septic shock likely from UTI # Acute Complicated UTI # Acute kidney injury (NAIMA): Likely volume-mediated. # Hypernatremia - Urine culture, blood culture pending - IV antibiotics Zosyn (started 08/16) discontinued vancomycin 08/22 - Monitor renal function and fluid status. - Monitor cultures and adjust antibiotics accordingly. - pancultures ordered(08/27) Musculoskeletal / Skin # Left-sided rib fractures: Due to CPR. - Conservative medical management. - Pain control as needed. Oncology : # right breast mass - breast biopsy to be done - right breast ultrasound showed Heterogeneous shadowing structure in the right breast adjacent to the nipple 9 o'clock region measuring 2.3 x 1.3 x 2.0 cm. Further evaluation with diagnostic mammogram is recommended. - CT chest /abdomen/pelvis showed Heterogeneous hypodense lesions in the liver compatible with metastatic disease. Bony demineralization. Scattered soft tissue lucent lesions in the lumbar spine and pelvis compatible with metastatic disease.Mild ascites and body wall edema. There is either [id number] bilateral hydronephrosis versus bilateral renal sinus cysts, not optimally evaluated without intravenous contrast.Tiny nonobstructing right renal calculus. Ptotic Right kidney. - liver ultrasound showed Multiple liver masses are noted measuring up to 4 cm, concerning for metastases. Gallstones. Mild left hydronephrosis. Nutrition: Jevity via tube feeding. Bowel Regimen: Lactulose as needed. GI Prophylaxis: protonix DVT Prophylaxis: Lovenox. Lines / Tubes / Devices Airway: Intubated via ETT on 08/15. Extubated on 08/24 Vascular Access: Right internal jugular (IJ) central line placed on 08/15., ordered PICC placed 08/25 Drips: Currently off pressors and sedatives. Urinary: Winters catheter placed on 08/15. Goals of care discussed with the patient's family for more than 29 minutes: Full code status Care plan updated to the patient's family on bedside, addressed all concerns, d iscussion with family done in great detail about patient's goals of care, her option of hospice, family communicated understanding, patient's daughter states that she will talk to and family and make decision. Critical care time spent more than 82 minutes excluding procedures and discussion with the family Case discussed with Dr Quintero and RN, daughter(Zoe) Plan discussed with: Daughter My Orders My Orders Orders - PER HARDY RESIDENT Procedure Category Date Status Time Chest Xray 1 View XY 08/27/25 Resulted 04:00 Dietary Evaluation Review Comments: Nutrition Recommendation: 1) EN Jevity 1.2 [place] @ 400ml/hr x 24hr(goal). Water flush 100ml Q6H if allowed, adjust PRN. TF at goal volume provides 1152 kcal (100%), 53gm protein (100%), and 1175 ml free water (including flush). 2) Consider TPN/PN if NPO>7 days 3) Advance diet as medically feasible 4) Monitor TF tolerance, lab values, weight trend, and I/O Expected Outcomes/Goals: Intake to meet >75% estimated needs Lab values to improve Fu 2-3 days PER HARDY RESIDENT Aug 27, 2025 10:34
[2025-08-27] MEDS: ACETAMINOPHEN 325 MG TAB PO PRN (12:44)
[2025-08-27] MEDS: DOXYCYCLINE 100MG/100ML 100 ML IV SCH (17:03)
[2025-08-27] MEDS: FUROSEMIDE 40 MG/4 ML VIAL IV ONE (17:03)
[2025-08-27] MEDS: CEFEPIME 1GM/50ML 50 ML IV SCH (21:40)
--- NOTE | 2025-08-27 22:10 | DVHPN2 ---
Subjective DOS: 08/27/2025 Patient seen and examined at bedside. Remains on supplemental oxygen Overnight events reviewed. Changes from previous H/P or p: No Changes Eyes: No Pain, No Vision change, No Conjunctivae inflammation, No Eyelid inflammation, No Other, No Redness ENT: No Ear pain, No Ear discharge, No Nose pain, No Nose discharge, No Nose congestion, No Mouth pain, No Mouth swelling, No Throat pain, No Throat swelling, No Other Cardiovascular: No Chest Pain, No Palpitations, No Orthopnea, No Paroxysmal Noc. Dyspnea, No Edema, No Lt Headedness; Other (Cardiac arrest) Respiratory: No Cough, No Dry; Shortness of breath; No SOB with excertion, No Wheezing, No Hemoptysis, No Pleuritic Pain, No Sputum, No Other Gastrointestinal: No Nausea, No Vomiting, No Abdominal Pain, No Diarrhea, No Constipation, No Melena, No Hematochezia, No Other Genitourinary: No Dysuria, No Frequency, No Incontinence, No Hematuria, No Retention, No Other Musculoskeletal: No other, No neck pain, No shoulder pain, No arm pain, No back pain, No hand pain, No leg pain, No foot pain Skin: No Rash, No Lesions, No Jaundice, No Bruising, No Other Objective Vitals Vital Signs Date Time Temp Pulse Resp B/P (MAP) Pulse Ox O2 Delivery O2 Flow Rate FiO2 08/27/25 21:01 89 18 120/47 (71) 100 08/27/25 20:01 98.1 98.1 08/27/25 20:00 Nasal Cannula* 2 28 Intake/Output Intake and Output 08/27/25 07:00 Intake Total 1092 ml Output Total 670 ml Balance 422 ml Intake Oral 135 ml IV Total 300 ml Tube Feeding 657 ml Output Urine Total 650 ml Chest Tube Drainage Total 20 ml Exam Gen.: Patient lying in bed in no apparent distress. On supplemental oxygen. Head: Normocephalic, atraumatic. Eyes: EOMI/PERRLA. Ears: Normal hearing. Normal anatomy. Neck/trachea: Trachea midline, supple. Nose: Normal external anatomy. Mouth: Moist mucous membranes. Chest: Decreased air entry bilaterally. No wheezing or rhonchi. Cardiovascular: Positive S1, positive S2. Regular rate and rhythm. Abdomen: Positive bowel sounds in all 4 quadrants. Soft, non-tender, non- distended. : Deferred. Rectal: Deferred. Skin: Warm, dry. Intact. Extremities: 2+ radial pulses bilaterally. No lower extremity edema. Neuro: Awake, alert, oriented x3. No gross motor or sensory deficits. Cranial nerves II through XII intact. Gait not assessed. Medications Current Medications Medications Dose Ordered Sig/[place] Route Start Time Stop Time Status Last Admin Dose Admin Norepinephrine Bitartrate 250 ml @ 3.75 mls/hr Q24H IV 08/15/25 06:30 08/15/25 08:29 3.75 MLS/HR Dextrose 50 ml UD PRN IV 08/15/25 10:30 Enoxaparin Sodium 30 mg DAILY SC 08/15/25 11:18 08/27/25 09:12 30 MG Enteral Nutritional Formula 1,000 ml 30ML/HR GT 08/16/25 12:00 08/27/25 20:31 1,000 ML Hydralazine HCl 10 mg Q6HP PRN IV 08/18/25 16:15 08/23/25 10:29 10 MG Ipratropium [place] 0.5 mg Q6HPRN PRN NEB 08/22/25 01:45 08/26/25 18:50 0.5 MG Levalbuterol HCl 0.625 mg Q6HR PRN NEB 08/22/25 01:45 08/26/25 18:50 0.625 MG Pantoprazole Sodium 40 mg DAILY IV 08/23/25 10:00 08/27/25 09:10 40 MG Sodium Chloride 10 ml QSHIFT@,22 IV 08/23/25 22:00 08/27/25 21:40 10 ML Amiodarone HCl 200 mg Q12HR PO 08/24/25 10:00 08/27/25 21:40 200 MG Acetaminophen/ Hydrocodone Bitart 1 tab Q6HPRN PRN PO 08/25/25 16:30 08/27/25 20:36 1 TAB Acetaminophen 650 mg Q6HP PRN PO 08/27/25 12:30 08/27/25 12:44 650 MG Cefepime HCl 50 ml @ 12.5 mls/hr Q12HR IV 08/27/25 22:00 08/27/25 21:40 12.5 MLS/HR Doxycycline Hyclate 100 ml @ 50 mls/hr Q12H IV 08/27/25 15:45 08/27/25 17:03 50 MLS/HR Acetylcysteine 600 mg TID NEB 08/27/25 22:00 Laboratory Results Laboratory Tests 08/27/25 02:30 Chemistry Test 08/27/25 02:30 Albumin 3.1 g/dL (3.2-4.8) L Calcium Level 8.4 mg/dL (8.7-10.4) L Magnesium Level 1.8 mg/dL (1.6-2.6) Phosphorus Level 2.6 mg/dL (2.4-5.1) Total Protein 6.2 g/dL (5.7-8.2) LFT Test 08/27/25 02:30 Alanine Aminotransferase (ALT) 57 U/L (7-40) H Alkaline Phosphatase 316 U/L (46-116) H Aspartate Amino Transferase (AST) 44 U/L (13-40) H Total Bilirubin 1.1 mg/dL (0.2-1.0) H Urinalysis Test 08/23/25 15:22 Urine Color Yellow (Yellow) Urine Clarity Turbid (Clear) H Urine pH 5.5 (5.0-9.0) Urine Specific [place] 1.028 (1.001-1.035) Urine Protein Trace (Negative) H Urine Ketones Negative (Negative) Urine Blood 1+ /uL (Negative) H Urine Nitrite Negative (Negative) Urine Bilirubin Negative (Negative) Urine Urobilinogen Normal mg/dL (Negative) Urine Leukocyte Esterase Negative /uL (Negative) Urine RBC 17 /hpf (0 - 4) Urine Microscopic WBC 3 /HPF (0-5) Urine Squamous Epithelial Cells Few /hpf (<5) Urine Uric Acid Crystals Few /hpf (None Seen) Urine Bacteria Few /hpf (None Seen) H Urine Glucose Normal mg/dL (Normal) Microbiology Microbiology Date/Time Source Procedure Growth Status 08/23/25 16:45 Blood Blood Culture - Preliminary NO GROWTH AFTER 72 HOURS OF INCUBATION. Resulted 08/22/25 17:54 Voided Urine Urine Culture - Final Complete 08/15/25 14:05 Nose MRSA Screen - Final Complete 08/15/25 10:13 Sputum Expectorated Sputum Gram Stain - Final Complete 08/15/25 10:13 Sputum Expectorated Sputum Respiratory Culture - Final Complete Assessment/Plan Assessment/Plan Impression: Acute hypoxic respiratory failure Dependence on supplemental oxygen S/p cardiac arrest Septic shock, likely from UTI Acute metabolic/hypoxic encephalopathy Left-sided rib fractures Left pneumothorax, s/p chest tube Atrial fibrillation with rapid ventricular response Acute complicated UTI Acute kidney injury Breast cancer with metastasis Events: Remains on supplemental oxygen, 2 LPM NC Taper O2 as tolerated Chest x-ray reviewed; notable for slight interval decrease in size of right pleural effusion with persistent diffuse increased prominence of the pulmonary vasculature. Head of bed elevation Aspiration precautions. Continue bronchodilators Continue antibiotics Incentive spirometry NG tube in place. Obtain swallow eval. IR followup for biopsy of right breast. Labs and imaging reviewed. Rest of plan as noted below. Plan: S/p extubation on 08/24/25 Supplemental oxygen Titrate to keep O2 sats above 92%.. Left chest tube in place, on water seal. No air leak Monitor chest tube output. Head of bed elevation Aspiration precautions. Continue bronchodilators. Continue antibiotics Continue amiodarone NG tube in place. Protonix for GI ppx Monitor renal function due to NAIMA. Monitor electrolytes. Supplement as necessary. Monitor ins and outs. DVT prophylaxis. Prognosis: Guarded given patient's multiple co-morbidities. Rest of plan per hospitalist and other consultants. Thank you for allowing me to participate in this patient's care. Further recommendations will depend on the patient's clinical course. Please do not hesitate to contact me if you have any questions or concerns. This medical document was created using an electronic medical record system with [employer] dictation system. Although these documentations are being carefully reviewed, there may still be some phonetic and typographical changes. The errors are purely typographical, due to imperfection on the software program, and do not reflect any compromise in the patient's medical care. Plan discussed with: Patient, Other (HENRIQUE Bain) Visit Coding Pulmonary Billing Provider: WILFRED JAMES MD Date of Service if different f: Aug 27, 2025 Common Visit Codes: 60174-[id number] INP/OBS CARE(HIGH) WILFRED JAMES MD Aug 27, 2025 22:10
[2025-08-27] MEDS: ACETYLCYSTEINE 20%(200MG/ML) SOL 4ML NEB SCH (22:16)
[2025-08-28] VITALS (43 sets, daily range): BP systolic 107–150; BP diastolic 39–67; PULSE 9–110; RESP 14–21; TEMP 98.1–99.1; O2SAT 96–100
[2025-08-28 04:49] LABS: Hemoglobin 8.6 g/dL (12.2-16.2); Nucleated Red Blood Cells % 0.0 %
[2025-08-28 04:51] LABS: Hematocrit 25.7 % (36.0-46.0); Mean Corpuscular Hemoglobin 32.0 pg (28.0-32.0); Mean Corpuscular Volume 95.7 fL (80.0-100.0)
[2025-08-28 05:07] LABS: Anion Gap 10 (5-15); BUN/Creatinine Ratio 18.6 (10.0-20.0); Blood Urea Nitrogen 21 mg/dL (9-23); Calcium 8.8 mg/dL (8.7-10.4); Carbon Dioxide 28 mmol/L (20-31); Chloride 98 mmol/L (98-107); Glucose 105 mg/dL (74-106); Magnesium 1.7 mg/dL (1.6-2.6); Potassium 3.6 mmol/L (3.5-5.1); Sodium 136 mmol/L (136-145); Total Protein 6.4 g/dL (5.7-8.2)
[2025-08-28 05:11] LABS: Alanine Aminotransferase 47 U/L (7-40); Albumin 3.1 g/dL (3.2-4.8); Alkaline Phosphatase 321 U/L (46-116); Bilirubin, Total 1.3 mg/dL (0.2-1.0)
--- NOTE | 2025-08-28 07:35 | DVH ---
CHEST RADIOGRAPH Indication: with chest tube Technique: Single frontal view of the chest was obtained Comparison: XY CHEST XRAY 1 VIEW on DOS: 08/27/25 FINDINGS: Lines and Tubes: Large bore chest tube is unchanged in position with its tip projecting over the left apex. The enteric tube courses below the left hemidiaphragm and the tip extends outside the field of view. Lungs: Bilateral alveolar opacities, right greater than left and interstitial prominence is similar t o the prior study. Pleura: No effusion. Interval development of left apical pneumothorax, about 30%. Cardiomediastinal contours: Unremarkable Bones: No acute osseous abnormality. IMPRESSION: 1. Interval development of left apical pneumothorax about 30%, in the presence of left chest tube whi ch appears unchanged in position. 2. Bilateral airspace disease, right greater than left similar prior study. Bilateral interstitial pr ominence also stable.
--- NOTE | 2025-08-28 09:56 | DVH ---
XY CHEST XRAY 1 VIEW, HISTORY: pneumothorax COMPARISON: XY CHEST PORTABLE on DOS: 08/28/25, XY CHEST XRAY 1 VIEW on DOS: 08/27/25, XY CHEST XRAY 1 VIEW on DOS: 08/26/25 XY CHEST PORTABLE on DOS: 08/28/25, XY CHEST XRAY 1 VIEW on DOS: 08/27/25, XY CHEST XRAY 1 VIEW on DO S: 08/26/25 TECHNICAL DATA: 1 view of the chest was obtained. FINDINGS: Lines and tubes: Stable chest tube, enteric tube, central line. Cardiomediastinal silhouette: normal Pulmonary vasculature: normal Lung expansion: normal Lung airspace: Similar bibasilar airspace opacity. Lung interstitium: Prominent Pleura: Small right pleural effusion. Pneumothorax: Decrease in size of the left pneumothorax. Bones: Unremarkable Other: no IMPRESSION: Decrease in size of the left pneumothorax. Similar bibasilar airspace opacity. Small right pleural effusion.
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
--- NOTE | 2025-08-28 18:41 | DVH ---
CHEST RADIOGRAPH Indication: s/p thoracentesis Technique: Single frontal view of the chest was obtained Comparison: XY CHEST XRAY 1 VIEW on DOS: 08/28/25, XY CHEST PORTABLE on DOS: 08/28/25, XY CHEST XRAY 1 VIEW on DOS: 08/27/25 FINDINGS: Lines and Tubes: Enteric tube below the left diaphragm in the stomach. PICC line from left arm in pl [place] with the tip in the superior vena cava above the right atrium. Left-sided chest tube in place wit h the tip in the apex not significantly changed from earlier study 08/28/2025 Lungs: Patchy bilateral airspace disease appears slightly worse than 08/28/2025 0919. Pleura: No effusion. Small residual left apical pneumothorax smaller than on previous film Cardiomediastinal contours: Unremarkable Bones: No acute osseous abnormality. IMPRESSION: 1. Worsening bilateral airspace disease. 2. Left-sided chest tube in place with the tip in the apex the residual pneumothorax on the left appe ars slightly smaller than on prior study. 3. Enteric tube in the stomach. 4. PICC line from left arm in place in the superior vena cava not significantly changed from earlier study.
--- NOTE | 2025-08-28 20:06 | DVHPNRES ---
Progress Note Date Seen: Aug 28, 2025 Resident Creating Document: ELROY SEO RESIDENT Has the PT tested + for MRSA If YES, has PT been informed?: Yes Medical Necessity Reason Pt with a Central, PICC or Fol: Yes Subjective Review of Systems This is a 75-year-old female with a known history of dementia who was brought to the hospital by EMS following a cardiac arrest at home. According to her daughter, the patient was last seen at her baseline the night before the incident, with no complaints. On the morning of 08/15 at approximately 5:30 a.m., she was found kneeling beside her bed with her hand resting on the bed rail, exhibiting labored breathing and a faint carotid pulse. Cardiopulmonary resuscitation (CPR) was initiated by the family, and EMS arrived approximately 15 minutes later. Upon EMS arrival, the patient was found to be in a non-shockable rhythm. En route to the hospital, she received epinephrine and was intubated. Return of spontaneous circulation (ROSC) was achieved prior to hospital arrival. At baseline, the patient lived at home with her daughter. She was non-verbal, required a walker for mobility, and needed assistance with activities of daily living. She was incontinent of bowel and bladder and did not take any prescribed medications, relying instead on holistic remedies. She has no known drug allergies. PATIENT SEEN EXAMINED AT BEDSIDE. THE PATIENT UNDERWENT RIGHT-SIDED THORACENTESIS. THE PATIENT PNEUMOTHORAX RECURRENT. PUTTING BACK TO SUCTION. PNEUMOTHORAX IMPROVED. NO HEMODYNAMIC STABILITY. THE PATIENT WAS NOT FOLLOWING COMMAND, POSTPONE SWALLOW EVALUATION. Objective vital signs Vital Sign Date Time Temp Pulse Resp B/P (MAP) Pulse Ox O2 Delivery O2 Flow Rate FiO2 08/28/25 18:00 86 14 115/45 (68) 100 08/28/25 18:00 Nasal Cannula* 3 32 08/28/25 16:00 99.0 99.0 Total Intake and Output 08/27/25 08/27/25 08/28/25 15:00 23:00 07:00 Intake Total 100 ml 531.5 ml 374.5 ml Output Total 1180 ml 1704 ml Balance 100 ml -648.5 ml -1329.5 ml medications Current Medications Medications Dose Ordered Sig/[place] Route Start Time Stop Time Status Last Admin Dose Admin Norepinephrine Bitartrate 250 ml @ 3.75 mls/hr Q24H IV 08/15/25 06:30 08/15/25 08:29 3.75 MLS/HR Dextrose 50 ml UD PRN IV 08/15/25 10:30 Enoxaparin Sodium 30 mg DAILY SC 08/15/25 11:18 08/28/25 09:35 30 MG Enteral Nutritional Formula 1,000 ml 30ML/HR GT 08/16/25 12:00 08/27/25 20:31 1,000 ML Hydralazine HCl 10 mg Q6HP PRN IV 08/18/25 16:15 08/23/25 10:29 10 MG Ipratropium [place] 0.5 mg Q6HPRN PRN NEB 08/22/25 01:45 08/28/25 14:46 0.5 MG Levalbuterol HCl 0.625 mg Q6HR PRN NEB 08/22/25 01:45 08/28/25 14:46 0.625 MG Pantoprazole Sodium 40 mg DAILY IV 08/23/25 10:00 08/28/25 09:34 40 MG Sodium Chloride 10 ml QSHIFT@10,22 IV 08/23/25 22:00 08/28/25 09:34 10 ML Amiodarone HCl 200 mg Q12HR PO 08/24/25 10:00 08/28/25 09:34 200 MG Acetaminophen/ Hydrocodone Bitart 1 tab Q6HPRN PRN PO 08/25/25 16:30 08/28/25 16:16 1 TAB Acetaminophen 650 mg Q6HP PRN PO 08/27/25 12:30 08/27/25 12:44 650 MG Cefepime HCl 50 ml @ 12.5 mls/hr Q12HR IV 08/27/25 22:00 08/28/25 09:34 12.5 MLS/HR Doxycycline Hyclate 100 ml @ 50 mls/hr Q12H IV 08/27/25 15:45 08/28/25 15:22 50 MLS/HR Acetylcysteine 600 mg TID NEB 08/27/25 22:00 08/28/25 14:46 600 MG Examination General Appearance: Extubated, opening eyes but not alert, oriented HEENT: Atraumatic, Mucous membranes moist/pink, NG tube in place Respiratory: Bilateral crackles heard on auscultation Cardiovascular: Regular rate, Normal S1, Normal S2, No murmurs Abdominal: Active bowel sounds, Soft, no distention, no tenderness Extremities: No edema, Normal pulses, No tenderness/swelling Skin: Left-sided subcutaneous emphysema, bedside chest tube, has right IJ Neuro: pupils reactive, cough and gag reflex intact laboratory and microbiology Laboratory Tests 08/28/25 04:20 Test 08/28/25 04:20 Range/Units Serum Glucose 105 74-106 mg/dL Microbiology Date/Time Source Procedure Growth Status 08/27/25 20:25 Voided Urine Urine Culture - Preliminary Resulted 08/27/25 17:51 Blood Blood Culture - Preliminary NO GROWTH AFTER 24 HOURS OF INCUBATION. Resulted 08/15/25 14:05 Nose MRSA Screen - Final Complete 08/15/25 10:13 Sputum Expectorated Sputum Gram Stain - Final Complete 08/15/25 10:13 Sputum Expectorated Sputum Respiratory Culture - Final Complete Problem List/Assessment/Plan Problem List/Assessment/Plan Neurology # Acute metabolic/hypoxic encephalopathy: Secondary to cardiac arrest and sepsis. # Dementia: Pre-existing condition. - CT head (08/15): No acute intracranial abnormalities. - CT head (08/17): No acute findings; severe atrophic changes. - Continue supportive care. - Neurology on board, stated that patient has poor prognosis - currently off from all sedatives Cardiovascular # Status post cardiac arrest: Initial rhythm asystole. # Cardiogenic shock. # Possible septic shock. # NSTEMI (Type 2) likely due to above # AFIB with RVR - EKG: Sinus tachycardia, no significant ST/T wave changes. - Troponin I: Mild elevation. - IV fluid resuscitation. - Monitor cardiac enzymes and rhythm - currently not on pressors Respiratory # Acute hypoxic respiratory failure: Secondary to cardiopulmonary arrest status post intubation # Left pneumothorax: Likely CPR-related- and on chest tube # Rib fractures: Multiple left-sided. right pleural effusion - Chest X-ray (08/15): ~35% left pneumothorax, multiple left rib fractures. - Chest X-ray (08/16): Slight increase in pneumothorax size, progressive subcutaneous emphysema. - Chest Xray (08/26)- showed Persistent left apical pneumothorax. Left chest tube unchanged in position. Right middle and lower lobe atelectasis. - Chest tube placement. - sputum cultures no growth - discontinued Zosyn 08/27, changed to cefepime, doxycycline - vancomycin discontinued 08/22 - blood culture on 08/15 showed Peptostreptococcus Prevotii. -chest x-ray showed right-sided pleural effusion -bedside ultrasound showed moderate right side pleural effusion, possible right thoracocentesis tomorrow. Gastrointestinal / Nutrition / Liver # Shock liver: Secondary to cardiac arrest. # Transaminitis likely due to shock liver - continuously monitor lab - Nutritional support via Jevity tube feeding. - liver ultrasound showed Multiple liver masses are noted measuring up to 4 cm, concerning for metastases, Gallstones, Mild left hydronephrosis. - noncontrast CT chest/abdomen/pelvis ordered Genitourinary / Kidney / Fluids # Septic shock likely from UTI # Acute Complicated UTI # Acute kidney injury (NAIMA): Likely volume-mediated. # Hypernatremia - Urine culture, blood culture pending - IV antibiotics Zosyn (started 08/16) discontinued vancomycin 08/22 - Monitor renal function and fluid status. - Monitor cultures and adjust antibiotics accordingly. - pancultures ordered(08/27) Musculoskeletal / Skin # Left-sided rib fractures: Due to CPR. - Conservative medical management. - Pain control as needed. Oncology : # right breast mass - breast biopsy to be done - right breast ultrasound showed Heterogeneous shadowing structure in the right breast adjacent to the nipple 9 o'clock region measuring 2.3 x 1.3 x 2.0 cm. Further evaluation with diagnostic mammogram is recommended. - CT chest /abdomen/pelvis showed Heterogeneous hypodense lesions in the liver compatible with metastatic disease. Bony demineralization. Scattered soft tissue lucent lesions in the lumbar spine and pelvis compatible with metastatic disease.Mild ascites and body wall edema. There is either [id number] bilateral hydronephrosis versus bilateral renal sinus cysts, not optimally evaluated without intravenous contrast.Tiny nonobstructing right renal calculus. Ptotic Right kidney. - liver ultrasound showed Multiple liver masses are noted measuring up to 4 cm, concerning for metastases. Gallstones. Mild left hydronephrosis. Nutrition: Jevity via tube feeding. Bowel Regimen: Lactulose as needed. GI Prophylaxis: protonix DVT Prophylaxis: Lovenox. Lines / Tubes / Devices Airway: Intubated via ETT on 08/15. Extubated on 08/24 Vascular Access: Right internal jugular (IJ) central line placed on 08/15., ordered PICC placed 08/25 Drips: Currently off pressors and sedatives. Urinary: Win[place] catheter placed on 08/15. Goals of care discussed with the patient's family for more than 29 minutes: Full code status Recurrent pneumothorax , put her back to suctions. underwent right thoracentesis. Sent sample to pathology, plan for breast mass biopsy, Critical care time spent more than 82 minutes excluding procedures and discussion with the family Case discussed with Dr Quintero and RN, daughter(Zoe) Plan discussed with: Daughter, Other (RN) My Orders My Orders Orders - ELROY SEO Procedure Category Date Status Time Communication Order ORDERS 08/28/25 Transmitted 08:25 Chest Xray 1 View XY 08/28/25 Resulted 09:30 Chest Xray 1 View XY 08/28/25 Resulted 15:43 Lactate LAB 08/28/25 In Process Dehydrogenase, Fluid 15:43 Protein, Body Fluid LAB 08/28/25 In Process 15:43 Glucose Body Fluid LAB 08/28/25 In Process 15:43 [place] [facility] PATHOLOGY 08/28/25 Transmitted 15:43 Cytology UMA 08/28/25 Transmitted 15:43 Body Fluid Culture W/ UMA 08/28/25 In Process GS 15:58 Dietary Evaluation Review Comments: Nutrition Recommendation: 1) EN Jevity 1.2 [place] @ 400ml/hr x 24hr(goal). Water flush 100ml Q6H if allowed, adjust PRN. TF at goal volume provides 1152 kcal (100%), 53gm protein (100%), and 1175 ml free water (including flush). 2) Consider TPN/PN if NPO>7 days 3) Advance diet as medically feasible 4) Monitor TF tolerance, lab values, weight trend, and I/O Expected Outcomes/Goals: Intake to meet >75% estimated needs Lab values to improve Fu 2-3 days ELROY SEO RESIDENT Aug 28, 2025 20:06
--- NOTE | 2025-08-28 23:06 | DVHPN2 ---
Subjective DOS: 08/28/2025 Patient seen and examined at bedside. Remains on supplemental oxygen Overnight events reviewed. Changes from previous H/P or p: No Changes Eyes: No Pain, No Vision change, No Conjunctivae inflammation, No Eyelid inflammation, No Other, No Redness ENT: No Ear pain, No Ear discharge, No Nose pain, No Nose discharge, No Nose congestion, No Mouth pain, No Mouth swelling, No Throat pain, No Throat swelling, No Other Cardiovascular: No Chest Pain, No Palpitations, No Orthopnea, No Paroxysmal Noc. Dyspnea, No Edema, No Lt Headedness; Other (Cardiac arrest) Respiratory: No Cough, No Dry; Shortness of breath; No SOB with excertion, No Wheezing, No Hemoptysis, No Pleuritic Pain, No Sputum, No Other Gastrointestinal: No Nausea, No Vomiting, No Abdominal Pain, No Diarrhea, No Constipation, No Melena, No Hematochezia, No Other Genitourinary: No Dysuria, No Frequency, No Incontinence, No Hematuria, No Retention, No Other Musculoskeletal: No other, No neck pain, No shoulder pain, No arm pain, No back pain, No hand pain, No leg pain, No foot pain Skin: No Rash, No Lesions, No Jaundice, No Bruising, No Other Objective Vitals Vital Signs Date Time Temp Pulse Resp B/P (MAP) Pulse Ox O2 Delivery O2 Flow Rate FiO2 08/28/25 22:31 85 16 100 08/28/25 22:21 Nasal Cannula 2.0 08/28/25 22:21 28 08/28/25 22:15 109/39 (62) 08/28/25 20:00 99.1 99.1 Intake/Output Intake and Output 08/28/25 07:00 Intake Total 1006.0 ml Output Total 2884 ml Balance -1878.0 ml Intake Oral 175 ml IV Total 300.0 ml Tube Feeding 531 ml Output Urine Total 2850 ml Chest Tube Drainage Total 34 ml Exam Gen.: Patient lying in bed in no apparent distress. On supplemental oxygen. Head: Normocephalic, atraumatic. Eyes: EOMI/PERRLA. Ears: Normal hearing. Normal anatomy. Neck/trachea: Trachea midline, supple. Nose: Normal external anatomy. Mouth: Moist mucous membranes. Chest: Decreased air entry bilaterally. No wheezing or rhonchi. Cardiovascular: Positive S1, positive S2. Regular rate and rhythm. Abdomen: Positive bowel sounds in all 4 quadrants. Soft, non-tender, non- distended. : Deferred. Rectal: Deferred. Skin: Warm, dry. Intact. Extremities: 2+ radial pulses bilaterally. No lower extremity edema. Neuro: Awake, not following commands. No gross motor or sensory deficits. Cranial nerves II through XII intact. Gait not assessed. Medications Current Medications Medications Dose Ordered Sig/[facility] Route Start Time Stop Time Status Last Admin Dose Admin Norepinephrine Bitartrate 250 ml @ 3.75 mls/hr Q24H IV 08/15/25 06:30 08/15/25 08:29 3.75 MLS/HR Dextrose 50 ml UD PRN IV 08/15/25 10:30 Enoxaparin Sodium 30 mg DAILY SC 08/15/25 11:18 08/28/25 09:35 30 MG Enteral Nutritional Formula 1,000 ml 30ML/HR GT 08/16/25 12:00 08/28/25 21:38 1,000 ML Hydralazine HCl 10 mg Q6HP PRN IV 08/18/25 16:15 08/23/25 10:29 10 MG Ipratropium [place] 0.5 mg Q6HPRN PRN NEB 08/22/25 01:45 08/28/25 22:21 0.5 MG Levalbuterol HCl 0.625 mg Q6HR PRN NEB 08/22/25 01:45 08/28/25 22:21 0.625 MG Pantoprazole Sodium 40 mg DAILY IV 08/23/25 10:00 08/28/25 09:34 40 MG Sodium Chloride 10 ml QSHIFT@10,22 IV 08/23/25 22:00 08/28/25 21:32 10 ML Amiodarone HCl 200 mg Q12HR PO 08/24/25 10:00 08/28/25 21:32 200 MG Acetaminophen/ Hydrocodone Bitart 1 tab Q6HPRN PRN PO 08/25/25 16:30 08/28/25 16:16 1 TAB Acetaminophen 650 mg Q6HP PRN PO 08/27/25 12:30 08/27/25 12:44 650 MG Cefepime HCl 50 ml @ 12.5 mls/hr Q12HR IV 08/27/25 22:00 08/28/25 21:32 12.5 MLS/HR Doxycycline Hyclate 100 ml @ 50 mls/hr Q12H IV 08/27/25 15:45 08/28/25 15:22 50 MLS/HR Acetylcysteine 600 mg TID NEB 08/27/25 22:00 08/28/25 22:21 600 MG Laboratory Results Laboratory Tests 08/28/25 04:20 Chemistry Test 08/28/25 04:20 Albumin 3.1 g/dL (3.2-4.8) L Calcium Level 8.8 mg/dL (8.7-10.4) Magnesium Level 1.7 mg/dL (1.6-2.6) Phosphorus Level 2.9 mg/dL (2.4-5.1) Total Protein 6.4 g/dL (5.7-8.2) LFT Test 08/28/25 04:20 Alanine Aminotransferase (ALT) 47 U/L (7-40) H Alkaline Phosphatase 321 U/L (46-116) H Aspartate Amino Transferase (AST) 42 U/L (13-40) H Total Bilirubin 1.3 mg/dL (0.2-1.0) H Urinalysis Test 08/23/25 15:22 Urine Color Yellow (Yellow) Urine Clarity Turbid (Clear) H Urine pH 5.5 (5.0-9.0) Urine Specific [place] 1.028 (1.001-1.035) Urine Protein Trace (Negative) H Urine Ketones Negative (Negative) Urine Blood 1+ /uL (Negative) H Urine Nitrite Negative (Negative) Urine Bilirubin Negative (Negative) Urine Urobilinogen Normal mg/dL (Negative) Urine Leukocyte Esterase Negative /uL (Negative) Urine RBC 17 /hpf (0 - 4) Urine Microscopic WBC 3 /HPF (0-5) Urine Squamous Epithelial Cells Few /hpf (<5) Urine Uric Acid Crystals Few /hpf (None Seen) Urine Bacteria Few /hpf (None Seen) H Urine Glucose Normal mg/dL (Normal) Microbiology Microbiology Date/Time Source Procedure Growth Status 08/27/25 20:25 Voided Urine Urine Culture - Preliminary Resulted 08/27/25 17:51 Blood Blood Culture - Preliminary NO GROWTH AFTER 24 HOURS OF INCUBATION. Resulted 08/15/25 14:05 Nose MRSA Screen - Final Complete 08/15/25 10:13 Sputum Expectorated Sputum Gram Stain - Final Complete 08/15/25 10:13 Sputum Expectorated Sputum Respiratory Culture - Final Complete Assessment/Plan Assessment/Plan Impression: Acute hypoxic respiratory failure Dependence on supplemental oxygen S/p cardiac arrest Septic shock, likely from UTI Acute metabolic/hypoxic encephalopathy Left-sided rib fractures Left pneumothorax, s/p chest tube Atrial fibrillation with rapid ventricular response Acute complicated UTI Acute kidney injury Breast cancer with metastasis Events: Remains on supplemental oxygen, 2 LPM NC Taper O2 as tolerated Chest x-ray today revealing left pneumothorax and small right pleural effusion. Left chest tube placed to suction, -30 cmH2O. Patient underwent right thoracentesis today with 250 mL yellow fluid drained from the right pleural space. Head of bed elevation Aspiration precautions. Continue bronchodilators Continue antibiotics Incentive spirometry NG tube in place. Plan to obtain swallow eval. IR followup for biopsy of right breast. Labs and imaging reviewed. Rest of plan as noted below. Plan: S/p extubation on 08/24/25 Supplemental oxygen Titrate to keep O2 sats above 92%.. Left chest tube in place No air leak Monitor chest tube output. Head of bed elevation Aspiration precautions. Continue bronchodilators. Continue antibiotics Continue amiodarone NG tube in place. Protonix for GI ppx Monitor renal function due to NAIMA. Monitor electrolytes. Supplement as necessary. Monitor ins and outs. DVT prophylaxis. Prognosis: Guarded given patient's multiple co-morbidities. Rest of plan per hospitalist and other consultants. Thank you for allowing me to participate in this patient's care. Further recommendations will depend on the patient's clinical course. Please do not hesitate to contact me if you have any questions or concerns. This medical document was created using an electronic medical record system with [employer]ation system. Although these documentations are being carefully reviewed, there may still be some phonetic and typographical changes. The errors are purely typographical, due to imperfection on the software program, and do not reflect any compromise in the patient's medical care. Plan discussed with: Other (HENRIQUE Krishna) Visit Coding Pulmonary Billing Provider: WILFRED JAMES MD Date of Service if different f: Aug 28, 2025 Common Visit Codes: 16113-[id number] INP/OBS CARE(HIGH), 30825-[id number] CARE 30-74 MIN WILFRED JAMES MD Aug 28, 2025 23:06
--- NOTE | 2025-08-28 23:09 | DVHNC2 ---
Procedure - RIGHT Thoracentesis Procedure Note under ultrasound guidance INDICATION: Right sided pleural effusion PHYSICIAN: Jessica Quintero MD Asst: HENRIQUE Solorio. CONSENT: Consent was obtained from patient/patient's HCP prior to the procedure. Indications, risks, and benefits were explained at length. Date of service 08/28/28 Time out time: 1510 pm Risks and benefits of the procedure and sedation options and risks were discussed with the patient/patient's HCP. All questions were answered and informed consent was obtained. Patient identification and proposed procedure were verified prior to the procedure by the physician, and the nurse in the patient's room. PROCEDURE SUMMARY: A time out was performed and the chest x-ray was reviewed, the appropriate side was confirmed and marked. My hands were washed immediately prior to the procedure. I wore a surgical cap, mask with protective eyewear, sterile gown and sterile gloves throughout the procedure. The patient was prepped and draped in a sterile manner using chlorhexidine scrub after the appropriate level was percussed and confirmed by ultrasound. 1% lidocaine was used to anesthesize the skin, subcutaneous tissue, superior aspect of the rib periosteum and parietal pleura. A finder needle was then introduced over the superior aspect of the rib to locate the pleural fluid; yellow-straw colored fluid was aspirated at a depth of approximately 2 cm. Under real-time ultrasound guidance, the 5 M[place]gas[place] Yueh Thora-Centesis needle was then introduced through the skin incision into the pleural space using negative aspiration pressure. The thoracentesis catheter was then threaded without difficulty. 250 ml of yellow-straw colored fluid was removed without difficulty. The catheter was then removed. No immediate complications were noted during the procedure. Using the linear probe, lung sliding was noted anteriorly and posteriorly and are an indication of no pneumothorax. A post-procedure chest x-ray is pending at the time of this note. The fluid will be sent for studies cell count and differential, fluid LDH, glucose, albumin and total protein, gram stain and culture, and cytology. Estimated blood loss is less than 5 mL. CPT: 71442 Visit Coding Pulmonary Billing Provider: WILFRED QUINTERO MD Date of Service if different f: Aug 28, 2025 Common Visit Codes: PROCEDURE ONLY Procedure Codes: [id number] W/PUNCT (19649 Right thoracentesis) WILFRED QUINTERO MD Aug 28, 2025 23:09
[2025-08-29] VITALS (108 sets, daily range): BP systolic 91–144; BP diastolic 31–91; PULSE 73–106; RESP 12–83; TEMP 98.1–99.1; O2SAT 89–100
[2025-08-29 03:57] LABS: Hematocrit 22.5 % (36.0-46.0); Hemoglobin 7.5 g/dL (12.2-16.2); Mean Corpuscular Hemoglobin 32.0 pg (28.0-32.0); Mean Corpuscular Volume 96.1 fL (80.0-100.0); Nucleated Red Blood Cells % 0.1 %
[2025-08-29 04:14] LABS: Anion Gap 8 (5-15); Carbon Dioxide 28 mmol/L (20-31); Chloride 101 mmol/L (98-107); Potassium 3.7 mmol/L (3.5-5.1); Sodium 137 mmol/L (136-145)
[2025-08-29 04:15] LABS: Calcium 8.7 mg/dL (8.7-10.4)
[2025-08-29 04:20] LABS: BUN/Creatinine Ratio 22.9 (10.0-20.0)
--- NOTE | 2025-08-29 04:24 | DVH ---
CHEST RADIOGRAPH Indication: pneumothorax Technique: Single frontal view of the chest was obtained COMPARISON: XY CHEST XRAY 1 VIEW on DOS: 08/28/25, XY CHEST XRAY 1 VIEW on DOS: 08/28/25, XY CHEST PO RTABLE on DOS: 08/28/25, XY CHEST XRAY 1 VIEW on DOS: 08/27/25, XY CHEST XRAY 1 VIEW on DOS: 08/26/25 FINDINGS: Lines and Tubes: Unchanged. Lungs: Grossly stable appearing patchy bibasilar pulmonary airspace disease. Pleura: No effusion. No pneumothorax. Cardiomediastinal contours: Unremarkable Bones: Unremarkable IMPRESSION: 1. Stable appearing patchy bibasilar pulmonary airspace disease. 2. Lines and tubes unchanged.
[2025-08-29 04:32] LABS: Blood Urea Nitrogen 24 mg/dL (9-23); Glucose 119 mg/dL (74-106)
--- NOTE | 2025-08-29 10:35 | DVHPN2 ---
Progress Note - Dictate Date Seen: Aug 29, 2025 Has the PT tested + for MRSA If YES, has PT been informed?: Yes Medical Necessity Reason Pt with a Central, PICC or Fol: Yes Subjective Ms. Earl is a 75 years old female with a history of dementia, she was brought to the [facility] on 08/15/2025 with a chief complaint of cardiac arrest. I have seen and examined the patient. I have discussed with her nurse. Her eyes open, she moves her head and jaw spontaneously, but she is not responsive to my verbal stimuli. There is resistance to passive movement in the arms sometimes Blood culture, 08/23/2025: Urinalysis, 08/15/2025: WBC: 43, urine leukocyte esterase: Trace ABG, 08/15/2025: Metabolic acidosis, 08/17/2025: Compensated metabolic acidosis WBC/HGB/PLT/MCV, 08/16/2025: 14.4/10.3/286/95, 08/26/2025: 18/8.7/479/95.9, 08/28/2025: 27.4/8.6/473/95.7. 08/29/2025: 17.5/7.5/437/96.1 BUN/CR, 08/16/2025: 23/1.35 GFR, 08/16/2025: 40 HGB A1c, 08/15/2025: 4.6 Lactic acid, 08/15/2025: 9.7, 7.1, 3.1 TBI/AST/ALT/AP, 08/16/2025: 0.5/748/712/276, 08/17/2025: 0.5/296/463/231 EEG, 08/17/2025: Mildly abnormal CT head, 08/15/2025 0716: Global brain atrophy with prominence of the ventricular system out of proportion to the size of the sulci. This appearance may be due to central brain atrophy or normal pressure hydrocephalus. CT head, 08/16/25 2235: 1. No acute intracranial abnormality. 2. 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 loss vital signs Vital Sign Date Time Temp Pulse Resp B/P (MAP) Pulse Ox O2 Delivery O2 Flow Rate FiO2 08/29/25 09:00 94 17 113/44 (67) 100 10/27/25 08:00 Nasal Cannula* 3 32 08/29/25 07:00 98.3 98.3 Total Intake and Output 08/28/25 08/28/25 08/29/25 15:00 23:00 07:00 Intake Total 50.0 ml 190 ml 535 ml Output Total 534 ml 389 ml Balance 50.0 ml -344 ml 146 ml medications Current Medications Medications Dose Ordered Sig/[place] Route Start Time Stop Time Status Last Admin Dose Admin Norepinephrine Bitartrate 250 ml @ 3.75 mls/hr Q24H IV 08/15/25 06:30 08/15/25 08:29 3.75 MLS/HR Dextrose 50 ml UD PRN IV 08/15/25 10:30 Enteral Nutritional Formula 1,000 ml 30ML/HR GT 08/16/25 12:00 08/28/25 21:38 1,000 ML Hydralazine HCl 10 mg Q6HP PRN IV 08/18/25 16:15 08/23/25 10:29 10 MG Ipratropium [place] 0.5 mg Q6HPRN PRN NEB 08/22/25 01:45 08/29/25 06:38 0.5 MG Levalbuterol HCl 0.625 mg Q6HR PRN NEB 08/22/25 01:45 08/29/25 06:38 0.625 MG Pantoprazole Sodium 40 mg DAILY IV 08/23/25 10:00 08/29/25 09:02 40 MG Sodium Chloride 10 ml QSHIFT@ IV 08/23/25 22:00 08/29/25 10:00 10 ML Amiodarone HCl 200 mg Q12HR PO 08/24/25 10:00 08/29/25 09:01 200 MG Acetaminophen/ Hydrocodone Bitart 1 tab Q6HPRN PRN PO 08/25/25 16:30 08/28/25 16:16 1 TAB Acetaminophen 650 mg Q6HP PRN PO 08/27/25 12:30 08/27/25 12:44 650 MG Cefepime HCl 50 ml @ 12.5 mls/hr Q12HR IV 08/27/25 22:00 08/29/25 09:01 12.5 MLS/HR Doxycycline Hyclate 100 ml @ 50 mls/hr Q12H IV 08/27/25 15:45 08/29/25 03:32 50 MLS/HR Acetylcysteine 600 mg TID NEB 08/27/25 22:00 08/29/25 06:38 600 MG Enoxaparin Sodium 40 mg DAILY SC 08/30/25 10:00 objective The patient is well-nourished and well-developed with no distress. MENTAL STATUS: Subjective CRANIAL NERVES: Pupils are equal, round and slightly reactive. Eyes are usp open. No signs of facial weakness. Sensorimotor examined in bilateral trigeminal distribution is okay SENSATION: Responses to light painful stimuli. MOTOR: Normal tone in the upper and lower extremity. Normal muscle bulk. No fasciculations. She does not move extremities REFLEXES: Deep tendon reflexes are symmetrical. No pathological reflexes. CEREBELLAR/COORDINATION: Deferred GAIT/STATION: deferred. laboratory and microbiology Laboratory Tests 08/29/25 03:22 Test 08/29/25 03:22 Range/Units Serum Glucose 119 H 74-106 mg/dL Problem List Coma Metabolic encephalopathy Hypoxic encephalopathy Toxic encephalopathy Cardiopulmonary arrest Acute respiratory failure, resolved Leukocytosis/sepsis Metabolic acidosis Shocked liver, recovering Dementia, she may have advanced dementia, likely Alzheimer disease, Assessment/Plan Monitoring Supportive treatment ICU care Follow-up lab tests Respiratory support p.r.n. Oxygen IV antibiotics GI prophylaxis/famotidine DVT prophylaxis/Lovenox More recommendation per clinical course She is likely to have a poor prognosis for meaningful/overall recovery This medical document was created using an electronic medical record system with [employer] dictation system. Although this document has been carefully reviewed, there may still be some phonetic and typographical errors. These areas are purely typographical due to imperfections of the software programs, and do not reflect any compromise in the patient's medical care Prognosis poor Dietary Evaluation Review Comments: Nutrition Recommendation: 1) EN Jevity 1.2 Demarcus @ 400ml/hr x 24hr(goal). Water flush 100ml Q6H if allowed, adjust PRN. TF at goal volume provides 1152 kcal (100%), 53gm protein (100%), and 1175 ml free water (including flush). 2) Consider TPN/PN if NPO>7 days 3) Advance diet as medically feasible 4) Monitor TF tolerance, lab values, weight trend, and I/O Expected Outcomes/Goals: Intake to meet >75% estimated needs Lab values to improve Fu 2-3 days Plan discussed with: Other TONI ADAMSON MD Aug 29, 2025 10:35
--- NOTE | 2025-08-29 16:30 | DVHDSRES ---
Discharge Summary Date of Admission Resident Creating Document: PER HARDY RESIDENT Aug 15, 2025 at 10:19 Date of Discharge: Aug 29, 2025 Admitting Diagnosis Cardiac arrest Labs/Diagnostic Data: Laboratory Results Test 08/29/25 03:22 08/28/25 15:45 08/28/25 04:20 08/26/25 08:47 White Blood Count 17.5 10^3/uL (4.4-10.8) Red Blood Count 2.34 10^6/uL (4.0-5.20) Hemoglobin 7.5 g/dL (12.2-16.2) Hematocrit 22.5 % (36.0-46.0) Mean Corpuscular Volume 96.1 fL (80.0-100.0) Mean Corpuscular Hemoglobin 32.0 pg (28.0-32.0) Mean Corpuscular Hemoglobin Concent 33.3 g/dL (32.0-36.0) Red Cell Distribution Width 14.7 % (11.8-14.3) Platelet Count 437 10^3/uL (140-450) Mean Platelet Volume 8.0 fL (6.9-10.8) Neutrophils (%) (Auto) 89.0 % (37.0-80.0) Lymphocytes (%) (Auto) 3.3 % (10.0-50.0) Monocytes (%) (Auto) 7.7 % (0.0-12.0) Eosinophils (%) (Auto) 0.0 % (0.0-7.0) Basophils (%) (Auto) 0.0 % (0.0-2.0) Neutrophils # (Auto) 15.5 10 ^3/uL (1.6-8.6) Lymphocytes # (Auto) 0.6 10 ^3/uL (0.4-5.4) Monocytes # (Auto) 1.3 10 ^3/uL (0-1.3) Eosinophils # (Auto) 0 10 ^3/uL (0-0.8) Basophils # (Auto) 0 10 ^3/uL (0-0.2) Nucleated Red Blood Cells 0.1 % Sodium Level 137 mmol/L (136-145) Potassium Level 3.7 mmol/L (3.5-5.1) Chloride Level 101 mmol/L (98-107) Carbon Dioxide Level 28 mmol/L (20-31) Anion Gap 8 (5-15) Blood Urea Nitrogen 24 mg/dL (9-23) Creatinine 1.05 mg/dL (0.550-1.02) Glomerular Filtration Rate Calc 55 mL/min (>90) BUN/Creatinine Ratio 22.9 (10.0-20.0) Serum Glucose 119 mg/dL (74-106) Calcium Level 8.7 mg/dL (8.7-10.4) Body Fluid Source Pleural fluid Body Fluid WBC (Manual) 2902 CUMM (0-200) Body Fluid RBC (Manual) 165 CUMM (0-2000) Body Fluid Mononuclear Cells 20 % Body Fluid Polymorphonuclear Cells 80 % (0-25) Phosphorus Level 2.9 mg/dL (2.4-5.1) Magnesium Level 1.7 mg/dL (1.6-2.6) Total Bilirubin 1.3 mg/dL (0.2-1.0) Aspartate Amino Transferase (AST) 42 U/L (13-40) Alanine Aminotransferase (ALT) 47 U/L (7-40) Alkaline Phosphatase 321 U/L (46-116) Total Protein 6.4 g/dL (5.7-8.2) Albumin 3.1 g/dL (3.2-4.8) Blood Gas Specimen Type Arterial Blood Gas Sample Site Right radial Blood Gas Patient Temperature 37.0 Arterial Blood Date Drawn [id number] Arterial Blood pH 7.529 (7.350-7.450) Arterial Blood Partial Pressure CO2 28.3 mmHg (32.0-45.0) Arterial Blood Partial Pressure O2 77.6 mmHg (83.0-108.0) Arterial Blood HCO3 23.1 mmol/L (21.0-28.0) Arterial Blood Oxygen Saturation 95.0 % (94.0-98.0) Arterial Blood Base Excess 0.8 mmol/L (-2.0-3.0) Arterial Blood Oxyhemoglobin 94.3 % (94.0-98.0) Arterial Blood Carboxyhemoglobin 0.3 % (0.5-1.5) Arterial Blood Methemoglobin 0.4 % (0.0-1.5) Rafael Test Yes Blood Gas Total Hemoglobin 9.30 g/dL (12.0-16.0) Blood Gas Liter Flow 2.00 Blood Gas Modality Nasal cannula FiO2 % 28.0 Test 08/24/25 16:06 08/24/25 07:05 08/23/25 15:22 08/22/25 16:34 Blood Gas Pressure Support 8 Blood Gas PEEP or CPAP 5.0 Blood Gas Set Respiration Rate 20.0 Blood Gas Tidal Volume 350.0 Urine Color Yellow (Yellow) Urine Clarity Turbid (Clear) Urine pH 5.5 (5.0-9.0) Urine Specific Adrian 1.028 (1.001-1.035) Urine Protein Trace (Negative) Urine Ketones Negative (Negative) Urine Blood 1+ /uL (Negative) Urine Nitrite Negative (Negative) Urine Bilirubin Negative (Negative) Urine Urobilinogen Normal mg/dL (Negative) Urine Leukocyte Esterase Negative /uL (Negative) Urine RBC 17 /hpf (0 - 4) Urine Microscopic WBC 3 /HPF (0-5) Urine Squamous Epithelial Cells Few /hpf (<5) Urine Uric Acid Crystals Few /hpf (None Seen) Urine Bacteria Few /hpf (None Seen) Urine Glucose Normal mg/dL (Normal) Prothrombin Time 10.8 sec (9.3-11.8) Prothrombin Time INR 1.02 (0.9-1.15) Activated Partial Thromboplast Time 25.6 SEC (24.5-34.5) Test 08/22/25 14:54 08/21/25 14:18 08/19/25 03:10 08/17/25 09:20 Vancomycin Level Trough 16.0 ug/mL (5-10) Blood Gas Spontaneous Rate 20 Blood Gas Spontaneous Tidal Volume 468 Random Vancomycin Level 12.0 ug/mL (5-10) Lactic Acid Level 1.0 mmol/L (0.4-2.0) Test 08/17/25 04:35 08/15/25 10:35 08/15/25 08:55 08/15/25 06:44 POC Glucose 106 mg/dl (70-106) Troponin I High Sensitivity 75 ng/L (</=34) Blood Gas Critical Value Read Back yes Blood Gas Notified Whom Blood Gas Notified Time [id number] Blood Gas Notified By religious assistant ozzie Hemoglobin A1c 4.6 % A1C (<5.7) Other Laboratory Tests 08/29/25 03:22 Brief Hx & Hospital Course: This is a 75-year-old female with a known history of dementia who was brought to the hospital by EMS following a cardiac arrest at home. According to her daughter, the patient was last seen at her baseline the night before the incident, with no complaints. On the morning of 08/15 at approximately 5:30 a.m., she was found kneeling beside her bed with her hand resting on the bed rail, exhibiting labored breathing and a faint carotid pulse. Cardiopulmonary resuscitation (CPR) was initiated by the family, and EMS arrived approximately 15 minutes later. Upon EMS arrival, the patient was found to be in a non-shockable rhythm. En route to the hospital, she received epinephrine and was intubated. Return of spontaneous circulation (ROSC) was achieved prior to hospital arrival. At baseline, the patient lived at home with her daughter. She was non-verbal, required a walker for mobility, and needed assistance with activities of daily living. She was incontinent of bowel and bladder and did not take any prescribed medications, relying instead on holistic remedies. She has no known drug allergies. Brief hospital course: The patient was admitted following a cardiac arrest with an initial rhythm of asystole. She was intubated and resuscitated, subsequently developing acute hypoxic respiratory failure and requiring ventilatory support. Imaging revealed a left-sided pneumothorax and multiple rib fractures, likely CPR-related, necessitating chest tube placement. A right-sided pleural effusion was later identified, and thoracentesis was performed. She experienced cardiogenic and possible septic shock, with mild troponin elevation consistent with a Type 2 NSTEMI. AFib with RVR was noted, and she was managed with IV fluids; no vasopressors were required. Neurologically, she suffered acute metabolic/hypoxic encephalopathy secondary to cardiac arrest and sepsis, with a poor prognosis per neurology consult. CT imaging showed no acute intracranial abnormalities but revealed severe atrophic changes. She was extubated on hospital day 9 and is currently off sedatives. Infectious workup revealed Peptostreptococcus prevotii in blood cultures, and she was treated with Zosyn, later transitioned to cefepime and doxycycline. Vancomycin was discontinued. Pancultures were obtained due to ongoing concerns for sepsis, likely secondary to a complicated UTI. Liver function tests indicated transaminitis consistent with shock liver. Imaging revealed multiple liver masses concerning for metastases, gallstones, and mild hydronephrosis. A right breast mass was identified, and biopsy is pending. CT imaging further supported metastatic disease with liver and bone involvement. Renal function was impaired, likely due to volume depletion, with hypernatremia noted. Nutritional support was initiated via Jevity tube feeding. DVT prophylaxis with Lovenox and GI prophylaxis with Protonix were maintained. Goals of care were discussed extensively with the family, and the patient remains full code. Patient is in fair condition to gets transferred to [place]. A lengthy discussion was taken place with family regarding patient's poor condition and poor prognosis, family understands and agreed to transfer to [place]. General Appearance: Extubated, opening eyes but not alert, oriented HEENT: Atraumatic, Mucous membranes moist/pink, NG tube in place Respiratory: Bilateral crackles heard on auscultation Cardiovascular: Regular rate, Normal S1, Normal S2, No murmurs Abdominal: Active bowel sounds, Soft, no distention, no tenderness Extremities: No edema, Normal pulses, No tenderness/swelling Skin: Left-sided subcutaneous emphysema, bedside chest tube, has right IJ Neuro: pupils reactive, cough and gag reflex intact Total critical time spent on discharge planning 63 minutes. Operations or Procedures ORDERING PHYSICIAN: WALESKA MCPHERSON MD PROCEDURE(s): HWOCT - HEAD WITHOUT CONTRAST REASON: cpr ORDER NUMBER(s): [id number], ACCESSION NUMBER(s): [id number] EXAM: CT HEAD WITHOUT CONTRAST HISTORY: cpr COMPARISON: None TECHNIQUE: Noncontrast axial CT images of the head were performed. Sagittal and coronal reformatted images were obtained. This CT exam was performed using 1 or more of the following dose reduction techniques: Automated exposure control, adjustment of the mA and/or kv according to patient size, or the use of iterative reconstruction techniques. Radiation Dose: CTDI volume is 50.73 mGy. Dose-length product is 811.62 mGy*cm FINDINGS: There is global brain atrophy with prominence of the ventricular system and sulci. The ventricular system is dilated out of proportion to the size of the sulci. No intracranial hemorrhage, mass, midline shift, or evidence of acute large vessel infarct. The paranasal sinuses are clear. The bilateral mastoid air cells and middle ear spaces are clear. No cranial fracture or scalp edema. Endotracheal tube and right NG tube are partially visualized. IMPRESSION: Global brain atrophy with prominence of the ventricular system out of proportion to the size of the sulci. This appearance may be due to central brain atrophy or normal pressure hydrocephalus. ATED BY: EVANS ALMODOVAR MD DICTATED DATE/TIME: 08/15/2553 ORDERING PHYSICIAN: WALESKA MCPHERSON MD PROCEDURE(s): CXRP - CHEST PORTABLE REASON: cpr ORDER NUMBER(s): [id number], ACCESSION NUMBER(s): [id number] ADDENDUM ADDENDUM # 1 critical result: Pneumothorax Findings discussed with Dr. Mcpherson on 08/15/2025 at 10:[address] Carpenter, with acknowledged receipt and understanding of the findings. ORIGINAL REPORT CHEST RADIOGRAPH Indication: cpr Technique: Single frontal view of the chest was obtained Comparison: None FINDINGS: The patient is rotated which limits evaluation. Lines and Tubes: The endotracheal tube terminates 1.1 cm above the arin. There is a right central venous catheter with its tip terminating in the superior vena cava. Lungs: Hazy bilateral opacities noted. Pleura: No effusion. There is a left pneumothorax, approximately 35%. Cardiomediastinal contours: Unremarkable Bones: Multiple left rib fractures noted. IMPRESSION: 1. Left pneumothorax, approximately 35%. 2. Endotracheal tube terminates 1.1 cm above the arin. Retraction by 1-2 cm is recommended. 3. Multiple left rib fractures. 4. Pulmonary edema noted. ATED BY: JOCELYNN CARPENTER MD DICTATED DATE/TIME: 08/15/25 0744 SIGNED BY: JOCELYNN CARPENTER MD SIGNED DATE/TIME: 08/15/25 0744 ORDERING PHYSICIAN: TONI HINOJOSA MD PROCEDURE(s): HWOCT - HEAD WITHOUT CONTRAST REASON: ALOC ORDER NUMBER(s): [id number], ACCESSION NUMBER(s): [id number] EXAM: CT HEAD WITHOUT CONTRAST INDICATION: ALOC TECHNIQUE: CT of the head without intravenous contrast. Radiation Dose : 1. Head: CT Dose: CTDI volume is 60.12 mGy. Dose-length product is 963.7 mGy*cm The dose indicators for CT are the volume Computed Tomography (CT) Dose Index (CTDIvol) and the Dose Length Product (DLP), and are measured in units of mGy and mGy-cm, respectively. These indicators are not patient dose, but values generated from the CT scanner acquisition factors. The report includes radiation exposure data for exposures received during this examination. COMPARISON: CT HEAD WITHOUT CONTRAST on DOS: 08/15/25 FINDINGS: There is no evidence of acute intracranial hemorrhage, extra-axial collection, mass effect, midline shift, herniation or hydrocephalus. Pronounced increased prominence of the ventricles, sulci and cisterns consistent with sequelae of atrophic cortical volume loss. The howard-white differentiation is intact. Moderate diffuse confluent periventricular and subcortical white matter hypoattenuation is nonspecific but may be related to small vessel ischemic disease. The visualized paranasal sinuses and mastoid air cells are clear. The surrounding soft tissues and osseous structures are unremarkable. IMPRESSION: 1. No acute intracranial abnormality. 2. 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 loss. Radiation optimization: All CT scans at this facility use at least one of these dose optimization techniques: automated exposure control mA and/or kV adjustment per patient size (includes targeted exams where dose is matched to clinical indication) or iterative reconstruction. ATED BY: ARABELLA WICK MD DICTATED DATE/TIME: 08/17/25 0334 ORDERING PHYSICIAN: PURNIMA SOL MD PROCEDURE(s): CXRP - CHEST PORTABLE REASON: intubated ORDER NUMBER(s): [id number], ACCESSION NUMBER(s): [id number] CHEST RADIOGRAPH Indication: intubated Technique: Single frontal view of the chest was obtained Comparison: XY CHEST PORTABLE on DOS: 08/22/25, XY CHEST XRAY 1 VIEW on DOS: 08/21/25, XY CHEST XRAY 1 VIEW on DOS: 08/20/25 FINDINGS: Lines and Tubes: The endotracheal tube terminates 2.1 cm above the arin. The enteric tube terminates in the stomach. There is a right central venous catheter with its tip terminating in the right atrium. Lungs: Bilateral Interstitial prominence. No focal consolidation. Pleura: No effusion. No pneumothorax. Cardiomediastinal contours: Unremarkable Bones: No acute osseous abnormality. IMPRESSION: 1. Support tubes in appropriate position. 2. Bilateral interstitial prominence which may reflect pulmonary edema or atypical infection. ATED BY: JOCELYNN CARPENTER MD DICTATED DATE/TIME: 08/23/25 0914 ORDERING PHYSICIAN: PER HARDY PROCEDURE(s): ABDC - ABDOMEN COMPLETE SONOGRAM REASON: transaminitis, NAIMA ORDER NUMBER(s): [id number], ACCESSION NUMBER(s): [id number] INDICATION: transaminitis, NAIMA TECHNIQUE: Multiple real-time sonographic images of the abdomen were obtained. COMPARISON: None FINDINGS: The liver is heterogeneous in echogenicity. The liver measures 15cm. No intrahepatic biliary ductal dilatation is noted. The gallbladder wall measures 0.3 cm and is unremarkable. Gallstones are present.. The common duct measures 0.4 cm and is unremarkable. No pericholecystic fluid is noted. The right kidney measures 7cm. No hydronephrosis. The left kidney measures 9cm. Mild left hydronephrosis. Multiple liver masses are noted measuring up to 4 cm, concerning for metastases. The pancreas is not well visualized due to obscuration from bowel gas. The visualized portions of the IVC and aorta are grossly unremarkable. IMPRESSION: Multiple liver masses are noted measuring up to 4 cm, concerning for metastases. Gallstones. Mild left hydronephrosis. ATED BY: OTF SILVA MD DICTATED DATE/TIME: 08/23/25 1537 ORDERING PHYSICIAN: PER HARDY PROCEDURE(s): ABDC - ABDOMEN COMPLETE SONOGRAM REASON: transaminitis, NAIMA ORDER NUMBER(s): [id number], ACCESSION NUMBER(s): [id number] INDICATION: transaminitis, NAIMA TECHNIQUE: Multiple real-time sonographic images of the abdomen were obtained. COMPARISON: None FINDINGS: The liver is heterogeneous in echogenicity. The liver measures 15cm. No intrahepatic biliary ductal dilatation is noted. The gallbladder wall measures 0.3 cm and is unremarkable. Gallstones are present.. The common duct measures 0.4 cm and is unremarkable. No pericholecystic fluid is noted. The right kidney measures 7cm. No hydronephrosis. The left kidney measures 9cm. Mild left hydronephrosis. Multiple liver masses are noted measuring up to 4 cm, concerning for metastases. The pancreas is not well visualized due to obscuration from bowel gas. The visualized portions of the IVC and aorta are grossly unremarkable. IMPRESSION: Multiple liver masses are noted measuring up to 4 cm, concerning for metastases. Gallstones. Mild left hydronephrosis. ATED BY: OTF SILVA MD DICTATED DATE/TIME: 08/23/25 1537 - ORDERING PHYSICIAN: PER HARDY PROCEDURE(s): RBRST - R BREAST ULTRASOUND REASON: breast mass ORDER NUMBER(s): [id number], ACCESSION NUMBER(s): [id number] US OF THE RIGHT BREAST INDICATION: breast mass TECHNIQUE: Targeted right breast ultrasound was performed. COMPARISON: Prior exam dated: none FINDINGS: Heterogeneous shadowing structure in the right breast adjacent to the nipple 9 o'clock region measuring 2.3 x 1.3 x 2.0 cm. Evaluation is significantly limited due to technique of the exam. IMPRESSION: Heterogeneous shadowing structure in the right breast adjacent to the nipple 9 o'clock region measuring 2.3 x 1.3 x 2.0 cm. Further evaluation with diagnostic mammogram is recommended. ACR Bi Rads Category:Category 0-"INCOMPLETE" (Needs Additional Imaging Evaluation)) ATED BY: ANTONIETA LORENZANA MD DICTATED DATE/TIME: 08/24/25 1646 ORDERING PHYSICIAN: ELROY SEO PROCEDURE(s): CHSTU - CHEST ULTRASOUND REASON: ?parapneumonic effusion ORDER NUMBER(s): [id number], ACCESSION NUMBER(s): [id number] US CHEST ULTRASOUND, HISTORY: parapneumonic effusion COMPARISON(S): XY CHEST XRAY 1 VIEW on DOS: 08/25/25, XY CHEST XRAY 1 VIEW on DOS: 08/24/25, XY CHEST PORTABLE on DOS: 08/23/25 TECHNICAL DATA: Transverse and longitudinal images are obtained of the chest. FINDING: IMPRESSION(S): There is trace right effusion seen. No effusion seen on the left. ATED BY: JAMES HINOJOSA MD DICTATED DATE/TIME: 08/25/25923 ORDERING PHYSICIAN: ELROY SEO RESIDENT PROCEDURE(s): CXR1 - CHEST XRAY 1 VIEW REASON: s/p thoracentesis ORDER NUMBER(s): [id number], ACCESSION NUMBER(s): [id number] CHEST RADIOGRAPH Indication: s/p thoracentesis Technique: Single frontal view of the chest was obtained Comparison: XY CHEST XRAY 1 VIEW on DOS: 08/28/25, XY CHEST PORTABLE on DOS: 08/28/25, XY CHEST XRAY 1 VIEW on DOS: 08/27/25 FINDINGS: Lines and Tubes: Enteric tube below the left diaphragm in the stomach. PICC line from left arm in place with the tip in the superior vena cava above the right atrium. Left-sided chest tube in place with the tip in the apex not significantly changed from earlier study 08/28/2025 Lungs: Patchy bilateral airspace disease appears slightly worse than 08/28/2025 0919. Pleura: No effusion. Small residual left apical pneumothorax smaller than on previous film Cardiomediastinal contours: Unremarkable Bones: No acute osseous abnormality. IMPRESSION: 1. Worsening bilateral airspace disease. 2. Left-sided chest tube in place with the tip in the apex the residual pneumothorax on the left appears slightly smaller than on prior study. 3. Enteric tube in the stomach. 4. PICC line from left arm in place in the superior vena cava not significantly changed from earlier study. ATED BY: JERAMIE LIZAMA Jr., DO DICTATED DATE/TIME: 08/28/259 ORDERING PHYSICIAN: ELROY SEO PROCEDURE(s): CXR1 - CHEST XRAY 1 VIEW REASON: pneumothorax ORDER NUMBER(s): [id number], ACCESSION NUMBER(s): [id number] CHEST RADIOGRAPH Indication: pneumothorax Technique: Single frontal view of the chest was obtained COMPARISON: XY CHEST XRAY 1 VIEW on DOS: 08/28/25, XY CHEST XRAY 1 VIEW on DOS: 08/28/25, XY CHEST PORTABLE on DOS: 08/28/25, XY CHEST XRAY 1 VIEW on DOS: 08/27/25, XY CHEST XRAY 1 VIEW on DOS: 08/26/25 FINDINGS: Lines and Tubes: Unchanged. Lungs: Grossly stable appearing patchy bibasilar pulmonary airspace disease. Pleura: No effusion. No pneumothorax. Cardiomediastinal contours: Unremarkable Bones: Unremarkable IMPRESSION: 1. Stable appearing patchy bibasilar pulmonary airspace disease. 2. Lines and tubes unchanged. ATED BY: ARABELLA WICK MD DICTATED DATE/TIME: 08/29/25 0421 Condition at Discharge: Good Final Diagnosis/Problems List # Acute metabolic/hypoxic encephalopathy: Secondary to cardiac arrest and sepsis. # Dementia: Pre-existing condition. # Status post cardiac arrest: Initial rhythm asystole. # Cardiogenic shock. # Possible septic shock. # NSTEMI (Type 2) likely due to above # AFIB with RVR # Acute hypoxic respiratory failure: Secondary to cardiopulmonary arrest # Left pneumothorax: Likely CPR-related- and on chest tube # Rib fractures: Multiple left-sided. # Shock liver: Secondary to cardiac arrest. # Transaminitis likely due to shock liver # Septic shock likely from UTI # Acute Complicated UTI # Acute kidney injury (NAIMA): Likely volume-mediated. # Hypernatremia # Left-sided rib fractures: Due to CPR. # right breast mass # METS TO BONE/LIVER/SPINE Discharge Disposition: Acute Care Facility Discharge Instruct/Medications Diet: See Comment Diet comment: you, NPO Activity: Bed rest Medications: As per prescription Discharge Statement: "Patient was advised to return to the ER or call 911 if any headaches, dizziness, shortness of breath, chest pain, abdominal pain, bleeding, fevers, or worsening of medical condition. Patient was counseled about treatment plan, medications, possible side effects, patientverbalized understanding. All questions were answered to the best of my ability. This discharge took greater then 30 minutes in planning, reviewing documentation, counseling the patient, and discussing with other team members." ASSESSMENT ASSESSMENT Assessment Acute metabolic encephalopathy Status post cardiac arrest cardiogenic shock Acute hypoxic respiratory failure Date of Service: Aug 29, 2025 Billing Provider: PURNIMA SOL MD Common Visit Codes: [id number] CARE 30-74 MIN PER HARDY Aug 29, 2025 16:30 PURNIMA SOL MD Aug 30, 2025 14:31
[2025-08-30] VITALS (63 sets, daily range): BP systolic 98–152; BP diastolic 30–96; PULSE 76–96; RESP 14–23; TEMP 98.7–99.4; O2SAT 98–100
[2025-08-30] MEDS: ENOXAPARIN SOD 40 MG/0.4 ML SYRINGE SC SCH (09:32)
--- NOTE | 2025-08-30 10:22 | DVHPN2 ---
Progress Note - Dictate Date Seen: Aug 30, 2025 Has the PT tested + for MRSA If YES, has PT been informed?: Yes Medical Necessity Reason Pt with a Central, PICC or Fol: Yes Subjective Ms. Earl is a 75 years old female with a history of dementia, she was brought to the [facility] on 08/15/2025 with a chief complaint of cardiac arrest. I have seen and examined the patient. I have discussed with her nurse. She is awake, but she is not responsive to my verbal stimuli. Blood culture, 08/23/2025: Urinalysis, 08/15/2025: WBC: 43, urine leukocyte esterase: Trace ABG, 08/15/2025: Metabolic acidosis, 08/17/2025: Compensated metabolic acidosis WBC/HGB/PLT/MCV, 08/16/2025: 14.4/10.3/286/95, 08/26/2025: 18/8.7/479/95.9, 08/28/2025: 27.4/8.6/473/95.7. 08/29/2025: 17.5/7.5/437/96.1 BUN/CR, 08/16/2025: 23/1.35 GFR, 08/16/2025: 40 HGB A1c, 08/15/2025: 4.6 Lactic acid, 08/15/2025: 9.7, 7.1, 3.1 TBI/AST/ALT/AP, 08/16/2025: 0.5/748/712/276, 08/17/2025: 0.5/296/463/231 EEG, 08/17/2025: Mildly abnormal CT head, 08/15/2025 0716: Global brain atrophy with prominence of the ventricular system out of proportion to the size of the sulci. This appearance may be due to central brain atrophy or normal pressure hydrocephalus. CT head, 08/16/25 2235: 1. No acute intracranial abnormality. 2. 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 loss vital signs Vital Sign Date Time Temp Pulse Resp B/P (MAP) Pulse Ox O2 Delivery O2 Flow Rate FiO2 08/30/25 10:00 20 99 Nasal Cannula* 3 32 08/30/25 10:00 96 08/30/25 10:00 137/51 (79) 08/30/25 08:00 99.1 99.1 Total Intake and Output 08/29/25 08/29/25 08/30/25 15:00 23:00 07:00 Intake Total 360 ml 540 ml Output Total 260 ml 382 ml Balance 100 ml 158 ml medications Current Medications Medications Dose Ordered Sig/[place] Route Start Time Stop Time Status Last Admin Dose Admin Dextrose 50 ml UD PRN IV 08/15/25 10:30 Enteral Nutritional Formula 1,000 ml 30ML/HR GT 08/16/25 12:00 08/29/25 21:55 1,000 ML Hydralazine HCl 10 mg Q6HP PRN IV 08/18/25 16:15 08/23/25 10:29 10 MG Ipratropium [place] 0.5 mg Q6HPRN PRN NEB 08/22/25 01:45 08/30/25 05:59 0.5 MG Levalbuterol HCl 0.625 mg Q6HR PRN NEB 08/22/25 01:45 08/30/25 05:59 0.625 MG Pantoprazole Sodium 40 mg DAILY IV 08/23/25 10:00 08/30/25 09:32 40 MG Sodium Chloride 10 ml QSHIFT@ IV 08/23/25 22:00 08/30/25 09:32 10 ML Amiodarone HCl 200 mg Q12HR PO 08/24/25 10:00 08/30/25 09:32 200 MG Acetaminophen/ Hydrocodone Bitart 1 tab Q6HPRN PRN PO 08/25/25 16:30 08/29/25 10:38 1 TAB Acetaminophen 650 mg Q6HP PRN PO 08/27/25 12:30 08/27/25 12:44 650 MG Cefepime HCl 50 ml @ 12.5 mls/hr Q12HR IV 08/27/25 22:00 08/30/25 09:31 12.5 MLS/HR Doxycycline Hyclate 100 ml @ 50 mls/hr Q12H IV 08/27/25 15:45 08/30/25 03:45 50 MLS/HR Acetylcysteine 600 mg TID NEB 08/27/25 22:00 08/30/25 06:00 600 MG Enoxaparin Sodium 40 mg DAILY SC 08/30/25 10:00 08/30/25 09:32 40 MG objective The patient is well-nourished and well-developed with no distress. MENTAL STATUS: Subjective CRANIAL NERVES: Pupils are equal, round and slightly reactive. Eyes are assisted open. No signs of facial weakness. Sensorimotor examined in bilateral trigeminal distribution is okay SENSATION: Responses to light painful stimuli. MOTOR: Normal tone in the upper and lower extremity. Normal muscle bulk. No fasciculations. She does not move extremities REFLEXES: Deep tendon reflexes are symmetrical. No pathological reflexes. CEREBELLAR/COORDINATION: Deferred GAIT/STATION: deferred. laboratory and microbiology Laboratory Tests 08/29/25 03:22 Test 08/29/25 03:22 Range/Units Serum Glucose 119 H 74-106 mg/dL Problem List Coma, resolved Metabolic encephalopathy Hypoxic encephalopathy Toxic encephalopathy Cardiopulmonary arrest Acute respiratory failure, resolved Leukocytosis/sepsis Metabolic acidosis Shocked liver, recovering Dementia, she may have advanced dementia, likely Alzheimer disease, Assessment/Plan Monitoring Supportive treatment ICU care Follow-up lab tests Respiratory support p.r.n. Oxygen IV antibiotics GI prophylaxis/famotidine DVT prophylaxis/Lovenox More recommendation per clinical course She is likely to have a poor prognosis for meaningful/overall recovery This medical document was created using an electronic medical record system with [employer] computerized dictation system. Although this document has been carefully reviewed, there may still be some phonetic and typographical errors. These areas are purely typographical due to imperfections of the software programs, and do not reflect any compromise in the patient's medical care Prognosis Poor Dietary Evaluation Review Comments: Nutrition Recommendation: 1) EN Jevity 1.2 Demarcus @ 400ml/hr x 24hr(goal). Water flush 100ml Q6H if allowed, adjust PRN. TF at goal volume provides 1152 kcal (100%), 53gm protein (100%), and 1175 ml free water (including flush). 2) Consider TPN/PN if NPO>7 days 3) Advance diet as medically feasible 4) Monitor TF tolerance, lab values, weight trend, and I/O Expected Outcomes/Goals: Intake to meet >75% estimated needs Lab values to improve Fu 2-3 days Plan discussed with: Other TONI ADAMSON MD Aug 30, 2025 10:22
[2025-08-30 16:41] LABS: Glucose, Body Fluid 76.0 mg/dL (.); LD, Body Fluid 335.0 IU/L (.)
--- NOTE | 2025-08-30 18:04 | DVHPNRES ---
Progress Note Date Seen: Aug 30, 2025 Resident Creating Document: PER HARDY RESIDENT Has the PT tested + for MRSA If YES, has PT been informed?: Yes Medical Necessity Reason Pt with a Central, PICC or Fol: Yes Subjective Review of Systems This is a 75-year-old female with a known history of dementia who was brought to the hospital by EMS following a cardiac arrest at home. According to her daughter, the patient was last seen at her baseline the night before the incident, with no complaints. On the morning of 08/15 at approximately 5:30 a.m., she was found kneeling beside her bed with her hand resting on the bed rail, exhibiting labored breathing and a faint carotid pulse. Cardiopulmonary resuscitation (CPR) was initiated by the family, and EMS arrived approximately 15 minutes later. Upon EMS arrival, the patient was found to be in a non-shockable rhythm. En route to the hospital, she received epinephrine and was intubated. Return of spontaneous circulation (ROSC) was achieved prior to hospital arrival. At baseline, the patient lived at home with her daughter. She was non-verbal, required a walker for mobility, and needed assistance with activities of daily living. She was incontinent of bowel and bladder and did not take any prescribed medications, relying instead on holistic remedies. She has no known drug allergies. Patient seen and examined at bedside evaluation today, Patient today is opening her eyes and moving her legs and arms. Patient is maintaining well oxygen with 2L O2. patient is to be transferred to [place]. Objective vital signs Vital Sign Date Time Temp Pulse Resp B/P (MAP) Pulse Ox O2 Delivery O2 Flow Rate FiO2 08/30/25 16:00 99.1 94 19 127/55 (79) 99 99.1 08/30/25 16:00 Nasal Cannula* 2 28 Total Intake and Output 08/29/25 08/29/25 08/30/25 15:00 23:00 07:00 Intake Total 360 ml 540 ml Output Total 260 ml 382 ml Balance 100 ml 158 ml medications Current Medications Medications Dose Ordered Sig/[place] Route Start Time Stop Time Status Last Admin Dose Admin Dextrose 50 ml UD PRN IV 08/15/25 10:30 Enteral Nutritional Formula 1,000 ml 30ML/HR GT 08/16/25 12:00 08/29/25 21:55 1,000 ML Hydralazine HCl 10 mg Q6HP PRN IV 08/18/25 16:15 08/23/25 10:29 10 MG Ipratropium [place] 0.5 mg Q6HPRN PRN NEB 08/22/25 01:45 08/30/25 14:03 0.5 MG Levalbuterol HCl 0.625 mg Q6HR PRN NEB 08/22/25 01:45 08/30/25 14:03 0.625 MG Pantoprazole Sodium 40 mg DAILY IV 08/23/25 10:00 08/30/25 09:32 40 MG Sodium Chloride 10 ml QSHIFT@, IV 08/23/25 22:00 08/30/25 09:32 10 ML Amiodarone HCl 200 mg Q12HR PO 08/24/25 10:00 08/30/25 09:32 200 MG Acetaminophen/ Hydrocodone Bitart 1 tab Q6HPRN PRN PO 08/25/25 16:30 08/29/25 10:38 1 TAB Acetaminophen 650 mg Q6HP PRN PO 08/27/25 12:30 08/27/25 12:44 650 MG Cefepime HCl 50 ml @ 12.5 mls/hr Q12HR IV 08/27/25 22:00 08/30/25 09:31 12.5 MLS/HR Doxycycline Hyclate 100 ml @ 50 mls/hr Q12H IV 08/27/25 15:45 08/30/25 15:55 50 MLS/HR Acetylcysteine 600 mg TID NEB 08/27/25 22:00 08/30/25 14:03 600 MG Enoxaparin Sodium 40 mg DAILY SC 08/30/25 10:00 08/30/25 09:32 40 MG Examination pt lying in bed General Appearance: Extubated, opening eyes but not alert, oriented HEENT: Atraumatic, Mucous membranes moist/pink, NG tube in place Respiratory: Bilateral crackles heard on auscultation Cardiovascular: Regular rate, Normal S1, Normal S2, No murmurs Abdominal: Active bowel sounds, Soft, no distention, no tenderness Extremities: No edema, Normal pulses, No tenderness/swelling Skin: Left-sided subcutaneous emphysema, bedside chest tube, has right IJ Neuro: pupils reactive, cough and gag reflex intact laboratory and microbiology Laboratory Tests 08/29/25 03:22 Test 08/29/25 03:22 Range/Units Serum Glucose 119 H 74-106 mg/dL Microbiology Date/Time Source Procedure Growth Status 08/28/25 15:45 Pleural Fluid Gram Stain - Final Resulted 08/28/25 15:45 Pleural Fluid Body Fluid Culture - Preliminary Resulted 08/28/25 01:55 Sputum Gram Stain - Final Resulted 08/28/25 01:55 Sputum Respiratory Culture - Preliminary Resulted 08/27/25 20:25 Voided Urine Urine Culture - Final Complete 08/27/25 17:51 Blood Blood Culture - Preliminary NO GROWTH AFTER 72 HOURS OF INCUBATION. Resulted 08/15/25 14:05 Nose MRSA Screen - Final Complete Problem List/Assessment/Plan Problem List/Assessment/Plan Neurology # Acute metabolic/hypoxic encephalopathy: Secondary to cardiac arrest and sepsis. # Dementia: Pre-existing condition. - CT head (08/15): No acute intracranial abnormalities. - CT head (08/17): No acute findings; severe atrophic changes. - Continue supportive care. - Neurology on board, stated that patient has poor prognosis - currently off from all sedatives Cardiovascular # Status post cardiac arrest: Initial rhythm asystole. # Cardiogenic shock. # Possible septic shock. # NSTEMI (Type 2) likely due to above # AFIB with RVR - EKG: Sinus tachycardia, no significant ST/T wave changes. - Troponin I: Mild elevation. - IV fluid resuscitation. - Monitor cardiac enzymes and rhythm - currently not on pressors Respiratory # Acute hypoxic respiratory failure: Secondary to cardiopulmonary arrest status post intubation # Left pneumothorax: Likely CPR-related- and on chest tube # Rib fractures: Multiple left-sided. - Chest X-ray (08/15): ~35% left pneumothorax, multiple left rib fractures. - Chest X-ray (08/16): Slight increase in pneumothorax size, progressive subcutaneous emphysema. - Chest Xray (08/26)- showed Persistent left apical pneumothorax. Left chest tube unchanged in position. Right middle and lower lobe atelectasis. - Chest tube placement. - sputum cultures no growth - discontinued Zosyn 08/27, changed to cefepime, doxycycline - vancomycin discontinued 08/22 - blood culture on 08/15 showed Peptostreptococcus Prevotii. -chest x-ray showed right-sided pleural effusion -bedside ultrasound showed moderate right side pleural effusion, possible right thoracocentesis tomorrow. Gastrointestinal / Nutrition / Liver # Shock liver: Secondary to cardiac arrest. # Transaminitis likely due to shock liver - continuously monitor lab - Nutritional support via Jevity tube feeding. - liver ultrasound showed Multiple liver masses are noted measuring up to 4 cm, concerning for metastases, Gallstones, Mild left hydronephrosis. - noncontrast CT chest/abdomen/pelvis ordered Genitourinary / Kidney / Fluids # Septic shock likely from UTI # Acute Complicated UTI # Acute kidney injury (NAIMA): Likely volume-mediated. # Hypernatremia - Urine culture, blood culture pending - IV antibiotics Zosyn (started 08/16) discontinued vancomycin 08/22 - Monitor renal function and fluid status. - Monitor cultures and adjust antibiotics accordingly. - pancultures ordered(08/27) Musculoskeletal / Skin # Left-sided rib fractures: Due to CPR. - Conservative medical management. - Pain control as needed. Oncology : # right breast mass - breast biopsy to be done - right breast ultrasound showed Heterogeneous shadowing structure in the right breast adjacent to the nipple 9 o'clock region measuring 2.3 x 1.3 x 2.0 cm. Further evaluation with diagnostic mammogram is recommended. - CT chest /abdomen/pelvis showed Heterogeneous hypodense lesions in the liver compatible with metastatic disease. Bony demineralization. Scattered soft tissue lucent lesions in the lumbar spine and pelvis compatible with metastatic disease.Mild ascites and body wall edema. There is either [id number] bilateral hydronephrosis versus bilateral renal sinus cysts, not optimally evaluated without intravenous contrast.Tiny nonobstructing right renal calculus. Ptotic Right kidney. - liver ultrasound showed Multiple liver masses are noted measuring up to 4 cm, concerning for metastases. Gallstones. Mild left hydronephrosis. Nutrition: Jevity via tube feeding. Bowel Regimen: Lactulose as needed. GI Prophylaxis: protonix DVT Prophylaxis: Lovenox. Lines / Tubes / Devices Airway: Intubated via ETT on 08/15. Extubated on 08/24 Vascular Access: Right internal jugular (IJ) central line placed on 08/15., ordered PICC placed 08/25 Drips: Currently off pressors and sedatives. Urinary: [place] catheter placed on 08/15. Goals of care discussed with the patient's family for more than 29 minutes: Full code status Care plan updated to the patient's family on bedside, addressed all concerns, d iscussion with family done in great detail about patient's goals of care, her option of hospice, family communicated understanding, patient's daughter states that she will talk to and family and make decision. Critical care time spent more than 82 minutes excluding procedures and discussion with the family Case discussed with Dr Quintero and RN, daughter(Zoe) Plan discussed with: Daughter My Orders My Orders Orders - PER HARDY Procedure Category Date Status Time * Supervisor Records Change CONS 08/30/25 Transmitted Consult Dietary Evaluation Review Comments: Nutrition Recommendation: 1) EN Jevity 1.2 [place]arcus @ 400ml/hr x 24hr(goal). Water flush 100ml Q6H if allowed, adjust PRN. TF at goal volume provides 1152 kcal (100%), 53gm protein (100%), and 1175 ml free water (including flush). 2) Consider TPN/PN if NPO>7 days 3) Advance diet as medically feasible 4) Monitor TF tolerance, lab values, weight trend, and I/O Expected Outcomes/Goals: Intake to meet >75% estimated needs Lab values to improve Fu 2-3 days Date of Service: Aug 30, 2025 Billing Provider: PURNIMA SOL MD Common Visit Codes: 46094-[id number] CARE 30-74 MIN, [id number] CARE-EACH +30MIN PER HARDY Aug 30, 2025 18:04 PURNIMA SOL MD Aug 31, 2025 13:30
[2025-08-31] VITALS (38 sets, daily range): BP systolic 91–164; BP diastolic 41–55; PULSE 78–98; RESP 16–24; TEMP 97.7–99; O2SAT 97–100
--- NOTE | 2025-08-31 08:32 | DVHPNRES ---
Progress Note Date Seen: Aug 31, 2025 Resident Creating Document: PER HARDY RESIDENT Has the PT tested + for MRSA If YES, has PT been informed?: Yes Medical Necessity Reason Pt with a Central, PICC or Fol: Yes Subjective Review of Systems This is a 75-year-old female with a known history of dementia who was brought to the hospital by EMS following a cardiac arrest at home. According to her daughter, the patient was last seen at her baseline the night before the incident, with no complaints. On the morning of 08/15 at approximately 5:30 a.m., she was found kneeling beside her bed with her hand resting on the bed rail, exhibiting labored breathing and a faint carotid pulse. Cardiopulmonary resuscitation (CPR) was initiated by the family, and EMS arrived approximately 15 minutes later. Upon EMS arrival, the patient was found to be in a non-shockable rhythm. En route to the hospital, she received epinephrine and was intubated. Return of spontaneous circulation (ROSC) was achieved prior to hospital arrival. At baseline, the patient lived at home with her daughter. She was non-verbal, required a walker for mobility, and needed assistance with activities of daily living. She was incontinent of bowel and bladder and did not take any prescribed medications, relying instead on holistic remedies. She has no known drug allergies. Patient seen and examined at bedside evaluation today, Patient today is opening her eyes and moving her legs and arms. Patient is maintaining well oxygen with 2L O2. patient is to be transferred to [place]. Patients Daughter refused PRBC. as hb 6.9. Objective vital signs Vital Sign Date Time Temp Pulse Resp B/P (MAP) Pulse Ox O2 Delivery O2 Flow Rate FiO2 08/31/25 08:00 83 08/31/25 07:52 19 100 Nasal Cannula* 2 28 08/31/25 07:00 08/31/25 04:00 98.7 98.7 Total Intake and Output 08/30/25 08/30/25 08/31/25 15:00 23:00 07:00 Intake Total 50.0 ml 354 ml 536 ml Output Total 395 ml 400 ml Balance 50.0 ml -41 ml 136 ml medications Current Medications Medications Dose Ordered Sig/[place] Route Start Time Stop Time Status Last Admin Dose Admin Dextrose 50 ml UD PRN IV 08/15/25 10:30 Enteral Nutritional Formula 1,000 ml 30ML/HR GT 08/16/25 12:00 08/30/25 22:01 1,000 ML Hydralazine HCl 10 mg Q6HP PRN IV 08/18/25 16:15 08/31/25 00:11 10 MG Ipratropium [place] 0.5 mg Q6HPRN PRN NEB 08/22/25 01:45 08/31/25 05:50 0.5 MG Levalbuterol HCl 0.625 mg Q6HR PRN NEB 08/22/25 01:45 08/31/25 05:50 0.625 MG Pantoprazole Sodium 40 mg DAILY IV 08/23/25 10:00 08/31/25 08:17 40 MG Sodium Chloride 10 ml QSHIFT@10,22 IV 08/23/25 22:00 08/31/25 08:18 10 ML Amiodarone HCl 200 mg Q12HR PO 08/24/25 10:00 08/31/25 08:17 200 MG Acetaminophen/ Hydrocodone Bitart 1 tab Q6HPRN PRN PO 08/25/25 16:30 08/29/25 10:38 1 TAB Acetaminophen 650 mg Q6HP PRN PO 08/27/25 12:30 08/27/25 12:44 650 MG Cefepime HCl 50 ml @ 12.5 mls/hr Q12HR IV 08/27/25 22:00 08/31/25 08:18 12.5 MLS/HR Doxycycline Hyclate 100 ml @ 50 mls/hr Q12H IV 08/27/25 15:45 08/31/25 03:46 50 MLS/HR Acetylcysteine 600 mg TID NEB 08/27/25 22:00 08/31/25 05:50 600 MG Enoxaparin Sodium 40 mg DAILY SC 08/30/25 10:00 08/31/25 08:17 40 MG Examination pt lying in bed General Appearance: Extubated, opening eyes but not alert, oriented HEENT: Atraumatic, Mucous membranes moist/pink, NG tube in place Respiratory: Bilateral crackles heard on auscultation Cardiovascular: Regular rate, Normal S1, Normal S2, No murmurs Abdominal: Active bowel sounds, Soft, no distention, no tenderness Extremities: No edema, Normal pulses, No tenderness/swelling Skin: Left-sided subcutaneous emphysema, bedside chest tube, has right IJ Neuro: pupils reactive, cough and gag reflex intact laboratory and microbiology Laboratory Tests 08/29/25 03:22 Test 08/29/25 03:22 Range/Units Serum Glucose 119 H 74-106 mg/dL Microbiology Date/Time Source Procedure Growth Status 08/28/25 15:45 Pleural Fluid Gram Stain - Final Resulted 08/28/25 15:45 Pleural Fluid Body Fluid Culture - Preliminary Resulted 08/28/25 01:55 Sputum Gram Stain - Final Resulted 08/28/25 01:55 Sputum Respiratory Culture - Preliminary Resulted 08/27/25 20:25 Voided Urine Urine Culture - Final Complete 08/27/25 17:51 Blood Blood Culture - Preliminary NO GROWTH AFTER 72 HOURS OF INCUBATION. Resulted 08/15/25 14:05 Nose MRSA Screen - Final Complete Problem List/Assessment/Plan Problem List/Assessment/Plan Neurology # Acute metabolic/hypoxic encephalopathy: Secondary to cardiac arrest and sepsis. # Dementia: Pre-existing condition. - CT head (08/15): No acute intracranial abnormalities. - CT head (08/17): No acute findings; severe atrophic changes. - Continue supportive care. - Neurology on board, stated that patient has poor prognosis - currently off from all sedatives Cardiovascular # Status post cardiac arrest: Initial rhythm asystole. # Cardiogenic shock. # Possible septic shock. # NSTEMI (Type 2) likely due to above # AFIB with RVR - EKG: Sinus tachycardia, no significant ST/T wave changes. - Troponin I: Mild elevation. - IV fluid resuscitation. - Monitor cardiac enzymes and rhythm - currently not on pressors Respiratory # Acute hypoxic respiratory failure: Secondary to cardiopulmonary arrest status post intubation # Left pneumothorax: Likely CPR-related- and on chest tube # Rib fractures: Multiple left-sided. - Chest X-ray (08/15): ~35% left pneumothorax, multiple left rib fractures. - Chest X-ray (08/16): Slight increase in pneumothorax size, progressive subcutaneous emphysema. - Chest Xray (08/26)- showed Persistent left apical pneumothorax. Left chest tube unchanged in position. Right middle and lower lobe atelectasis. - Chest tube placement. - sputum cultures no growth - discontinued Zosyn 08/27, changed to cefepime, doxycycline - vancomycin discontinued 08/22 - blood culture on 08/15 showed Peptostreptococcus Prevotii. -chest x-ray showed right-sided pleural effusion -bedside ultrasound showed moderate right side pleural effusion, possible right thoracocentesis tomorrow. Gastrointestinal / Nutrition / Liver # Shock liver: Secondary to cardiac arrest. # Transaminitis likely due to shock liver - continuously monitor lab - Nutritional support via Jevity tube feeding. - liver ultrasound showed Multiple liver masses are noted measuring up to 4 cm, concerning for metastases, Gallstones, Mild left hydronephrosis. - noncontrast CT chest/abdomen/pelvis ordered Genitourinary / Kidney / Fluids # Septic shock likely from UTI # Acute Complicated UTI # Acute kidney injury (NAIMA): Likely volume-mediated. # Hypernatremia - Urine culture, blood culture pending - IV antibiotics Zosyn (started 08/16) discontinued vancomycin 08/22 - Monitor renal function and fluid status. - Monitor cultures and adjust antibiotics accordingly. - pancultures ordered(08/27) Musculoskeletal / Skin # Left-sided rib fractures: Due to CPR. - Conservative medical management. - Pain control as needed. Oncology : # right breast mass - breast biopsy to be done - right breast ultrasound showed Heterogeneous shadowing structure in the right breast adjacent to the nipple 9 o'clock region measuring 2.3 x 1.3 x 2.0 cm. Further evaluation with diagnostic mammogram is recommended. - CT chest /abdomen/pelvis showed Heterogeneous hypodense lesions in the liver compatible with metastatic disease. Bony demineralization. Scattered soft tissue lucent lesions in the lumbar spine and pelvis compatible with metastatic disease.Mild ascites and body wall edema. There is either [id number] bilateral hydronephrosis versus bilateral renal sinus cysts, not optimally evaluated without intravenous contrast.Tiny nonobstructing right renal calculus. Ptotic Right kidney. - liver ultrasound showed Multiple liver masses are noted measuring up to 4 cm, concerning for metastases. Gallstones. Mild left hydronephrosis. Nutrition: Jevity via tube feeding. Bowel Regimen: Lactulose as needed. GI Prophylaxis: protonix DVT Prophylaxis: Lovenox. Lines / Tubes / Devices Airway: Intubated via ETT on 08/15. Extubated on 08/24 Vascular Access: Right internal jugular (IJ) central line placed on 08/15., ordered PICC placed 08/25 Drips: Currently off pressors and sedatives. Urinary: [place] catheter placed on 08/15. Goals of care discussed with the patient's family for more than 29 minutes: Full code status Care plan updated to the patient's family on bedside, addressed all concerns, d iscussion with family done in great detail about patient's goals of care, her option of hospice, family communicated understanding, Patient is to be transferred to [place]. Critical care time spent more than 82 minutes excluding procedures and discussion with the family Case discussed with Dr Quintero and RN, daughter(Zoe) Plan discussed with: Daughter My Orders My Orders Orders - PER HARDY Procedure Category Date Status Time * Child Care Associate Teacher CONS 08/30/25 Transmitted Consult Dietary Evaluation Review Comments: Nutrition Recommendation: 1) EN Jevity 1.2 [place] @ 400ml/hr x 24hr(goal). Water flush 100ml Q6H if allowed, adjust PRN. TF at goal volume provides 1152 kcal (100%), 53gm protein (100%), and 1175 ml free water (including flush). 2) Consider TPN/PN if NPO>7 days 3) Advance diet as medically feasible 4) Monitor TF tolerance, lab values, weight trend, and I/O Expected Outcomes/Goals: Intake to meet >75% estimated needs Lab values to improve Fu 2-3 days Date of Service: Aug 31, 2025 Billing Provider: PURNIMA SOL MD Common Visit Codes: 04868-[id number] CARE 30-74 MIN, [id number] CARE-EACH +30MIN PER HARDY Aug 31, 2025 08:32 PURNIMA SOL MD Sep 01, 2025 11:24
--- NOTE | 2025-08-31 10:06 | DVHPN2 ---
Progress Note - Dictate Date Seen: Aug 31, 2025 Has the PT tested + for MRSA If YES, has PT been informed?: Yes Medical Necessity Reason Pt with a Central, PICC or Fol: Yes Subjective Ms. Earl is a 75 years old female with a history of dementia, she was [facility] to the [facility] on 08/15[facility]2025 with a chief complaint of cardiac arrest. I have seen and examined the patient. I have discussed with her nurse. She is awake, but she is not responsive to my verbal stimuli. Her arms flexed tightly to the chest Blood culture, 08/23/2025: Urinalysis, 08/15/2025: WBC: 43, urine leukocyte esterase: Trace ABG, 08/15/2025: Metabolic acidosis, 08/17/2025: Compensated metabolic acidosis WBC/HGB/PLT/MCV, 08/16/2025: 14.4/10.3/286/95, 08/26/2025: 18/8.7/479/95.9, 08/28/2025: 27.4/8.6/473/95.7. 08/29/2025: 17.5/7.5/437/96.1 BUN/CR, 08/16/2025: 23/1.35 GFR, 08/16/2025: 40 HGB A1c, 08/15/2025: 4.6 Lactic acid, 08/15/2025: 9.7, 7.1, 3.1 TBI/AST/ALT/AP, 08/16/2025: 0.5/748/712/276, 08/17/2025: 0.5/296/463/231 EEG, 08/17/2025: Mildly abnormal CT head, 08/15/2025 0716: Global brain atrophy with prominence of the ventricular system out of proportion to the size of the sulci. This appearance may be due to central brain atrophy or normal pressure hydrocephalus. CT head, 08/16/25 2235: 1. No acute intracranial abnormality. 2. 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 loss vital signs Vital Sign Date Time Temp Pulse Resp B/P (MAP) Pulse Ox O2 Delivery O2 Flow Rate FiO2 08/31/25 10:00 16 100 Nasal Cannula* 2 28 08/31/25 10:00 81 107/41 (63) 08/31/25 08:00 98.3 98.3 Total Intake and Output 08/30/25 08/30/25 08/31/25 15:00 23:00 07:00 Intake Total 50.0 ml 354 ml 536 ml Output Total 395 ml 400 ml Balance 50.0 ml -41 ml 136 ml medications Current Medications Medications Dose Ordered Sig/[place] Route Start Time Stop Time Status Last Admin Dose Admin Dextrose 50 ml UD PRN IV 08/15/25 10:30 Enteral Nutritional Formula 1,000 ml 30ML/HR GT 08/16/25 12:00 08/30/25 22:01 1,000 ML Hydralazine HCl 10 mg Q6HP PRN IV 08/18/25 16:15 08/31/25 00:11 10 MG Ipratropium [place] 0.5 mg Q6HPRN PRN NEB 08/22/25 01:45 08/31/25 05:50 0.5 MG Levalbuterol HCl 0.625 mg Q6HR PRN NEB 08/22/25 01:45 08/31/25 05:50 0.625 MG Pantoprazole Sodium 40 mg DAILY IV 08/23/25 10:00 08/31/25 08:17 40 MG Sodium Chloride 10 ml QSHIFT@ IV 08/23/25 22:00 08/31/25 08:18 10 ML Amiodarone HCl 200 mg Q12HR PO 08/24/25 10:00 08/31/25 08:17 200 MG Acetaminophen/ Hydrocodone Bitart 1 tab Q6HPRN PRN PO 08/25/25 16:30 08/29/25 10:38 1 TAB Acetaminophen 650 mg Q6HP PRN PO 08/27/25 12:30 08/27/25 12:44 650 MG Cefepime HCl 50 ml @ 12.5 mls/hr Q12HR IV 08/27/25 22:00 08/31/25 08:18 12.5 MLS/HR Doxycycline Hyclate 100 ml @ 50 mls/hr Q12H IV 08/27/25 15:45 08/31/25 03:46 50 MLS/HR Acetylcysteine 600 mg TID NEB 08/27/25 22:00 08/31/25 05:50 600 MG Enoxaparin Sodium 40 mg DAILY SC 08/30/25 10:00 08/31/25 08:17 40 MG objective The patient is well-nourished and well-developed with no distress. MENTAL STATUS: Subjective CRANIAL NERVES: Pupils are equal, round and slightly reactive. Eyes are long term open. No signs of facial weakness. Sensorimotor examined in bilateral trigeminal distribution is okay SENSATION: Responses to light painful stimuli. MOTOR: Normal tone in the upper and lower extremity. Normal muscle bulk. No fasciculations. She does not move extremities REFLEXES: Deep tendon reflexes are symmetrical. No pathological reflexes. CEREBELLAR/COORDINATION: Deferred GAIT/STATION: deferred. laboratory and microbiology Laboratory Tests 08/29/25 03:22 Test 08/29/25 03:22 Range/Units Serum Glucose 119 H 74-106 mg/dL Problem List Coma, resolved Metabolic encephalopathy Hypoxic encephalopathy Toxic encephalopathy Cardiopulmonary arrest Acute respiratory failure, resolved Leukocytosis/sepsis Metabolic acidosis Shocked liver, recovering Dementia, she may have advanced dementia, likely Alzheimer disease, Assessment/Plan Monitoring Supportive treatment ICU care Follow-up lab tests Respiratory support p.r.n. Oxygen IV antibiotics GI prophylaxis/famotidine DVT prophylaxis/Lovenox More recommendation per clinical course She is likely to have a poor prognosis for meaningful/overall recovery This medical document was created using an electronic medical record system with [employer] dictation system. Although this document has been carefully reviewed, there may still be some phonetic and typographical errors. These areas are purely typographical due to imperfections of the software programs, and do not reflect any compromise in the patient's medical care Prognosis oor Dietary Evaluation Review Comments: Nutrition Recommendation: 1) EN Jevity 1.2 [place] @ 400ml/hr x 24hr(goal). Water flush 100ml Q6H if allowed, adjust PRN. TF at goal volume provides 1152 kcal (100%), 53gm protein (100%), and 1175 ml free water (including flush). 2) Consider TPN/PN if NPO>7 days 3) Advance diet as medically feasible 4) Monitor TF tolerance, lab values, weight trend, and I/O Expected Outcomes/Goals: Intake to meet >75% estimated needs Lab values to improve Fu 2-3 days Plan discussed with: Daughter, Other TONI ADAMSON MD Aug 31, 2025 10:06
[2025-08-31 13:34] LABS: Hematocrit 21.2 % (36.0-46.0); Mean Corpuscular Hemoglobin 31.7 pg (28.0-32.0); Mean Corpuscular Volume 96.9 fL (80.0-100.0); Nucleated Red Blood Cells % 0.1 %
[2025-08-31 13:36] LABS: Chloride 103 mmol/L (98-107); Potassium 4.4 mmol/L (3.5-5.1); Sodium 139 mmol/L (136-145)
[2025-08-31 13:37] LABS: Anion Gap 7 (5-15); Carbon Dioxide 29 mmol/L (20-31)
[2025-08-31 13:39] LABS: Calcium 8.4 mg/dL (8.7-10.4); Hemoglobin 6.9 g/dL (12.2-16.2)
[2025-08-31 13:42] LABS: BUN/Creatinine Ratio 29.2 (10.0-20.0)
[2025-08-31 13:48] LABS: Blood Urea Nitrogen 26 mg/dL (9-23); Glucose 111 mg/dL (74-106)
--- NOTE | 2025-08-31 14:16 | DVH ---
CHEST RADIOGRAPH REASON FOR EXAM: chest tube COMPARISON: XY CHEST XRAY 1 VIEW on DOS: 08/29/25, XY CHEST XRAY 1 VIEW on DOS: 08/28/25, XY CHEST XR AY 1 VIEW on DOS: 08/28/25, XY CHEST PORTABLE on DOS: 08/28/25, XY CHEST XRAY 1 VIEW on DOS: 08/27/25 TECHNIQUE: One view of the chest is provided FINDINGS: The cardiomediastinal silhouette is stable. There is a left chest tube terminating near the thoracic apex. There is a left upper extremity PICC with the catheter tip projecting over the lower SVC. There is an enteric tube coursing below the diaphragm and out of the field of view. There is un changed diffuse bilateral airspace disease. There are small bilateral pleural effusions. No pneumotho rax is identified on the current study. There is mildly displaced fracture of the left 5th and 6th ri bs. IMPRESSION: Lines and tubes as described above. Stable appearance of bilateral airspace disease. Fractured left 5th and 6th ribs.
[2025-08-31 16:15] LABS: Iron 26.0 ug/dL (50-170)
[2025-08-31 16:18] LABS: Total Iron Binding Capacity 177.0 ug/dL (250-425)
--- NOTE | 2025-08-31 18:13 | DVH ---
CHEST RADIOGRAPH REASON FOR EXAM: chest tube (off wall suction) COMPARISON: XY CHEST XRAY 1 VIEW on DOS: 08/31/25, XY CHEST XRAY 1 VIEW on DOS: 08/29/25, XY CHEST XR AY 1 VIEW on DOS: 08/28/25, XY CHEST XRAY 1 VIEW on DOS: 08/28/25, XY CHEST PORTABLE on DOS: 08/28/25 TECHNIQUE: One view of the chest is provided FINDINGS: The cardiomediastinal silhouette is stable. There is extensive bilateral airspace disease. The enteric tube, left upper extremity PICC, and left chest tube appear unchanged in position. There is no pneumothorax on the current study. There is small bilateral pleural effusion. There are fractur es of the left 5th and 6th ribs. IMPRESSION: Unchanged appearance of the chest. No pneumothorax.
[2025-09-01] VITALS (18 sets, daily range): BP systolic 98–164; BP diastolic 41–66; PULSE 73–94; RESP 14–22; TEMP 37; O2SAT 95–100
[2025-09-01 04:56] LABS: Mean Corpuscular Hemoglobin 31.8 pg (28.0-32.0); Nucleated Red Blood Cells % 0.1 %
[2025-09-01 04:58] LABS: Hematocrit 24.5 % (36.0-46.0); Hemoglobin 8.0 g/dL (12.2-16.2); Mean Corpuscular Volume 97.6 fL (80.0-100.0)
[2025-09-01 05:02] LABS: Anion Gap 10 (5-15); BUN/Creatinine Ratio 29.1 (10.0-20.0); Bilirubin, Total 1.2 mg/dL (0.2-1.0); Calcium 8.8 mg/dL (8.7-10.4); Carbon Dioxide 26 mmol/L (20-31); Chloride 102 mmol/L (98-107); Glucose 92 mg/dL (74-106); Potassium 5.1 mmol/L (3.5-5.1); Sodium 138 mmol/L (136-145); Total Protein 5.9 g/dL (5.7-8.2)
[2025-09-01 05:17] LABS: Alanine Aminotransferase 42 U/L (7-40); Albumin 2.8 g/dL (3.2-4.8); Alkaline Phosphatase 565 U/L (46-116); Blood Urea Nitrogen 25 mg/dL (9-23)
--- NOTE | 2025-09-01 05:56 | DVH ---
CHEST RADIOGRAPH Indication: pneumothorax Technique: Single frontal view of the chest was obtained Comparison: XY CHEST XRAY 1 VIEW on DOS: 08/31/25 FINDINGS: Lines and Tubes: The enteric tube courses below the left hemidiaphragm and the tip extends outside th e field of view. Left apically oriented chest tube is unchanged in position. There is a left central venous catheter with tip terminating in the superior vena cava. Lungs: Patchy bilateral opacities are similar to prior study. Pleura: No effusion. No pneumothorax. Cardiomediastinal contours: Stable. Bones: Left rib fractures unchanged. IMPRESSION: 1. No significant change in bilateral patchy airspace opacities. 2. No appreciable pneumothorax. Left chest tube unchanged.
--- NOTE | 2025-09-02 11:19 | DVHPNRES ---
Progress Note Date Seen: Sep 01, 2025 Resident Creating Document: PER HARDY RESIDENT Has the PT tested + for MRSA If YES, has PT been informed?: Yes Medical Necessity Reason Pt with a Central, PICC or Fol: Yes Subjective Review of Systems This is a 75-year-old female with a known history of dementia who was brought to the hospital by EMS following a cardiac arrest at home. According to her daughter, the patient was last seen at her baseline the night before the incident, with no complaints. On the morning of 08/15 at approximately 5:30 a.m., she was found kneeling beside her bed with her hand resting on the bed rail, exhibiting labored breathing and a faint carotid pulse. Cardiopulmonary resuscitation (CPR) was initiated by the family, and EMS arrived approximately 15 minutes later. Upon EMS arrival, the patient was found to be in a non-shockable rhythm. En route to the hospital, she received epinephrine and was intubated. Return of spontaneous circulation (ROSC) was achieved prior to hospital arrival. At baseline, the patient lived at home with her daughter. She was non-verbal, required a walker for mobility, and needed assistance with activities of daily living. She was incontinent of bowel and bladder and did not take any prescribed medications, relying instead on holistic remedies. She has no known drug allergies. Patient seen and examined at bedside evaluation today, Patient today is opening her eyes and moving her legs and arms. Patient is maintaining well oxygen with 2L. No new active complaints or overnight events. patient is to be transferred to [place]. Objective vital signs Vital Sign Date Time Temp Pulse Resp B/P (MAP) Pulse Ox O2 Delivery O2 Flow Rate FiO2 09/01/25 14:08 96 Nasal Cannula* 2 28 09/01/25 14:08 86 16 09/01/25 13:00 98.4 120/65 (83) 98.4 Total Intake and Output 08/31/25 08/31/25 09/01/25 15:00 23:00 07:00 Intake Total 50.0 ml 490 ml 50 ml Output Total 320 ml Balance 50.0 ml 170 ml 50 ml medications Current Medications Medications Dose Ordered Sig/[place] Route Start Time Stop Time Status Last Admin Dose Admin Dextrose 50 ml UD PRN IV 08/15/25 10:30 Enteral Nutritional Formula 1,000 ml 30ML/HR GT 08/16/25 12:00 08/31/25 21:28 1,000 ML Hydralazine HCl 10 mg Q6HP PRN IV 08/18/25 16:15 08/31/25 00:11 10 MG Ipratropium [place] 0.5 mg Q6HPRN PRN NEB 08/22/25 01:45 08/31/25 21:38 0.5 MG Levalbuterol HCl 0.625 mg Q6HR PRN NEB 08/22/25 01:45 09/01/25 14:08 0.625 MG Pantoprazole Sodium 40 mg DAILY IV 08/23/25 10:00 09/01/25 08:55 40 MG Sodium Chloride 10 ml QSHIFT@, IV 08/23/25 22:00 09/01/25 08:55 10 ML Amiodarone HCl 200 mg Q12HR PO 08/24/25 10:00 09/01/25 08:56 200 MG Acetaminophen/ Hydrocodone Bitart 1 tab Q6HPRN PRN PO 08/25/25 16:30 09/01/25 14:37 1 TAB Acetaminophen 650 mg Q6HP PRN PO 08/27/25 12:30 08/27/25 12:44 650 MG Cefepime HCl 50 ml @ 12.5 mls/hr Q12HR IV 08/27/25 22:00 09/01/25 08:55 12.5 MLS/HR Acetylcysteine 600 mg TID NEB 08/27/25 22:00 09/01/25 14:08 600 MG Examination pt lying in bed General Appearance: Extubated, opening eyes but not alert, oriented HEENT: Atraumatic, Mucous membranes moist/pink, NG tube in place Respiratory: Bilateral crackles heard on auscultation Cardiovascular: Regular rate, Normal S1, Normal S2, No murmurs Abdominal: Active bowel sounds, Soft, no distention, no tenderness Extremities: No edema, Normal pulses, No tenderness/swelling Skin: Left-sided subcutaneous emphysema, bedside chest tube, has right IJ Neuro: pupils reactive, cough and gag reflex intact laboratory and microbiology Laboratory Tests 09/01/25 03:41 Test 09/01/25 03:41 Range/Units Serum Glucose 92 74-106 mg/dL Microbiology Date/Time Source Procedure Growth Status 08/28/25 15:45 Pleural Fluid Gram Stain - Final Resulted 08/28/25 15:45 Pleural Fluid Body Fluid Culture - Preliminary Resulted 08/28/25 01:55 Sputum Gram Stain - Final Complete 08/28/25 01:55 Sputum Respiratory Culture - Final Complete 08/27/25 20:25 Voided Urine Urine Culture - Final Complete 08/27/25 17:51 Blood Blood Culture - Preliminary NO GROWTH AFTER 72 HOURS OF INCUBATION. Resulted 08/15/25 14:05 Nose MRSA Screen - Final Complete Problem List/Assessment/Plan Problem List/Assessment/Plan Neurology # Acute metabolic/hypoxic encephalopathy: Secondary to cardiac arrest and sepsis. # Dementia: Pre-existing condition. - CT head (08/15): No acute intracranial abnormalities. - CT head (08/17): No acute findings; severe atrophic changes. - Continue supportive care. - Neurology on board, stated that patient has poor prognosis - currently off from all sedatives Cardiovascular # Status post cardiac arrest: Initial rhythm asystole. # Cardiogenic shock. # Possible septic shock. # NSTEMI (Type 2) likely due to above # AFIB with RVR - EKG: Sinus tachycardia, no significant ST/T wave changes. - Troponin I: Mild elevation. - IV fluid resuscitation. - Monitor cardiac enzymes and rhythm - currently not on pressors Respiratory # Acute hypoxic respiratory failure: Secondary to cardiopulmonary arrest status post intubation # Left pneumothorax: Likely CPR-related- and on chest tube # Rib fractures: Multiple left-sided. - Chest X-ray (08/15): ~35% left pneumothorax, multiple left rib fractures. - Chest X-ray (08/16): Slight increase in pneumothorax size, progressive subcutaneous emphysema. - Chest Xray (08/26)- showed Persistent left apical pneumothorax. Left chest tube unchanged in position. Right middle and lower lobe atelectasis. - Chest tube placement. - sputum cultures no growth - discontinued Zosyn 08/27, changed to cefepime, doxycycline - vancomycin discontinued 08/22 - blood culture on 08/15 showed Peptostreptococcus Prevotii. -chest x-ray showed right-sided pleural effusion -bedside ultrasound showed moderate right side pleural effusion, possible right thoracocentesis tomorrow. Gastrointestinal / Nutrition / Liver # Shock liver: Secondary to cardiac arrest. # Transaminitis likely due to shock liver - continuously monitor lab - Nutritional support via Jevity tube feeding. - liver ultrasound showed Multiple liver masses are noted measuring up to 4 cm, concerning for metastases, Gallstones, Mild left hydronephrosis. - noncontrast CT chest/abdomen/pelvis ordered Genitourinary / Kidney / Fluids # Septic shock likely from UTI # Acute Complicated UTI # Acute kidney injury (NAIMA): Likely volume-mediated. # Hypernatremia - Urine culture, blood culture pending - IV antibiotics Zosyn (started 08/16) discontinued vancomycin 08/22 - Monitor renal function and fluid status. - Monitor cultures and adjust antibiotics accordingly. - pancultures ordered(08/27) Musculoskeletal / Skin # Left-sided rib fractures: Due to CPR. - Conservative medical management. - Pain control as needed. Oncology : # right breast mass - breast biopsy to be done - right breast ultrasound showed Heterogeneous shadowing structure in the right breast adjacent to the nipple 9 o'clock region measuring 2.3 x 1.3 x 2.0 cm. Further evaluation with diagnostic mammogram is recommended. - CT chest /abdomen/pelvis showed Heterogeneous hypodense lesions in the liver compatible with metastatic disease. Bony demineralization. Scattered soft tissue lucent lesions in the lumbar spine and pelvis compatible with metastatic disease.Mild ascites and body wall edema. There is either [id number] bilateral hydronephrosis versus bilateral renal sinus cysts, not optimally evaluated without intravenous contrast.Tiny nonobstructing right renal calculus. Ptotic Right kidney. - liver ultrasound showed Multiple liver masses are noted measuring up to 4 cm, concerning for metastases. Gallstones. Mild left hydronephrosis. Nutrition: Jevity via tube feeding. Bowel Regimen: Lactulose as needed. GI Prophylaxis: protonix DVT Prophylaxis: Lovenox. Lines / Tubes / Devices Airway: Intubated via ETT on 08/15. Extubated on 08/24 Vascular Access: Right internal jugular (IJ) central line placed on 08/15., ordered PICC placed 08/25 Drips: Currently off pressors and sedatives. Urinary: [place] catheter placed on 08/15. Goals of care discussed with the patient's family for more than 29 minutes: Full code status Care plan updated to the patient's family on bedside, addressed all concerns, d iscussion with family done in great detail about patient's goals of care, her option of hospice, family communicated understanding, Patient is to be transferred to [place]. Critical care time spent more than 82 minutes excluding procedures and discussion with the family Case discussed with Dr Quintero and RN, daughter(Zoe) Plan discussed with: Daughter My Orders My Orders Orders - PER HARDY Procedure Category Date Status Time * Bdr CONS 09/01/25 Transmitted Consult * Bdr CONS 09/01/25 Transmitted Consult Dietary Evaluation Review Comments: Nutrition Recommendation: 1) EN Jevity 1.2 [place] @ 400ml/hr x 24hr(goal). Water flush 100ml Q6H if allowed, adjust PRN. TF at goal volume provides 1152 kcal (100%), 53gm protein (100%), and 1175 ml free water (including flush). 2) Consider TPN/PN if NPO>7 days 3) Advance diet as medically feasible 4) Monitor TF tolerance, lab values, weight trend, and I/O Expected Outcomes/Goals: Intake to meet >75% estimated needs Lab values to improve Fu 2-3 days Date of Service: Sep 01, 2025 Billing Provider: PURNIMA SOL MD Common Visit Codes: 90336-[id number] CARE 30-74 MIN, [id number] CARE-EACH +30MIN PER HARDY Sep 01, 2025 16:34 PURNIMA SOL MD Sep 03, 2025 11:37
--- NOTE | 2025-09-02 11:48 | DVHDSRES ---
Discharge Summary Date of Admission Resident Creating Document: PER HARDY RESIDENT Aug 15, 2025 at 10:19 Date of Discharge: Aug 29, 2025 Admitting Diagnosis cardiac arrest Labs/Diagnostic Data: Laboratory Results Test 09/01/25 03:41 08/31/25 13:10 08/28/25 15:45 08/28/25 04:20 White Blood Count 15.3 10^3/uL (4.4-10.8) Red Blood Count 2.51 10^6/uL (4.0-5.20) Hemoglobin 8.0 g/dL (12.2-16.2) Hematocrit 24.5 % (36.0-46.0) Mean Corpuscular Volume 97.6 fL (80.0-100.0) Mean Corpuscular Hemoglobin 31.8 pg (28.0-32.0) Mean Corpuscular Hemoglobin Concent 32.6 g/dL (32.0-36.0) Red Cell Distribution Width 14.2 % (11.8-14.3) Platelet Count 580 10^3/uL (140-450) Mean Platelet Volume 7.5 fL (6.9-10.8) Neutrophils (%) (Auto) 80.7 % (37.0-80.0) Lymphocytes (%) (Auto) 7.7 % (10.0-50.0) Monocytes (%) (Auto) 11.1 % (0.0-12.0) Eosinophils (%) (Auto) 0.0 % (0.0-7.0) Basophils (%) (Auto) 0.5 % (0.0-2.0) Neutrophils # (Auto) 12.4 10 ^3/uL (1.6-8.6) Lymphocytes # (Auto) 1.2 10 ^3/uL (0.4-5.4) Monocytes # (Auto) 1.7 10 ^3/uL (0-1.3) Eosinophils # (Auto) 0 10 ^3/uL (0-0.8) Basophils # (Auto) 0.1 10 ^3/uL (0-0.2) Nucleated Red Blood Cells 0.1 % Platelet Estimate Increased Clumped Platelets Few Large Platelets Few Sodium Level 138 mmol/L (136-145) Potassium Level 5.1 mmol/L (3.5-5.1) Chloride Level 102 mmol/L (98-107) Carbon Dioxide Level 26 mmol/L (20-31) Anion Gap 10 (5-15) Blood Urea Nitrogen 25 mg/dL (9-23) Creatinine 0.86 mg/dL (0.550-1.02) Glomerular Filtration Rate Calc 70 mL/min (>90) BUN/Creatinine Ratio 29.1 (10.0-20.0) Serum Glucose 92 mg/dL (74-106) Calcium Level 8.8 mg/dL (8.7-10.4) Total Bilirubin 1.2 mg/dL (0.2-1.0) Aspartate Amino Transferase (AST) 63 U/L (13-40) Alanine Aminotransferase (ALT) 42 U/L (7-40) Alkaline Phosphatase 565 U/L (46-116) Total Protein 5.9 g/dL (5.7-8.2) Albumin 2.8 g/dL (3.2-4.8) Iron Level 26 ug/dL (50-170) Total Iron Binding Capacity 177 ug/dL (250-425) Percent Iron Saturation 14.7 % (15-50) Ferritin 1084.0 ng/mL (10-291) Body Fluid Source Pleural fluid Body Fluid WBC (Manual) 2902 CUMM (0-200) Body Fluid RBC (Manual) 165 CUMM (0-2000) Body Fluid Mononuclear Cells 20 % Body Fluid Polymorphonuclear Cells 80 % (0-25) Body Fluid Glucose 76 mg/dL (.) Body Fluid Total Protein 3.0 g/dL (.) Body Fluid Lactate Dehydrogenase 335 IU/L (.) Phosphorus Level 2.9 mg/dL (2.4-5.1) Magnesium Level 1.7 mg/dL (1.6-2.6) Test 08/26/25 08:47 08/24/25 16:06 08/24/25 07:05 08/23/25 15:22 Blood Gas Specimen Type Arterial Blood Gas Sample Site Right radial Blood Gas Patient Temperature 37.0 Arterial Blood Date Drawn [id number] Arterial Blood pH 7.529 (7.350-7.450) Arterial Blood Partial Pressure CO2 28.3 mmHg (32.0-45.0) Arterial Blood Partial Pressure O2 77.6 mmHg (83.0-108.0) Arterial Blood HCO3 23.1 mmol/L (21.0-28.0) Arterial Blood Oxygen Saturation 95.0 % (94.0-98.0) Arterial Blood Base Excess 0.8 mmol/L (-2.0-3.0) Arterial Blood Oxyhemoglobin 94.3 % (94.0-98.0) Arterial Blood Carboxyhemoglobin 0.3 % (0.5-1.5) Arterial Blood Methemoglobin 0.4 % (0.0-1.5) Rafael Test Yes Blood Gas Total Hemoglobin 9.30 g/dL (12.0-16.0) Blood Gas Liter Flow 2.00 Blood Gas Modality Nasal cannula FiO2 % 28.0 Blood Gas Pressure Support 8 Blood Gas PEEP or CPAP 5.0 Blood Gas Set Respiration Rate 20.0 Blood Gas Tidal Volume 350.0 Urine Color Yellow (Yellow) Urine Clarity Turbid (Clear) Urine pH 5.5 (5.0-9.0) Urine Specific [place] 1.028 (1.001-1.035) Urine Protein Trace (Negative) Urine Ketones Negative (Negative) Urine Blood 1+ /uL (Negative) Urine Nitrite Negative (Negative) Urine Bilirubin Negative (Negative) Urine Urobilinogen Normal mg/dL (Negative) Urine Leukocyte Esterase Negative /uL (Negative) Urine RBC 17 /hpf (0 - 4) Urine Microscopic WBC 3 /HPF (0-5) Urine Squamous Epithelial Cells Few /hpf (<5) Urine Uric Acid Crystals Few /hpf (None Seen) Urine Bacteria Few /hpf (None Seen) Urine Glucose Normal mg/dL (Normal) Test 08/22/25 16:34 08/22/25 14:54 08/21/25 14:18 08/19/25 03:10 Prothrombin Time 10.8 sec (9.3-11.8) Prothrombin Time INR 1.02 (0.9-1.15) Activated Partial Thromboplast Time 25.6 SEC (24.5-34.5) Vancomycin Level Trough 16.0 ug/mL (5-10) Blood Gas Spontaneous Rate 20 Blood Gas Spontaneous Tidal Volume 468 Random Vancomycin Level 12.0 ug/mL (5-10) Test 08/17/25 09:20 08/17/25 04:35 08/15/25 10:35 08/15/25 08:55 Lactic Acid Level 1.0 mmol/L (0.4-2.0) POC Glucose 106 mg/dl (70-106) Troponin I High Sensitivity 75 ng/L (</=34) Blood Gas Critical Value Read Back yes Blood Gas Notified Whom Blood Gas Notified Time [id number] Blood Gas Notified By machine skiver ozzie Test 08/15/25 06:44 Hemoglobin A1c 4.6 % A1C (<5.7) Other Laboratory Tests 09/01/25 03:41 Brief Hx & Hospital Course: This is a 75-year-old female with a known history of dementia who was brought to the hospital by EMS following a cardiac arrest at home. According to her daughter, the patient was last seen at her baseline the night before the incident, with no complaints. On the morning of 08/15 at approximately 5:30 a.m., she was found kneeling beside her bed with her hand resting on the bed rail, exhibiting labored breathing and a faint carotid pulse. Cardiopulmonary resuscitation (CPR) was initiated by the family, and EMS arrived approximately 15 minutes later. Upon EMS arrival, the patient was found to be in a non-shockable rhythm. En route to the hospital, she received epinephrine and was intubated. Return of spontaneous circulation (ROSC) was achieved prior to hospital arrival. At baseline, the patient lived at home with her daughter. She was non-verbal, required a walker for mobility, and needed assistance with activities of daily living. She was incontinent of bowel and bladder and did not take any prescribed medications, relying instead on holistic remedies. She has no known drug allergies. Brief hospital course: The patient was admitted following a cardiac arrest with an initial rhythm of asystole. She was intubated and resuscitated, subsequently developing acute hypoxic respiratory failure and requiring ventilatory support. Imaging revealed a left-sided pneumothorax and multiple rib fractures, likely CPR-related, necessitating chest tube placement. A right-sided pleural effusion was later identified, and thoracentesis was performed. She experienced cardiogenic and possible septic shock, with mild troponin elevation consistent with a Type 2 NSTEMI. AFib with RVR was noted, and she was managed with IV fluids; no vasopressors were required. Neurologically, she suffered acute metabolic/hypoxic encephalopathy secondary to cardiac arrest and sepsis, with a poor prognosis per neurology consult. CT imaging showed no acute intracranial abnormalities but revealed severe atrophic changes. She was extubated on hospital day 9 and is currently off sedatives. Infectious workup revealed Peptostreptococcus prevotii in blood cultures, and she was treated with Zosyn, later transitioned to cefepime and doxycycline. Vancomycin was discontinued. Pancultures were obtained due to ongoing concerns for sepsis, likely secondary to a complicated UTI. Liver function tests indicated transaminitis consistent with shock liver. Imaging revealed multiple liver masses concerning for metastases, gallstones, and mild hydronephrosis. A right breast mass was identified, and biopsy is pending. CT imaging further supported metastatic disease with liver and bone involvement. Renal function was impaired, likely due to volume depletion, with hypernatremia noted. Nutritional support was initiated via Jevity tube feeding. DVT prophylaxis with Lovenox and GI prophylaxis with Protonix were maintained. Goals of care were discussed extensively with the family, and the patient remains full code. Patient is in fair condition to gets transferred to [place]. A lengthy discussion was taken place with family regarding patient's poor condition and poor prognosis, family understands and agreed to transfer to [place]. Patient has a chest tube placed and the suction was removed for transfer to [place]. Patient still has chest tube in place with water seal, and patient is stable to be transferred. General Appearance: Extubated, opening eyes but not alert, oriented HEENT: Atraumatic, Mucous membranes moist/pink, NG tube in place Respiratory: Bilateral crackles heard on auscultation Cardiovascular: Regular rate, Normal S1, Normal S2, No murmurs Abdominal: Active bowel sounds, Soft, no distention, no tenderness Extremities: No edema, Normal pulses, No tenderness/swelling Skin: Left-sided subcutaneous emphysema, bedside chest tube, Neuro: pupils reactive, cough and gag reflex intact Total critical time spent on discharge planning 63 minutes. Operations or Procedures ORDERING PHYSICIAN: WALESKA MCPHERSON MD PROCEDURE(s): HWOCT - HEAD WITHOUT CONTRAST REASON: cpr ORDER NUMBER(s): [id number], ACCESSION NUMBER(s): [id number] EXAM: CT HEAD WITHOUT CONTRAST HISTORY: cpr COMPARISON: None TECHNIQUE: Noncontrast axial CT images of the head were performed. Sagittal and coronal reformatted images were obtained. This CT exam was performed using 1 or more of the following dose reduction techniques: Automated exposure control, adjustment of the mA and/or kv according to patient size, or the use of iterative reconstruction techniques. Radiation Dose: CTDI volume is 50.73 mGy. Dose-length product is 811.62 mGy*cm FINDINGS: There is global brain atrophy with prominence of the ventricular system and sulci. The ventricular system is dilated out of proportion to the size of the sulci. No intracranial hemorrhage, mass, midline shift, or evidence of acute large vessel infarct. The paranasal sinuses are clear. The bilateral mastoid air cells and middle ear spaces are clear. No cranial fracture or scalp edema. Endotracheal tube and right NG tube are partially visualized. IMPRESSION: Global brain atrophy with prominence of the ventricular system out of proportion to the size of the sulci. This appearance may be due to central brain atrophy or normal pressure hydrocephalus. ATED BY: EVANS ALMODOVAR MD DICTATED DATE/TIME: 08/15/25 0953 ORDERING PHYSICIAN: WALESKA MCPHERSON MD PROCEDURE(s): CXRP - CHEST PORTABLE REASON: cpr ORDER NUMBER(s): [id number], ACCESSION NUMBER(s): [id number] ADDENDUM ADDENDUM # 1 critical result: Pneumothorax Findings discussed with Dr. Mcpherson on 08/15/2025 at 10:[address] Carpenter, with acknowledged receipt and understanding of the findings. ORIGINAL REPORT CHEST RADIOGRAPH Indication: cpr Technique: Single frontal view of the chest was obtained Comparison: None FINDINGS: The patient is rotated which limits evaluation. Lines and Tubes: The endotracheal tube terminates 1.1 cm above the arin. There is a right central venous catheter with its tip terminating in the superior vena cava. Lungs: Hazy bilateral opacities noted. Pleura: No effusion. There is a left pneumothorax, approximately 35%. Cardiomediastinal contours: Unremarkable Bones: Multiple left rib fractures noted. IMPRESSION: 1. Left pneumothorax, approximately 35%. 2. Endotracheal tube terminates 1.1 cm above the arin. Retraction by 1-2 cm is recommended. 3. Multiple left rib fractures. 4. Pulmonary edema noted. ATED BY: JOCELYNN CARPENTER MD DICTATED DATE/TIME: 08/15/25743 SIGNED BY: JOCELYNN CARPENTER MD SIGNED DATE/TIME: 08/15/25743 ORDERING PHYSICIAN: TOIN HINOJOSA MD PROCEDURE(s): HWOCT - HEAD WITHOUT CONTRAST REASON: ALOC ORDER NUMBER(s): [id number], ACCESSION NUMBER(s): [id number] EXAM: CT HEAD WITHOUT CONTRAST INDICATION: ALOC TECHNIQUE: CT of the head without intravenous contrast. Radiation Dose : 1. Head: CT Dose: CTDI volume is 60.12 mGy. Dose-length product is 963.7 mGy*cm The dose indicators for CT are the volume Computed Tomography (CT) Dose Index (CTDIvol) and the Dose Length Product (DLP), and are measured in units of mGy and mGy-cm, respectively. These indicators are not patient dose, but values generated from the CT scanner acquisition factors. The report includes radiation exposure data for exposures received during this examination. COMPARISON: CT HEAD WITHOUT CONTRAST on DOS: 08/15/25 FINDINGS: There is no evidence of acute intracranial hemorrhage, extra-axial collection, mass effect, midline shift, herniation or hydrocephalus. Pronounced increased prominence of the ventricles, sulci and cisterns consistent with sequelae of atrophic cortical volume loss. The howard-white differentiation is intact. Moderate diffuse confluent periventricular and subcortical white matter hypoattenuation is nonspecific but may be related to small vessel ischemic disease. The visualized paranasal sinuses and mastoid air cells are clear. The surrounding soft tissues and osseous structures are unremarkable. IMPRESSION: 1. No acute intracranial abnormality. 2. 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 loss. Radiation optimization: All CT scans at this facility use at least one of these dose optimization techniques: automated exposure control mA and/or kV adjustment per patient size (includes targeted exams where dose is matched to clinical indication) or iterative reconstruction. ATED BY: ARABELLA WICK MD DICTATED DATE/TIME: 08/17/25 0334 ORDERING PHYSICIAN: PURNIMA SOL MD PROCEDURE(s): CXRP - CHEST PORTABLE REASON: intubated ORDER NUMBER(s): [id number], ACCESSION NUMBER(s): [id number] CHEST RADIOGRAPH Indication: intubated Technique: Single frontal view of the chest was obtained Comparison: XY CHEST PORTABLE on DOS: 08/22/25, XY CHEST XRAY 1 VIEW on DOS: 08/21/25, XY CHEST XRAY 1 VIEW on DOS: 08/20/25 FINDINGS: Lines and Tubes: The endotracheal tube terminates 2.1 cm above the arin. The enteric tube terminates in the stomach. There is a right central venous catheter with its tip terminating in the right atrium. Lungs: Bilateral Interstitial prominence. No focal consolidation. Pleura: No effusion. No pneumothorax. Cardiomediastinal contours: Unremarkable Bones: No acute osseous abnormality. IMPRESSION: 1. Support tubes in appropriate position. 2. Bilateral interstitial prominence which may reflect pulmonary edema or atypical infection. ATED BY: JOCELYNN CARPENTER MD DICTATED DATE/TIME: 08/23/25 0914 ORDERING PHYSICIAN: PER HARDY PROCEDURE(s): ABDC - ABDOMEN COMPLETE SONOGRAM REASON: transaminitis, NAIMA ORDER NUMBER(s): [id number], ACCESSION NUMBER(s): [id number] INDICATION: transaminitis, NAIMA TECHNIQUE: Multiple real-time sonographic images of the abdomen were obtained. COMPARISON: None FINDINGS: The liver is heterogeneous in echogenicity. The liver measures 15cm. No intrahepatic biliary ductal dilatation is noted. The gallbladder wall measures 0.3 cm and is unremarkable. Gallstones are present.. The common duct measures 0.4 cm and is unremarkable. No pericholecystic fluid is noted. The right kidney measures 7cm. No hydronephrosis. The left kidney measures 9cm. Mild left hydronephrosis. Multiple liver masses are noted measuring up to 4 cm, concerning for metastases. The pancreas is not well visualized due to obscuration from bowel gas. The visualized portions of the IVC and aorta are grossly unremarkable. IMPRESSION: Multiple liver masses are noted measuring up to 4 cm, concerning for metastases. Gallstones. Mild left hydronephrosis. ATED BY: OTF SILVA MD DICTATED DATE/TIME: 08/23/25 1537 ORDERING PHYSICIAN: PER HARDY PROCEDURE(s): ABDC - ABDOMEN COMPLETE SONOGRAM REASON: transaminitis, NAIMA ORDER NUMBER(s): [id number], ACCESSION NUMBER(s): [id number] INDICATION: transaminitis, NAIMA TECHNIQUE: Multiple real-time sonographic images of the abdomen were obtained. COMPARISON: None FINDINGS: The liver is heterogeneous in echogenicity. The liver measures 15cm. No intrahepatic biliary ductal dilatation is noted. The gallbladder wall measures 0.3 cm and is unremarkable. Gallstones are present.. The common duct measures 0.4 cm and is unremarkable. No pericholecystic fluid is noted. The right kidney measures 7cm. No hydronephrosis. The left kidney measures 9cm. Mild left hydronephrosis. Multiple liver masses are noted measuring up to 4 cm, concerning for metastases. The pancreas is not well visualized due to obscuration from bowel gas. The visualized portions of the IVC and aorta are grossly unremarkable. IMPRESSION: Multiple liver masses are noted measuring up to 4 cm, concerning for metastases. Gallstones. Mild left hydronephrosis. ATED BY: OTF SILVA MD DICTATED DATE/TIME: 08/23/25 1537 - ORDERING PHYSICIAN: PER HARDY PROCEDURE(s): RBRST - R BREAST ULTRASOUND REASON: breast mass ORDER NUMBER(s): [id number], ACCESSION NUMBER(s): [id number] US OF THE RIGHT BREAST INDICATION: breast mass TECHNIQUE: Targeted right breast ultrasound was performed. COMPARISON: Prior exam dated: none FINDINGS: Heterogeneous shadowing structure in the right breast adjacent to the nipple 9 o'clock region measuring 2.3 x 1.3 x 2.0 cm. Evaluation is significantly limited due to technique of the exam. IMPRESSION: Heterogeneous shadowing structure in the right breast adjacent to the nipple 9 o'clock region measuring 2.3 x 1.3 x 2.0 cm. Further evaluation with diagnostic mammogram is recommended. ACR Bi Rads Category:Category 0-"INCOMPLETE" (Needs Additional Imaging Evaluation)) ATED BY: ANTONIETA LORENZANA MD DICTATED DATE/TIME: 08/24/25 1646 ORDERING PHYSICIAN: ELROY SEO RESIDENT PROCEDURE(s): CHSTU - CHEST ULTRASOUND REASON: ?parapneumonic effusion ORDER NUMBER(s): [id number], ACCESSION NUMBER(s): [id number] US CHEST ULTRASOUND, HISTORY: parapneumonic effusion COMPARISON(S): XY CHEST XRAY 1 VIEW on DOS: 08/25/25, XY CHEST XRAY 1 VIEW on DOS: 08/24/25, XY CHEST PORTABLE on DOS: 08/23/25 TECHNICAL DATA: Transverse and longitudinal images are obtained of the chest. FINDING: IMPRESSION(S): There is trace right effusion seen. No effusion seen on the left. ATED BY: JAMES HINOJOSA MD DICTATED DATE/TIME: 08/25/25 0924 ORDERING PHYSICIAN: ELROY SEO RESIDENT PROCEDURE(s): CXR1 - CHEST XRAY 1 VIEW REASON: s/p thoracentesis ORDER NUMBER(s): [id number], ACCESSION NUMBER(s): [id number] CHEST RADIOGRAPH Indication: s/p thoracentesis Technique: Single frontal view of the chest was obtained Comparison: XY CHEST XRAY 1 VIEW on DOS: 08/28/25, XY CHEST PORTABLE on DOS: 08/28/25, XY CHEST XRAY 1 VIEW on DOS: 08/27/25 FINDINGS: Lines and Tubes: Enteric tube below the left diaphragm in the stomach. PICC line from left arm in place with the tip in the superior vena cava above the right atrium. Left-sided chest tube in place with the tip in the apex not significantly changed from earlier study 08/28/2025 Lungs: Patchy bilateral airspace disease appears slightly worse than 08/28/2025 0919. Pleura: No effusion. Small residual left apical pneumothorax smaller than on previous film Cardiomediastinal contours: Unremarkable Bones: No acute osseous abnormality. IMPRESSION: 1. Worsening bilateral airspace disease. 2. Left-sided chest tube in place with the tip in the apex the residual pneumothorax on the left appears slightly smaller than on prior study. 3. Enteric tube in the stomach. 4. PICC line from left arm in place in the superior vena cava not significantly changed from earlier study. ATED BY: JERAMIE LIZAMA Jr., DO DICTATED DATE/TIME: 08/28/251838 ORDERING PHYSICIAN: ELROY SEO PROCEDURE(s): CXR1 - CHEST XRAY 1 VIEW REASON: pneumothorax ORDER NUMBER(s): [id number], ACCESSION NUMBER(s): [id number] CHEST RADIOGRAPH Indication: pneumothorax Technique: Single frontal view of the chest was obtained COMPARISON: XY CHEST XRAY 1 VIEW on DOS: 08/28/25, XY CHEST XRAY 1 VIEW on DOS: 08/28/25, XY CHEST PORTABLE on DOS: 08/28/25, XY CHEST XRAY 1 VIEW on DOS: 08/27/25, XY CHEST XRAY 1 VIEW on DOS: 08/26/25 FINDINGS: Lines and Tubes: Unchanged. Lungs: Grossly stable appearing patchy bibasilar pulmonary airspace disease. Pleura: No effusion. No pneumothorax. Cardiomediastinal contours: Unremarkable Bones: Unremarkable IMPRESSION: 1. Stable appearing patchy bibasilar pulmonary airspace disease. 2. Lines and tubes unchanged. ATED BY: ARABELLA WICK MD DICTATED DATE/TIME: 08/29/25 0421 ORDERING PHYSICIAN: PER HARDY RESIDENT PROCEDURE(s): CXR1 - CHEST XRAY 1 VIEW REASON: pneumothorax ORDER NUMBER(s): [id number], ACCESSION NUMBER(s): [id number] CHEST RADIOGRAPH Indication: pneumothorax Technique: Single frontal view of the chest was obtained Comparison: XY CHEST XRAY 1 VIEW on DOS: 08/31/25 FINDINGS: Lines and Tubes: The enteric tube courses below the left hemidiaphragm and the tip extends outside the field of view. Left apically oriented chest tube is unchanged in position. There is a left central venous catheter with tip terminating in the superior vena cava. Lungs: Patchy bilateral opacities are similar to prior study. Pleura: No effusion. No pneumothorax. Cardiomediastinal contours: Stable. Bones: Left rib fractures unchanged. IMPRESSION: 1. No significant change in bilateral patchy airspace opacities. 2. No appreciable pneumothorax. Left chest tube unchanged. ATED BY: JOCELYNN CARPENTER MD DICTATED DATE/TIME: 09/01/25 0554 Condition at Discharge: Good Final Diagnosis/Problems List # Acute metabolic/hypoxic encephalopathy: Secondary to cardiac arrest and sepsis. # Dementia: Pre-existing condition. # Status post cardiac arrest: Initial rhythm asystole. # Cardiogenic shock. # Possible septic shock. # NSTEMI (Type 2) likely due to above # AFIB with RVR # Acute hypoxic respiratory failure: Secondary to cardiopulmonary arrest # Left pneumothorax: Likely CPR-related- and on chest tube # Rib fractures: Multiple left-sided. # Shock liver: Secondary to cardiac arrest. # Transaminitis likely due to shock liver # Septic shock likely from UTI # Acute Complicated UTI # Acute kidney injury (NAIMA): Likely volume-mediated. # Hypernatremia # Left-sided rib fractures: Due to CPR. # right breast mass # METS TO BONE/LIVER/SPINE Discharge Disposition: Acute Care Facility Discharge Instruct/Medications Diet: See Comment Diet comment: jevity, NPO Activity: Bed rest Medications: As per prescription No Active Prescriptions or Reported Meds Discharge Statement: "Patient was advised to return to the ER or call 911 if any headaches, dizziness, shortness of breath, chest pain, abdominal pain, bleeding, fevers, or worsening of medical condition. Patient was counseled about treatment plan, medications, possible side effects, patientverbalized understanding. All questions were answered to the best of my ability. This discharge took greater then 30 minutes in planning, reviewing documentation, counseling the patient, and discussing with other team members." ASSESSMENT ASSESSMENT Assessment # Acute metabolic/hypoxic encephalopathy: Secondary to cardiac arrest and sepsis. # Dementia: Pre-existing condition. # Status post cardiac arrest: Initial rhythm asystole. # Cardiogenic shock. # Possible septic shock. # NSTEMI (Type 2) likely due to above # AFIB with RVR # Acute hypoxic respiratory failure: Secondary to cardiopulmonary arrest # Left pneumothorax: Likely CPR-related- and on chest tube # Rib fractures: Multiple left-sided. # Shock liver: Secondary to cardiac arrest. # Transaminitis likely due to shock liver # Septic shock likely from UTI # Acute Complicated UTI # Acute kidney injury (NAIMA): Likely volume-mediated. # Hypernatremia # Left-sided rib fractures: Due to CPR. # right breast mass # METS TO BONE/LIVER/SPINE Date of Service: Aug 29, 2025 Billing Provider: PURNIMA SOL MD Common Visit Codes: [id number] CARE 30-74 MIN PER HARDY RESIDENT Sep 02, 2025 11:48 PURNIMA SOL MD Sep 03, 2025 11:39
== END 2025-09-01 22:00 | disposition short-term general hospital (02) | DRG 870 ==
LOC: ER 06:25 → EDBD 06:25 → OVERFLOW 10:19 → ICU WEST 12:04 → TELE-WESTW 09-01 04:07
PROVIDERS: ADMIT Internal Medicine; ATTEND Internal Medicine
PROC: 5A1955Z Respiratory Ventilation, Greater than 96 Consecutive Hours (ICD-10-PCS; principal; 2025-08-15)
PROC: 02HV33Z Insertion of Infusion Device into Superior Vena Cava, Percutaneous Approach (ICD-10-PCS; 2025-08-15)
PROC: 0W9B30Z Drainage of Left Pleural Cavity with Drainage Device, Percutaneous Approach (ICD-10-PCS; 2025-08-15)
PROC: 0BH17EZ Insertion of Endotracheal Airway into Trachea, Via Natural or Artificial Opening (ICD-10-PCS; 2025-08-15)
PROC: 02HV33Z Insertion of Infusion Device into Superior Vena Cava, Percutaneous Approach (ICD-10-PCS; 2025-08-23)
PROC: B548ZZA Ultrasonography of Superior Vena Cava, Guidance (ICD-10-PCS; 2025-08-23)
PROC: 0W993ZX Drainage of Right Pleural Cavity, Percutaneous Approach, Diagnostic (ICD-10-PCS; 2025-08-28)
DX: A41.9 Sepsis, unspecified organism (principal); G92.8 Other toxic encephalopathy; I46.9 Cardiac arrest, cause unspecified; I21.A1 Myocardial infarction type 2; N17.0 Acute kidney failure with tubular necrosis; R65.21 Severe sepsis with septic shock; J96.01 Acute respiratory failure with hypoxia; K72.00 Acute and subacute hepatic failure without coma; S22.42XA Multiple fractures of ribs, left side, initial encounter for closed fracture; S27.0XXA Traumatic pneumothorax, initial encounter; J81.1 Chronic pulmonary edema; E87.20 Acidosis, unspecified; G93.1 Anoxic brain damage, not elsewhere classified; N39.0 Urinary tract infection, site not specified; E87.0 Hyperosmolality and hypernatremia; C78.7 Secondary malignant neoplasm of liver and intrahepatic bile duct; C79.51 Secondary malignant neoplasm of bone; R64 Cachexia; F03.90 Unspecified dementia, unspecified severity, without behavioral disturbance, psychotic disturbance, mood disturbance, and anxiety; C50.919 Malignant neoplasm of unspecified site of unspecified female breast; R73.9 Hyperglycemia, unspecified; R74.01 Elevation of levels of liver transaminase levels; I48.91 Unspecified atrial fibrillation; Z80.1 Family history of malignant neoplasm of trachea, bronchus and lung; Z79.899 Other long term (current) drug therapy; Z99.81 Dependence on supplemental oxygen; X58.XXXA Exposure to other specified factors, initial encounter; Y93.89 Activity, other specified; Y92.89 Other specified places as the place of occurrence of the external cause; Y99.8 Other external cause status
CPT/HCPCS: 31500; 32555; 36415; 36556; 36569; 36600; 70450; 71045; 71250; 73030; 74176; 76604; 76642; 76700; 76937; 80048; 80053; 80202; 81001; 82728; 82805; 82962; 83036; 83540; 83550; 83605; 83735; 84100; 84132; 84484; 85014; 85018; 85025; 85610; 85730; 86850; 86900; 86901; 86920; 87040; 87070; 87071; 87077; 87081; 87086; 87205; 89051; 92610; 93005; 93306; 94002; 94003; 94640; 94667; 94668; 95819; 99291; G0378; J0153; J2470; J2543; J3480; J3490